=== PATIENT | male | born 1965 | race Caucasian/White ===

== ENCOUNTER 2017-10-28 15:55 | Emergency (ER) | payer OTHER, SELFPAY ==
[2017-10-28] MEDS ORDERED: KETOROLAC 30 MG/ML INJ ONE (16:26)
[2017-10-28] MEDS ORDERED: HYDROCODONE/APAP 7.5/325 MG TAB ONE (16:26)
[2017-10-28] MEDS ORDERED: CYCLOBENZAPRINE 10 MG TAB ONE (16:26)
--- NOTE | 2017-10-28 16:54 | RAD REPORT ---
EXAM DESCRIPTION: RAD - Shoulder Right 2 View - 10/28/2017 4:44 pm CLINICAL HISTORY: Right shoulder pain FINDINGS: No fracture or dislocation is seen. Mild osteoarthritis involves the glenohumeral and acro mioclavicular joints
--- NOTE | 2017-10-28 17:25 | EDPHYS ---
Physician Documentation [facility] Name: Jae Connolly Age: 52 yrs Sex: Male : 1965 Arrival Date: 10/28/2017 Time: 15:59 Bed 27 Private MD: German Ferrell T ED Physician Ck Falcon HPI: 10/28 16:21 This 52 yrs old Male presents to ER via Ambulatory with complaints of cp Shoulder Pain. 16:21 The patient or guardian complains of decreased range of motion, pain, that is acute, cp tenderness. right shoulder. 16:21 Context: The problem was sustained at home, resulted from pushing heavy plant, The cp patient reports no obvious deformity. felt "pop" in shoulder. Onset: The symptoms/episode began/occurred today. Associated signs and symptoms: Pertinent negatives: abdominal pain, chest pain, diaphoresis, neck pain, shortness of breath. Treatment prior to arrival includes: no previous treatment. Historical: - Allergies: 16:06 No Known Allergies; la1 - PMHx: 16:06 Asthma; la1 - Immunization history:: Adult Immunizations up to date. - Social history:: Smoking status: Patient uses tobacco products, smokes one-half pack cigarettes per day. ROS: 16:25 Constitutional: Negative for body aches, chills, fever, poor PO intake. cp 16:25 Eyes: Negative for injury, pain, redness, and discharge. cp 16:25 ENT: Negative for drainage from ear(s), ear pain, sore throat, difficulty swallowing, difficulty handling secretions. 16:25 Neck: Negative for pain with movement, pain at rest, stiffness, bony tenderness. 16:25 Cardiovascular: Negative for chest pain, edema, palpitations. 16:25 Respiratory: Negative for cough, shortness of breath, wheezing. 16:25 Abdomen/GI: Negative for abdominal pain, nausea, vomiting, and diarrhea, constipation, black/tarry stool, rectal bleeding. 16:25 Back: Negative for pain at rest, pain with movement, radiated pain. 16:25 : Negative for urinary symptoms. 16:25 MS/extremity: Positive for decreased range of motion, pain, tenderness, of the right shoulder, Negative for deformity, paresthesias. 16:25 Neuro: Negative for altered mental status, headache. 16:25 All other systems are negative. Exam: 16:35 Constitutional: The patient appears in no acute distress, alert, awake, cp non-diaphoretic, non-toxic, well developed, well nourished, uncomfortable. 16:35 Head/Face: Normocephalic, atraumatic. cp 16:35 Eyes: Periorbital structures: appear normal, Conjunctiva: normal, no exudate, no injection, Sclera: no appreciated abnormality, Lids and lashes: appear normal, bilaterally. 16:35 ENT: External ear(s): are unremarkable, Nose: is normal, Mouth: is normal, Posterior pharynx: is normal, airway is patent. 16:35 Neck: C-spine: appears grossly normal, no vertebral tenderness, no crepitus, ROM/movement: is normal, is supple, without pain, no range of motions limitations, no nuchal rigidity. 16:35 Chest/axilla: Inspection: normal, Palpation: is normal, no crepitus, no tenderness. 16:35 Cardiovascular: Rate: normal, Rhythm: regular, Pulses: Pulses are 2+ in right radial artery and left radial artery. Edema: is not appreciated, JVD: is not appreciated. 16:35 Respiratory: the patient does not display signs of respiratory distress, Respirations: normal, no use of accessory muscles, no retractions, no splinting, no tachypnea, labored breathing, is not present, Breath sounds: are clear throughout, no decreased breath sounds, no stridor, no wheezing. 16:35 Abdomen/GI: Exam negative for discomfort, distension, guarding, Inspection: abdomen appears normal. 16:35 Back: pain, is absent, ROM is normal. 16:35 Musculoskeletal/extremity: Extremities: grossly normal except: noted in the right shoulder: decreased ROM, pain, tenderness, There is no evidence of deformity, ROM: limited passive range of motion, in the right shoulder, limited passive range of motion due to pain, in the right shoulder, Perfusion: the extremity is normally perfused throughout, Sensation intact. 16:35 Skin: cellulitis, is not appreciated, no rash present. Vital Signs: 16:06 BP 148 / 90; Pulse 75; Resp 19; Temp 98.2(TE); Pulse Ox 100% on R/A; Weight 119.29 kg; la1 Height 5 ft. 11 in. (180.34 cm); 17:23 BP 139 / 84; Pulse 87; Resp 16; Pulse Ox 98% on R/A; Pain 6/10; ed1 16:06 Body Mass Index 36.68 (119.29 kg, 180.34 cm) la1 MDM: 16:20 Patient medically screened. cp 16:30 Differential diagnosis: tendonitis, strain, dislocation, frozen shoulder. cp 17:22 Data reviewed: vital signs, nurses notes, radiologic studies, plain films. cp 17:22 Test interpretation: by ED physician or midlevel provider: plain radiologic studies. cp 17:23 Counseling: I had a detailed discussion with the patient and/or guardian regarding: the cp historical points, exam findings, and any diagnostic results supporting the discharge/admit diagnosis, radiology results, the need for outpatient follow up, a orthopedic surgeon, to return to the emergency department if symptoms worsen or persist or if there are any questions or concerns that arise at home. 17:23 Response to treatment: the patient's symptoms have mildly improved after treatment, and cp as a result, I will discharge patient. 10/28 16:20 Order name: XRAY Shoulder RIGHT 2 view cp 10/28 17:07 Order name: Sling; Complete Time: 17:23 cp Administered Medications: 16:30 Drug: TORadol 60 mg Route: IM; Site: left gluteus; ed1 17:24 Follow up: Response: No adverse reaction; Pain is decreased ed1 16:30 Drug: Hydrocodone-Acetaminophen (7.5 mg-325 mg) 1 tabs Route: PO; ed1 17:24 Follow up: Response: Pain is decreased ed1 16:30 Drug: Flexeril 10 mg Route: PO; ed1 17:24 Follow up: Response: No adverse reaction; Pain is decreased ed1 Disposition: 10/29 09:21 Co-signature as Attending Physician, Ck Falcon MD I agree with the assessment and jacobo plan of care. Disposition: 10/28/17 17:24 Discharged to Home. Impression: Pain in right shoulder. - Condition is Stable. - Discharge Instructions: Shoulder Pain. - Prescriptions for Ultracet 37.5- 325 mg Oral Tablet - take 1 tablet by ORAL route every 6 hours - for up to 5 days; do not exceed 8 tablets per day. no driving while taking medication; 20 tablet. Cyclobenzaprine 10 mg Oral Tablet - take 1 tablet by ORAL route every 8 hours As needed no driving while taking medication; 20 tablet. Diclofenac Sodium 75 mg Oral Tablet, Delayed Release (E.C.) - take 1 tablet by ORAL route 2 times per day; 20 tablet. - Medication Reconciliation Form, Thank You Letter, Antibiotic Education, Prescription Opioid Use form. - Follow up: Willian Martínez MD; When: 2 - 3 days; Reason: right shoulder pain. - Problem is new. - Symptoms have improved. Signatures: Dispatcher [employer] EDAR Ck Falcon MD MD cha Riggs, Erika, RN PALLIATIVE RN PALLIATIVE ed1 Bright Soria RN RN la1 Ck Fox PA PA cp Corrections: (The following items were deleted from the chart) 10/28 17:38 17:24 10/28/2017 17:24 Discharged to Home. Impression: Pain in right shoulder. ed1 Condition is Stable. Forms are Medication Reconciliation Form, Thank You Letter, Antibiotic Education, Prescription Opioid Use. Follow up: Willian Martínez; When: 2 - 3 days; Reason: right shoulder pain. Problem is new. Symptoms have improved. cp
--- NOTE | 2017-10-28 17:25 | ER ---
Nurse's Notes [facility] Name: Jae Connolly Age: 52 yrs Sex: Male : 1965 Arrival Date: 10/28/2017 Time: 15:59 Bed 27 Private MD: German Ferrell T Diagnosis: Pain in right shoulder Presentation: 10/28 16:05 Presenting complaint: Patient states: I felt my right shoulder pop when I was trying to la1 push a heavy object. Transition of care: patient was not received from another setting of care. Onset of symptoms was October 28, 2017. Initial Sepsis Screen: Does the patient meet any 2 criteria? No. Patient's initial sepsis screen is negative. Does the patient have a suspected source of infection? No. Patient's initial sepsis screen is negative. Care prior to arrival: None. 16:05 Method Of Arrival: Ambulatory la1 16:05 Acuity: KIARA 3 la1 Historical: - Allergies: 16:06 No Known Allergies; la1 - PMHx: 16:06 Asthma; la1 - Immunization history:: Adult Immunizations up to date. - Social history:: Smoking status: Patient uses tobacco products, smokes one-half pack cigarettes per day. Screenin:08 Abuse screen: Denies threats or abuse. Denies injuries from another. Nutritional ed1 screening: No deficits noted. Tuberculosis screening: No symptoms or risk factors identified. Fall Risk None identified. Assessment: 16:08 General: Appears in no apparent distress. Behavior is calm, cooperative. Pain: ed1 Complains of pain in anterior aspect of right shoulder and posterior aspect of right shoulder Pain does not radiate. Pain currently is 6 out of 10 on a pain scale. Quality of pain is described as aching, throbbing, Pain began years ago. worsened today. Neuro: Level of Consciousness is awake, alert, obeys commands, Oriented to person, place, time, situation. Cardiovascular: Denies chest pain, Heart tones S1 S2 present. Respiratory: Airway is patent Respiratory effort is even, unlabored, Respiratory pattern is regular, symmetrical, Breath sounds are clear bilaterally. GI: No signs and/or symptoms were reported involving the gastrointestinal system. : No signs and/or symptoms were reported regarding the genitourinary system. EENT: No signs and/or symptoms were reported regarding the EENT system. Derm: Skin is pink, warm \T\ dry. Musculoskeletal: Circulation, motion, and sensation intact. Capillary refill < 3 seconds, in bilateral fingers. Range of motion: limited in right shoulder Swelling absent. 16:08 Reassessment: I agree with assessment completed by JUDI Rodrigues . aa5 17:23 Reassessment: Patient appears in no apparent distress at this time. Patient and/or ed1 family updated on plan of care and expected duration. Pain level reassessed. Patient is alert, oriented x 3, equal unlabored respirations, skin warm/dry/pink. Patient states feeling better. Vital Signs: 16:06 BP 148 / 90; Pulse 75; Resp 19; Temp 98.2(TE); Pulse Ox 100% on R/A; Weight 119.29 kg; la1 Height 5 ft. 11 in. (180.34 cm); 17:23 BP 139 / 84; Pulse 87; Resp 16; Pulse Ox 98% on R/A; Pain 6/10; ed1 16:06 Body Mass Index 36.68 (119.29 kg, 180.34 cm) la1 ED Course: 15:59 Patient arrived in ED. sb2 15:59 German Ferrell MD is Private Physician. sb2 16:06 Triage completed. la1 16:06 Arm band placed on right wrist. la1 16:08 Lilia Hatch LVN is Primary Nurse. ed1 16:08 Awaiting ED provider evaluation. ed1 16:08 Patient has correct armband on for positive identification. Bed in low position. Call ed1 light in reach. Adult w/ patient. 16:14 Ck Fox PA is PHCP. cp 16:14 Ck Falcon MD is Attending Physician. cp 16:42 X-ray completed. Portable x-ray completed in exam room. Patient tolerated procedure kp1 well. 16:43 XRAY Shoulder RIGHT 2 view In Process Unspecified. EDMS 17:23 Sling applied to right arm. ed1 17:24 Willian Martínez MD is Referral Physician. cp 17:38 No provider procedures requiring assistance completed. Patient did not have IV access ed1 during this emergency room visit. Administered Medications: 16:30 Drug: TORadol 60 mg Route: IM; Site: left gluteus; ed1 17:24 Follow up: Response: No adverse reaction; Pain is decreased ed1 16:30 Drug: Hydrocodone-Acetaminophen (7.5 mg-325 mg) 1 tabs Route: PO; ed1 17:24 Follow up: Response: Pain is decreased ed1 16:30 Drug: Flexeril 10 mg Route: PO; ed1 17:24 Follow up: Response: No adverse reaction; Pain is decreased ed1 Outcome: 17:24 Discharge ordered by . lisette 17:38 Discharged to home ambulatory, with family. ed1 17:38 Condition: good 17:38 Discharge instructions given to patient, Instructed on discharge instructions, follow up and referral plans. medication usage, Demonstrated understanding of instructions, follow-up care, medications, Prescriptions given X 3. 17:38 Patient left the ED. ed1 Signatures: Dispatcher [employer] EDMS Christina العراقي, RN RN aa5 Lilia Hatch LVN DESKTOP ANALYST ed1 Bright Soria RN RN la1 Ck Fox PA PA Courtney Estrada kp1 Olga Man sb2
== END 2017-10-28 17:38 | disposition home or self-care (01) ==
LOC: ER 15:55
DX: M25.511 Pain in right shoulder (principal); F17.210 Nicotine dependence, cigarettes, uncomplicated
CPT/HCPCS: 96372; 99284

== ENCOUNTER 2018-10-15 14:21 | Emergency (ER) | payer BC ==
--- OUTSIDE RECORDS SUMMARY | 2018-10-15 14:23 | XMS REPORT ---
:1965 Author Organization [facility] Address [address] [place] [address] Dr. Seymour [address] [place] [id number] Care Team Providers Name Role Phone Unavailable Unavailable Unavailable Problems This patient has no known problems. Allergies, Adverse Reactions, Alerts This patient has no known allergies or adverse reactions. Medications This patient has no known medications.
[2018-10-15 14:55] LABS: Absolute Lymphocytes (CBC) 0.3 K/uL (0.7-4.9); Absolute Monocytes 0.4 K/uL (0.1-1.3); Absolute Neutrophil 6.3 K/uL (1.8-8.0); Basophils % 0.3 % (0-1.3); Eosinophils % 0.5 % (0-4.4); Hematocrit 45.3 % (39.6-49.0); Lymphocytes % 4.9 % (15.3-44.8); MPV 8.1 fL (7.6-11.3); Monocytes % 5.5 % (3.3-12.3); RBC Red Blood Cell Count 5.12 M/uL (4.33-5.43)
[2018-10-15 14:56] LABS: Protime INR 1.01
[2018-10-15 15:14] LABS: ALT/SGPT 27 U/L (12-78); AST/SGOT 13 U/L (15-37); Albumin 3.7 g/dL (3.4-5.0); Alkaline Phosphatase 63 U/L (45-117); BUN Blood Urea Nitrogen 11 mg/dL (7-18); Bicarbonate 27 mmol/L (21-32); Bilirubin Direct 0.2 mg/dL (0-0.2); Bilirubin Total 0.7 mg/dL (0.2-1.0); Glucose Level 107 mg/dL (74-106); Magnesium 1.9 mg/dL (1.8-2.4); NT PRO-BNP 64 pg/mL (<125); Protein, Total 7.3 g/dL (6.4-8.2); Sodium Level 136 mmol/L (136-145); Troponin (Emerg Dept Use Only) < 0.02 ng/mL (0.0-0.045)
[2018-10-15] MEDS ORDERED: ACETAMINOPHEN 500 MG TAB ONE (15:14)
--- NOTE | 2018-10-15 15:16 | RAD REPORT ---
EXAM DESCRIPTION: Alex Single View10/15/2018 3:07 pm CLINICAL HISTORY: Chest pain COMPARISON: 2009 FINDINGS: Lungs are hyperaerated. The lungs appear clear of acute infiltrate. The heart is normal size IMPRESSION: No acute abnormalities displayed
[2018-10-15] MEDS ORDERED: METHYLPREDNISOLONE 125 MG INJ ONE (15:55)
[2018-10-15] MEDS ORDERED: LEVALBUTEROL 1.25 MG/3 ML NEB ONE (15:56)
[2018-10-15] MEDS ORDERED: MORPHINE 4 MG/ML SYR ONE (15:56)
[2018-10-15] MEDS ORDERED: IPRATROPIUM BROM 0.5MG/2.5ML ONE (15:56)
[2018-10-15] MEDS ORDERED: ASPIRIN 81 MG CHEWABLE TABLET ONE (15:56)
[2018-10-15] MEDS ORDERED: ONDANSETRON 4 MG/2 ML VIAL ONE (15:56)
[2018-10-15 16:01] LABS: Urine White Blood Cell Casts OK
[2018-10-15 16:02] LABS: Blood Morphology Comment NOT SEEN (NOT SEEN); Platelet Estimate ADEQ
[2018-10-15 16:02] LABS: Urine Blood NEGATIVE (NEG); Urine Glucose NEGATIVE (NEG); Urine Protein 2+ (NEG); Urine Specific Gravity 1.015 (1.005-1.030); Urine pH 8.5 (5.0-7.0)
--- NOTE | 2018-10-15 17:19 | RAD REPORT ---
EXAM DESCRIPTION: CT - Chest For Pe Angio - 10/15/2018 5:06 pm CLINICAL HISTORY: Chest pain COMPARISON: None. TECHNIQUE: Dynamically enhanced axial 3 mm thick images of the chest were obtained during administra tion of <100> mL Isovue 370 IV contrast. Coronal and oblique reconstruction images were generated and reviewed. Exam utilizes a protocol for optimal evaluation of pulmonary arterial tree. Maximum intensity projections 3D imaging was utilized All CT scans are performed using dose optimization technique as appropriate and may include automated exposure control or mA/KV adjustment according to patient size. FINDINGS: A pulmonary embolus is not seen. A thoracic aortic aneurysm is not noted. A pleural effusion is not seen. A pericardial effusion is not seen. A lung consolidation is not present. IMPRESSION: Negative for a pulmonary embolism.
--- NOTE | 2018-10-15 17:37 | ER ---
Nurse's Notes [facility] Name: Jae Connolly Age: 52 yrs Sex: Male : 1965 Arrival Date: 10/15/2018 Time: 14:21 Bed 27 Private MD: Diagnosis: Malaise and fatigue;Chronic obstructive pulmonary disease with (acute) exacerbation;Other chest pain-non cardiac;Unspecified adverse effect of drug or medicament-Zometa;Tobacco abuse counseling;Tobacco use Presentation: 10/15 14:26 Presenting complaint: Patient states: chest pain that began at 1230. Denies SOB, aa5 reports nausea, denies vomiting. Pt states "I was diagnosed with prostate cancer in June and yesterday they gave me an infusion called Zometa IV and on the side effects it said to come to the ER immediately for chest pain". 14:26 Transition of care: patient was not received from another setting of care. Onset of aa5 symptoms was October 15, 2018. Care prior to arrival: None. 14:26 Acuity: KIARA 3 aa5 14:26 Method Of Arrival: Ambulatory aa5 16:39 Risk Assessment: Do you want to hurt yourself or someone else? Patient reports no aj1 desire to harm self or others. Initial Sepsis Screen: Does the patient meet any 2 criteria? No. Patient's initial sepsis screen is negative. Does the patient have a suspected source of infection? No. Patient's initial sepsis screen is negative. Historical: - Allergies: 14:26 No Known Allergies; aa5 - Home Meds: 14:26 Prednisone Oral 2 times per day [Active]; Zytiga 250 mg oral tab 4 tabs once daily aa5 [Active]; Symbicort inhalation inhalation [Active]; Chantix oral oral [Active]; caltrate [Active]; - PMHx: 14:26 Asthma; Prostate Cancer; Osteoporosis; aa5 - PSHx: 14:26 R rotattor cuff; aa5 - Immunization history:: Adult Immunizations up to date. - Social history:: Smoking status: Patient uses tobacco products, smokes one pack cigarettes per day. - Ebola Screening: : No symptoms or risks identified at this time. - Family history:: not pertinent. Screenin:30 Abuse screen: Denies threats or abuse. Denies injuries from another. Nutritional aj1 screening: No deficits noted. Tuberculosis screening: No symptoms or risk factors identified. 18:35 Fall Risk None identified. rv Assessment: 14:30 General: Appears in no apparent distress. uncomfortable, Behavior is calm, cooperative, aj1 appropriate for age. Pain: Complains of pain in anterior aspect of right upper chest Pain does not radiate. Pain began 10 hours ago Alleviated by nothing. Aggravated by nothing. Neuro: Level of Consciousness is awake, alert, obeys commands, Oriented to person, place, time, situation, Speech is normal, Reports headache. Cardiovascular: Reports chest pain, lightheadedness, nausea, Denies shortness of breath, vomiting, Heart tones S1 S2 present Patient's skin is warm and dry. Rhythm is sinus rhythm. Respiratory: Airway is patent Respiratory effort is even, unlabored, Respiratory pattern is regular, symmetrical, Breath sounds are clear bilaterally. GI: No signs and/or symptoms were reported involving the gastrointestinal system. : No signs and/or symptoms were reported regarding the genitourinary system. EENT: No signs and/or symptoms were reported regarding the EENT system. Derm: No signs and/or symptoms reported regarding the dermatologic system. Skin is pale. 15:06 Reassessment: Patient states that he would like something for headache and he would aj1 like something to drink. Notified Dr. Falcon. Order received. 15:30 Reassessment: Patient appears in no apparent distress at this time. No changes from aj1 previously documented assessment. Patient and/or family updated on plan of care and expected duration. Pain level reassessed. Patient is alert, oriented x 3, equal unlabored respirations, skin warm/dry/pink. 16:38 Reassessment: Patient states that he is feeling 100% better from when he arrived, all aj1 of his symptoms are resolved. Vital Signs: 14:30 BP 126 / 90; Pulse 78; Resp 18; Temp 99.3(O); Pulse Ox 97% on R/A; aj1 15:30 BP 131 / 75; Pulse 80; Resp 18; Pulse Ox 100% on R/A; aj1 16:30 BP 121 / 70; Pulse 74; Resp 18; Pulse Ox 99% on R/A; aj1 18:15 BP 124 / 73; Pulse 71; Resp 18; Pulse Ox 99% ; rv ED Course: 14:21 Patient arrived in ED. as 14:26 Arm band placed on Patient placed in an exam room, on a stretcher. aa5 14:30 EKG done, by technical assoc. reviewed by Ck Falcon MD. sm3 14:30 No provider procedures requiring assistance completed. aj1 14:30 Patient has correct armband on for positive identification. Bed in low position. Call aj1 light in reach. Side rails up X 1. electronic device monitor on. Pulse ox on. NIBP on. 14:35 Triage completed. aa5 14:36 Jael Hui, RN is Primary Nurse. aj1 14:41 Inserted saline lock: 22 gauge in left antecubital area, using aseptic technique. ca1 ,using aseptic technique. by Kelly Verdugo customer success specialist Blood collected. Patient maintains SpO2 saturation greater than 95% on room air. 14:45 Ck Falcon MD is Attending Physician. jacobo 15:08 XRAY Chest (1 view) In Process Unspecified. EDMS 16:55 Troponin (emerg Dept Use Only): 5 pm Sent. kj1 17:06 CT Chest For PE Angio In Process Unspecified. EDMS 17:34 EKG done, by technical assoc. reviewed by Ck Falcon MD. sm3 18:25 US Extremity Venous W Compression Leon In Process Unspecified. EDMS 18:35 IV discontinued, intact, bleeding controlled, No redness/swelling at site. Pressure rv dressing applied. Administered Medications: 15:07 Drug: Tylenol 1000 mg Route: PO; aj1 15:57 Follow up: Response: No adverse reaction aj1 15:57 Drug: SOLU-Medrol 125 mg Route: IVP; Site: left antecubital; aj1 15:57 Drug: Xopenex 3.75 mg Route: Inhalation; aj1 15:58 Drug: AtroVENT Aerosol 0.5 mg Route: Inhalation; aj1 15:58 Drug: morphine 4 mg Route: IVP; Site: left antecubital; aj1 17:37 Follow up: Response: Pain is decreased rv 15:58 Drug: Zofran 4 mg Route: IVP; Site: left antecubital; aj1 17:37 Follow up: Response: No adverse reaction rv 15:59 Drug: Aspirin 162 mg Route: PO; aj1 17:36 Follow up: Response: No adverse reaction rv Outcome: 17:36 Discharge ordered by . jacobo 18:34 Discharged to home ambulatory. rv 18:34 Condition: good 18:34 Discharge instructions given to patient, family, Instructed on discharge instructions, follow up and referral plans. medication usage, Demonstrated understanding of instructions, follow-up care, medications, Prescriptions given X 2. 18:35 Patient left the ED. rv Signatures: Dispatcher [employer] EDMS Jael Hui RN RN aj1 Ck Falcon MD MD cha Martinez, Amelia as Calderon, Audri, RN RN aa5 Evelyn Jurado 3 Tacos Bermudez RN RN rv Acob, Kay RN RN ca1 Kartik, Yuly kj1 Corrections: (The following items were deleted from the chart) 14:40 14:26 Presenting complaint: Patient states: chest pain that began at 1230. Denies SOB, aa5 reports nausea, denies vomiting. Pt states "I was diagnosed with prostate cancer in June and yesterday they gave me an infusion called Zometa and on the side effects it said to come to the ER immediately for chest pain". aa5 14:42 14:41 Inserted saline lock: 22 gauge in left antecubital area, using aseptic technique. ca1 ,using aseptic technique. by Kelly, [facility] Blood collected. ca1
--- NOTE | 2018-10-15 17:37 | EDPHYS ---
Physician Documentation [facility] Name: Jae Connolly Age: 52 yrs Sex: Male : 1965 Arrival Date: 10/15/2018 Time: 14:21 Bed 27 Private MD: ED Physician Ck Falcon HPI: 10/15 15:33 This 52 yrs old Male presents to ER via Ambulatory with complaints of Chest jacobo Pain. 15:33 The patient or guardian reports chest pain that is located primarily in the anterior jacobo chest wall. Onset: 1 day(s) ago. The pain does not radiate. Associated signs and symptoms: The patient has no apparent associated signs or symptoms. The chest pain is described as aching. Modifying factors: The symptoms are alleviated by nothing. the symptoms are aggravated by nothing. Severity of pain: At its worst the pain was mild in the emergency department the pain is unchanged. The patient has not experienced similar symptoms in the past. Historical: - Allergies: 14:26 No Known Allergies; aa5 - Home Meds: 14:26 Prednisone Oral 2 times per day [Active]; Zytiga 250 mg oral tab 4 tabs once daily aa5 [Active]; Symbicort inhalation inhalation [Active]; Chantix oral oral [Active]; caltrate [Active]; - PMHx: 14:26 Asthma; Prostate Cancer; Osteoporosis; aa5 - PSHx: 14:26 R rotattor cuff; aa5 - Immunization history:: Adult Immunizations up to date. - Social history:: Smoking status: Patient uses tobacco products, smokes one pack cigarettes per day. - Ebola Screening: : No symptoms or risks identified at this time. - Family history:: not pertinent. ROS: 15:33 Constitutional: Negative for fever, chills, and weight loss, Eyes: Negative for injury, jacobo pain, redness, and discharge, ENT: Negative for injury, pain, and discharge, Neck: Negative for injury, pain, and swelling, Cardiovascular: Negative for chest pain, palpitations, and edema, Respiratory: Negative for shortness of breath, cough, wheezing, and pleuritic chest pain, Abdomen/GI: Negative for abdominal pain, nausea, vomiting, diarrhea, and constipation, Back: Negative for injury and pain, : Negative for injury, bleeding, discharge, and swelling, MS/Extremity: Negative for injury and deformity, Skin: Negative for injury, rash, and discoloration, Neuro: Negative for headache, weakness, numbness, tingling, and seizure, Psych: Negative for depression, anxiety, suicide ideation, homicidal ideation, and hallucinations, Allergy/Immunology: Negative for hives, rash, and allergies, Endocrine: Negative for neck swelling, polydipsia, polyuria, polyphagia, and marked weight changes, Hematologic/Lymphatic: Negative for swollen nodes, abnormal bleeding, and unusual bruising. Exam: 15:33 Constitutional: This is a well developed, well nourished patient who is awake, alert, jacobo and in no acute distress. Head/Face: Normocephalic, atraumatic. Eyes: Pupils equal round and reactive to light, extra-ocular motions intact. Lids and lashes normal. Conjunctiva and sclera are non-icteric and not injected. Cornea within normal limits. Periorbital areas with no swelling, redness, or edema. ENT: Nares patent. No nasal discharge, no septal abnormalities noted. Tympanic membranes are normal and external auditory canals are clear. Oropharynx with no redness, swelling, or masses, exudates, or evidence of obstruction, uvula midline. Mucous membranes moist. Neck: Trachea midline, no thyromegaly or masses palpated, and no cervical lymphadenopathy. Supple, full range of motion without nuchal rigidity, or vertebral point tenderness. No Meningismus. Chest/axilla: Normal chest wall appearance and motion. Nontender with no deformity. No lesions are appreciated. Cardiovascular: Regular rate and rhythm with a normal S1 and S2. No gallops, murmurs, or rubs. Normal PMI, no JVD. No pulse deficits. Abdomen/GI: Soft, non-tender, with normal bowel sounds. No distension or tympany. No guarding or rebound. No evidence of tenderness throughout. Back: No spinal tenderness. No costovertebral tenderness. Full range of motion. Male : Normal genitalia with no discharge or lesions. Skin: Warm, dry with normal turgor. Normal color with no rashes, no lesions, and no evidence of cellulitis. MS/ Extremity: Pulses equal, no cyanosis. Neurovascular intact. Full, normal range of motion. Neuro: Awake and alert, GCS 15, oriented to person, place, time, and situation. Cranial nerves II-XII grossly intact. Motor strength 5/5 in all extremities. Sensory grossly intact. Cerebellar exam normal. Normal gait. Psych: Awake, alert, with orientation to person, place and time. Behavior, mood, and affect are within normal limits. 15:33 Respiratory: the patient does not display signs of respiratory distress, Respirations: labored breathing, that is mild, Breath sounds: decreased breath sounds, rhonchi, wheezing: inspiratory expiratory Respiratory rate: 18 16:28 Musculoskeletal/extremity: DVT Exam: No signs of deep vein thrombosis. no pain, no jacobo swelling, no tenderness, negative Homans' sign noted on exam, no appreciated bluish discoloration, no erythema, no increased warmth. Vital Signs: 14:30 BP 126 / 90; Pulse 78; Resp 18; Temp 99.3(O); Pulse Ox 97% on R/A; aj1 15:30 BP 131 / 75; Pulse 80; Resp 18; Pulse Ox 100% on R/A; aj1 16:30 BP 121 / 70; Pulse 74; Resp 18; Pulse Ox 99% on R/A; aj1 18:15 BP 124 / 73; Pulse 71; Resp 18; Pulse Ox 99% ; rv MDM: 14:45 Patient medically screened. [facility] 15:36 Data reviewed: vital signs, nurses notes, lab test result(s), EKG, radiologic studies, [facility] plain films. 10/15 14:37 Order name: Basic Metabolic Panel [facility] 10/15 14:37 Order name: CBC with Diff; Complete Time: 16:20 [facility] 10/15 14:37 Order name: LFT's; Complete Time: 15:31 [facility] 10/15 14:37 Order name: Magnesium; Complete Time: 15:31 [facility] 10/15 14:37 Order name: NT PRO-BNP; Complete Time: 15:31 [facility] 10/15 14:37 Order name: PT-INR; Complete Time: 15:31 [facility] 10/15 14:37 Order name: Troponin (emerg Dept Use Only); Complete Time: 15:31 [facility] 10/15 14:37 Order name: Basic Metabolic Panel; Complete Time: 15:31 EDMS 10/15 15:27 Order name: Urine Dipstick--Ancillary (enter results); Complete Time: 16:20 bd 10/15 15:33 Order name: Blood Culture Adult (2) [facility] 10/15 15:33 Order name: Flu; Complete Time: 16:20 [facility] 10/15 15:33 Order name: Procalcitonin; Complete Time: 16:20 [facility] 10/15 16:02 Order name: CBC Smear Scan; Complete Time: 16:20 EDPR 10/15 16:21 Order name: Troponin (emerg Dept Use Only): 5 pm; Complete Time: 17:35 [facility] 10/15 14:37 Order name: XRAY Chest (1 view); Complete Time: 15:31 [facility] 10/15 14:37 Order name: EKG; Complete Time: 14:38 [facility] 10/15 14:37 Order name: Cardiac monitoring; Complete Time: 14:37 [facility] 10/15 14:37 Order name: EKG - Nurse/Tech; Complete Time: 14:37 [facility] 10/15 14:37 Order name: IV Saline Lock; Complete Time: 14:41 [facility] 10/15 16:28 Order name: D-Dimer; Complete Time: 16:58 [facility] 10/15 16:49 Order name: US Extremity Venous W Compression Leon [facility] 10/15 16:49 Order name: CT Chest For PE Angio; Complete Time: 17:26 [facility] 10/15 17:26 Order name: EKG; Complete Time: 17:27 [facility] 10/15 14:37 Order name: Labs collected and sent; Complete Time: 14:41 [facility] 10/15 14:37 Order name: O2 Per Protocol; Complete Time: 14:37 [facility] 10/15 14:37 Order name: O2 Sat Monitoring; Complete Time: 14:37 [facility] 10/15 17:26 Order name: EKG - Nurse/Tech; Complete Time: 17:38 [facility] Administered Medications: 15:07 Drug: Tylenol 1000 mg Route: PO; aj1 15:57 Follow up: Response: No adverse reaction aj1 15:57 Drug: SOLU-Medrol 125 mg Route: IVP; Site: left antecubital; aj1 15:57 Drug: Xopenex 3.75 mg Route: Inhalation; aj1 15:58 Drug: AtroVENT Aerosol 0.5 mg Route: Inhalation; aj1 15:58 Drug: morphine 4 mg Route: IVP; Site: left antecubital; aj1 17:37 Follow up: Response: Pain is decreased rv 15:58 Drug: Zofran 4 mg Route: IVP; Site: left antecubital; aj1 17:37 Follow up: Response: No adverse reaction rv 15:59 Drug: Aspirin 162 mg Route: PO; aj1 17:36 Follow up: Response: No adverse reaction rv Disposition: 10/15/18 17:36 Discharged to Home. Impression: Malaise and fatigue, Chronic obstructive pulmonary disease with (acute) exacerbation, Other chest pain - non cardiac, Unspecified adverse effect of drug or medicament - Zometa, Tobacco abuse counseling, Tobacco use. - Condition is Stable. - Discharge Instructions: Nonspecific Chest Pain, How to Use an Inhaler, Weakness, Chronic Obstructive Pulmonary Disease Exacerbation, Nonspecific Chest Pain, Nnta-hd-Lpme, Tobacco Use Disorder, Weakness, Aekk-uo-Fwgs, Aspirin and Your Heart. - Prescriptions for Medrol (Ootniel) 4 mg Oral Tablets, Dose Pack - take 1 tablet by ORAL route as directed - follow package instructions; 1 packet. Albuterol Sulfate 90 mcg/actuation - inhale 1-2 puff by INHALATION route every 4-6 hours; 1 Inhaler. - Medication Reconciliation Form, Thank You Letter, Antibiotic Education, Prescription Opioid Use form. - Follow up: Private Physician; When: 1 - 2 days; Reason: Recheck today's complaints, Continuance of care, Re-evaluation by your physician. - Problem is new. - Symptoms have improved. Signatures: Dispatcher [employer] EDJael Staton RN RN aj1 Ck Falcon MD MD cha Calderon, Audri RN RN aa5 Tacos Bermudez RN RN rv Corrections: (The following items were deleted from the chart) 17:38 17:36 10/15/2018 17:36 Discharged to Home. Impression: Malaise and fatigue; Chronic jacobo obstructive pulmonary disease with (acute) exacerbation; Other chest pain - non cardiac; Unspecified adverse effect of drug or medicament - Zometa. Condition is Stable. Forms are Medication Reconciliation Form, Thank You Letter, Antibiotic Education, Prescription Opioid Use. Follow up: Private Physician; When: 1 - 2 days; Reason: Recheck today's complaints, Continuance of care, Re-evaluation by your physician. Problem is new. Symptoms have improved. [facility] 18:35 17:38 10/15/2018 17:36 Discharged to Home. Impression: Malaise and fatigue; Chronic rv obstructive pulmonary disease with (acute) exacerbation; Other chest pain - non cardiac; Unspecified adverse effect of drug or medicament - Zometa; Tobacco abuse counseling; Tobacco use. Condition is Stable. Discharge Instructions: Nonspecific Chest Pain, How to Use an Inhaler, Weakness, Chronic Obstructive Pulmonary Disease Exacerbation, Nonspecific Chest Pain, Epiv-ti-Faom, Tobacco Use Disorder, Weakness, Lftl-mx-Xori. Prescriptions for Medrol (Otoniel) 4 mg Oral Tablets, Dose Pack - take 1 tablet by ORAL route as directed - follow package instructions; 1 packet, Albuterol Sulfate 90 mcg/actuation - inhale 1-2 puff by INHALATION route every 4-6 hours; 1 Inhaler. and Forms are Medication Reconciliation Form, Thank You Letter, Antibiotic Education, Prescription Opioid Use. Follow up: Private Physician; When: 1 - 2 days; Reason: Recheck today's complaints, Continuance of care, Re-evaluation by your physician. Problem is new. Symptoms have improved. jacobo
--- NOTE | 2018-10-15 18:23 | EKG ---
Test Date: 2018-10-15 Test Time: 17:34:[address] Forms: MELISSA MEASUREMENT RESULTS: Intervals: Rate: 73 VA: 142 QRSD: 90 QT: 400 QTc: 440 [place]: P: 40 VA: 142 QRS: 69 T: 53 INTERPRETIVE STATEMENTS: Normal sinus rhythm Normal ECG Compared to ECG 10/15/2018 14:30:07 No significant changes Electronically Signed On 10-15-18 18:23:13 CDT by Ilan Jay
--- NOTE | 2018-10-15 18:24 | EKG ---
Test Date: 2018-10-15 Test Time: 14:30:07 [employer] Assurance Group Leader: MELISSA MEASUREMENT RESULTS: Intervals: Rate: 84 TX: 138 QRSD: 84 QT: 352 QTc: 415 [place]: P: 36 TX: 138 QRS: 75 T: 50 INTERPRETIVE STATEMENTS: Normal sinus rhythm Normal ECG Compared to ECG 12/06/2010 07:31:06 Sinus bradycardia no longer present Electronically Signed On 10-15-18 18:23:20 CDT by Ilan Jay
--- NOTE | 2018-10-15 18:41 | RAD REPORT ---
EXAM DESCRIPTION: USExtrem Venous W Compress Bil10/15/2018 6:25 pm CLINICAL HISTORY: Leg pain COMPARISON: none FINDINGS: The common femoral, superficial femoral, popliteal and posterior tibial veins bilaterally are compressible and demonstrate augmentation. Doppler demonstrates good flow. IMPRESSION: No evidence of deep venous thrombosis involving either lower extremity.
== END 2018-10-15 18:35 | disposition home or self-care (01) ==
LOC: ER 14:21
DX: J44.1 Chronic obstructive pulmonary disease with (acute) exacerbation (principal); R53.81 Other malaise; R53.83 Other fatigue; T50.995A Adverse effect of other drugs, medicaments and biological substances, initial encounter; Z71.6 Tobacco abuse counseling; Z72.0 Tobacco use; J45.909 Unspecified asthma, uncomplicated; Z85.46 Personal history of malignant neoplasm of prostate
CPT/HCPCS: 36415; 71045; 71275; 80048; 80076; 81003; 83735; 83880; 84145; 84484; 85025; 85379; 85610; 87040; 87804; 93005; 93970; 96374; 96375; 99285; J2405; J2930; Q9967

== ENCOUNTER 2019-08-17 09:09 | Emergency (ER) | payer BC ==
--- OUTSIDE RECORDS SUMMARY | 2019-08-17 09:11 | XMS REPORT ---
:1965 [facility] Address [address] [place] [address] Dr. Seymour [address] [place] [id number] Care Team Providers Name Role Phone Unavailable Unavailable Unavailable Problems This patient has no known problems. Allergies, Adverse Reactions, Alerts This patient has no known allergies or adverse reactions. Medications This patient has no known medications. Encounters Start End Encounter Admission Attending Care Care Encounter Date/Time Date/Time Type Type Clinicians Facility Department ID 2019-05-28 2019-05-28 Outpatient [id number] 07:16:00 07:16:00
[2019-08-17] MEDS ORDERED: METHYLPREDNISOLONE 125 MG INJ ONE (09:54)
[2019-08-17] MEDS ORDERED: MORPHINE 4 MG/ML SYR ONE (09:55)
[2019-08-17] MEDS ORDERED: NA CHLORIDE 0.9% 1,000 ML ONE (09:55)
[2019-08-17 10:13] LABS: Absolute Lymphocytes (CBC) 0.7 K/uL (0.7-4.9); Basophils % 0.6 % (0-1.3); Hematocrit 40.3 % (39.6-49.0); Lymphocytes % 4.3 % (15.3-44.8); MPV 8.1 fL (7.6-11.3); RBC Red Blood Cell Count 4.52 M/uL (4.33-5.43)
[2019-08-17 10:14] LABS: Protime INR 0.98
[2019-08-17 10:28] LABS: BUN Blood Urea Nitrogen 19 mg/dL (7-18); Bicarbonate 29 mmol/L (21-32); Creatine Phosphokinase 47 U/L (39-308); Glucose Level 123 mg/dL (74-106); Potassium 4.3 mmol/L (3.5-5.1); Sodium Level 135 mmol/L (136-145)
--- NOTE | 2019-08-17 10:54 | EDPHYS ---
Physician Documentation [facility] Name: Jae Connolly Age: 53 yrs Sex: Male : 1965 Arrival Date: 08/17/2019 Time: 09:12 Bed 8 Private MD: German Ferrell T ED Physician Shay Ramirez HPI: 08/16 09:38 This 53 yrs old Male presents to ER via Wheelchair with complaints of Pain rn All Over. 09:38 Reports had first dose of chemo 3 days ago, for lung cancer, felt ok, but now hurting rn all over, reports deep pain in joints and bones, no muscular pain. No trauma. no fever. No chest/abd pain. Reports similar symptoms when got chemo for prostate cancer in past.. Onset: The symptoms/episode began/occurred yesterday. Severity of symptoms: At their worst the symptoms were moderate in the emergency department the symptoms are unchanged. The patient has experienced a previous episode. The patient has been recently seen by a physician:. Historical: - Allergies: 09:20 No Known Allergies; aa5 - PMHx: 09:20 Asthma; Osteoporosis; Prostate Cancer; Lung cancer; Hyperlipidemia; aa5 - PSHx: 09:20 R rotattor cuff; L Lung partial lobectomy; aa5 - Immunization history:: Adult Immunizations unknown. - Family history:: not pertinent. - Social history:: Smoking status: Patient denies any tobacco usage or history of. - Hospitalizations: : No recent hospitalization is reported. ROS: 09:38 Constitutional: Negative for fever, chills, and weight loss, Eyes: Negative for injury, rn pain, redness, and discharge, Neck: Negative for injury, pain, and swelling, Cardiovascular: Negative for chest pain, palpitations, and edema, Respiratory: Negative for shortness of breath, cough, wheezing, and pleuritic chest pain, Abdomen/GI: Negative for abdominal pain, nausea, vomiting, diarrhea, and constipation, MS/Extremity: Negative for injury and deformity, Skin: Negative for injury, rash, and discoloration, Neuro: Negative for headache, weakness, numbness, tingling, and seizure. 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 Eyes: Pupils equal round and reactive to light ENT: MMM Cardiovascular: Regular rate and rhythm. No pulse deficits. Respiratory: Speaking full sentences without retractions. Abdomen/GI: soft, non-tender, + periumbilical hernia that is easily reducible and non-tender Skin: Warm, dry, Normal color with no rashes, no lesions, and no evidence of cellulitis. MS/ Extremity: Pulses equal, no cyanosis. Neurovascular intact. No calf tenderness or muscular tenderness Neuro: Awake and alert, GCS 15, oriented to person, place, time, and situation. Cranial nerves II-XII grossly intact. Motor strength 5/5 in all extremities. Sensory grossly intact. Cerebellar exam normal. Antalgic gait. Vital Signs: 09:16 BP 120 / 86; Pulse 82; Resp 22 S; Temp 98.4(O); Pulse Ox 94% on R/A; aa5 10:44 BP 108 / 70; vg1 10:44 Pulse 71; Resp 20; Temp 98.1(O); Pulse Ox 95% on R/A; vg1 MDM: 09:17 Patient medically screened. rn 10:50 Differential Diagnosis chemotherapy side effect. Data reviewed: vital signs, nurses rn notes, lab test result(s), and as a result, I will discharge patient. Counseling: I had a detailed discussion with the patient and/or guardian regarding: the historical points, exam findings, and any diagnostic results supporting the discharge/admit diagnosis, lab results, the need for outpatient follow up, to return to the emergency department if symptoms worsen or persist or if there are any questions or concerns that arise at home. Response to treatment: the patient's symptoms have markedly improved after treatment, and as a result, I will discharge patient. Special discussion: I discussed with the patient/guardian in detail that at this point there is no indication for admission to the hospital. It is understood, however, that if the symptoms persist or worsen the patient needs to return immediately for re-evaluation. ED course: Consulted with Dr. Carbajal, states nothing else to do other than add tramadol and f/u. . 10:54 ED course: [place] checked, patient scores 300/150/510, no active narcotic rn prescriptions, and Martín Carbajal requests tramadol, will given tramadol for prn pain.. 08/16 09:29 Order name: CBC with Diff rn 08/16 09:29 Order name: Basic Metabolic Panel; Complete Time: 10:33 rn 08/16 09:29 Order name: Protime (+inr); Complete Time: 10:33 rn 08/16 09:29 Order name: Ptt, Activated; Complete Time: 10:33 rn 08/16 09:29 Order name: CK; Complete Time: 10:33 rn 08/16 11:15 Order name: Manual Differential EDMS 08/16 09:29 Order name: IV Start; Complete Time: 10:03 rn Administered Medications: 10:03 Drug: NS 0.9% 1000 ml Route: IV; Rate: 1000 ml; Site: left antecubital; ph 11:28 Follow up: IV Status: Completed infusion; IV Intake: 1000ml aj1 10:03 Drug: SOLU-Medrol 125 mg Route: IVP; Site: left antecubital; ph 10:40 Follow up: Response: No adverse reaction ph 10:03 Drug: morphine 4 mg Route: IVP; Site: left antecubital; ph 10:40 Follow up: Response: No adverse reaction; Pain is decreased; RASS: Alert and Calm (0) ph 11:17 Drug: TORadol - Ketorolac 15 mg Route: IVP; Site: left antecubital; aj1 11:28 Follow up: Response: No adverse reaction aj1 Disposition: 08/17/19 10:53 Discharged to Home. Impression: Pain, unspecified. - Condition is Stable. - Discharge Instructions: Chemotherapy. - Prescriptions for Tramadol 50 mg Oral Tablet - take 1 tablet by ORAL route every 8 hours as needed; 20 tablet. - Medication Reconciliation Form, Thank You Letter, Antibiotic Education, Prescription Opioid Use form. - Follow up: Janis Garcia MD; When: As needed; Reason: Recheck today's complaints, Re-evaluation by your physician. - Problem is new. - Symptoms have improved. Signatures: Dispatcher [employer] Jael Wadsworth, RN RN aj1 Shay Ramirez MD MD rn Calderon, Audri, RN RN aa5 Chelsea De Oliveira RN RN ph Corrections: (The following items were deleted from the chart) 11:30 10:53 08/17/2019 10:53 Discharged to Home. Impression: Pain, unspecified. Condition is aj1 Stable. Forms are Medication Reconciliation Form, Thank You Letter, Antibiotic Education, Prescription Opioid Use. Follow up: Janis Solano; When: As needed; Reason: Recheck today's complaints, Re-evaluation by your physician. Problem is new. Symptoms have improved. rn
--- NOTE | 2019-08-17 10:54 | ER ---
Nurse's Notes [facility] Name: Jae Connolly Age: 53 yrs Sex: Male : 1965 Arrival Date: 08/17/2019 Time: 09:12 Bed 8 Private MD: German Ferrell T Diagnosis: Pain, unspecified Presentation: 08/16 09:16 Chief complaint: Patient states: "I started chemo on for lung cancer and they aa5 also gave me shot on Sunday to boost my white blood cells and they said I was going to be achy but I am just hurting so bad". pt c/o body aching all over. Reports nausea this morning that has resolved with home Zofran. 09:16 Coronavirus screen: The patient has NOT traveled to a country currently being monitored aa5 by the [facility] within the last 14 days. Ebola Screen: Patient negative for fever greater than or equal to 101.5 degrees Fahrenheit, and additional compatible Ebola Virus Disease symptoms. Initial Sepsis Screen: Does the patient meet any 2 criteria? No. Patient's initial sepsis screen is negative. Does the patient have a suspected source of infection? No. Patient's initial sepsis screen is negative. Risk Assessment: Do you want to hurt yourself or someone else? Patient reports no desire to harm self or others. 09:16 Acuity: KIARA 3 aa5 09:16 Method Of Arrival: Wheelchair aa5 Historical: - Allergies: 09:20 No Known Allergies; aa5 - PMHx: 09:20 Asthma; Osteoporosis; Prostate Cancer; Lung cancer; Hyperlipidemia; aa5 - PSHx: 09:20 R rotattor cuff; L Lung partial lobectomy; aa5 - Immunization history:: Adult Immunizations unknown. - Family history:: not pertinent. - Social history:: Smoking status: Patient denies any tobacco usage or history of. - Hospitalizations: : No recent hospitalization is reported. Screenin:35 Abuse screen: Denies threats or abuse. Denies injuries from another. Nutritional ph screening: No deficits noted. Tuberculosis screening: No symptoms or risk factors identified. Fall Risk None identified. Assessment: 10:04 General: Appears in no apparent distress. uncomfortable, well groomed, Behavior is ph calm, cooperative, appropriate for age. Pain: Complains of pain in " all over" Quality of pain is described as aching. Neuro: Level of Consciousness is awake, alert, obeys commands, Oriented to person, place, time, situation. Cardiovascular: Capillary refill < 3 seconds in bilateral fingers Patient's skin is warm and dry. Respiratory: Airway is patent Respiratory effort is even, unlabored, Respiratory pattern is regular, symmetrical. 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 Derm: Skin is intact, is healthy with good turgor, Skin is pink, warm \\T\\ dry. Musculoskeletal: Circulation, motion, and sensation intact. Range of motion: intact in all extremities, Reports pain in right leg and left leg. 10:40 Reassessment: Patient appears in no apparent distress at this time. Patient and/or ph family updated on plan of care and expected duration. Pain level reassessed. Patient is alert, oriented x 3, equal unlabored respirations, skin warm/dry/pink. Pt ambulated to restroom w/ steady gait noted. 10:47 Reassessment: Pt states pain is coming back, pain is 5/10. vg1 11:28 Reassessment: Patient appears in no apparent distress at this time. No changes from aj1 previously documented assessment. Patient and/or family updated on plan of care and expected duration. Pain level reassessed. Patient is alert, oriented x 3, equal unlabored respirations, skin warm/dry/pink. Patient states that his pain is better and he is ready to go home. Vital Signs: 09:16 BP 120 / 86; Pulse 82; Resp 22 S; Temp 98.4(O); Pulse Ox 94% on R/A; aa5 10:44 BP 108 / 70; vg1 10:44 Pulse 71; Resp 20; Temp 98.1(O); Pulse Ox 95% on R/A; vg1 ED Course: 09:12 Patient arrived in ED. ag5 09:12 German Ferrell MD is Private Physician. ag5 09:16 Arm band placed on Patient placed in an exam room, on a stretcher. aa5 09:17 Shay Ramirez MD is Attending Physician. rn 09:22 Chelsea De Oliveira RN is Primary Nurse. ph 09:31 Triage completed. aa5 09:35 Patient has correct armband on for positive identification. Bed in low position. Call ph light in reach. Side rails up X 1. Pulse ox on. NIBP on. Door closed. Noise minimized. Warm blanket given. 09:50 Inserted saline lock: 22 gauge in left antecubital area, using aseptic technique. Blood ph collected. 10:06 No provider procedures requiring assistance completed. ph 10:51 Janis Garcia MD is Referral Physician. rn 11:29 IV discontinued, intact, bleeding controlled, No redness/swelling at site. Pressure aj1 dressing applied. Administered Medications: 10:03 Drug: NS 0.9% 1000 ml Route: IV; Rate: 1000 ml; Site: left antecubital; ph 11:28 Follow up: IV Status: Completed infusion; IV Intake: 1000ml aj1 10:03 Drug: SOLU-Medrol 125 mg Route: IVP; Site: left antecubital; ph 10:40 Follow up: Response: No adverse reaction ph 10:03 Drug: morphine 4 mg Route: IVP; Site: left antecubital; ph 10:40 Follow up: Response: No adverse reaction; Pain is decreased; RASS: Alert and Calm (0) ph 11:17 Drug: TORadol - Ketorolac 15 mg Route: IVP; Site: left antecubital; aj1 11:28 Follow up: Response: No adverse reaction aj1 Intake: 11:28 IV: 1000ml; Total: 1000ml. aj1 Outcome: 10:53 Discharge ordered by MD. rn 11:29 Discharged to home via wheelchair, with family. aj1 11:29 Condition: good 11:29 Discharge instructions given to patient, family, Instructed on discharge instructions, follow up and referral plans. medication usage, Demonstrated understanding of instructions, follow-up care, medications, Prescriptions given X 1. 11:30 Patient left the ED. aj1 Signatures: Jael Hui RN RN aj1 Shay Ramirez MD MD rn Calderon, Audri, RN RN aa5 Chelsea De Oliveira RN RN ph Gaskin, Ajare ag5 Garcia, Victoria vg1
[2019-08-17 11:15] LABS: Blood Morphology Comment NOT SEEN (NOT SEEN); Platelet Estimate ADEQ
[2019-08-17] MEDS ORDERED: KETOROLAC 30 MG/ML INJ ONE (11:18)
[2019-08-17 11:38] VITALS: BP 108/70; TEMP 98.1; O2SAT 95
== END 2019-08-17 11:30 | disposition home or self-care (01) ==
LOC: ER 09:09
DX: C34.90 Malignant neoplasm of unspecified part of unspecified bronchus or lung (principal); Z85.46 Personal history of malignant neoplasm of prostate
CPT/HCPCS: 96361; 85025; 80048; 36415; 82550; 85610; 85730; 96375; 96374; 99284; J7030; J2930

== ENCOUNTER 2019-08-19 09:12 | Emergency (ER) | payer BC ==
--- OUTSIDE RECORDS SUMMARY | 2019-08-19 09:26 | XMS REPORT ---
:1965 Author Organization [facility] Address [address] [place] [address] Dr. Seymour [address] [place] [id number] Care Team Providers Name Role Phone Unavailable Unavailable Unavailable Problems This patient has no known problems. Allergies, Adverse Reactions, Alerts This patient has no known allergies or adverse reactions. Medications This patient has no known medications. Encounters Start End Encounter Admission Attending Care Care Encounter Date/Time Date/Time Type Type Clinicians Facility Department ID 2019-05-28 2019-05-28 [id number] 07:16:00
[2019-08-19] MEDS ORDERED: PROMETHAZINE INJ 25 MG/ML AMP ONE (09:48)
[2019-08-19] MEDS ORDERED: MORPHINE 4 MG/ML SYR ONE (09:48)
[2019-08-19] MEDS ORDERED: NA CHLORIDE 0.9% 1,000 ML ONE (09:48)
[2019-08-19 10:06] LABS: Absolute Lymphocytes (CBC) 0.5 K/uL (0.7-4.9); Basophils % 0.6 % (0-1.3); Hematocrit 35.5 % (39.6-49.0); Lymphocytes % 9.5 % (15.3-44.8); MPV 8.1 fL (7.6-11.3); RBC Red Blood Cell Count 4.01 M/uL (4.33-5.43)
--- NOTE | 2019-08-19 10:37 | ER ---
Nurse's Notes [facility] Name: Jae Connolly Age: 53 yrs Sex: Male : 1965 Arrival Date: 08/19/2019 Time: 09:14 Bed 2 Private MD: German Ferrell T Diagnosis: Pain, unspecified Presentation: 08/18 09:25 Chief complaint: Patient states: Sent by Dr. Carbajal for pain control. Pt was seen in ER ss for same complaint 2 days ago for same complaint. Pt believes it is the chemo he recently received or the injection he had to stimulate his WBC production. Coronavirus screen: The patient has NOT traveled to a country currently being monitored by the CDC within the last 14 days. Proceed with normal triage procedures. Ebola Screen: Patient denies exposure to infectious person. Patient denies travel to an Ebola-affected area in the 21 days before illness onset. Initial Sepsis Screen: Does the patient meet any 2 criteria? No. Patient's initial sepsis screen is negative. Does the patient have a suspected source of infection? No. Patient's initial sepsis screen is negative. Risk Assessment: Do you want to hurt yourself or someone else? Patient reports no desire to harm self or others. 09:25 Method Of Arrival: Wheelchair ss 09:25 Acuity: KIARA 3 ss 09:34 Onset of symptoms was August 17, 2019. sv Historical: - Allergies: 09:30 No Known Allergies; ss - Home Meds: 09:30 caltrate [Active]; Chantix Oral [Active]; Prednisone Oral 2 times per day [Active]; ss Symbicort inhalation [Active]; Zytiga 250 mg Oral tab 4 tabs once daily [Active]; - PMHx: 09:30 Asthma; Hyperlipidemia; Lung Cancer; Osteoporosis; Prostate Cancer; ss - PSHx: 09:30 R rotattor cuff; L Lung partial lobectomy; ss - Immunization history:: Adult Immunizations up to date. - Social history:: Smoking status: Patient/guardian denies using tobacco, Stopped _ months ago 2. - Family history:: not pertinent. - Hospitalizations: : No recent hospitalization is reported. Screenin:32 Abuse screen: Denies threats or abuse. Denies injuries from another. Nutritional sv screening: No deficits noted. Tuberculosis screening: No symptoms or risk factors identified. Fall Risk None identified. Assessment: 09:33 Reassessment: Spouse had placed her hands on him and they were cold and he stated that sv it felt good. Cold rags given to the pt for comfort and ice packs. 09:53 Reassessment: Pt given 2 cups of water and tissues as per request. sv 10:40 Reassessment: Patient appears in no apparent distress at this time. Patient and/or sv family updated on plan of care and expected duration. Pain level reassessed. Patient is alert, oriented x 3, equal unlabored respirations, skin warm/dry/pink. Patient states feeling better. Patient states symptoms have improved. 10:59 Reassessment: Patient appears in no apparent distress at this time. Patient and/or sv family updated on plan of care and expected duration. Pain level reassessed. Patient is alert, oriented x 3, equal unlabored respirations, skin warm/dry/pink. Patient states feeling better. Patient states symptoms have improved. Vital Signs: 09:24 BP 117 / 64; Pulse 81; Resp 21; Temp 97.0(TE); Pulse Ox 98% on R/A; Weight 145.15 kg; ss Height 5 ft. 11 in. (180.34 cm); Pain 9/10; 10:40 BP 126 / 86; Pulse 75; Resp 18; Pulse Ox 95% ; sv 10:40 Pain 2/10; sv 09:24 Body Mass Index 44.63 (145.15 kg, 180.34 cm) ED Course: 09:14 Patient arrived in ED. rg4 09:14 German Ferrell MD is Private Physician. rg4 09:22 Shay Ramirez MD is Attending Physician. rn 09:22 yLdia Del Valle RN is Primary Nurse. sv 09:24 Arm band placed on right wrist. ss 09:28 Triage completed. ss 09:32 ED physician to see patient. sv 09:32 Patient has correct armband on for positive identification. Bed in low position. Call sv light in reach. Adult w/ patient. Pulse ox on. NIBP on. Door closed. Ice pack to injury. Head of bed elevated. 09:47 Initial lab(s) drawn, by me, sent to lab. Inserted saline lock: 20 gauge in left jb1 antecubital area, using aseptic technique. Blood collected. 10:35 Janis Garcia MD is Referral Physician. rn 10:59 No provider procedures requiring assistance completed. IV discontinued, intact, sv bleeding controlled, No redness/swelling at site. Pressure dressing applied. Administered Medications: 09:45 Drug: NS 0.9% 1000 ml Route: IV; Rate: 1000 ml; Site: left antecubital; sv 10:59 Follow up: Response: No adverse reaction; IV Status: Completed infusion; IV Intake: sv 1000ml 09:45 Drug: Phenergan 12.5 mg Route: IVP; Site: left antecubital; sv 10:40 Follow up: Response: No adverse reaction sv 09:47 Drug: morphine 4 mg Route: IVP; Site: left antecubital; sv 10:40 Follow up: Pain 2/10 Adult; Response: No adverse reaction; Marked relief of symptoms; sv Pain is decreased; RASS: Alert and Calm (0) 10:41 Drug: morphine 2 mg Route: IVP; Site: left antecubital; sv 10:58 Follow up: Response: No adverse reaction; Medication administered at discharge. sv Intake: 10:59 IV: 1000ml; Total: 1000ml. sv Outcome: 10:35 Discharge ordered by . rn 11:00 Discharged to home via wheelchair, with family. sv 11:00 Condition: stable 11:00 Condition: improved 11:00 Discharge instructions given to patient, family, Instructed on discharge instructions, follow up and referral plans. medication usage, Demonstrated understanding of instructions, follow-up care, medications, Prescriptions given X 1. 11:00 Patient left the ED. sv Signatures: Willi Whaley jb1 Lydia Del Valle RN RN sv Nieto, Roman, MD MD rn Smirch, Shelby, RN RN ss Garcia, Rubi rg4
--- NOTE | 2019-08-19 10:38 | EDPHYS ---
Physician Documentation [facility] Name: Jae White Age: 53 yrs Sex: Male : 1965 Arrival Date: 08/19/2019 Time: 09:14 Bed 2 Private MD: German Ferrell T ED Physician Shay Ramirez HPI: 08/18 09:36 This 53 yrs old Male presents to ER via Wheelchair with complaints of Pain rn All Over. 09:36 Reports back for same pain, seen 2 days ago, just started first chemo recently and had rn shot of stimulating factor, now having intense bone and joint pains throughout entire body. No fever. No trauma. No skin changes, no muscle pain. Reports tramadol not doing anything and can't sleep. Called Dr. Carbajal's office and told to come to emergency room instead. . Severity of symptoms: At their worst the symptoms were moderate in the emergency department the symptoms are unchanged. The patient has experienced a previous episode. The patient has been recently seen by a physician: The patient has been recently seen at the [facility] Emergency Department. Historical: - Allergies: 09:30 No Known Allergies; ss - Home Meds: 09:30 caltrate [Active]; Chantix Oral [Active]; Prednisone Oral 2 times per day [Active]; ss Symbicort inhalation [Active]; Zytiga 250 mg Oral tab 4 tabs once daily [Active]; - PMHx: 09:30 Asthma; Hyperlipidemia; Lung Cancer; Osteoporosis; Prostate Cancer; ss - PSHx: 09:30 R rotattor cuff; L Lung partial lobectomy; ss - Immunization history:: Adult Immunizations up to date. - Social history:: Smoking status: Patient/guardian denies using tobacco, Stopped _ months ago 2. - Family history:: not pertinent. - Hospitalizations: : No recent hospitalization is reported. ROS: 09:36 Constitutional: Negative for fever, chills, and weight loss, Eyes: Negative for injury, rn pain, redness, and discharge, Neck: Negative for injury, pain, and swelling, Cardiovascular: Negative for chest pain, palpitations, and edema, Respiratory: Negative for shortness of breath, cough, wheezing, and pleuritic chest pain, Abdomen/GI: Negative for abdominal pain, vomiting, diarrhea, and constipation, MS/Extremity: + aches and pain of joints and bones Skin: Negative for injury, rash, and discoloration, Neuro: Negative for headache, weakness, numbness, tingling, and seizure. Exam: 09:36 Constitutional: This is a well developed, well nourished patient who is awake, alert, rn tearful Head/Face: Normocephalic, atraumatic. ENT: MMM Cardiovascular: Regular rate and rhythm. No pulse deficits. Respiratory: Mild tachypnea, speaking full sentences, seems pain related Skin: Warm, dry, no evidence of cellulitis MS/ Extremity: Pulses equal, no cyanosis. Neurovascular intact. Full, normal range of motion. Equal circumference. Neuro: Awake and alert, GCS 15, oriented to person, place, time, and situation. Cranial nerves II-XII grossly intact. Motor strength 5/5 in all extremities. Sensory grossly intact. Cerebellar exam normal. Vital Signs: 09:24 BP 117 / 64; Pulse 81; Resp 21; Temp 97.0(TE); Pulse Ox 98% on R/A; Weight 145.15 kg; ss Height 5 ft. 11 in. (180.34 cm); Pain 9/10; 10:40 BP 126 / 86; Pulse 75; Resp 18; Pulse Ox 95% ; sv 10:40 Pain 2/10; sv 09:24 Body Mass Index 44.63 (145.15 kg, 180.34 cm) ss MDM: 09:22 Patient medically screened. rn 10:33 Differential Diagnosis cancer pain, bone pain from stimulating factor. Data reviewed: rn vital signs, nurses notes, lab test result(s), and as a result, I will discharge patient. Counseling: I had a detailed discussion with the patient and/or guardian regarding: the historical points, exam findings, and any diagnostic results supporting the discharge/admit diagnosis, lab results, the need for outpatient follow up, to return to the emergency department if symptoms worsen or persist or if there are any questions or concerns that arise at home. Response to treatment: the patient's symptoms have markedly improved after treatment, and as a result, I will discharge patient. Special discussion: I discussed with the patient/guardian in detail that at this point there is no indication for admission to the hospital. It is understood, however, that if the symptoms persist or worsen the patient needs to return immediately for re-evaluation. ED course: Pt improved, had long conversation regarding opiates, cancer pain, and what to expect in upcoming weeks. Requests phenergan as seemed to help him more than so here, and will f/u with Dr. carbajal. called Dr. Carbajal's office, current recommendation is to take the prescribed tramadol and motrin.. 08/18 09:35 Order name: CBC with Diff rn 08/18 09:35 Order name: IV Start; Complete Time: 09:47 rn Administered Medications: 09:45 Drug: NS 0.9% 1000 ml Route: IV; Rate: 1000 ml; Site: left antecubital; sv 10:59 Follow up: Response: No adverse reaction; IV Status: Completed infusion; IV Intake: sv 1000ml 09:45 Drug: Phenergan 12.5 mg Route: IVP; Site: left antecubital; sv 10:40 Follow up: Response: No adverse reaction sv 09:47 Drug: morphine 4 mg Route: IVP; Site: left antecubital; sv 10:40 Follow up: Pain 2/10 Adult; Response: No adverse reaction; Marked relief of symptoms; sv Pain is decreased; RASS: Alert and Calm (0) 10:41 Drug: morphine 2 mg Route: IVP; Site: left antecubital; sv 10:58 Follow up: Response: No adverse reaction; Medication administered at discharge. sv Disposition: 08/19/19 10:35 Discharged to Home. Impression: Pain, unspecified. - Condition is Stable. - Discharge Instructions: Chemotherapy. - Prescriptions for promethazine 25 mg Oral Tablet - take 1 tablet by ORAL route every 6-8 hours As needed; 20 tablet. - Medication Reconciliation Form, Thank You Letter, Antibiotic Education, Prescription Opioid Use form. - Follow up: Janis Garcia MD; When: As needed; Reason: Recheck today's complaints, Re-evaluation by your physician. - Problem is new. - Symptoms have improved. Signatures: Dispatcher [employer] Lydia Liz, RN RN Shay Carcamo MD MD rn Smirch, Shelby, RN RN ss Corrections: (The following items were deleted from the chart) 11:00 10:35 08/19/2019 10:35 Discharged to Home. Impression: Pain, unspecified. Condition is sv Stable. Forms are Medication Reconciliation Form, Thank You Letter, Antibiotic Education, Prescription Opioid Use. Follow up: Janis Solano; When: As needed; Reason: Recheck today's complaints, Re-evaluation by your physician. Problem is new. Symptoms have improved. rn
[2019-08-19] MEDS ORDERED: MORPHINE 2 MG/ML SYR ONE (10:40)
[2019-08-19 11:04] VITALS: TEMP 97
[2019-08-19 11:06] VITALS: BP 126/86; O2SAT 95
[2019-08-19 13:13] LABS: Blood Morphology Comment NOT SEEN (NOT SEEN); Platelet Estimate ADEQ; Urine White Blood Cell Casts OK
== END 2019-08-19 11:00 | disposition home or self-care (01) ==
LOC: ER 09:12
DX: R52 Pain, unspecified (principal); Z85.46 Personal history of malignant neoplasm of prostate; Z85.118 Personal history of other malignant neoplasm of bronchus and lung; Z92.21 Personal history of antineoplastic chemotherapy
CPT/HCPCS: 96361; 85025; 36415; 96375; 96374; 99284; J2550; J2270; J7030

== ENCOUNTER 2019-09-15 23:14 | Emergency (ER) | payer BC ==
[2019-09-16 00:33] VITALS: BP 135/100; TEMP 98.1; O2SAT 98
== END 2019-09-16 00:25 | disposition home or self-care (01) ==
LOC: ER 23:14
DX: G89.3 Neoplasm related pain (acute) (chronic) (principal); C34.90 Malignant neoplasm of unspecified part of unspecified bronchus or lung; C63.7 Malignant neoplasm of other specified male genital organs; Z90.2 Acquired absence of lung [part of]
CPT/HCPCS: 96375; 96374; 99283; J2550

== ENCOUNTER 2019-09-26 01:45 | Observation (INO) | payer BC ==
--- OUTSIDE RECORDS SUMMARY | 2019-09-26 02:21 | XMS REPORT ---
:1965 Author Organization [facility] t Address [address] [place] [address] Dr. Se[address] [place] [id number] Care Team Providers Name Role Phone Unavailable [...]
[2019-09-26 02:44] LABS: Absolute Lymphocytes (CBC) 0.6 K/uL (0.7-4.9); Basophils % 1.2 % (0-1.3); Hematocrit 37.2 % (39.6-49.0); Lymphocytes % 23.2 % (15.3-44.8); MPV 7.7 fL (7.6-11.3); Protime INR 0.93; RBC Red Blood Cell Count 4.09 M/uL (4.33-5.43)
--- NOTE | 2019-09-26 02:53 | EDPHYS ---
Physician Documentation [facility] Name: Jae Connolly Age: 53 yrs Sex: Male : 1965 Arrival Date: 09/26/2019 Time: 01:45 Bed 2 Private MD: German Ferrell T ED Physician Ck Falcon HPI: 09/25 01:57 This 53 yrs old Male presents to ER via Wheelchair with complaints of jacobo Shortness Of Breath. 01:57 The patient has shortness of breath at rest, with light activity. Onset: The jacobo symptoms/episode began/occurred yesterday. Duration: The symptoms are continuous, and are steadily getting worse. The patient's shortness of breath is aggravated by light activity, prone position, supine position, talking, walking, is alleviated by elevating head, rest, application of supplemental oxygen. Associated signs and symptoms: Pertinent positives: non-productive cough. Severity of symptoms: At their worst the symptoms were moderate in the emergency department the symptoms are unchanged. The patient has experienced similar episodes in the past, a few times. Historical: - Allergies: 01:53 No Known Allergies; lp1 - Home Meds: 04:12 caltrate [Active]; Chantix Oral [Active]; Prednisone Oral 2 times per day [Active]; lp1 Symbicort inhalation [Active]; Zytiga 250 mg Oral tab 4 tabs once daily [Active]; - PMHx: 01:53 Asthma; Hyperlipidemia; Lung Cancer; Osteoporosis; Prostate Cancer; lp1 - PSHx: 01:53 R rotattor cuff; L Lung partial lobectomy; lp1 - Immunization history:: Adult Immunizations up to date. - Social history:: Smoking status: Patient/guardian denies using tobacco, but has a distant history of tobacco abuse. ROS: 01:59 Constitutional: Negative for fever, chills, and weight loss, Eyes: Negative for injury, jacobo pain, redness, and discharge, ENT: Negative for injury, pain, and discharge, Neck: Negative for injury, pain, and swelling, Cardiovascular: Negative for chest pain, palpitations, and edema, Abdomen/GI: Negative for abdominal pain, nausea, vomiting, diarrhea, and constipation, Back: Negative for injury and pain, : Negative for injury, bleeding, discharge, and swelling, MS/Extremity: Negative for injury and deformity, Skin: Negative for injury, rash, and discoloration, Neuro: Negative for headache, weakness, numbness, tingling, and seizure, Psych: Negative for depression, anxiety, suicide ideation, homicidal ideation, and hallucinations, Allergy/Immunology: Negative for hives, rash, and allergies, Endocrine: Negative for neck swelling, polydipsia, polyuria, polyphagia, and marked weight changes, Hematologic/Lymphatic: Negative for swollen nodes, abnormal bleeding, and unusual bruising. 01:59 Respiratory: Positive for cough, "sounds productive", shortness of breath, at rest. wheezing, inspiratory, expiratory. Exam: 01:59 Constitutional: This is a well developed, well nourished patient who is awake, alert, jacobo and in no acute distress. Head/Face: Normocephalic, atraumatic. Eyes: Pupils equal round and reactive to light, extra-ocular motions intact. Lids and lashes normal. Conjunctiva and sclera are non-icteric and not injected. Cornea within normal limits. Periorbital areas with no swelling, redness, or edema. ENT: Nares patent. No nasal discharge, no septal abnormalities noted. Tympanic membranes are normal and external auditory canals are clear. Oropharynx with no redness, swelling, or masses, exudates, or evidence of obstruction, uvula midline. Mucous membranes moist. Neck: Trachea midline, no thyromegaly or masses palpated, and no cervical lymphadenopathy. Supple, full range of motion without nuchal rigidity, or vertebral point tenderness. No Meningismus. Chest/axilla: Normal chest wall appearance and motion. Nontender with no deformity. No lesions are appreciated. Cardiovascular: Regular rate and rhythm with a normal S1 and S2. No gallops, murmurs, or rubs. Normal PMI, no JVD. No pulse deficits. Abdomen/GI: Soft, non-tender, with normal bowel sounds. No distension or tympany. No guarding or rebound. No evidence of tenderness throughout. Back: No spinal tenderness. No costovertebral tenderness. Full range of motion. Male : Normal genitalia with no discharge or lesions. Skin: Warm, dry with normal turgor. Normal color with no rashes, no lesions, and no evidence of cellulitis. MS/ Extremity: Pulses equal, no cyanosis. Neurovascular intact. Full, normal range of motion. Neuro: Awake and alert, GCS 15, oriented to person, place, time, and situation. Cranial nerves II-XII grossly intact. Motor strength 5/5 in all extremities. Sensory grossly intact. Cerebellar exam normal. Normal gait. Psych: Awake, alert, with orientation to person, place and time. Behavior, mood, and affect are within normal limits. 01:59 Respiratory: moderate respiratory distress is noted, Respirations: labored breathing, that is mild, that is moderate, Breath sounds: decreased breath sounds, rhonchi, wheezing: inspiratory expiratory 03:00 ECG was reviewed by the Attending Physician. [facility] Vital Signs: 01:52 Pulse 88; Resp 32 S; Temp 97.5(TE); Pulse Ox 96% on R/A; lp1 01:53 BP 119 / 98; lp1 03:00 BP 155 / 80; Pulse 69; Resp 25; Pulse Ox 95% on 30% BiPAP; lp1 03:30 BP 153 / 70; Pulse 64; Resp 19; Pulse Ox 91% on R/A; lp1 04:00 BP 134 / 73; Pulse 64; Resp 19; Pulse Ox 95% on 2 lpm NC; lp1 05:00 BP 127 / 69; Pulse 64; Resp 16; Pulse Ox 94% on 2 lpm NC; lp1 MDM: 01:49 Patient medically screened. [facility] 02:01 Data reviewed: vital signs, nurses notes, lab test result(s), EKG, radiologic studies, [facility] plain films. ED course: 53 yo wm hx of asthma, lung cancer on chemo, sp left lobectomy at [facility] x 24 hours. 03:01 Differential diagnosis: asthma, Bronchitis CHF exacerbation, Chronic Obstructive jacobo Pulmonary Disease acute asthma, reactive airway, CHF, pneumonia, pulmonary edema, Pulmonary Embolism reactive airway disease. Differential Diagnosis flu. ED course: dr sinha to admit, wants pt ruled out covid.. 09/25 01:56 Order name: Basic Metabolic Panel; Complete Time: 04:39 [facility] 09/25 01:56 Order name: CBC with Diff; Complete Time: 04:39 [facility] 09/25 01:56 Order name: LFT's; Complete Time: 04:39 [facility] 09/25 01:56 Order name: Magnesium; Complete Time: 04:39 [facility] 09/25 01:56 Order name: NT PRO-BNP; Complete Time: 04:39 [facility] 09/25 01:56 Order name: PT-INR; Complete Time: 02:49 [facility] 09/25 01:56 Order name: Troponin (emerg Dept Use Only); Complete Time: 04:39 [facility] 09/25 01:56 Order name: Blood Culture Adult (2) [facility] 09/25 01:56 Order name: Lactate; Complete Time: 04:39 [facility] 09/25 01:57 Order name: Type And Screen; Complete Time: 04:39 [facility] 09/25 02:48 Order name: Manual Differential; Complete Time: 04:39 [facility] 09/25 02:59 Order name: COVID-19 [facility] 09/25 02:59 Order name: Flu; Complete Time: 04:39 [facility] 09/25 02:59 Order name: Strep; Complete Time: 04:39 [facility] 09/25 01:56 Order name: XRAY Chest (1 view) [facility] 09/25 01:56 Order name: EKG; Complete Time: 01:58 [facility] 09/25 01:56 Order name: BIPAP [facility] 09/25 02:27 Order name: INCENTIVE SPIROMETRY [facility] 09/25 04:37 Order name: CONS Pharmacy Consult [facility] 09/25 04:37 Order name: Heart Healthy [facility] 09/25 04:37 Order name: Troponin I [facility] 09/25 04:37 Order name: Troponin I [facility] 09/25 04:39 Order name: Throat Culture [facility] 09/25 01:56 Order name: Cardiac monitoring; Complete Time: 03:05 [facility] 09/25 01:56 Order name: EKG - Nurse/Tech; Complete Time: 03:05 [facility] 09/25 01:56 Order name: IV Saline Lock; Complete Time: 03:05 [facility] 09/25 01:56 Order name: Labs collected and sent; Complete Time: 03:05 [facility] 09/25 01:56 Order name: O2 Per Protocol; Complete Time: 03:05 [facility] 09/25 01:56 Order name: O2 Sat Monitoring; Complete Time: 03:05 [facility] 09/25 01:56 Order name: IV Saline Lock; Complete Time: 03:05 [facility] EC:00 Rate is 77 beats/min. Rhythm is regular. QRS [place] is Normal. LA interval is normal. QRS jacobo interval is normal. QT interval is normal. No Q waves. T waves are Normal. No ST changes noted. Clinical impression: Normal ECG. Administered Medications: 02:25 Drug: Pepcid 20 mg Route: IVP; Site: left antecubital; lp1 04:06 Follow up: Response: No adverse reaction lp1 02:38 Drug: NS 0.9% 1000 ml Route: IV; Rate: 125 ml/hr; Site: left antecubital; ea 05:16 Follow up: IV Status: IV converted to saline lock lp1 02:38 Drug: SOLU-Medrol 125 mg Route: IVP; Site: left antecubital; ea 04:06 Follow up: Response: No adverse reaction lp1 02:38 Drug: Xopenex 3.75 mg Route: Inhalation; ea 02:38 Drug: AtroVENT Aerosol 0.5 mg Route: Inhalation; ea 03:15 Drug: levofloxacin 500 mg Volume: 100 ml; Route: IVPB; Infused Over: 60 mins; Site: lp1 left antecubital; 04:40 Follow up: IV Status: Completed infusion lp1 03:43 Drug: morphine 4 mg Route: IVP; Site: left antecubital; lp1 05:15 Follow up: Response: Pain is decreased lp1 Disposition: 09/26/19 02:52 Hospitalization ordered by Santy Sinha for Inpatient Admission. Preliminary diagnosis are Dyspnea - hx of lung cancer, Asthma, Atelectasis, Bandemia. - Bed requested for Telemetry/MedSurg (Inpatient). - Status is Inpatient Admission. ea - Condition is Fair. - Problem is new. - Symptoms have improved. Signatures: Dispatcher [employer] EDMS Ck Falcon MD MD cha Pena, Laura, RN RN lp1 Leandra Davidson RN RN Lisa Lopez RN RN ea Corrections: (The following items were deleted from the chart) 02:53 02:52 Hospitalization Ordered by Santy Sinha MD for Inpatient Admission. Preliminary jacobo diagnosis is Dyspnea; Asthma; Atelectasis. Bed requested for Telemetry/MedSurg (Inpatient). Status is Inpatient Admission. Condition is Fair. Problem is new. Symptoms have improved. jacobo 04:43 02:53 09/26/2019 02:52 Hospitalization Ordered by Santy Sinha MD for Inpatient jacobo Admission. Preliminary diagnosis is Dyspnea - hx of lung cancer; Asthma; Atelectasis. Bed requested for Telemetry/MedSurg (Inpatient). Status is Inpatient Admission. Condition is Fair. Problem is new. Symptoms have improved. jacobo 04:43 04:43 09/26/2019 02:52 Hospitalization Ordered by Santy Sinha MD for Inpatient cg Admission. Preliminary diagnosis is Dyspnea - hx of lung cancer; Asthma; Atelectasis; Bandemia. Bed requested for Telemetry/MedSurg (Inpatient). Status is Inpatient Admission. Condition is Fair. Problem is new. Symptoms have improved. jacobo 04:59 04:43 09/26/2019 02:52 Hospitalization Ordered by Santy Sinha MD for Inpatient cg Admission. Preliminary diagnosis is Dyspnea - hx of lung cancer; Asthma; Atelectasis. Bed requested for Telemetry/MedSurg (Inpatient). Status is Inpatient Admission. Condition is Fair. Problem is new. Symptoms have improved. cg 05:04 04:59 09/26/2019 02:52 Hospitalization Ordered by Santy Sinha MD for Inpatient cg Admission. Preliminary diagnosis is Dyspnea - hx of lung cancer; Asthma; Atelectasis; Bandemia. Bed requested for Telemetry/MedSurg (Inpatient). Status is Inpatient Admission. Condition is Fair. Problem is new. Symptoms have improved. 05:40 05:04 09/26/2019 02:52 Hospitalization Ordered by Santy Sinha MD for Inpatient ea Admission. Preliminary diagnosis is Dyspnea - hx of lung cancer; Asthma; Atelectasis; Bandemia. Bed requested for Telemetry/MedSurg (Inpatient). Status is Inpatient Admission. Condition is Fair. Problem is new. Symptoms have improved.
--- NOTE | 2019-09-26 02:53 | ER ---
Nurse's Notes [facility] Name: Jae Connolly Age: 53 yrs Sex: Male : 1965 Arrival Date: 09/26/2019 Time: 01:45 Bed 2 Private MD: German Ferrell T Diagnosis: Dyspnea-hx of lung cancer;Asthma;Atelectasis;Bandemia Presentation: 09/25 01:48 Acuity: KIARA 3 lp1 01:48 Chief complaint: Patient states: I woke up feeling short of breath, scared me and just sg having gotten worse so I wanted to come and get it checked out due to me being on chemo and having parts of my lungs removed. is my provider, I havent had no fever, or any symptoms like that, I have had a cough though, reports having rib pain that he believes is caused by the coughing and not having any trauma or injury. Coronavirus screen: Patient reports a cough. Patient reports shortness of breath or difficulty breathing. Patient denies measured and/or subjective temperature greater than 100.4F prior to today's visit. Patient denies travel on a cruise ship or to a country the [facility] currently lists as an affected area. Patient denies contact with known and/or suspected case of COVID-19. Ebola Screen: Patient negative for fever greater than or equal to 101.5 degrees Fahrenheit, and additional compatible Ebola Virus Disease symptoms Patient denies exposure to infectious person. Patient denies travel to an Ebola-affected area in the 21 days before illness onset. No symptoms or risks identified at this time. Initial Sepsis Screen: Does the patient meet any 2 criteria? RR > 20 per min. No. Patient's initial sepsis screen is negative. Does the patient have a suspected source of infection? Yes: Other: a new need for BIPAP/CPAP. Risk Assessment: Do you want to hurt yourself or someone else? Patient reports no desire to harm self or others. Onset of symptoms was September 26, 2019. Care prior to arrival: None. Transition of care: patient was not received from another setting of care. 01:48 Method Of Arrival: Wheelchair sg Triage Assessment: 02:15 Respiratory: Onset: The symptoms/episode began/occurred suddenly. lp1 Historical: - Allergies: 01:53 No Known Allergies; lp1 - Home Meds: 04:12 caltrate [Active]; Chantix Oral [Active]; Prednisone Oral 2 times per day [Active]; lp1 Symbicort inhalation [Active]; Zytiga 250 mg Oral tab 4 tabs once daily [Active]; - PMHx: 01:53 Asthma; Hyperlipidemia; Lung Cancer; Osteoporosis; Prostate Cancer; lp1 - PSHx: 01:53 R rotattor cuff; L Lung partial lobectomy; lp1 - Immunization history:: Adult Immunizations up to date. - Social history:: Smoking status: Patient/guardian denies using tobacco, but has a distant history of tobacco abuse. Screenin:10 Abuse screen: Denies threats or abuse. Denies injuries from another. Nutritional lp1 screening: No deficits noted. Tuberculosis screening: No symptoms or risk factors identified. Fall Risk None identified. Assessment: 01:57 Reassessment: ERP at bedside, assessing patient at this time, reports the patient sg needing BiPap, RT has been paged per [place]. 02:10 General: Appears uncomfortable, Behavior is anxious, restless. Pain: Denies pain. lp1 Neuro: Level of Consciousness is awake, alert, obeys commands, Oriented to person, place, time, situation. Cardiovascular: Patient's skin is warm and dry. Rhythm is sinus rhythm. Respiratory: Reports shortness of breath Airway is patent Trachea midline Respiratory effort is labored, Respiratory pattern is symmetrical, Breath sounds are coarse bilaterally. the patient has moderate shortness of breath. GI: Abdomen is obese. : No signs and/or symptoms were reported regarding the genitourinary system. EENT: No signs and/or symptoms were reported regarding the EENT system. Derm: Skin is intact, Skin is dry, Skin is normal. Musculoskeletal: No deficits noted. 02:25 Reassessment: Patient placed on BiPAP a this time; Settings of 12/6, 30% O2. lp1 03:20 Reassessment: Patient off of Bipap per request; State feeling better, denies shortness lp1 of breath; appears calm. 03:34 Reassessment: Patient complaint of pain, states taking Morphine as a home med; Verbal lp1 order from Dr. Falcon for Morphine 4 mg IV now. 04:07 Reassessment: Patient appears in no apparent distress at this time. Patient is alert, lp1 oriented x 3, equal unlabored respirations, skin warm/dry/pink. Patient aware of pending admission. Vital Signs: 01:52 Pulse 88; Resp 32 S; Temp 97.5(TE); Pulse Ox 96% on R/A; lp1 01:53 BP 119 / 98; lp1 03:00 BP 155 / 80; Pulse 69; Resp 25; Pulse Ox 95% on 30% BiPAP; lp1 03:30 BP 153 / 70; Pulse 64; Resp 19; Pulse Ox 91% on R/A; lp1 04:00 BP 134 / 73; Pulse 64; Resp 19; Pulse Ox 95% on 2 lpm NC; lp1 05:00 BP 127 / 69; Pulse 64; Resp 16; Pulse Ox 94% on 2 lpm NC; lp1 ED Course: 01:45 Patient arrived in ED. cl3 01:46 Ck Falcon MD is Attending Physician. jacobo 01:48 Triage completed. sg 01:56 Arm band placed on. sg 02:15 Patient has correct armband on for positive identification. Placed in gown. Bed in low lp1 position. Call light in reach. cardiac monitor technician on. Pulse ox on. NIBP on. 02:20 Missed attempt(s): 20 gauge in left antecubital area. lp1 02:23 XRAY Chest (1 view) In Process Unspecified. EDMS 02:30 Inserted saline lock: 20 gauge in left antecubital area, using aseptic technique. Blood ea collected. 02:50 German Ferrell MD is Private Physician. sg 02:51 Santy Mchugh MD is Hospitalizing Provider. jacobo 03:04 Jessica Anaya, CLAUDIO is Primary Nurse. lp1 04:11 No provider procedures requiring assistance completed. Patient admitted, IV remains in lp1 place. Administered Medications: 02:25 Drug: Pepcid 20 mg Route: IVP; Site: left antecubital; lp1 04:06 Follow up: Response: No adverse reaction lp1 02:38 Drug: NS 0.9% 1000 ml Route: IV; Rate: 125 ml/hr; Site: left antecubital; ea 05:16 Follow up: IV Status: IV converted to saline lock lp1 02:38 Drug: SOLU-Medrol 125 mg Route: IVP; Site: left antecubital; ea 04:06 Follow up: Response: No adverse reaction lp1 02:38 Drug: Xopenex 3.75 mg Route: Inhalation; ea 02:38 Drug: AtroVENT Aerosol 0.5 mg Route: Inhalation; ea 03:15 Drug: levofloxacin 500 mg Volume: 100 ml; Route: IVPB; Infused Over: 60 mins; Site: lp1 left antecubital; 04:40 Follow up: IV Status: Completed infusion lp1 03:43 Drug: morphine 4 mg Route: IVP; Site: left antecubital; lp1 05:15 Follow up: Response: Pain is decreased lp1 Outcome: 02:52 Decision to Hospitalize by Provider. jacobo 04:11 Condition: stable lp1 04:11 Instructed on the need for admit. 05:14 Admitted to Tele room 413, with chart, Report called to CLAUDIO Lobo lp1 05:40 Patient left the ED. ea Signatures: Dispatcher [employer] EDMS Willian Fink RN RN sg Anderson, Corey, MD MD cha Pena, Laura, RN RN lp1 Lisa Lopez RN RN ea Lewis, Charde cl3 Corrections: (The following items were deleted from the chart) 01:52 01:48 Acuity: KIARA 2 sg lp1 05:14 03:20 Reassessment: Patient off of Bipap per request; State feeling better, denies lp1 shortness of breath lp1 05:14 02:10 Respiratory: Airway is patent Trachea midline Respiratory effort is labored, lp1 Respiratory pattern is symmetrical, Breath sounds are coarse bilaterally. lp1
[2019-09-26 03:02] LABS: ALT/SGPT 25 U/L (12-78); AST/SGOT 12 U/L (15-37); Albumin 3.4 g/dL (3.4-5.0); Alkaline Phosphatase 65 U/L (45-117); BUN Blood Urea Nitrogen 11 mg/dL (7-18); Bicarbonate 29 mmol/L (21-32); Bilirubin Direct < 0.1 mg/dL (0-0.2); Bilirubin Total 0.2 mg/dL (0.2-1.0); Glucose Level 175 mg/dL (74-106); Magnesium 1.9 mg/dL (1.8-2.4); NT PRO-BNP 120 pg/mL (<125); Protein, Total 7.2 g/dL (6.4-8.2); Sodium Level 141 mmol/L (136-145); Troponin (Emerg Dept Use Only) < 0.02 ng/mL (0.0-0.045)
[2019-09-26 03:17] LABS: Blood Morphology Comment NOT SEEN (NOT SEEN); Platelet Estimate ADEQ
[2019-09-26] MEDS ORDERED: MORPHINE 4 MG/ML SYR ONE (03:40)
--- NOTE | 2019-09-26 04:29 | P.HP ---
Certification for Inpatient Patient admitted to: Observation With expected LOS: <2 Midnights Patient will require the following post-hospital care: None Practitioner: I am a practitioner with admitting privileges, knowledge of patient current condition, hospital course, and medical plan of care. Services: Services provided to patient in accordance with Admission requirements found in Title 42 Section 412.3 of the Code of Federal Regulations Patient History Date of Service: 09/26/19 Reason for admission: Sudden-onset shortness of breath History of Present Illness: 53-year-old male with history of prostate cancer, hypertension, obesity, recently diagnosed lung cancer status post left upper and lower lobe lobectomy 1 month ago, on chemotherapy follow with Dr. doyle, admits to worsening lower extremity pain since the last 1 month after being on chemo bebut states duplex sonogram shows no DVT. patient developed cough since the last 3 weeks intermittent, no distress and no sputum. He denies any fever or chills. He developed sudden-onset shortness of breath last night at about 9:00 p.m. while trying to sleep. He presented to the ED. He was initially placed on BiPAP because he was markedly tachypneic. He received duo nebs as well as IV steroids and his symptoms has improved. He is back on nasal cannula O2 now. He feels much better now Allergies No Known Allergies Allergy (Unverified 10/28/17 17:42) Home medications list reviewed: No - Past Medical/Surgical History -: HTN Asthma; Hyperlipidemia; Lung Cancer; Osteoporosis; Prostate Cancer; -: lobectomy of left lung - Social History Smoking Status: Former smoker Counseled patient to stop smoking for: less than 10 minutes Smoking therapy provided: No Alcohol use: Yes CD- Drugs: No Caffeine use: No Place of Residence: Home Review of Systems 10-point ROS is otherwise unremarkable Physical Examination - Physical Exam General: Alert, In no apparent distress, Oriented x3, Obese HEENT: Atraumatic, Normocephalic, PERRLA, Mucous membr. moist/pink Neck: 2+ carotid pulse no bruit, JVD not distended, No Thyromegaly Respiratory: Normal air movement, Crackles/rales (b/l bases ) Cardiovascular: Normal pulses, Regular rate/rhythm, Normal S1 S2 Gastrointestinal: Normal bowel sounds, Soft and benign, Non-distended Musculoskeletal: No clubbing, No erythema Integumentary: No rashes, No breakdown External genitalia: Edema - Studies Laboratory Data (last 24 hrs) 09/26/19 02:25: PT 11.0, INR 0.93 09/26/19 02:25: WBC 2.6 L, Hgb 12.4 L, Hct 37.2 L, Plt Count 154 09/26/19 02:25: Sodium 141, Potassium 4.0, BUN 11, Creatinine 0.83, Glucose 175 H, Magnesium 1.9, Total Bilirubin 0.2, AST 12 L, ALT 25, Alkaline Phosphatase 65 Imagings Data: Chest x-ray reviewed by me - opacity over the left lobe may be remnant of lobectomy vs fluid collection Assessment and Plan - Problems (Diagnosis) (1) Asthma exacerbation Current Visit: Yes Status: Acute (2) Lung cancer Current Visit: Yes Status: Acute (3) HTN (hypertension) Current Visit: Yes Status: Acute (4) Leg edema Current Visit: Yes Status: Acute - Advance Directives Does patient have a Living Will: No Does patient have a Durable POA for Healthcare: No Physician Review: Patient Assessed, Agree with Above Assessment and Plan Physician Review Additional Text: # acute asthma exacerbation-improving with duo nebs and steroids -Continue with regime - will switched to p.o. prednisone now - hold off IV fluids since borderline fluid overload -acute hypoxia may be due to acute exacerbation of asthma on superimposed on mild CHF symptoms Will obtain BNP # hypertension-obtain home med list from an resume #Lung cancer-on chemo, follows with pt #DVT prophylaxis-start subcu Lovenox if not on previous anticoagulation #Advanced directive-discussed
[2019-09-26] MEDS ORDERED: ONDANSETRON 4 MG/2 ML VIAL IV PRN ×2 (04:33→04:36)
[2019-09-26] MEDS ORDERED: Oxycodone HCl/Acetaminophen 1 TAB TAB PO PRN (04:36)
[2019-09-26] MEDS ORDERED: HYDRALAZINE HCL 20 MG/ML VIAL IV PRN (04:36)
[2019-09-26] MEDS ORDERED: LORAZEPAM 0.5 MG TABLET PO PRN (04:36)
[2019-09-26] MEDS ORDERED: ALBUTEROL 2.5 MG/3 ML NEB SOL NEB SCH (05:00)
[2019-09-26 05:54] VITALS: O2SAT 94
[2019-09-26] MEDS: MORPHINE 2 MG/ML SYR IV PRN ×2 (06:33→11:08)
[2019-09-26] MEDS ORDERED: PANTOPRAZOLE 40MG TABLET PO SCH (07:30)
[2019-09-26 07:46] VITALS: BMI 46.5
[2019-09-26] MEDS: IPRATROPIUM BROM 0.5MG/2.5ML NEB SCH ×2 (08:00→11:45)
--- NOTE | 2019-09-26 08:37 | RAD REPORT ---
EXAM DESCRIPTION: RAD - Chest Single View - 09/26/2019 2:23 am CLINICAL HISTORY: Dyspnea;COPD Chest pain. COMPARISON: Chest Single View dated 10/15/2018; CHEST PA AND LAT 2 VIEW dated 03/21/2010 FINDINGS: Portable technique limits examination quality. Poorly defined opacities are seen in the left mid lung and right lung base, most compatible with pneu monia. The heart is mildly to moderately enlarged. No displaced fractures.
[2019-09-26] MEDS ORDERED: levoFLOXacin 500 MG TAB PO SCH (09:00)
[2019-09-26] MEDS ORDERED: ENOXAPARIN 40 MG/0.4 ML SQ SCH (09:00)
[2019-09-26] MEDS ORDERED: ASPIRIN EC 81 MG TAB PO SCH (09:00)
[2019-09-26] MEDS ORDERED: predniSONE 20 MG TAB PO SCH (09:00)
[2019-09-26 11:51] VITALS: BP 150/78; TEMP 97.3
--- NOTE | 2019-09-26 12:04 | EKG ---
Test Date: 2019-09-26 Test Time: 01:59:16 Physiotherapist'S Assistant: SWG MEASUREMENT RESULTS: Intervals: Rate: 77 MA: 142 QRSD: 78 QT: 378 QTc: 427 [place]: P: 36 MA: 142 QRS: 87 T: 43 INTERPRETIVE STATEMENTS: Normal sinus rhythm Normal ECG Compared to ECG 10/15/2018 17:34:42 No significant changes Electronically Signed On 09-26-19 12:02:46 CDT by Ilan Jay
[2019-09-26] MEDS ORDERED: MORPHINE SULFATE 15 MG PO PRN (12:25)
[2019-09-26] MEDS ORDERED: TRAMADOL HCL 100 MG PO PRN (12:25)
--- NOTE | 2019-09-26 12:41 | P.DS ---
Admission Date: 09/26/19 Discharge Date: 09/26/19 Disposition: ROUTINE DISCHARGE Discharge Condition: GOOD Reason for Admission: Sudden-onset shortness of breath Brief History of Present Illness: From H and P 53-year-old male with history of prostate cancer, hypertension, obesity, recently diagnosed lung cancer status post left upper and lower lobe lobectomy 1 month ago, on chemotherapy follow with Dr. doyle, admits to wor sening lower extremity pain since the last 1 month after being on chemo bebut states duplex sonogram shows no DVT. patient developed cough since the last 3 weeks intermittent, no distress and no sputum. He denies any fever or chills. He developed sudden-onset shortness of breath last night at about 9:00 p.m. while trying to sleep. He presented to the ED. He was initially placed on BiPAP because he was markedly tachypneic. He received duo nebs as well as IV steroids and his symptoms has improved. He is back on nasal cannula O2 now. He feels much better now Hospital Course: Patient is a 53-year-old male with asthma steroid-dependent lung cancer on chemotherapy comes in with exacerbation. Due to the abundance of caution patient was admitted to the COVID floor and testing was sent out through clinical pathology lab which may take 5-10 days for results. Patient was started on nebulizers and supplemental oxygen as well as steroids. Patient take steroids at home. Patient is doing significantly better now off of oxygen and wanting to go home. He is no longer wheezing. Patient was on Levaquin and can complete the treatment course at home p.o. Patient's symptoms resolved his stable and was discharged home # acute asthma exacerbation-improving with duo nebs and steroids -Continue with regime - will switched to p.o. prednisone now - hold off IV fluids since borderline fluid overload -acute hypoxia may be due to acute exacerbation of asthma on superimposed on mild CHF symptoms Will obtain BNP # hypertension-obtain home med list from an resume #Lung cancer-on chemo, follows with Dr. morgan #DVT prophylaxis-start subcu Lovenox if not on previous anticoagulation Vital Signs/Physical Exam: Temp Pulse Resp BP Pulse Ox 97.3 F 66 14 150/78 H 96 09/26/19 11:30 09/26/19 11:30 09/26/19 11:30 09/26/19 11:30 09/26/19 11:30 Other Physical/Emotional Findings: For physical exam findings please see H&P dictated by Dr. Mchugh on the day of discharge Laboratory Data at Discharge: WBC 2.6 K/uL (4.3-10.9) L 09/26/19 02:25 Hgb 12.4 g/dL (13.6-17.9) L 09/26/19 02:25 Hct 37.2 % (39.6-49.0) L 09/26/19 02:25 Plt Count 154 K/uL (152-406) 09/26/19 02:25 PT 11.0 SECONDS (9.5-12.5) 09/26/19 02:25 INR 0.93 09/26/19 02:25 Sodium 141 mmol/L (136-145) 09/26/19 02:25 Potassium 4.0 mmol/L (3.5-5.1) 09/26/19 02:25 BUN 11 mg/dL (7-18) 09/26/19 02:25 Creatinine 0.83 mg/dL (0.55-1.3) 09/26/19 02:25 Glucose 175 mg/dL (74-106) H 09/26/19 02:25 Magnesium 1.9 mg/dL (1.8-2.4) 09/26/19 02:25 Total Bilirubin 0.2 mg/dL (0.2-1.0) 09/26/19 02:25 AST 12 U/L (15-37) L 09/26/19 02:25 ALT 25 U/L (12-78) 09/26/19 02:25 Alkaline Phosphatase 65 U/L (45-117) 09/26/19 02:25 Troponin I Cancelled 09/26/19 10:15 Home Medications: Abiraterone Acetate [Zytiga] 1 tab PO DAILY 09/26/19 Albuterol Sulfate [Proair Hfa] 1 puff IN DAILY 09/26/19 Budesonide/Formoterol Fumarate [Symbicort 160-4.5 Mcg Inhaler] 2 puff IN BID 09/26/19 Gabapentin 600 mg PO TID 09/26/19 Morphine Sulfate [Morphabond ER] 15 mg PO Q4HP PRN 09/26/19 Ondansetron [Zofran (Odt)*] 1 tab PO Q4HP PRN 09/26/19 Pantoprazole [Protonix Tab*] 40 mg PO DAILY 09/26/19 Promethazine Tab [Phenergan*] 25 mg PO Q6HP PRN 09/26/19 Rosuvastatin [Crestor*] 10 mg PO BEDTIME 09/26/19 Tramadol HCl [Ultram ER] 100 mg PO BIDP PRN 09/26/19 levoFLOXacin [Levaquin*] 500 mg PO DAILY #5 tab 09/26/19 predniSONE [Deltasone*] 5 mg PO BID 09/26/19 New Medications: levoFLOXacin [Levaquin*] 500 mg PO DAILY #5 tab Patient Discharge Instructions: Follow up with primary care physician in 1 week. Return to ER for worsening condition. Continue self quarantine until negative COVID test results are available. Diet: AHA Activity: Ad glendy
[2019-09-26] MEDS ORDERED: GABAPENTIN 300 MG CAP PO SCH (14:00)
[2019-09-26] MEDS ORDERED: HOME MED 1 EA UNK (Budesonide/Formoterol Fumarate [Symbicort 160-4.5 Mcg Inhaler] 2 PUFF) IN SCH (21:00)
[2019-09-26] MEDS ORDERED: ROSUVASTATIN 10 MG TAB PO SCH (21:00)
[2019-09-27] MEDS ORDERED: PANTOPRAZOLE 40MG TABLET PO SCH (06:30)
[2019-09-27] MEDS ORDERED: ABIRATERONE ACETATE PO SCH (09:00)
== END 2019-09-26 13:26 | disposition home or self-care (01) ==
LOC: ER 01:45 → ERHOLD 04:39 → 4TH 05:13
PROVIDERS: ADMIT Internal Medicine; ATTEND Family Medicine
DX: J45.901 Unspecified asthma with (acute) exacerbation (principal); Z79.51 Long term (current) use of inhaled steroids; C34.90 Malignant neoplasm of unspecified part of unspecified bronchus or lung; R09.02 Hypoxemia; I50.9 Heart failure, unspecified
CPT/HCPCS: 96365; 96361; 93005; 87040 ×2; 87070; 85025; 80048; 36415; 86900; 83735; 86850; 85610; 86901; 80076; 87081; 83605; 84484 ×2; 83880; 87804 ×2; 71045; 94660; 96375; 99285; U0002; J2270 ×2; G0378 ×2; J1650; J7512

== ENCOUNTER 2019-10-13 12:52 | Emergency (ER) | payer BC ==
--- OUTSIDE RECORDS SUMMARY | 2019-10-13 12:55 | XMS REPORT ---
:1965 Author Organization [facility] t Address [address] [place] [address] Dr. Seymour [address] [place] [id number] Care Team Providers Name Role Phone Unavailable Unavailable Unavailable Problems This patient has no known problems. Allergies, Adverse Reactions, Alerts This patient has no known allergies or adverse reactions. Medications This patient has no known medications. Encounters Start End Encounter Admission Attending Care Care Encounter Date/Time Date/Time Type Type Clinicians Facility Department ID 2019-05-28 2019-05-28 Outpatient BL [id number] 07:16:00 07:16:00
[2019-10-13] MEDS ORDERED: ONDANSETRON 4 MG/2 ML VIAL ONE (13:23)
[2019-10-13] MEDS ORDERED: MORPHINE 4 MG/ML SYR ONE (13:23)
[2019-10-13 13:51] LABS: Absolute Lymphocytes (CBC) 0.4 K/uL (0.7-4.9); Basophils % 0.6 % (0-1.3); Hematocrit 37.3 % (39.6-49.0); Lymphocytes % 9.5 % (15.3-44.8); MPV 7.6 fL (7.6-11.3); RBC Red Blood Cell Count 4.16 M/uL (4.33-5.43)
[2019-10-13 14:02] LABS: Protime INR 0.98
[2019-10-13 14:17] LABS: BUN Blood Urea Nitrogen 15 mg/dL (7-18); Bicarbonate 28 mmol/L (21-32); Glucose Level 157 mg/dL (74-106); NT PRO-BNP 60 pg/mL (<125); Sodium Level 136 mmol/L (136-145); Troponin (Emerg Dept Use Only) < 0.02 ng/mL (0.0-0.045)
--- NOTE | 2019-10-13 14:33 | RAD REPORT ---
EXAM DESCRIPTION: RAD - Chest Single View - 10/13/2019 1:53 pm CLINICAL HISTORY: CHEST PAIN COMPARISON: Portable September 25, portable October 2018 TECHNIQUE: AP portable chest image was obtained 10/13/2019 1:53 pm . FINDINGS: Lung volumes are reduced compared to the September 25 study. Linear stranding in the left midl lara field has improved. Left base opacification overall has improved slightly but not resolved. All l lara markings are accentuated due to the shallow inspiration. No progressive right lung field finding. No measurable pleural effusion and no pneumothorax. No acute bony abnormality seen. No acute aortic findings suspected. IMPRESSION: Partial clearing of the probable left base pneumonia since September 25.
[2019-10-13 15:00] LABS: Blood Morphology Comment NOTED (NOT SEEN); Platelet Estimate ADEQ; Poikilocytosis 2+; Urine White Blood Cell Casts OK
--- NOTE | 2019-10-13 15:45 | RAD REPORT ---
EXAM DESCRIPTION: CT - Chest For Pe Angio - 10/13/2019 3:29 pm CLINICAL HISTORY: cancer, left pleuritic pain COMPARISON: Lung Cancer Screening CT W/O dated 05/02/2019; Chest Single View dated 10/13/2019 TECHNIQUE: Dynamically enhanced 3 mm thick images of the chest were obtained during administration o f approximately 150mL Isovue 370 IV contrast. Coronal and oblique MIP reconstruction images were gene rated and reviewed. Exam utilizes a protocol to evaluate the pulmonary arterial tree. All CT scans are performed using dose optimization technique as appropriate and may include automated exposure control or mA/KV adjustment according to patient size. FINDINGS: No pulmonary emboli are identified. The aorta as imaged shows no acute or suspicious finding. No pericardial thickening or effusion. Right lung field is clear suspicious mass or infiltrate. Left upper lung field is clear as well. Melani ent has undergone surgery since the April [address] study. Postsurgical changes are noted at the left hilum. Focal opacification in the medial left midlung field is believed be a summation o f fluid and postsurgical change. Minimal left pleural effusion is present. No suspicious infiltrate o r mass. The hazy opacification over the lower left lung field seen on portable chest imaging is summa tion artifact of fat and postsurgical change. There is some scarring or atelectasis in the medial mid left lung field. Small nonspecific mediastinal lymph nodes are present. No chest wall masses or abnormal axillary lymp hadenopathy. IMPRESSION: No pulmonary emboli identified. Postsurgical changes are present in the left lung field with no suspicious mass or infiltrate. Minima l left pleural effusion present. The suspected infiltrate changes evident on plain film are the summation affects of the postsurgical changes, paracardial fat and pleural fluid
--- NOTE | 2019-10-13 16:10 | ER ---
Nurse's Notes [facility] Name: Jae Connolly Age: 53 yrs Sex: Male : 1965 Arrival Date: 10/13/2019 Time: 12:54 Bed 7 Private MD: German Ferrell T Diagnosis: Pleurisy;Atelectasis Presentation: 10/12 13:02 Chief complaint: Patient states: Severe left sided trunk pain for over 2 weeks since he ll1 was admitted 2 weeks ago for pneumonia. Pain with deep breathing, + SOB with exertion. 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 Coronavirus screen: Proceed with normal triage. Patient denies a cough. Patient reports shortness of breath or difficulty breathing. Patient denies measured and/or subjective temperature greater than 100.4F prior to today's visit. Patient denies travel on a cruise ship or to a country the [facility] currently lists as an affected area. Patient denies contact with known and/or suspected case of COVID-19. states covid test was negative. Ebola Screen: Patient denies travel to an Ebola-affected area in the 21 days before illness onset. Initial Sepsis Screen: Does the patient meet any 2 criteria? No. Patient's initial sepsis screen is negative. Does the patient have a suspected source of infection? No. Patient's initial sepsis screen is negative. Risk Assessment: Do you want to hurt yourself or someone else? Patient reports no desire to harm self or others. Onset of symptoms was September 29, 2019. 13:02 Method Of Arrival: Wheelchair ll1 13:02 Acuity: KIARA 3 ll1 Historical: - Allergies: 13:05 No Known Allergies; ll1 - PMHx: 13:05 Hyperlipidemia; Lung Cancer; Osteoporosis; Prostate Cancer; Asthma; ll1 - PSHx: 13:05 L Lung partial lobectomy; R rotattor cuff; ll1 - Immunization history:: Adult Immunizations. - Social history:: Smoking status: Patient/guardian denies using tobacco, Stopped _ months ago 4 Patient/guardian denies using alcohol, the patient reports quitting approximately .[address] drugs. - Family history:: not pertinent. - Hospitalizations: : The patient was recently seen at [facility]. Screenin:15 Abuse screen: Denies threats or abuse. Denies injuries from another. Nutritional sv screening: No deficits noted. Tuberculosis screening: No symptoms or risk factors identified. Fall Risk None identified. Assessment: 13:12 Reassessment: Pt requesting an upright chair d/t pain. Pt unable to sit straight in the sv stretcher. Recliner brought to the pt. 13:15 General: Appears in no apparent distress. uncomfortable, well developed, Behavior is sv cooperative, appropriate for age. Pain: Complains of pain in left lateral anterior chest and left lateral posterior chest Pain currently is 10 out of 10 on a pain scale. Pain began today Is intermittent, episodic, Aggravated by breathing. Neuro: Level of Consciousness is awake, alert, obeys commands, Oriented to person, place, time, situation, Moves all extremities. Full function Gait is steady. Cardiovascular: Patient's skin is warm and dry. Rhythm is sinus rhythm. Respiratory: Airway is patent Respiratory effort is even, unlabored, shallow, Respiratory pattern is regular, symmetrical. Derm: Skin is pink, warm \T\ dry. 16:38 Reassessment: Pt reports that Dilaudid administration helped with his pain ss significantly. Respiratory: Airway is patent Respiratory effort is even, unlabored, Respiratory pattern is regular, symmetrical. Vital Signs: 13:02 BP 170 / 102; Pulse 88; Resp 20; Temp 97.5; Pulse Ox 97% ; Pain 10/10; ll1 13:49 BP 121 / 79; Pulse 70; Resp 20; Pulse Ox 95% ; sv 15:00 BP 120 / 76; Pulse 71; Resp 20; Pulse Ox 93% ; sv 15:46 BP 149 / 77; Pulse 73; Resp 20; Pulse Ox 95% ; sv ED Course: 12:54 Patient arrived in ED. mr 12:54 German Ferrell MD is Private Physician. mr 13:00 Shay Ramirez MD is Attending Physician. rn 13:04 Triage completed. ll1 13:05 Arm band placed on Patient placed in an exam room, on a stretcher. ll1 13:12 Lydia Del Valle, CLAUDIO is Primary Nurse. sv 13:15 Patient has correct armband on for positive identification. Bed in low position. Call light in reach. drivability technician on. Pulse ox on. NIBP on. Door closed. Head of bed elevated. 13:20 First set of blood cultures drawn by me. Inserted saline lock: 20 gauge in right sv forearm, using aseptic technique. Blood collected. Flushed right forearm with 5 ml normal saline. 13:35 Second set of blood cultures drawn by me. sv 13:48 XRAY CXR (1 view) Sent. sv 13:53 XRAY CXR (1 view) In Process Unspecified. EDMS 13:54 CBC Smear Scan Sent. sv 14:24 Warm blanket given. bd 15:31 CT Chest For PE Angio In Process Unspecified. EDMS 16:37 No provider procedures requiring assistance completed. IV discontinued, intact, ss bleeding controlled, No redness/swelling at site. Pressure dressing applied. Administered Medications: 13:40 Drug: Zofran (Ondansetron) 4 mg Route: IVP; Site: right forearm; sv 13:42 Drug: morphine 4 mg Route: IVP; Site: right forearm; sv 16:22 Drug: Dilaudid 1 mg Route: IVP; Site: right forearm; Outcome: 16:09 Discharge ordered by . rn 16:35 Discharged to home via wheelchair, with family. ss 16:35 Condition: good 16:35 Discharge instructions given to patient, Instructed on discharge instructions, follow up and referral plans. medication usage, Demonstrated understanding of instructions, follow-up care, medications. 16:42 Patient left the ED. ss Signatures: Dispatcher [employer] EDMS Isabel Bermudez Stephanie, RN Alana Kidd Roman, MD MD rn Smirch, Shelby, RN RN ss Lewis, Lynsay, RN RN ll1
--- NOTE | 2019-10-13 16:11 | EDPHYS ---
Physician Documentation [facility] Name: Jae Connolly Age: 53 yrs Sex: Male : 1965 Arrival Date: 10/13/2019 Time: 12:54 Bed 7 Private MD: German Ferrell T ED Physician Shay Ramirez HPI: 10/12 14:29 This 53 yrs old Male presents to ER via Wheelchair with complaints of Flank rn Pain, Breathing Difficulty. 14:30 The patient or guardian reports chest pain that is located primarily in the left rn lateral anterior chest. Onset: 2 week(s) ago. The pain does not radiate. Associated signs and symptoms: Pertinent positives: shortness of breath, Pertinent negatives: abdominal pain, cough, lightheadedness, near syncope, palpitations, recent travel, syncope. The chest pain is described as sharp, stabbing. The chest pain is described as dull. Duration: The patient or guardian reports multiple episodes, that are intermittent. Modifying factors: The symptoms are alleviated by nothing. the symptoms are aggravated by deep breath, movement, palpation of area, twisting torso. Severity of pain: At its worst the pain was moderate in the emergency department the pain is unchanged. The patient has experienced similar episodes in the past. The patient has been recently been admitted at [facility]. Reports admitted for something similar 2 weeks ago, discharged as pneumonia, completed abx. Denies trauma. Reports left lateral chest pain, worse with movement/palpation/deep breath. Has been having severe body aches and pains ever since started chemotherapy. . Historical: - Allergies: 13:05 No Known Allergies; ll1 - PMHx: 13:05 Hyperlipidemia; Lung Cancer; Osteoporosis; Prostate Cancer; Asthma; ll1 - PSHx: 13:05 L Lung partial lobectomy; R rotattor cuff; ll1 - Immunization history:: Adult Immunizations. - Social history:: Smoking status: Patient/guardian denies using tobacco, Stopped _ months ago 4 Patient/guardian denies using alcohol, the patient reports quitting approximately .[address], [address] drugs. - Family history:: not pertinent. - Hospitalizations: : The patient was recently seen at [facility]. ROS: 14:30 Constitutional: Negative for fever, chills, and weight loss, Eyes: Negative for injury, rn pain, redness, and discharge, Neck: Negative for injury, pain, and swelling, Cardiovascular: + chest pain Respiratory: + sob and pleuitic pain Abdomen/GI: Negative for abdominal pain, nausea, vomiting, diarrhea, and constipation, MS/Extremity: Negative for injury and deformity, Skin: Negative for injury, rash, and discoloration, Neuro: Negative for headache, weakness, numbness, tingling, and seizure. Exam: 14:20 ECG was reviewed by the Attending Physician. rn 14:30 Constitutional: This is a well developed, well nourished patient who is awake, alert, rn sitting on edge of bed, appears uncomfortable. Head/Face: Normocephalic, atraumatic. Chest/axilla: Normal chest wall appearance and motion. Mild tenderness along left lateral costal margin Cardiovascular: Regular rate and rhythm. No pulse deficits. Respiratory: No increased work of breathing, no retractions or nasal flaring. Abdomen/GI: soft, non-tender Skin: Warm, dry, no lesions MS/ Extremity: Pulses equal, no cyanosis. Equal circumference. Neuro: Awake and alert, GCS 15, oriented to person, place, time, and situation. Cranial nerves II-XII grossly intact. Motor strength 5/5 in all extremities. Sensory grossly intact. Cerebellar exam normal. Normal gait. Vital Signs: 13:02 BP 170 / 102; Pulse 88; Resp 20; Temp 97.5; Pulse Ox 97% ; Pain 10/10; ll1 13:49 BP 121 / 79; Pulse 70; Resp 20; Pulse Ox 95% ; sv 15:00 BP 120 / 76; Pulse 71; Resp 20; Pulse Ox 93% ; sv 15:46 BP 149 / 77; Pulse 73; Resp 20; Pulse Ox 95% ; sv MDM: 13:00 Patient medically screened. rn 16:06 Differential diagnosis: acute pericarditis, chest wall pain, costochondritis, rn pericarditis, pleurisy, pneumothorax, pulmonary embolus, pleural effusion, pleurisy, atelectasis. Data reviewed: vital signs, nurses notes, lab test result(s), EKG, radiologic studies, CT scan, plain films, and as a result, I will discharge patient. Test interpretation: by ED physician or midlevel provider: ECG, plain radiologic studies, CXR without acute findings, no pneumothorax. Counseling: I had a detailed discussion with the patient and/or guardian regarding: the historical points, exam findings, and any diagnostic results supporting the discharge/admit diagnosis, lab results, radiology results, the need for outpatient follow up, to return to the emergency department if symptoms worsen or persist or if there are any questions or concerns that arise at home. Special discussion: Based on the patient's history, exam, and Dx evaluation, there is no indication for emergent intervention or inpatient Tx. It is understood by the patient/guardian that if the Sx's persist or worsen they need to return immediately for re-evaluation. I discussed with the patient/guardian in detail that at this point there is no indication for admission to the hospital. It is understood, however, that if the symptoms persist or worsen the patient needs to return immediately for re-evaluation. ED course: No acute findings, most likely his chronic pain and pleurisy from recent pneumonia that has resulted in atelectasis. Has not been using incentive spirometer, will give another and explain how to use. Much more comfortable. . 10/12 13:12 Order name: Blood Culture Adult (2) rn 10/12 13:12 Order name: BMP; Complete Time: 14:28 rn 10/12 13:12 Order name: CBC with Diff; Complete Time: 15:02 rn 10/12 13:12 Order name: NT PRO-BNP; Complete Time: 14:28 rn 10/12 13:12 Order name: PT-INR; Complete Time: 14:28 rn 10/12 13:12 Order name: Ptt, Activated; Complete Time: 14:28 rn 10/12 13:12 Order name: XRAY CXR (1 view); Complete Time: 14:37 rn 10/12 13:12 Order name: Troponin (emerg Dept Use Only); Complete Time: 14:28 rn 10/12 13:54 Order name: CBC Smear Scan; Complete Time: 15:02 EDMS 10/12 14:29 Order name: CT Chest For PE Angio; Complete Time: 16:04 rn 10/12 16:05 Order name: INCENTIVE SPIROMETRY rn 10/12 13:12 Order name: EKG; Complete Time: 13:13 rn 10/12 13:12 Order name: Cardiac monitoring; Complete Time: 13:48 rn 10/12 13:12 Order name: EKG - Nurse/Tech; Complete Time: 13:48 rn 10/12 13:12 Order name: IV Saline Lock; Complete Time: 13:48 rn 10/12 13:12 Order name: Labs collected and sent; Complete Time: 13:48 rn 10/12 13:12 Order name: O2 Per Protocol; Complete Time: 13:48 rn 10/12 13:12 Order name: O2 Sat Monitoring; Complete Time: 13:48 rn EC:20 Rate is 74 beats/min. Rhythm is regular. QRS [place] is Normal. CO interval is normal. QRS rn interval is normal. QT interval is normal. No Q waves. T waves are Normal. No ST changes noted. Clinical impression: Normal ECG. Interpreted by me. Reviewed by me. Administered Medications: 13:40 Drug: Zofran (Ondansetron) 4 mg Route: IVP; Site: right forearm; sv 13:42 Drug: morphine 4 mg Route: IVP; Site: right forearm; sv 16:22 Drug: Dilaudid 1 mg Route: IVP; Site: right forearm; ss Disposition: 10/13/19 16:09 Discharged to Home. Impression: Pleurisy, Atelectasis. - Condition is Stable. - Discharge Instructions: Atelectasis, Adult, Pleurisy, Incentive Spirometer. - Medication Reconciliation Form, Thank You Letter, Antibiotic Education, Prescription Opioid Use form. - Follow up: Private Physician; When: As needed; Reason: Recheck today's complaints, Re-evaluation by your physician. - Problem is an ongoing problem. - Symptoms have improved. Signatures: Dispatcher [employer] Lydia Galindo RN RN Shay Ramirez MD MD rn Smirch, Shelby, RN RN ss Nnamdi Friedman RN RN ll1 Corrections: (The following items were deleted from the chart) 16:42 16:09 10/13/2019 16:09 Discharged to Home. Impression: Pleurisy; Atelectasis. Condition ss is Stable. Forms are Medication Reconciliation Form, Thank You Letter, Antibiotic Education, Prescription Opioid Use. Follow up: Private Physician; When: As needed; Reason: Recheck today's complaints, Re-evaluation by your physician. Problem is an ongoing problem. Symptoms have improved. rn
[2019-10-13] MEDS ORDERED: HYDROMORPHONE HCL 1 MG/ML INJ ONE (16:18)
[2019-10-13 17:16] VITALS: TEMP 97.5
[2019-10-13 17:20] VITALS: BP 149/77; O2SAT 95
--- NOTE | 2019-10-14 11:37 | EKG ---
Test Date: 2019-10-13 Test Time: 13:26:27 Entry Level Account Manager: MICKY MEASUREMENT RESULTS: Intervals: Rate: 74 [place]: 146 QRSD: 76 QT: 374 QTc: 415 [place]: P: 17 [place]: 146 QRS: 85 T: 42 INTERPRETIVE STATEMENTS: Normal sinus rhythm Normal ECG Compared to ECG 09/26/2019 01:59:16 No significant changes Electronically Signed On 10-14-19 11:35:04 CDT by Ilan Jay
== END 2019-10-13 16:42 | disposition home or self-care (01) ==
LOC: ER 12:52
DX: R09.1 Pleurisy (principal); J98.11 Atelectasis; Z85.118 Personal history of other malignant neoplasm of bronchus and lung; Z85.46 Personal history of malignant neoplasm of prostate; Z90.2 Acquired absence of lung [part of]; Z87.891 Personal history of nicotine dependence
CPT/HCPCS: 93005; 87040 ×2; 85025; 80048; 36415; 85610; 85730; 84484; 83880; 71275; 71045; Q9967; J1170; J2405; 96374; 96375; 99284

== ENCOUNTER 2019-10-24 12:45 | Day surgery (SDC) | payer BC ==
--- OUTSIDE RECORDS SUMMARY | 2019-10-24 13:09 | XMS REPORT | Clinical Summary ---
:1965 Author Organization [facility] Address [address] [place] [address] Care Team Providers Name Role Phone Mahendra Ferrell MD Primary Care Provider Allergies Active Allergy Reactions Severity Noted Date Comments Fentanyl Itching High 06/20/2019 Other Rash Low 06/17/2019 *[facility] Midazolam Itching High 06/20/2019 Medications Medication Sig Dispensed Refills Start End Date Status Date budesonide-formoter Inhale 2 0 Active ol (SYMBICORT) puffs 2 (two) 160-4.5 times a day. mcg/actuation inhaler abiraterone Take 250 mg 0 Active (ZYTIGA) 250 mg by mouth chemo tablet daily. predniSONE Take 5 mg by 0 Active (DELTASONE) 5 mg mouth 2 (two) tablet times a day. rosuvastatin Take 10 mg by 0 Act consuelo (CRESTOR) 10 MG mouth daily. tablet omeprazole Take 20 mg by 0 Activ e (PriLOSEC) 20 MG mouth daily. capsule triptorelin pamoate Inject 11.25 0 Active (TRELSTAR) 11.25 mg mg into the suspension for shoulder, reconstitution thigh, or buttocks every 3 (three) months. denosumab (PROLIA) Inject 60 mg 0 Active 60 mg/mL syringe under the syringe skin once. q6 months (last dose was 06/30/2019) albuterol (PROAIR Inhale 2 0 Ac tive HFA) 90 puffs every 6 mcg/actuation (six) hours inhaler as needed for wheezing. naproxen sodium Take by 0 Acti ve (ALEVE ORAL) mouth. methocarbamol Take 1 tablet 120 tablet 0 A ctive (ROBAXIN) 500 MG (500 mg 0 tabletIndications: total) by Postoperative pain, mouth 4 Muscle spasm (four) times a day as needed for muscle spasms. tamsulosin (FLOMAX) Take 0.4 mg 0 07/29/19 Discontinued 0.4 mg capsule by mouth 20 (Melani ent daily. Discharge) [id number] or Infuse 1 each 0 07/04/19 Discontinued placebo infusion, into a venous 20 (Discontinued by TRAILBLAZER/[id number] catheter another 8797/Tamra, once. clinici an) acetaminophen Take 2 30 tablet 0 07/13/19 d (TYLENOL) 500 MG tablets 0 20 tablet (1,000 mg total) by mouth every 8 (eight) hours for 5 days. gabapentin Take 1 90 capsule 0 07/29/19 Disconti nued (NEURONTIN) 300 mg capsule (300 0 20 (Reorder) capsule mg total) by mouth 3 (three) times a day for 30 days. naproxen (NAPROSYN) Take 1 tablet 6 tablet 0 250 MG tablet (250 mg 0 20 total) by mouth 2 (two) times a day with meals for 3 days. amoxicillin-pot Take 1 tablet 10 tablet 0 07/16/19 clavulanate by mouth 2 0 20 (AUGMENTIN) 875-125 (two) times a mg per tablet day for 5 days. nicotine (NICODERM Place 1 patch 30 patch 0 0 Discontinued CQ) 14 mg/24 hr on the skin 0 20 (P atient daily for 30 Dischar ge) days. pantoprazole Take 1 tablet 14 tablet 0 07/25/19 Exp ired (PROTONIX) 40 MG EC (40 mg total) 0 20 tablet by mouth daily for 14 days. traMADol (ULTRAM) Take 1 tablet 28 tablet 0 07/16/19 Discontinued 50 mg (50 mg total) 0 20 tabletIndications: by mouth acute pain every 6 (six) hours as needed for moderate pain for up to 7 days .acute pain. traMADol (ULTRAM) Take 1 tablet 28 tablet 0 07/23/19 50 mg (50 mg total) 0 20 tabletIndications: by mouth acute pain every 6 (six) hours as needed for moderate pain for up to 7 days .acute pain. HYDROcodone-acetami Take 1 tablet 42 tablet 0 nophen (NORCO) by mouth 0 20 7.5-325 mg per every 4 tabletIndications: (four) hours acute pain as needed for moderate pain for up to 7 days .acute pain. Max Daily Amount: 6 tablets gabapentin Take 2 180 capsule 0 08/28/19 (NEURONTIN) 300 mg capsules (600 0 20 capsuleIndications: mg total) by Neuropathic pain, mouth 3 Postoperative pain (three) times a day for 30 days. HYDROcodone-acetami Take 1 tablet 40 tablet 0 nophen (NORCO) by mouth 0 20 7.5-325 mg per every 6 (six) tabletIndications: hours as acute pain needed for moderate pain for up to 10 days .acute pain. Max Daily Amount: 4 tablets Active Problems Problem Noted Date Shortness of breath 07/09/2019 Malignant neoplasm of upper lobe, left bronchus or kathryn g 07/07/2019 Encounters Date Type Specialty Care Team Description 08/19/2019 Telephone Cardiothoracic Madalyn, Aide [place] 08/18/2019 Telephone Cardiothoracic Aide Mustafa NP 08/18/2019 Telephone Cardiothoracic Hubert, Surgery ELICEO Cabrera 08/01/2019 Orders Only General Surgery Colin Lobo MD 08/01/2019 Telephone Cardiothoracic Aide Mustafa [employer] 07/29/2019 Office Visit Cardiothoracic Colin Lobo, Surgery fo llow-up examination (Primary Dx); Surgery Postoperative p ain; Neuropathic tristan n; Muscle spasm 07/28/2019 Telephone Cardiothoracic Aide Gaspar MA 07/25/2019 Telephone General Surgery Colin Lobo MD 07/22/2019 Telephone Cardiothoracic Aide Mustafa, MARYANN 07/16/2019 Refill Cardiothoracic Colin Lobo Surgery MD 07/14/2019 Telephone General Surgery Colin Lobo MD 07/09/2019 [facility] Internal Colin Lobo Shortnes s of breath - Encounter Medicine (Primary Dx) 07/11/2019 Florin Johnson MD 07/09/2019 Office Visit Cardiothoracic Meisenbach, Dysphagia, un specified type (Primary Dx); Surgery Rosemary Macdonald, [employer]LE[employer] Hoarseness 07/09/2019 Lab Lab Colin Lobo, Cough; Dysphagia, unsp ecified type 07/09/2019 Hospital Radiology Colin Lobo, Cough; Encounter Dysphagia, unsp ecified type 07/09/2019 Telephone Cardiothoracic Meisenjass, Cough (Primar y Dx); Surgery Rosemary Macdonald, [employer]LE[employer] Dysphagia, un specified type 07/07/2019 Surgery Cardiothoracic Colin Lobo, LEFT ROBO T-ASSISTED Surgery MD MANDI LINARES FT UPPER LOBE LINGULECTOMY, L EFT LOWER LOBE SEGMENTECTOMY 07/07/2019 Anesthesia Event Cardiothoracic Lydia Mott Surgery MD Sharif Nesbitt Meredith 07/07/2019 [facility] General Internal Colin Lobo, Malignan t neoplasm - Encounter Medicine MD of upper lobe, left 07/08/2019 bronchus or kathryn g (HCC) 07/04/2019 Telephone General Surgery Rea Rae MA 07/04/2019 Telephone Cardiothoracic Moon, Surgery Rosemary Macdonald NP 06/27/2019 [facility] Pulmonology Colin Lobo, [facility] 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) 06/27/2019 [facility] Radiology Colin Lobo, Malignant ne oplasm of upper lobe of left lung (HCC); Encounter MD Pre-op testing 06/24/2019 Telephone General Surgery Colin Lobo MD 06/24/2019 Orders Only Cardiothoracic Meisenbach, 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) (Primary Dx); Surgery Rosemary Macdonald NP Pre-op testin g 06/24/2019 Telephone Cardiothoracic Madalyn, Surgery Genoveva, ELICEO 06/23/2019 Orders Only [facility] [place] 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) 06/20/2019 Surgery Cardiothoracic Colin Lobo, FLEXIBLE Surgery BRONCHOSCOPY 06/20/2019 Anesthesia Event Cardiothoracic Aneta Ovalles MD Kessellie, Caroline 06/20/2019 [facility] Cardiothoracic Colin Lobo, Encounter Surgery 06/18/2019 Telephone Cardiothoracic Moon, Surgery Rosemary Macdonald [employer] 06/17/2019 [facility] Radiology Chen Nieto, Encounter 06/17/2019 [facility] Radiology Chen Nieto, Encounter 06/17/2019 Office Visit Cardiothoracic Colin Lobo, Malignant neoplasm Surgery MD of upper lobe o f left lung (HCC) (Primary Dx) 06/17/2019 Orders Only Cardiothoracic Provider, Surgery MD Mary Jane after 10/23/2018 Family History Medical History Relation Name Comments Diabetes Mother Diabetes Sister Relation Name Status Comments Mother Sister Social History Tobacco Use Types Packs/Day Years Used Date Former Smoker Cigarettes 0.5 1979 - 2019 Smokeless Tobacco: Never Used Alcohol Use Drinks/Week oz/Week Comments Never Alcohol Habits Answer Date Recorded How often do you have a drink containing alcohol? Never 06/17/2019 How many drinks containing alcohol do you have on a typical Not asked day when you are drinking? How often do you have six or more drinks on one occasion? No t asked Sex Assigned at Date Recorded Not on file Job Start Date Occupation Industry Not on file Not on file Not on file Travel History Travel Start Travel End No recent travel history available. Last Filed Vital Signs Vital Sign Reading Time Taken Comments Blood Pressure 148/80 07/29/2019 8:05 AM GROUP FITNESS MANAGER Pulse 72 07/29/2019 8:05 AM GROUP FITNESS MANAGER Temperature 36.1 C (96.9 F) 07/29/2019 8:05 AM GROUP FITNESS MANAGER Respiratory Rate 17 07/29/2019 8:05 AM GROUP FITNESS MANAGER Oxygen Saturation 97% 07/29/2019 8:05 AM GROUP FITNESS MANAGER Inhaled Oxygen Concentration - - Weight 142 kg (314 lb) 07/29/2019 8:05 AM GROUP FITNESS MANAGER Height 180.3 cm (5' 11") 07/29/2019 8:05 AM GROUP FITNESS MANAGER Body Mass Index 43.79 07/29/2019 8:05 AM GROUP FITNESS MANAGER Plan of Treatment Health Maintenance Due Date Last Done Comments COLONOSCOPY SCREENING 10/22/2015 SHINGLES VACCINES (#1) 10/22/2015 INFLUENZA VACCINE 01/10/2020 06/18/2019 Implants Implanted Type Area Market Maker Device Shelf Model / Identifier Expiration Serial / Date Lot Kit Selnt Plrl Air Leak 4ml Strl Progel - [id number] Surgical N/A: N/A [employer] 01/01/2021 [id number] / Implanted: Qty: 1 on 07/07/2019 by Colin Lobo MD at [facility] Implants; / Expanders; Extenders; Surgical Wires Procedures Procedure Name Priority Date/Time Associated Comments Diagnosis XR CHEST 1 VW PORTABLE STAT 07/11/2019 8:50 R esults for this AM GROUP FITNESS MANAGER procedure are i n the results section. GRAM STAIN Routine 07/10/2019 9:30 Results for this AM GROUP FITNESS MANAGER procedure are i n the results section. SPUTUM CULTURE Routine 07/10/2019 9:30 Results f or this AM GROUP FITNESS MANAGER procedure are i n the results section. ESTIMATED GFR Routine 07/10/2019 3:57 Results fo r this AM GROUP FITNESS MANAGER procedure are i n the results section. PHOSPHORUS LEVEL Routine 07/10/2019 3:57 Results for this AM GROUP FITNESS MANAGER procedure are i n the results section. MAGNESIUM LEVEL Routine 07/10/2019 3:57 Results for this AM GROUP FITNESS MANAGER procedure are i n the results section. BASIC METABOLIC PANEL Routine 07/10/2019 3:57 Re sults for this AM GROUP FITNESS MANAGER procedure are i n the results section. PARTIAL THROMBOPLASTIN Routine 07/10/2019 3:57 R esults for this TIME (PTT) AM GROUP FITNESS MANAGER procedure are i n the results section. PROTHROMBIN TIME WITH Routine 07/10/2019 3:57 Re sults for this INR AM GROUP FITNESS MANAGER procedure are i n the results section. HC COMPLETE BLD COUNT Routine 07/10/2019 3:57 Re sults for this W/AUTO DIFF AM GROUP FITNESS MANAGER procedure are i n the results section. US DUPLEX VENOUS LOWER STAT 07/09/2019 9:10 R esults for this EXTREMITY BILATERAL PM GROUP FITNESS MANAGER procedur e are in the results section. RESPIRATORY PATHOGEN STAT 07/09/2019 8:27 Res ults for this PANEL PM GROUP FITNESS MANAGER procedure are i n the results section. CT ANGIOGRAM PE CHEST STAT 07/09/2019 7:35 Re sults for this PM GROUP FITNESS MANAGER procedure are i n the results section. ARTERIAL BLOOD GAS STAT 07/09/2019 6:28 Resul ts for this PM GROUP FITNESS MANAGER procedure are i n the results section. ESTIMATED GFR STAT 07/09/2019 2:00 Results fo r this PM GROUP FITNESS MANAGER procedure are i n the results section. HC COMPLETE BLD COUNT STAT 07/09/2019 2:00 Cough Results for this W/AUTO DIFF PM GROUP FITNESS MANAGER Dysphagia, procedure are i n unspecified type the results section. COMPREHENSIVE METABOLIC STAT 07/09/2019 2:00 Cough Results for this PANEL PM GROUP FITNESS MANAGER Dysphagia, procedure are i n unspecified type the results section. XR CHEST 2 VW Routine 07/09/2019 1:44 Cough Results for this PM GROUP FITNESS MANAGER Dysphagia, procedure are i n unspecified type the results section. XR CHEST 1 VW PORTABLE STAT 07/08/2019 2:35 R esults for this PM GROUP FITNESS MANAGER procedure are i n the results section. XR CHEST 1 VW PORTABLE Timed 07/08/2019 10:35 R esults for this AM GROUP FITNESS MANAGER procedure are i n the results section. XR CHEST 1 VW PORTABLE Routine 07/08/2019 6:45 R esults for this AM GROUP FITNESS MANAGER procedure are i n the results section. ARTERIAL BLOOD GAS Routine 07/08/2019 6:10 Resul ts for this AM GROUP FITNESS MANAGER procedure are i n the results section. XR CHEST 1 VW PORTABLE STAT 07/08/2019 4:43 R esults for this AM GROUP FITNESS MANAGER procedure are i n the results section. XR CHEST 1 VW PORTABLE STAT 07/07/2019 7:35 R esults for this PM GROUP FITNESS MANAGER procedure are i n the results section. GLUCOSE LEVEL, SYRINGE STAT 07/07/2019 6:30 R esults for this PM GROUP FITNESS MANAGER procedure are i n the results section. LACTIC ACID, SYRINGE STAT 07/07/2019 6:30 Res ults for this PM GROUP FITNESS MANAGER procedure are i n the results section. HEMOGLOBIN, SYRINGE STAT 07/07/2019 6:30 Resu lts for this PM GROUP FITNESS MANAGER procedure are i n the results section. IONIZED CALCIUM, STAT 07/07/2019 6:30 Results for this ARTERIAL PM GROUP FITNESS MANAGER procedure are i n the results section. SODIUM LEVEL, SYRINGE STAT 07/07/2019 6:30 Re sults for this PM GROUP FITNESS MANAGER procedure are i n the results section. POTASSIUM, SYRINGE STAT 07/07/2019 6:30 Resul ts for this PM GROUP FITNESS MANAGER procedure are i n the results section. ARTERIAL BLOOD GAS, STAT 07/07/2019 6:30 Resu lts for this CORRECTED PM GROUP FITNESS MANAGER procedure are i n the results section. SURGICAL PATHOLOGY Routine 07/07/2019 5:51 Resul ts for this REQUEST PM GROUP FITNESS MANAGER procedure are i n the results section. LACTIC ACID, SYRINGE STAT 07/07/2019 5:20 Res ults for this PM GROUP FITNESS MANAGER procedure are i n the results section. IONIZED CALCIUM, STAT 07/07/2019 5:20 Results for this ARTERIAL PM GROUP FITNESS MANAGER procedure are i n the results section. GLUCOSE LEVEL, SYRINGE STAT 07/07/2019 5:20 R esults for this PM GROUP FITNESS MANAGER procedure are i n the results section. SODIUM LEVEL, SYRINGE STAT 07/07/2019 5:20 Re sults for this PM GROUP FITNESS MANAGER procedure are i n the results section. HEMOGLOBIN, SYRINGE STAT 07/07/2019 5:20 Resu lts for this PM GROUP FITNESS MANAGER procedure are i n the results section. POTASSIUM, SYRINGE STAT 07/07/2019 5:20 Resul ts for this PM GROUP FITNESS MANAGER procedure are i n the results section. ARTERIAL BLOOD GAS, STAT 07/07/2019 5:20 Resu lts for this CORRECTED PM GROUP FITNESS MANAGER procedure are i n the results section. GLUCOSE LEVEL, SYRINGE STAT 07/07/2019 4:15 R esults for this PM GROUP FITNESS MANAGER procedure are i n the results section. IONIZED CALCIUM, STAT 07/07/2019 4:15 Results for this ARTERIAL PM GROUP FITNESS MANAGER procedure are i n the results section. SODIUM LEVEL, SYRINGE STAT 07/07/2019 4:15 Re sults for this PM GROUP FITNESS MANAGER procedure are i n the results section. POTASSIUM, SYRINGE STAT 07/07/2019 4:15 Resul ts for this PM GROUP FITNESS MANAGER procedure are i n the results section. HEMOGLOBIN, SYRINGE STAT 07/07/2019 4:15 Resu lts for this PM GROUP FITNESS MANAGER procedure are i n the results section. ARTERIAL BLOOD GAS, STAT 07/07/2019 4:15 Resu lts for this CORRECTED PM GROUP FITNESS MANAGER procedure are i n the results section. LACTIC ACID, SYRINGE STAT 07/07/2019 3:17 Res ults for this PM GROUP FITNESS MANAGER procedure are i n the results section. GLUCOSE LEVEL, SYRINGE STAT 07/07/2019 3:17 R esults for this PM GROUP FITNESS MANAGER procedure are i n the results section. HEMOGLOBIN, SYRINGE STAT 07/07/2019 3:17 Resu lts for this PM GROUP FITNESS MANAGER procedure are i n the results section. IONIZED CALCIUM, STAT 07/07/2019 3:17 Results for this ARTERIAL PM GROUP FITNESS MANAGER procedure are i n the results section. POTASSIUM, SYRINGE STAT 07/07/2019 3:17 Resul ts for this PM GROUP FITNESS MANAGER procedure are i n the results section. SODIUM LEVEL, SYRINGE STAT 07/07/2019 3:17 Re sults for this PM GROUP FITNESS MANAGER procedure are i n the results section. ARTERIAL BLOOD GAS, STAT 07/07/2019 3:17 Resu lts for this CORRECTED PM GROUP FITNESS MANAGER procedure are i n the results section. LACTIC ACID, SYRINGE STAT 07/07/2019 2:26 Res ults for this PM GROUP FITNESS MANAGER procedure are i n the results section. GLUCOSE LEVEL, SYRINGE STAT 07/07/2019 2:26 R esults for this PM GROUP FITNESS MANAGER procedure are i n the results section. IONIZED CALCIUM, STAT 07/07/2019 2:26 Results for this ARTERIAL PM GROUP FITNESS MANAGER procedure are i n the results section. POTASSIUM, SYRINGE STAT 07/07/2019 2:26 Resul ts for this PM GROUP FITNESS MANAGER procedure are i n the results section. HEMOGLOBIN, SYRINGE STAT 07/07/2019 2:26 Resu lts for this PM GROUP FITNESS MANAGER procedure are i n the results section. SODIUM LEVEL, SYRINGE STAT 07/07/2019 2:26 Re sults for this PM GROUP FITNESS MANAGER procedure are i n the results section. ARTERIAL BLOOD GAS, STAT 07/07/2019 2:26 Resu lts for this CORRECTED PM GROUP FITNESS MANAGER procedure are i n the results section. LACTIC ACID, SYRINGE STAT 07/07/2019 1:20 Res ults for this PM GROUP FITNESS MANAGER procedure are i n the results section. GLUCOSE LEVEL, SYRINGE STAT 07/07/2019 1:20 R esults for this PM GROUP FITNESS MANAGER procedure are i n the results section. IONIZED CALCIUM, STAT 07/07/2019 1:20 Results for this ARTERIAL PM GROUP FITNESS MANAGER procedure are i n the results section. POTASSIUM, SYRINGE STAT 07/07/2019 1:20 Resul ts for this PM GROUP FITNESS MANAGER procedure are i n the results section. HEMOGLOBIN, SYRINGE STAT 07/07/2019 1:20 Resu lts for this PM GROUP FITNESS MANAGER procedure are i n the results section. SODIUM LEVEL, SYRINGE STAT 07/07/2019 1:20 Re sults for this PM GROUP FITNESS MANAGER procedure are i n the results section. ARTERIAL BLOOD GAS, STAT 07/07/2019 1:20 Resu lts for this CORRECTED PM GROUP FITNESS MANAGER procedure are i n the results section. ARTERIAL LINE Routine 07/07/2019 12:50 Results fo r this PM GROUP FITNESS MANAGER procedure are i n the results section. DE AN ELECTIVE Routine 07/07/2019 12:45 Results f or this ENDOTRACHEAL AIRWAY PM GROUP FITNESS MANAGER procedur e are in the results section. IONIZED CALCIUM, STAT 07/07/2019 12:26 Results for this ARTERIAL PM GROUP FITNESS MANAGER procedure are i n the results section. GLUCOSE LEVEL, SYRINGE STAT 07/07/2019 12:26 R esults for this PM GROUP FITNESS MANAGER procedure are i n the results section. HEMOGLOBIN, SYRINGE STAT 07/07/2019 12:26 Resu lts for this PM GROUP FITNESS MANAGER procedure are i n the results section. POTASSIUM, SYRINGE STAT 07/07/2019 12:26 Resul ts for this PM GROUP FITNESS MANAGER procedure are i n the results section. SODIUM LEVEL, SYRINGE STAT 07/07/2019 12:26 Re sults for this PM GROUP FITNESS MANAGER procedure are i n the results section. ARTERIAL BLOOD GAS, STAT 07/07/2019 12:26 Resu lts for this CORRECTED PM GROUP FITNESS MANAGER procedure are i n the results section. PREPARE RBC STAT 07/07/2019 8:20 Results for this AM GROUP FITNESS MANAGER procedure are i n the results section. TYPE AND SCREEN STAT 07/07/2019 8:20 Results for this AM GROUP FITNESS MANAGER procedure are i n the results section. SPIROMETRY, DIFFUSION Routine 06/27/2019 11:09 Primary maligna nt Results for this AM GROUP FITNESS MANAGER neoplasm of procedure are i n bronchus of left the results lower lobe (HCC) section. MRI BRAIN W WO CONTRAST Routine 06/27/2019 10:36 Malignant sj plasm Results for this AM GROUP FITNESS MANAGER of upper lobe of procedure a re in left lung (HCC) the results Pre-op testing section. POC GLUCOSE Routine 06/20/2019 1:04 Results for this PM GROUP FITNESS MANAGER procedure are i n the results section. DE AN ELECTIVE Routine 06/20/2019 11:41 Results f or this ENDOTRACHEAL AIRWAY AM GROUP FITNESS MANAGER procedur e are in the results section. CYTOLOGY Routine 06/20/2019 11:40 Results for this (NON-GYNECOLOGICAL) AM GROUP FITNESS MANAGER procedur e are in REQUEST the results section. CYTOLOGY Routine 06/20/2019 11:40 Results for this (NON-GYNECOLOGICAL) AM GROUP FITNESS MANAGER procedur e are in REQUEST the results section. ECG 12-LEAD STAT 06/20/2019 8:33 Results for this AM GROUP FITNESS MANAGER procedure are i n the results section. ESTIMATED GFR STAT 06/20/2019 8:15 Results fo r this AM GROUP FITNESS MANAGER procedure are i n the results section. PARTIAL THROMBOPLASTIN STAT 06/20/2019 8:15 R esults for this TIME (PTT) AM GROUP FITNESS MANAGER procedure are i n the results section. PROTHROMBIN TIME WITH STAT 06/20/2019 8:15 Re sults for this INR AM GROUP FITNESS MANAGER procedure are i n the results section. BASIC METABOLIC PANEL STAT 06/20/2019 8:15 Re sults for this AM GROUP FITNESS MANAGER procedure are i n the results section. HC COMPLETE BLD COUNT STAT 06/20/2019 8:15 Re sults for this W/AUTO DIFF AM GROUP FITNESS MANAGER procedure are i n the results section. PET CT WHOLE BODY Routine 05/15/2019 10:19 Result s for this EXTERNAL STUDY AM GROUP FITNESS MANAGER procedure are in the results section. PET CT SKULL BASE TO Routine 05/15/[address] CHEST EXTERNAL STUDY Routine 05/02/2019 7:55 Results for this AM GROUP FITNESS MANAGER procedure are i n the results section. after 10/23/2018 Results XR Chest 1 Vw Portable (07/11/2019 8:50 AM GROUP FITNESS MANAGER)Only the most recent of6 results within the time period is included. Specimen Narrative Performed At EXAMINATION: XR CHEST 1 VW PORTABLE [facility] CLINICAL HISTORY: shortness of breath IMPRESSION: Single frontal view compared to 07/09/2019 demonstrates postoperative scarring and atelectasis and volume loss in the left l lara to be stable. There is no new infiltrate. There is no pneumothorax. [facility]-[id number] Procedure Note Hm Interface, Radiology Results Incoming - 07/11/2019 10:45 AM GROUP FITNESS MANAGER EXAMINATION: XR CHEST 1 VW PORTABLE CLINICAL HISTORY: shortness of breath IMPRESSION: Single frontal view compared to 0 demonstrates postoperative scarring and atelectasis and volume loss in the left lung to be stable. There is no new infiltrate. There is no pneumothorax. [facility]-[id number] Performing Organization Address City/[facility]/Zipcode Phone Number [facility] [address] [place] [address] Sputum culture (07/10/2019 9:30 AM GROUP FITNESS MANAGER) Sputum culture Normal oral jose juan isolated. [facility] isolate Comment: HOSPITAL Specimen Information Specimen Source: Sputum Specimen Site: Expectorated Specimen Sputum - Expectorated Performing Organization Address City/[facility]/Zipcode Phone Number [facility] DEPARTMENT OF PATHOLOGY AND [address] [place], [place] [address] GENOMIC MEDICINE [address] [address] Gram stain (07/10/2019 9:30 AM GROUP FITNESS MANAGER) Gram stain isolate Few WBC's [facility] Few Gram negative rods HOSPITAL Moderate Gram positive cocci in pairs Comment: Specimen Information Specimen Source: Sputum Specimen Site: Expectorated Specimen Sputum - Expectorated Performing Organization Address City/[facility] Phone Number [facility] DEPARTMENT OF PATHOLOGY AND [address] [place] [address] [phone] [address] Estimated GFR (07/10/2019 3:57 AM GROUP FITNESS MANAGER)Only the most recent of3 resultswithin the time period is included. [facility] Estimated GFR >=90 mL/min/1.73 [facility] Comment: [address] Catergory Units Interpretation G1 >=90 Normal or high G2 60-89 Mildly decreased G3a 45-59 Mildly to moderately decreas ed G3b 30-44 Moderately to severely decre ased G4 15-29 Severely decreased G5 <15 Kidney failure The eGFR was calculated using the Chronic Kidney Disea se Epidemiology Collaboration (CKD-EPI) equation. Interpretation is based on recommendations of the National Kidney Foundation-Kidney Disease Outcomes Jabari lity Initiative (NKF-KDOQI) published in 2014. Specimen Plasma specimen Performing Organization Address [facility] Corporation[facility] Phone Number [facility] DEPARTMENT OF PATHOLOGY AND [address] [place] [address] Partial thromboplastin time, activated (07/10/2019 3:57 AM GROUP FITNESS MANAGER)Only the most recent of2 resultswithin the time period is included. [facility] PTT 29.8 23.0 - 36.0 [facility] Comment: [facility] PTT therapeutic range for unfractionated heparin is 61.0-112.0 seconds which corresponds to Anti-Xa 0.3-0.7 U/ml. Specimen Blood Performing Organization Address [facility] Corporationcode Phone Number [facility] DEPARTMENT OF PATHOLOGY AND [address] [place] [phone] [place] [phone] Prothrombin time with INR (07/10/2019 3:57 AM GROUP FITNESS MANAGER)Only the most recent of2 resultswithin the time period is included. [facility] Prothrombin time 14.5 11.5 - 14.5 [facility] INR 1.1 PIERZ Comment: GNOSTICISM The International Normalized Ratio (INR) is a the[facility] HOSPITAL monitoring tool for patients who are stable on oral anticoagulant therapy. An INR of 2.0-3.0 is suggested for deep vein thrombosis/pulmonary embolism. Specimen Blood Performing Organization Address City/State/Zipcode Phone Number [facility] DEPARTMENT OF PATHOLOGY AND [address] [place], [place] [address] [address] CBC with platelet and differential (07/10/2019 3:57 AM GROUP FITNESS MANAGER)Only the most recent of3 resultswithin the time period is included. WBC 7.89 4.50 - 11.00 [facility] k/uL HOSPITAL RBC 3.72 (L) 4.40 - 6.00 [facility] m/uL [facility] HGB 10.8 (L) 14.0 - 18.0 [facility] g/dL [facility] HCT 34.3 (L) 41.0 - 51.0 % [facility] [place] MCV 92.2 82.0 - 100.0 [facility] MCH 29.0 27.0 - 34.[address] [facility] [place] MCHC 31.5 31.0 - 37.0 [facility] RDW - SD 44.3 37.0 - 55.[address] [facility] [place] MPV 9.5 8.8 - 13.2 [facility] Platelet count 149 (L) 150 - 400 k/uL [facility] [place] Nucleated RBC 0.00 /[address] [facility] [place] Neutrophils 81.2 (H) 39.0 - 69.0 % [facility] [place] Lymphocytes 7.7 (L) 25.0 - 45.0 % [facility] [place] Monocytes 7.5 0.0 - 10.0 % [facility] [place] Eosinophils 2.5 0.0 - 5.0 % [facility] [place] Basophils 0.3 0.0 - 1.0 % [facility] [place] Immature granulocytes 0.8Comment: 0.0 - 1.0 % [facility] "Immature HOSPITAL granulocytes" (promyelocytes , myelocytes, metamyelocytes ) Specimen Blood Performing Organization Address City/State/Zipcode Phone Number [facility] DEPARTMENT OF PATHOLOGY AND [address] [place], [place] [address] [address] Phosphorus level (07/10/2019 3:57 AM GROUP FITNESS MANAGER) Pathologist Sig nature Phosphorus 2.9 2.4 - 4.5 mg/dL [facility] L Specimen Plasma specimen Performing Organization Address [facility] Phone Number [facility] DEPARTMENT OF PATHOLOGY AND [address] [place] [address] Magnesium level (07/10/2019 3:57 AM GROUP FITNESS MANAGER) Pathologist [facility] Magnesium 2.1 1.6 - 2.6 mg/dL [facility] Specimen Plasma specimen Performing Organization Address [facility] Phone Number [facility] DEPARTMENT OF PATHOLOGY AND [address] [place] [address] Basic metabolic panel (07/10/2019 3:57 AM GROUP FITNESS MANAGER)Only the most recent of2 results within the time period is included. Pathologist Sig nature Sodium 137 135 - 148 mEq/L [facility] Potassium 3.9 3.5 - 5.0 mEq/L [facility] Chloride 101 98 - 112 mEq/L [facility] [place] CO2 25 24 - 31 mEq/L [facility] [place] Anion gap 11@ANIO 7 - 15 mEq/L [facility] [place] BUN 10 6 - 20 mg/dL [facility] [place] Creatinine 0.73 0.70 - 1.20 mg/dL [facility] Glucose 125 (H) 65 - 99 mg/dL [facility] [place] Calcium 8.8 8.3 - 10.2 mg/dL [facility] Specimen Plasma specimen Performing Organization Address [facility] Phone Number [facility] DEPARTMENT OF PATHOLOGY AND [address] [place] [address] Us duplex venous lower extremity (07/09/2019 9:10 PM GROUP FITNESS MANAGER) Specimen Narrative Performed At [facility] Lower Extr emity Venous Report [address] [place] [address] Pat.Name: JAE CONNOLLY Pat.ID: [id number]Date: 07/09/2019 Refer.MD: COLIN LOBO MD Exam Time: 8:23:00 PM Study Type:L E Venous Age: 5 1965,53Y Sex: MALE Sonogrphr: Raphael Rocha, RVS, RCS Pat. Stat.:Inpati ent Room: [facility] WT20 2018A Tape Vol: JM, [facility] - 4: [id number] Echo Yvrose nt ID:[id number] Order ID: [id number] Reason for Study:Leg swelling or pain, D VT suspected. Shortness of breath. History of HTN, HLD, asthma, DM, umbilical hernia, prostate CA s/p chemotherapy, s/p left lower lobe laboy perior segmentectomy, mediastinal lymph node dissection on . Procedures: Colorflow, Grayscale/2D, Pul sed wave Doppler SUMMARY: DUPLEX SCAN OBSERVATIONS Deep Veins Superficial Veins Right Left Right Left GSV (prox) Normal Normal CFV Normal Normal (above knee) Femoral Normal Normal GSV (dist) Normal Normal Profunda Normal Normal (below knee) Popliteal Normal Normal PT (prox) Normal Normal SSV Normal Nor mal PT (dist) Normal Normal Peroneal Normal Normal Gastrocs Normal Normal RIGHT: There is normal compressibility with no evidence of echogenic material noted within the lumen of the v isualized veins. Color flow and Doppler signals are normal. LEFT: There is normal compressibil ity with no evidence of echogenic material noted within the lume n of the visualized veins. Color flow and Doppler signals are amy l. PRELIMINARY FINDINGS 1. No evidence of venous thrombosis in t he visualized veins, bilaterally. PHYSICIAN INTERPRETATION Venous examination of the both lower ext remities demonstrated no evidence of venous thrombosis in the vis ualized veins. Normal compressibility and augmentation of all veins visualized. Valvular reflux right deep femoral vein. FINDINGS: Signed 07/09/2019 10:43 PM Andre Blood MD, FACS, RPVI Procedure Note Interface, Radiology Results In - 2019 10:43 PM GROUP FITNESS MANAGER Vascular Ultrasound Laboratory Lower Extremity Veno us Report [id number] [address] , [place] [address] Pat.Name: JAE CONNOLLY Pat.I D: [id number] St.Date: 07/09/2019 Refer .MD: COLIN LOBO MD Exam Time: 8:23:00 PM Study Type:LE Venous Age: 5 1965,53Y Sex: MALE Sonogrphr: Raphael Rocha, JOSE, RCS Pat. Stat.:Inpatient Room: [place] [address] 2018A Tape Vol: JM, CPT - 4: 38876 Echo Event ID:[id number] Order ID: [id number] Reason for Study:Leg swelling or pain, D VT suspected. Shortness of breath. History of HTN, HLD, asthma, DM, umbilical hernia, prostate CA s/p chemotherapy, s/p left lower lobe laboy perior segmentectomy, mediastinal lymph node dissection on . Procedures: Colorflow, Grayscale/2D, Pul sed wave Doppler SUMMARY: DUPLEX SCAN OBSERVATIONS Deep Veins Superficial Veins Right Left Right Left GSV (prox) Normal Normal CFV Normal Normal (above knee) Femoral Normal Normal GSV (dist) Normal Normal Profunda Normal Normal (below knee) Popliteal Normal Normal PT (prox) Normal Normal SSV Normal Norm al PT (dist) Normal Normal Peroneal Normal Normal Gastrocs Normal Normal RIGHT: There is normal compressibility with no evidence of echogenic material noted within the lumen of the v isualized veins. Color flow and Doppler signals are normal. LEFT: There is normal compressibilit y with no evidence of echogenic material noted within the lume n of the visualized veins. Color flow and Doppler signals are amy l. PRELIMINARY FINDINGS 1. No evidence of venous thrombosis in t he visualized veins, bilaterally. PHYSICIAN INTERPRETATION Venous examination of the both lower ext remities demonstrated no evidence of venous thrombosis in the vis ualized veins. Normal compressibility and augmentation of all veins visualized. Valvular reflux right deep femoral vein. FINDINGS: Signed 07/09/2019 10:43 PM Andre Blood MD, FACS, RPVI Performing Organization Address [facility]/Zipcode Phone Number [facility] [address] [place] [address] Respiratory pathogen panel (07/09/2019 8:27 PM GROUP FITNESS MANAGER) [facility] Respiratory Negative for all pathogens tested: [facility] pathogen panel Negative for Adenovirus GNOSTICISM Negative for Coronavirus HKU1 [facility] Negative for Coronavirus NL63 Negative for Coronavirus 229E Negative for Coronavirus OC43 Negative for Human Metapneumovirus Negative for Rhinovirus/Enterovirus Negative for Influenza A Negative for Influenza A/H1 Negative for Influenza A/H3 Negative for Influenza A/H1-2009 Negative for Influenza B Negative for Parainfluenza Virus 1 Negative for Parainfluenza Virus 2 Negative for Parainfluenza Virus 3 Negative for Parainfluenza Virus 4 Negative for Respiratory Syncytial Virus Negative for Bordetella pertussis Negative for Chlamydophila pneumoniae Negative for Mycoplasma pneumoniae This real-time PCR assay detects the presence of nucle ic acids (RNA or DNA) for the respiratory pathogens liste d. A result of "Not-detected" does not exclude the possib ility of the presence of one or more pathogens at concentrat ions less than the detectable limits of the assay. Comment: Specimen Information Specimen Source: Nares Specimen Site: Left Specimen Nares - Left Performing Organization Address [facility] Corporationcode Phone Number [facility] DEPARTMENT OF PATHOLOGY AND [address] [place] [address] GENOMIC MEDICINE [address] [address] [address] Angiogram Pe Chest (07/09/2019 7:35 PM GROUP FITNESS MANAGER) Specimen Narrative Performed At EXAMINATION: CT ANGIOGRAM PE CHEST [facility] CLINICAL HISTORY: shortness of breath TECHNIQUE: PE PROTOCOL: CT angiographic images of th e chest were obtained during intravenous administration of iodinate d contrast. Computerized reformatted images and 3-D MIP images wer e also obtained and archived (CT pulmonary embolus giovanni col). CT imaging was performed with iterative reconstruction te chnique and/or automated exposure control to reduce rad iation dose. COMPARISON: 05/02/[address] [facility] CT. IMPRESSION: CHEST: 1. Pulmonary Arteries: No definite CT scan evidence of acute pulmonary embolus. 2. Aorta: The thoracic aorta is nonaneur ysmal 3. Heart: The heart is normal in size. Coronary artery calcifications are present. 4. Pericardial Fluid: No pericardial eff usion. 5. Mediastinum: Borderline AP window lymph node seen o n series 3 image 38 to be followed. 4. Airways: Central airways are patent. 5. Lungs: Status post recent partial left pneumonectom y. Multiple staple lines in the left hilar region. Consolidation at the s taple lines likely postoperative change and atelectasis. Tiny anterior an d apical pneumothorax. Small amount of pneumomediastinum. Small left effusion. Bronchial wall thickening in the right lung and lower lobes, the bronchitis. A few scat tered areas of clustered tree-in-bud nodules in the right lung and gr oundglass nodules likely bronchiolitis. These can be followed at the time of the next follow-up exam to ens ure resolution. Emphysema. 6. Pleural Fluid: Small left effusion wh ich is partially loculated. 7. Bones: Degenerative changes of the osseous structur es. No suspicious lesions. 8. Upper Abdomen: No suspicious abnormal ities. 9. Other Findings: None SUMMARY: 1.No CT scan evidence of acute pulmonary embolus. 2.Status post recent partial left pneumonectomy with p ostoperative changes as above. 3.Bronchitis with bronchiolitis and small nodular infi ltrates in the right lung. 4.Minimal pneumomediastinum. Trace left apical and ant erior pneumothorax. [facility]-[id number] Procedure Note [facility], Radiology Results Incoming - 07/09/2019 7:55 PM GROUP FITNESS MANAGER EXAMINATION: CT ANGIOGRAM PE CHEST CLINICAL HISTORY: shortness of breath TECHNIQUE: PE PROTOCOL: CT angiographic images of the chest were obtained during intravenous administration of iodinated contrast. Computerized reformatted images and 3-D MIP images were also obtained and archived (CT pulmonary embolus protocol). CT imaging was performed with iterative rec onstruction technique and/or automated exposure control to reduce radiation dose. COMPARISON: 05/02/[address] [facility] CT. IMPRESSION: CHEST: 1. Pulmonary Arteries: No definite CT sc an evidence of acute pulmonary embolus. 2. Aorta: The thoracic aorta is nonaneur ysmal 3. Heart: The heart is normal in size. C oronary artery calcifications are present. 4. Pericardial Fluid: No pericardial eff usion. 5. Mediastinum: Borderline AP window lym ph node seen on series 3 image 38 to be followed. 4. Airways: Central airways are patent. 5. Lungs: Status post recent partial lef t pneumonectomy. Multiple staple lines in the left hilar region. Consolidation at the staple lines likely postoperative change and atelectasis. Tiny anterior and apical pneumothorax. Small amount of pneumomediastinum. Small left effusion. Bronchial wall thickening in the right lung and lower lobes, the bronchitis. A few scattered areas of clustered tree-in-bud nodules in the right lung and groundglass nodules likely bronchiolitis. These can be followed at the time of the next follow- up exam to ensure resolution. Emphysema. 6. Pleural Fluid: Small left effusion wh ich is partially loculated. 7. Bones: Degenerative changes of the os seous structures. No suspicious lesions. 8. Upper Abdomen: No suspicious abnormal ities. 9. Other Findings: None SUMMARY: 1.No CT scan evidence of acute pulmonary embolus. 2.Status post recent partial left pneumo nectomy with postoperative changes as above. 3.Bronchitis with bronchiolitis and smal l nodular infiltrates in the right lung. 4.Minimal pneumomediastinum. Trace left apical and anterior pneumothorax. [facility]-[id number] Performing Organization Address City/State/Zipcode Phone Number [facility] [address] [place] [address] Arterial blood gas (07/09/2019 6:28 PM GROUP FITNESS MANAGER)Only the most recent of2 results within the time period is included. Pathologist Sig nature pH, arterial 7.42 7.35 - 7.[address] [facility] [place] pCO2, arterial 41 35 - [address] [facility] [place] pO2, arterial 85 80 - [address] [facility] [place] Bicarbonate, arterial 26.3 21.0 - 28.0 [facility] mmol/L [facility] Base excess, arterial 2 -2 - 2 mEq/L [facility] [place] O2 saturation, 97 95 - 100 % [facility] Specimen Blood Performing Organization Address City/State/Zipcode Phone Number [facility] DEPARTMENT OF PATHOLOGY AND [address] [place] [address] [phone] [address] Comprehensive metabolic panel (07/09/2019 2:00 PM GROUP FITNESS MANAGER) Sodium 139 135 - 148 [facility] mEq/L [facility] Potassium 4.4 3.5 - 5.0 [facility] mEq/L [facility] Chloride 101 98 - 112 mEq/L [facility] [place] CO2 29 24 - 31 mEq/L [facility] [place] Anion gap 9@ANIO 7 - 15 mEq/L [facility] BUN 11 6 - 20 mg/dL [facility] [place] Creatinine 0.84 0.70 - 1.20 [facility] mg/dL [facility] Glucose 129 (H) 65 - 99 mg/dL [facility] [place] Calcium 9.2 8.3 - 10.2 [facility] mg/dL [facility] Protein 7.0 6.3 - 8.3 g/dL [facility] Comment: HOSPITAL Noeiaug0951.6-7.0 g/dL 1 urao9412.4-7.6 g/dL 7 months-0kngu842.1-7.3 g/dL 1-2 artcu086.6-7.5 g/dL >3 jbyor266.0-8.0 g/dL 18-5474745.3-8.3 g/dL Albumin 3.1 (L) 3.5 - 5.0 g/dL [facility] [place] A/G ratio 0.8 0.7 - 3.[address] [facility] [place] Alkaline phosphatase 56 40 - 129 U/L [facility] [place] AST 124 (H) 10 - 50 U/L [facility] [place] ALT 51 (H) 5 - 50 U/L [facility] [place] Total bilirubin 0.4 0.0 - 1.2 [facility] mg/dL [facility] Specimen Plasma specimen Performing Organization Address City/State/Zipcode Phone Number [facility] DEPARTMENT OF PATHOLOGY AND [address] [place], [place] [address] [facility] [address] [place] [phone] XR Chest 2 Vw (07/09/2019 1:44 PM GROUP FITNESS MANAGER) Specimen Narrative Performed At EXAMINATION: XR CHEST 2 VW HM [facility] CLINICAL HISTORY: R05 Cough, R13.10 Dysphagia unsp ecified, Cough new onset XR CHEST 2 VW images are submitted COMPARISON: Chest x-rays dated June 30, 2019 IMPRESSION: Heart and mediastinum: Unremarkable Lungs: Mild interval improved left lower lobe lung c onsolidations. Interval improved increased interstitial markings seen in both lungs. Pleura: There is mild left pleural effusion. Negativ e for pneumothorax. Bones: No acute osseous abnormality. Mild degenerati ve changes of thoracic spine. [facility]-[id number] Procedure Note Interface, Radiology Results Incoming - 07/09/2019 1:59 PM GROUP FITNESS MANAGER EXAMINATION: XR CHEST 2 VW CLINICAL HISTORY: R05 Cough, R13.10 Dys phagia unspecified, Cough new onset XR CHEST 2 VW images are submitted COMPARISON: Chest x-rays dated June 30, 2019 IMPRESSION: Heart and mediastinum: Unremarkable Lungs: Mild interval improved left lowe r lobe lung consolidations. Interval improved increased interstitial markings seen in both lungs. Pleura: There is mild left pleural effu pari. Negative for pneumothorax. Bones: No acute osseous abnormality. Mi ld degenerative changes of thoracic spine. [facility]-[id number] Performing Organization Address City/[facility]/Zipcode Phone Number [facility] [address] [place] [phone] Sodium level, syringe (07/07/2019 6:30 PM GROUP FITNESS MANAGER)Only the most recent of7 results within the time period is included. Pathologist Sig nature Sodium, syringe 138 135 - 148 mEq/L [facility] [place] Specimen Blood Performing Organization Address City/[facility]/Zipcode Phone Number [facility] DEPARTMENT OF PATHOLOGY AND [address] [place] [address] [phone] [address] Potassium, syringe (07/07/2019 6:30 PM GROUP FITNESS MANAGER)Only the most recent of7 results within the time period is included. Pathologist Sig nature Potassium, syringe 4.7 3.5 - 5.0 mEq/L [facility] [place] Specimen Blood Performing Organization Address City/[facility]/Zipcode Phone Number [facility] DEPARTMENT OF PATHOLOGY AND [address] [place] [address] [phone] [address] Lactic acid, syringe (07/07/2019 6:30 PM GROUP FITNESS MANAGER)Only the most recent of5 results within the time period is included. Pathologist Sig nature Lactic acid, syringe 1.8 0.5 - 2.2 mmol/L [facility] Specimen Blood Performing Organization Address City/[facility] Phone Number [facility] DEPARTMENT OF PATHOLOGY AND [address] [place] [phone] Ionized calcium, arterial (07/07/2019 6:30 PM GROUP FITNESS MANAGER)Only the most recent of7 resultswithin the time period is included. Pathologist Sig nature Ionized calcium, 1.12 1.11 - 1.32 [facility] arterial mmol/L [facility] Specimen Blood Performing Organization Address [facility] Corporationconj Phone Number [facility] DEPARTMENT OF PATHOLOGY AND [address] [place] [phone] Hemoglobin, syringe (07/07/2019 6:30 PM GROUP FITNESS MANAGER)Only the most recent of7 results within the time period is included. Pathologist Sig nature Hemoglobin, syringe 11.8 (L) 14.0 - 18.0 g/dL [facility] [place] Specimen Blood Performing Organization Address [facility] Phone Number [facility] DEPARTMENT OF PATHOLOGY AND [address] [place] [phone] Glucose level, syringe (07/07/2019 6:30 PM GROUP FITNESS MANAGER)Only the most recent of7 results within the time period is included. Pathologist Sig nature Glucose, syringe 188 (H) 65 - 99 mg/dL [facility] [place] Specimen Blood Performing Organization Address City/[facility] Corporation[facility] Phone Number [facility] DEPARTMENT OF PATHOLOGY AND [address] [place] [address] Arterial blood gas, corrected (07/07/2019 6:30 PM GROUP FITNESS MANAGER)Only the most recent of7 resultswithin the time period is included. pH, arterial 7.28 (L) 7.35 - 7.[address] [facility] [place] pCO2, arterial 61 (HH) 35 - 45 mmHg [facility] Comment: HOSPITAL ABG results called to and read back by IN WTOR #6 BY AM 2AT 07/07/2019 18:38 pO2, arterial 340 (H) 80 - [address] [facility] [place] Temperature, 37.0 Degrees C [facility] O2 saturation, 99 95 - 100 % [facility] pH, arterial 7.28 [facility] pCO2, arterial 61 mmHg [facility] pO2, arterial 340 mmHg [facility] Base excess, 0 -2 - 2 mEq/L [facility] Specimen Blood Performing Organization Address City/State/Zipcode Phone Number [facility] DEPARTMENT OF PATHOLOGY AND [address] [place], [place] [address] GENOMIC MEDICINE [address] [address] Surgical pathology request (07/07/2019 5:51 PM GROUP FITNESS MANAGER) [facility] DEPARTMENT OF PATHOLOGY AND GENOMIC MEDICINE Surgical pathology See link below [facility] DEPARTMENT OF report for PDF Lab PATHOLOGY AND Report GENOMIC MEDICINE Result status This is Final [facility] DEPARTMENT OF Report for PATHOLOGY AND [id number] GENOMIC MEDICINE Specimen Performing Organization Address City/State/Zipcode Phone Number [facility] DEPARTMENT OF PATHOLOGY AND [address] [place], [place] [address] GENOMIC MEDICINE Arterial line (07/07/2019 12:50 PM GROUP FITNESS MANAGER) Narrative Performed At Wes Looney MD 07/07/2019 12:51 PM Arterial line Performed by: Wes Looney MD Authorized by: Michael Caro MD Patient Location: OR Start Time: 07/07/2019 12:50 PM End Time: 07/07/2019 12:50 PM Staff: Anesthesiologist: Michael Caro MD Resident/CASE MANAGEMENT COORDINATOR/AA: Wes Looney MD Performed by: Resident/CASE MANAGEMENT COORDINATOR/AA Pre-procedure: patient identified, IV ch ecked, site and side verified, risks and benefits discussed, procedure verified, surgical consent complete, patient position confirmed, monitors and equ ipment checked and pre-op evaluation complete MSBT: antiseptic used, all elements of maximal sterile barrier technique followed, hand hygiene performed, cap/go wn used by other personnel and solutions labeled Indications: Indications: multiple ABGs and hemody namic monitoring Anesthesia: Anesthesia: General Procedure Details: Arterial Line placement: Placed pos t induction Line placement site: Radial Line placement side: Right Arterial line gauge: 20 G Number of attempts: 1 Ultrasound guidance used: Yes Post-procedure: Post-procedure: Sterile dressing ap plied Post procedure circulation, sensation , movement: Normal Patient tolerance: Patient tolerate d the procedure well with no immediate complications Airway (07/07/2019 12:45 PM GROUP FITNESS MANAGER) Narrative Performed At Wes Looney MD 07/07/2019 12:53 PM Airway Date/Time: 07/07/2019 12:45 PM Performed by: Wes Looney MD Authorized by: Michael Caro MD Location: OR Urgency: Elective Difficult Airway: Yes Anesthesiologist: Michael Caro MD Resident/CASE MANAGEMENT COORDINATOR/AA: Wes Looney MD Performed by: anesthesiologist Preoxygenated with 100% O2: Yes C-spine Precautions Maintained Throughou t: No Mask Ventilation: Difficult mask Final Airway Type: Endotracheal airway Final Endotracheal Airway: ETT - doubl e lumen left Cuffed: Yes Technique Used: Video laryngoscopy Devices/Methods Used in Placement: Int ubating stylet Insertion Site: Oral Blade Type: Christina Laryngoscope Blade/Videolaryngoscope Gatito de Size: 4 ETT Double Lumen (fr): 39 Cuff at minimum occlusion pressure: Yes Measured from: Lips Placement Verified by: CO2 detection and fiber optic visualization Laryngoscopic view: Grade IIb - view o f arytenoids or posterior of glottis only Rapid Sequence Induction (RSI): No Modified RSI: No Number of Attempts at Approach: 2 Patient has a very tortuous airway and large arytenoi ds. However we were successful in placing the ETT without complications. Prepare RBC (07/07/2019 8:20 AM GROUP FITNESS MANAGER) Product name Red Blood Cells [facility], Leukored [facility] Unit number [id number] [facility] [place] Product code [id number] [facility] Dispense status Returned to BB not [facility] Blood expiration date [facility] Blood type code [address] [facility] Blood type A POSITIVE [facility] Compatibility Compatible [facility] Product name Red Blood Cells PIERZ -1, Leukored [facility] Unit number [id number] [facility] [place] [place] Product [facility] [id number] [facility] [place] Dispense status Returned to BB not [facility] Blood expiration date [facility] [place] Blood type [facility] [address] [facility] Blood type A POSITIVE [facility] [place] Compatibility Compatible [facility] Specimen Performing Organization Address City/State/Zipcode Phone Number [facility] DEPARTMENT OF PATHOLOGY AND [address] [place] [phone] [facility] MEDICINE [address] [address] Type and screen (07/07/2019 8:20 AM GROUP FITNESS MANAGER) Pathologist Sig nature ABO grouping A [facility] Rh type POS [facility] Antibody screen (gel) NEG [facility] Specimen Blood Performing Organization Address City/[facility]/Zipcode Phone Number [facility] DEPARTMENT OF PATHOLOGY AND [address] [place] [address] [phone] [address] Spirometry, diffusion (06/27/2019 11:09 AM GROUP FITNESS MANAGER) Pathologist Sig nature FEV1 Pre 2.66 3.05 - 4.62 L [facility] FEV1/FVC % Pre 67.59 67.44 - 86.79 % [facility] FVC Pre 3.93 4.05 - 5.91 L [facility] PEF Pre 5.55 7.36 - 11.99 L/s [facility] FEF 25-75% Pre 1.64 1.73 - 4.92 L/s [facility] DLCO Pre 23.86 22.08 - 38.01 [facility] ml/(min*mmHg) DL/VA Pre 4.20 3.26 - 5.66 [facility] ml/(min*mmHg*L) VA SB Pre 5.69 5.46 - 8.19 L [facility] FEV1 Predicted 3.84 [facility] FEV1 LLN 3.05 [facility] FEV1 % Pre of Predicted 69.2 % [facility] FVC Predicted 4.98 [facility] FVC LLN 4.05 [facility] FVC % Pre of Predicted 79.0 % [facility] FEV1/FVC % Predicted 77 [facility] FEV1/FVC % LLN 67 [facility] FEV1/FVC % Pre of 87.6 % [facility] Predicted FEF 25-75% Predicted 3.32 [facility] FEF 25-75% LLN 1.73 [facility] FEF 25-75% % Pre of 49.4 % [facility] Predicted PEF Predicted 9.67 [facility] PEF LLN 7.36 [facility] PEF % Pre of Predicted 57.4 % [facility] DLCO Predicted 30.04 [facility] DLCO LLN 22.08 [facility] DLCO % Pre of Predicted 79.4 % [facility] DL/VA Predicted 4.46 [facility] DL/VA LLN 3.26 [facility] DL/VA % Pre of Predicted 94.1 % [facility] VA SB Predicted 6.82 [facility] VA SB LLN 5.46 [facility] VA SB % Pre of Predicted 83.4 % [facility] Specimen Narrative Performed At This result has an attachment that is no t available. Performing Organization Address City/State/Zipcode Phone Number [facility] [address] [place] [address] MRI Brain W Wo Contrast (06/27/2019 10:36 AM GROUP FITNESS MANAGER) Specimen Narrative Performed At This result has an attachment that is no t available. EXAMINATION: MRI BRAIN W WO CONTRAST [facility] CLINICAL HISTORY: C34.12 Malignant neopl asm of upper lobe left bronchus or lung, Z01.818 Encounter for other preprocedural examination, lung cancer COMPARISON: None TECHNIQUE: Multiplanar and multisequence MRI imaging of the brain was obtained with and without contrast. FINDINGS: No evidence of acute intracranial hemorr holly, mass, mass effect, midline shift, or acute infarct. Few subcortical and periventricular whit e matter T2 FLAIR hyperintensities which may reflect minimal chronic microvascular ischemic changes. The ventricles are normal in size and configuration for age. Major intracranial vascular flow voids are preserved. Small to moderate left mastoid fluid. Or bital contents are unremarkable. Moderate polypoid mucosal thickening of portions of the left maxillary sinus with mucous retention cyst posteriorly. IMPRESSION: 1. No evidence of intracranial metastasis or acute int racranial abnormality. [id number] Procedure Note Interface, Radiology Results Incoming - 06/27/2019 10:45 AM GROUP FITNESS MANAGER EXAMINATION: MRI BRAIN W WO CONTRAST CLINICAL HISTORY: C34.12 Malignant neopl asm of upper lobe left bronchus or lung, Z01.818 Encounter for other preprocedural examination, lung cancer COMPARISON: None TECHNIQUE: Multiplanar and multisequence MRI imaging of the brain was obtained with and without contrast. FINDINGS: No evidence of acute intracranial hemorr holly, mass, mass effect, midline shift, or acute infarct. Few subcortical and periventricular whit e matter T2 FLAIR hyperintensities which may reflect minimal chronic microvascular ischemic changes. The ventricles are normal in size and configuration for age. Major intracranial vascular flow voids are preserved. Small to moderate left mastoid fluid. Or bital contents are unremarkable. Moderate polypoid mucosal thickening of portions of the left maxillary sinus with mucous retention cyst posteriorly. IMPRESSION: 1. No evidence of intracranial metastasi s or acute intracranial abnormality. [id number] Performing Organization Address [facility] Phone Number [facility] [address] [place] [phone] POC glucose (06/20/2019 1:04 PM GROUP FITNESS MANAGER) Pathologist [facility] POC glucose 111 (H) 65 - 99 mg/dL [facility] Comment: HOSPITAL Brusher Operator Name: Carlyle Abad Device ID: [id number] Chartable: [facility] Notified RN Chartable: No Action Needed Specimen Performing Organization Address City/[facility] Phone Number [facility] DEPARTMENT OF PATHOLOGY AND [address] [place] [phone] [facility]ICINE [address] [address] Airway (06/20/2019 11:41 AM GROUP FITNESS MANAGER) Narrative Performed At Aneta Ovalles MD 06/20/19 11:42 AM Airway Date/Time: 06/20/2019 11:29 AM Performed by: Aneta Ovalles MD Authorized by: Aneta Ovalles M D Location: OR Urgency: Elective Anesthesiologist: Aneta Ovalles MD Resident/CASE MANAGEMENT COORDINATOR/AA: Harpal Espinosa MD Performed by: anesthesiologist Preoxygenated with 100% O2: Yes C-spine Precautions Maintained Throughou t: Yes Mask Ventilation: Assisted mask Final Airway Type: Endotracheal airway Final Endotracheal Airway: ETT Cuffed: Yes Technique Used: Direct laryngoscopy Devices/Methods Used in Placement: Int ubating stylet Insertion Site: Oral Blade Type: Arora Laryngoscope Blade/Videolaryngoscope Gatito de Size: 2 ETT Size (mm): 9.0 Cuff at minimum occlusion pressure: Yes Measured from: Gums ETT to Gums (cm): 23 Placement Verified by: CO2 detection, di rect visualization and equal breath sounds Laryngoscopic view: Grade I - full vie w of glottis Rapid Sequence Induction (RSI): No Modified RSI: No Number of Attempts at Approach: 2 Cytology (non-gynecological) request (06/20/2019 11:40 AM GROUP FITNESS MANAGER)Only the most recent of2 resultswithin the time period is included. [facility] DEPARTMENT OF PATHOLOGY AND GENOMIC MEDICINE Cytology See link below [facility] DEPARTMENT OF (non-gynecological) for PDF Lab PATHOLOGY AND report Report GENOMIC MEDICINE Result status This is Final [facility] DEPARTMENT OF Report for PATHOLOGY AND [id number] GENOMIC MEDICINE Specimen Performing Organization Address City/[facility] Corporation[facility] Phone Number [facility] DEPARTMENT OF PATHOLOGY AND [address] [place], [place] [phone] GENOMIC MEDICINE ECG 12 lead (06/20/2019 8:33 AM GROUP FITNESS MANAGER) Pathologist Sig nature Ventricular rate 66 [facility]USE Atrial rate 66 [facility] DE interval 164 [facility] QRSD interval 82 [facility] QT interval 402 [facility] QTC interval 421 [facility] P axis 1 60 [facility] QRS axis 1 58 [facility] T wave axis 55 [facility] EKG impression Normal sinus [facility] MUSE rhythm-Anterior infarct , age undetermined-Abnormal ECG-No previous ECGs available-Electronicall y Signed By Gerda SHEFFIELD, Willi Covington ([id number]) on 06/21/2019 9:59:40 AM Specimen Narrative Performed At This result has an attachment that is no t available. Performing Organization Address City/State/Zipcode Phone Number [facility] MUSE [address] [place] [address] PET/CT Whole Body External Study (05/15/2019 10:19 AM GROUP FITNESS MANAGER) Specimen Narrative Performed At This exam was not acquired at a [facility] facility and has not been [facility] interpreted by a [employer] Provider. T he exam was imported into our imaging system. Performing Organization Address City/[facility]/Zipcode Phone Number [facility] [address] [place] [address] PET/CT Skull Base To Mid Thigh (05/15/2019) Narrative Performed At This result has an attachment that is no t available. CT Chest External Study (05/02/2019 7:55 AM GROUP FITNESS MANAGER) Specimen Narrative Performed At This exam was not acquired at a [facility] t facility and has not been [facility] interpreted by a [employer] Provider. T he exam was imported into our imaging system. 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
--- OUTSIDE RECORDS SUMMARY | 2019-10-24 13:11 | XMS REPORT ---
:1965 Author Organization [facility] t Address [address] [place] [address] Dr. Seymour [address] [place] [id number] Care Team Providers Name Role Phone Mahendra Ferrell MD Primary Care Physician Madalyn FENTON Attending Clinician Unavailable Renae Mustafa NP Attending Clinician Hubert FENTON Attending Clinician Unavailable Nasim Lobo MD Attending Clinician Alex SHEFFIELD Attending Clinician Laz Mott MD Attending Clinician Sharif Attending Clinician Unavailable Butch FENTON Attending Clinician Unavailable Aubree Ovalles MD Attending Clinician Cheo Attending Clinician Renae Nieto MD Attending Clinician Brii SHEFFIELD Attending Clinician Payers Payer Name Policy Type Policy Number Effective Date Expiration Date S asim [id number] xxxxxxxxxxxx 2018 [place] CHOICE 00:00:00 [facility]oroastrian PPO/FEDERAL EMPL PPOxxxxxxxxxxx 2018-Pres entPPO Problems Condition Condition Condition Status Onset Resolution Last Treating Co mments Source Name Details Category Date Date Treatment Clinician Date Shortness Shortness Disease Active [place] of breath of breath 07-09 Meth sinan 00:00: st 00 Malignant Malignant Disease Active [place] neoplasm neoplasm 07-07 Method i of upper of upper 00:00: st lobe, left lobe, left 00 bronchus bronchus or lung or lung Allergies, Adverse Reactions, Alerts Allergy Allergy Status Severity Reaction(s) Onset Inactive Treating Comm ents Source Name Type Date Date Clinician Fentanyl Propensi Active Itching 2020-0 [place] to 1-10 [facility] adverse 00:00: st reaction 00 s to drug Midazola Propensi Active Itching 2020-0 [place] ty to 06-20 [facility] adverse 00:00: st reaction 00 s to drug Other Propensi Active Rash 0 *[place] to 07 Anestheti [facility]i adverse 00:00: cs st reaction 00 s Family History Family Member Diagnosis Comments Start Date Stop Date Source Natural mother Diabetes [facility] thodist [facility] Social History Social Habit Start Date Stop Date Quantity Comments Source History of tobacco Current smoker [place] [facility]rian use History [facility] Meth odist Alcohol Std Drinks History [facility] Meth odist Alcohol Binge Sex Assigned At [facility] ethodist Cigarettes smoked 2019-07-29 2019-07-29 [place] [facility]astrian current (pack per 00:00:00 00:00:00 day) - Reported Cigarette 2019-07-29 2019-07-29 [place] Method ist pack-years 00:00:00 00:00:00 Alcohol intake 2019-07-29 2019-07-29 Lifetime [facility] thodist 00:00:00 00:00:00 non-drinker (finding) History SDOH 2019-06-17 2019-06-17 1 [place] Meth odist Alcohol Frequency 00:00:00 00:00:00 Smoking Status Start Date Stop Date Source Former smoker 2019-07-29 00:00:00 2019-07-29 00:00:00 [place] [facility] Medications Ordered Filled Start Stop Current Ordering Indication Dosage Frequency Signature Comments Components Source Medication Medication Date Date Medication? Clinician (SIG) Name Name HYDROcodone 2020- No 26127 1{tbl} Q6H Take 1 [place] -acetaminop 2 03-03 tablet by Me nicolasa arango (NORCO) 00:00: 05:[address] 7.5-325 mg 00 :00 every 6 per tablet (six) hours as needed for moderate pain for up to 10 days .acute pain. Max Daily Amount: 4 tablets naproxen Yes Take by [place] sodium 2-18 mouth. [facility] (ALEVE 14:09: st ORAL) 44 predniSONE 2020-0 Yes 5mg Q.5D Take 5 mg [place] (DELTASONE) 2-18 by mouth 2 Me thodi 5 mg tablet 14:09: (two) st 01 times a day. rosuvastati 2020-0 Yes 10mg QD Take 10 mg [place] n (CRESTOR) 2-18 by mouth Meth sinan 10 MG 14:09: daily. st tablet 01 omeprazole 2020-0 Yes 20mg QD Take 20 mg [place] (PriLOSEC) 2-18 by mouth Metho di 20 MG 14:09: daily. st capsule 01 triptorelin 2020-0 Yes 11.25mg Q90D Inject [place] pamoate 2-18 11.25 mg [facility] (TRELSTAR) 14:09: into the st 11.25 mg 01 shoulder, suspension thigh, or for buttocks reconstitut every 3 ion (three) months. albuterol 2020-0 Yes 2{puff} Q6H Inhale 2 [place] (PROAIR 2-18 puffs [facility] HFA) 90 14:09: every 6 st mcg/actuati 01 (six) on inhaler hours as needed for wheezing. tamsulosin 2020-0 2020- No .4mg QD Take 0.4 [place] (FLOMAX) 2-18 02-18 mg by [facility] 0.4 mg 14:08: 00:[address] capsule 58 :00 daily. budesonide- 2020-0 Yes 2{puff} Q.5D Inhale 2 [place] formoterol 2-18 puffs 2 [facility] i (SYMBICORT) 14:07: (two) st 160-4.5 51 times a mcg/actuati day. on inhaler abiraterone 2020-0 Yes 250mg QD Take 250 [place] (ZYTIGA) 2-18 mg by [facility] 250 mg 14:07: mouth st chemo 51 daily. tablet denosumab 2020-0 Yes 60mg Inject 60 [place] (PROLIA) 60 2-18 mg under Meth sinan mg/mL 14:07: the skin st syringe 51 once. q6 syringe months (last dose was 06/30/2019) methocarbam 2020-0 Yes [id number] 500mg Q.25D Take 1 [place] ol 2-18 tablet [facility] (ROBAXIN) 00:00: ([address] 500 MG 00 total) by tablet mouth 4 (four) times a day as needed for muscle spasms. gabapentin 2019-2019- No [id number] 600mg Q.[id number] Take 2 [place] (NEURONTIN) 2-18 03-20 [id number] capsules Method[facility] 300 mg 00:00: 04:59 3D ([address] capsule 00 :00 total) by mouth 3 (three) times a day for 30 days. HYDROcodone 2019- No [id number] 1{tbl} Q4H Take 1 [place] -acetaminop 07-25 tablet by Me nicolasa arango (NORCO) 00:00: 05:[address] 7.5-325 mg 00 :00 every 4 per tablet (four) hours as needed for moderate pain for up to 7 days .acute pain. Max Daily Amount: 6 tablets traMADol 2019- [place] [id number] 50mg Q6H Take 1 [place] (ULTRAM) 50 07-16 tablet (50 M ethodi mg tablet 00:00: 05:59 mg total) st 00 :00 by mouth every 6 (six) hours as needed for moderate pain for up to 7 days .acute pain. nicotine 2019-2019- No 1{patch QD Place 1 [place] (NICODERM 07-12 } patch on Metho di CQ) 14 00:00: 00:[address] mg/24 hr 00 :00 daily for 30 days. pantoprazol 2019-2019- No 40mg QD Take 1 Bro jorgiton e 07-11 tablet (40 [facility] (PROTONIX) 00:00: 05:59 mg total) s t 40 MG EC 00 :00 by mouth tablet daily for 14 days. amoxicillin 2019- 2020- No 1{tbl} Q.5D Take 1 [place] -pot 07-11- tablet by [facility] clavulanate 00:00: 05:[address] (AUGMENTIN) 00 :00 (two) 875-125 mg times a per tablet day for 5 days. traMADol 2019- 2020- [place] [id number] 50mg Q6H Take 1 [place] (ULTRAM) 50 07-11 tablet (50 M ethodi mg tablet 00:00: 00:00 mg total) st 00 :00 by mouth every 6 (six) hours as needed for moderate pain for up to 7 days .acute pain. gabapentin No 300mg Q.[id number] Take 1 [place] (NEURONTIN) 07-08 [id number] capsule Methodi 300 mg 00:00: 00:00 3D ([address] capsule 00 :00 total) by mouth 3 (three) times a day for 30 days. acetaminoph No 1000mg Q8H Take 2 [place] en 07-08 tablets [facility] (TYLENOL) 00:00: 05:59 (1,[address] 500 MG 00 :00 total) by tablet mouth every 8 (eight) hours for 5 days. naproxen No 250mg Q.5D Take 1 [place] (NAPROSYN) 07-08 tablet Method i 250 MG 00:00: 05:59 ([address] tablet 00 :00 total) by mouth 2 (two) times a day with meals for 3 days. [id number] No 1{each} Infuse 1 [place] 13 or 07-04 each into Method[facility] placebo 15:28: 00:[address] infusion, 26 :00 catheter GRACE once. /[id number]/Tamra, Vital Signs Vital Name Observation Time Observation Value Comments Source Systolic blood 2019-07-29 14:05:00 148 mm[Hg] [place]rian pressure Diastolic blood 2019-07-29 14:05:00 80 mm[Hg] [place]rian pressure Heart rate 2019-07-29 14:05:00 72 /min [place] Javed Body temperature 2019-07-29 14:05:00 36.06 Leigh [place] [facility]astrian Respiratory rate 2019-07-29 14:05:00 17 /min Kanchan ton Zoroastrian Body height 2019-07-29 14:05:00 180.3 cm [place] Javed Body weight 2019-07-29 14:05:00 142.429 kg [place] Javed BMI 2019-07-29 14:05:00 43.79 kg/m2 [place] Javed Oxygen saturation in 2019-07-29 14:05:00 97 /min [place] Javed Arterial blood by Pulse oximetry Procedures Procedure Date / Time Performing Clinician Source Performed XR CHEST 1 VW PORTABLE 2019-07-11 14:50:00 Ron Neal Zoroastrian Favio SPUTUM CULTURE 2019-07-10 15:30:00 DavidAneta [place] Meth odist GRAM STAIN 2019-07-10 15:30:00 Aneta Hernandez Meth odist HC COMPLETE BLD COUNT 2019-07-10 09:57:00 Ron Neal on Zoroastrian W/AUTO DIFF Favio PROTHROMBIN TIME WITH INR 2019-07-10 09:57:00 Ron Neal Zoroastrian Favio PARTIAL THROMBOPLASTIN 2019-07-10 09:57:00 Ron Neal Zoroastrian TIME (PTT) Favio BASIC METABOLIC PANEL 2019-07-10 09:57:00 Ron Neal on Zoroastrian Ayman MAGNESIUM LEVEL 2019-07-10 09:57:00 Ron Neal Met hodist Nikaman PHOSPHORUS LEVEL 2019-07-10 09:57:00 Ron Neal Me thodist Ayman ESTIMATED GFR 2019-07-10 09:57:00 Colin Lobo Meth odist US DUPLEX VENOUS LOWER 2019-07-10 03:10:00 Ron Nealist EXTREMITY BILATERAL Aydebra RESPIRATORY PATHOGEN PANEL 2019-07-10 02:27:00 Uri Pope on [place] Z[facility]astrian CT ANGIOGRAM PE CHEST 2019-07-10 01:35:29 Ron Neal on Zoroastrian Ayman ARTERIAL BLOOD GAS 2019-07-10 00:28:00 Ron Nealist Ayman COMPREHENSIVE METABOLIC 2019-07-09 20:00:00 Colin Lobo Zoroastrian PANEL HC COMPLETE BLD COUNT 2019-07-09 20:00:00 Colin Lobo n Zoroastrian W/AUTO DIFF ESTIMATED GFR 2019-07-09 20:00:00 Colin Lobo Meth odist XR CHEST 2 VW 2019-07-09 19:44:16 Colin Lobo Meth odist XR CHEST 1 VW PORTABLE 2019-07-08 20:35:00 Aneta Hernandez on Zoroastrian XR CHEST 1 VW PORTABLE 2019-07-08 16:35:00 Aneta Hernandez on Zoroastrian XR CHEST 1 VW PORTABLE 2019-07-08 12:45:00 ChonKanchan Ellis Zoroastrian Jono ARTERIAL BLOOD GAS 2019-07-08 12:10:00 Colin Lobo Nasim Argueta ethodist XR CHEST 1 VW PORTABLE 2019-07-08 10:43:34 Ami Rojasrick mcfarlane Zoroastrian Elane XR CHEST 1 VW PORTABLE 2019-07-08 01:35:49 Kanchan Butcher Zoroastrian Jono ARTERIAL BLOOD GAS, 2019-07-08 00:30:00 Colin Lobo Nasim Bushist CORRECTED POTASSIUM, SYRINGE 2019-07-08 00:30:00 LashellColin Nasim Argueta ethodist SODIUM LEVEL, SYRINGE 2019-07-08 00:30:00 [place] Colin mcmanus Zoroastrian IONIZED CALCIUM, ARTERIAL 2019-07-08 00:30:00 Colin Lobo Zoroastrian HEMOGLOBIN, SYRINGE 2019-07-08 00:30:00 Colin Lobo Zoroastrian LACTIC ACID, SYRINGE 2019-07-08 00:30:00 Lashell Colin [place] Zoroastrian GLUCOSE LEVEL, SYRINGE 2019-07-08 00:30:00 Lashell Colin [place] on Zoroastrian SURGICAL PATHOLOGY REQUEST 2019-07-07 23:51:00 LashellColin Nasim soria Zoroastrian ARTERIAL BLOOD GAS, 2019-07-07 23:20:00 Lashell Colin Bushist CORRECTED POTASSIUM, SYRINGE 2019-07-07 23:20:00 Lashell, Colin Argueta ethodist HEMOGLOBIN, SYRINGE 2019-07-07 23:20:00 Colin Lobo Zoroastrian SODIUM LEVEL, SYRINGE 2019-07-07 23:20:00 Colin Lobo Zoroastrian GLUCOSE LEVEL, SYRINGE 2019-07-07 23:20:00 Colin Lobo on Zoroastrian IONIZED CALCIUM, ARTERIAL 2019-07-07 23:20:00 Colin Lobo Zoroastrian LACTIC ACID, SYRINGE 2019-07-07 23:20:00 Colin Loboist ARTERIAL BLOOD GAS, 2019-07-07 22:15:00 Colin Loboist CORRECTED HEMOGLOBIN, SYRINGE 2019-07-07 22:15:00 Colin Lobo Zoroastrian POTASSIUM, SYRINGE 2019-07-07 22:15:00 Lashell, Colin Argueta ethodist SODIUM LEVEL, SYRINGE 2019-07-07 22:15:00 Lashell, Colin Rouse Aaron mcmanus Zoroastrian IONIZED CALCIUM, ARTERIAL 2019-07-07 22:15:00 Lashell, Colin Rouse Omid castillo Zoroastrian GLUCOSE LEVEL, SYRINGE 2019-07-07 22:15:00 Lashell, Colin Nasim Carr on Zoroastrian ARTERIAL BLOOD GAS, 2019-07-07 21:17:00 Lashell, Colin [place] Zoroastrian CORRECTED SODIUM LEVEL, SYRINGE 2019-07-07 21:17:00 Lashell, Colin Rouse Aaron mcmanus Zoroastrian POTASSIUM, SYRINGE 2019-07-07 21:17:00 Lashell, Colin Argueta ethodist IONIZED CALCIUM, ARTERIAL 2019-07-07 21:17:00 Lashell, Colin Rouse Omid castillo Zoroastrian HEMOGLOBIN, SYRINGE 2019-07-07 21:17:00 Lashell, Colin [place] Zoroastrian GLUCOSE LEVEL, SYRINGE 2019-07-07 21:17:00 Lashell, Colin Nasim Carr on Zoroastrian LACTIC ACID, SYRINGE 2019-07-07 21:17:00 Lashell, Colin [place] Zoroastrian ARTERIAL BLOOD GAS, 2019-07-07 20:26:00 Lashell, Colin [place] Zoroastrian CORRECTED SODIUM LEVEL, SYRINGE 2019-07-07 20:26:00 Lashell, Colin Rouse Aaron mcmanus Zoroastrian HEMOGLOBIN, SYRINGE 2019-07-07 20:26:00 Lashell, Colin [place] Zoroastrian POTASSIUM, SYRINGE 2019-07-07 20:26:00 Lashell, Colin Argueta ethodist IONIZED CALCIUM, ARTERIAL 2019-07-07 20:26:00 Lashell, Colin Rouse Omid castillo Zoroastrian GLUCOSE LEVEL, SYRINGE 2019-07-07 20:26:00 Lashell, Colin Nasim Carr on Zoroastrian LACTIC ACID, SYRINGE 2019-07-07 20:26:00 Lashell, Colin [place] Zoroastrian ARTERIAL BLOOD GAS, 2019-07-07 19:20:00 Lashell, Colin [place] Zoroastrian CORRECTED SODIUM LEVEL, SYRINGE 2019-07-07 19:20:00 Lashell, Colin Rouse Aaron mcmanus Zoroastrian HEMOGLOBIN, SYRINGE 2019-07-07 19:20:00 Lashell, Colin [place] Zoroastrian POTASSIUM, SYRINGE 2019-07-07 19:20:00 Lashell, Colin Argueta ethodist IONIZED CALCIUM, ARTERIAL 2019-07-07 19:20:00 Lashell, Min Nasim Javed GLUCOSE LEVEL, SYRINGE 2019-07-07 19:20:00 Colin Loboist LACTIC ACID, SYRINGE 2019-07-07 19:20:00 Colin Lobo Nasim Javed ARTERIAL LINE 2019-07-07 18:50:25 Wes Looney Meth odist SD AN ELECTIVE 2019-07-07 18:45:13 Wes Looney Meth odist ENDOTRACHEAL AIRWAY ARTERIAL BLOOD GAS, 2019-07-07 18:26:00 Colin Lobo Nasim Javed CORRECTED SODIUM LEVEL, SYRINGE 2019-07-07 18:26:00 Lashell, Colin Javed POTASSIUM, SYRINGE 2019-07-07 18:26:00 LashellColin Nasim [place] M ethodist HEMOGLOBIN, SYRINGE 2019-07-07 18:26:00 Lashell, Colin Javed GLUCOSE LEVEL, SYRINGE 2019-07-07 18:26:00 Colin Lobo IONIZED CALCIUM, ARTERIAL 2019-07-07 18:26:00 Lashell, Colin Javed TYPE AND SCREEN 2019-07-07 14:20:00 Colin Lobo Nasim Talley odist PREPARE RBC 2019-07-07 14:20:00 [place] Colin Nasim dye SPIROMETRY, DIFFUSION 2019-06-27 17:09:13 Colin Lobo MRI BRAIN W WO CONTRAST 2019-06-27 16:36:43 Colin Lobo POC GLUCOSE 2019-06-20 19:04:00 Lashell Colin [place] Meth odist SD AN ELECTIVE 2019-06-20 17:41:11 Aneta Ovalles Meth odist ENDOTRACHEAL AIRWAY Aubree CYTOLOGY 2019-06-20 17:40:00 Colin Lboo Meth luis albertoist (NON-GYNECOLOGICAL) REQUEST ECG 12-LEAD 2019-06-20 14:33:21 Colin Lobo Meth odtera HC COMPLETE BLD COUNT 2019-06-20 14:15:00 Colin Lobo W/AUTO DIFF BASIC METABOLIC PANEL 2019-06-20 14:15:00 Colin Lobo PROTHROMBIN TIME WITH INR 2019-06-20 14:15:00 Colin Lobo PARTIAL THROMBOPLASTIN 2019-06-20 14:15:00 Colin Lobo on Zoroastrian TIME (PTT) ESTIMATED GFR 2019-06-20 14:15:00 Colin Lobo Meth odist PET CT WHOLE BODY EXTERNAL 2019-05-15 16:19:00 Chen Nieto Zoroastrian STUDY PET CT SKULL BASE TO MID 2019-05-15 00:00:[address] CHEST EXTERNAL STUDY 2019-05-02 13:55:00 Chen Nieto Zoroastrian Plan of Care Planned Activity Planned Date Details Comments Source Future Scheduled 2020-01-10 INFLUENZA VACCINE [place] [facility] Test 00:00:00 [code = INFLUENZA VACCINE] Future Scheduled 2015-10-22 COLONOSCOPY SCREENING [place] [facility] Test 00:00:00 [code = COLONOSCOPY SCREENING] Future Scheduled 2015-10-22 SHINGLES VACCINES [place] [facility] Test 00:00:00 (#1) [code = SHINGLES VACCINES (#1)] Encounters Start End Encounter Admission Attending Care Care Encounter Source Date/Time Date/Time Type Type Clinicians Facility Department ID 2019-05-28 2019-05-28 Outpatient BL [facility] [id number] [facility] 07:16:00 07:16:00 Results Test Description Test Time Test Comments Results Result Comments Source Sputum culture 2019-07-12 20:10:35 Test Item Value Reference Range Interpretation Comme nts Sputum culture isolate Normal oral jose juan Specimen InformationSpecimen (test code = 2234) isolated. Source: S putumSpecimen [facility] [id number] 16:42:09Hm Interface, Radiology Results 07/11/2019 10:45 AM CSTEXAMINATION: XR CHEST 1 VW PORTABLECLINICAL HISTORY: shortness of breathIMPRESSION:Single frontal view compared to 07/09/2019 demonstrates postoperative scarring and atelectasis and volume loss in the left lung to be stable. There is no new infiltrate. There is no pneumothorax.[facility]-[id number] MethodistGram [id number] 03:09:02Gram stain isolateFew WBC'sFew Gram negative rodsModerate Gram positive cocci in pairs Comment: Specimen InformationSpecimen Source: SputumSpecimen Site: [facility] 2019-07-10 11:02:27 Test Item Value Reference Range Interpretation Comments Sodium (test code = 2951-2) 137 135- 148 mEq/L Potassium (test code = 2823-3) 3.9 3.5- 5.0 mEq/L Chloride (test code = 2075-0) 101 98- 112 mEq/L CO2 (test code = 8-9) 25 24- 31 mEq/L Anion gap (test code = 91874-4) 11@ANIO 7- 15 mEq/L BUN (test code = 3094-0) 10 mg/dL 6-20 Creatinine (test code = 2160-0) 0.73 mg/dL 0.7-1.2 Glucose (test code = 2345-7) 125 mg/dL 65-99 H Calcium (test code = 10828-2) 8.8 mg/dL 8.3-10.2 Lab Interpretation (test code = Abnormal 23623-6) [place] MethodistMagnesium [id number] 11:02:26 Test Item Value Reference Range Interpretation Comments Magnesium (test code = 01165-5) 2.1 mg/dL 1.6-2.6 [place] MethodistPhosphorus [id number] 11:02:26 Test Item Value Reference Range Interpretation Comments Phosphorus (test code = 2777-1) 2.9 mg/dL 2.4-4.5 [place] MethodistEstimated [id number] 11:02:26 Test Item Value Reference Range Interpretation Comments Estimated GFR (test >=90 mL/min/1.73 m2 [facility] Units code = 5488) InterpretationG 1 >=90 Normal or highG2 60-89 Mildly vtvgfpzpqU4p 45-59 Mildly to mode rately lfgxfvhwaY5c 30-44 Moderately to severely decreasedG4 15-29 Severely decre asedG5 <15 Kidn ey failureThe eGFR was calculated alec g the Chronic Kidney Disease Epidemiology Co llaboration (CKD-EPI) equat ion. Interpretation is based on recommendations of the National Kidney Foundation-Kidn ey Disease Outcomes Qualit y Initiative (NKF-KDOQI) pub lished in 2014. [place] MethodistPartial thromboplastin time, [id number] 10:47:07 Test Item Value Reference Range Interpretation Comments PTT (test code = 29.8 23.0- 36.0 [place] [address]-8) unfractionated heparin is61.0-112.0 se conds which corresponds to Anti-Xa0.3-0.7 U/ml. [place] MethodistProthrombin time with [id number] 10:46:29 Test Item Value Reference Range Interpretation Comments Prothrombin time (test 14.5 11.5- 14.5 sec code = 5902-2) INR (test code = 1.1 The Interna tional 64767-0) Normalized Rati o (INR) is a therapeutic m onitoring tool for patien ts who are stable on oral anticoagulant t herapy. An INR of 2.0-3.0 is suggested for d eep vein thrombosis/pulm onary embolism. [place] MethodistCBC with platelet and [id number] 10:27:37 Test Item Value Reference Range Interpretation Comments WBC (test code = 82221-9) 7.89 4.50- 11.00 k/uL RBC (test code = 44859-1) 3.72 m/uL 4.4-6 L HGB (test code = 718-7) 10.8 g/dL 14-18 L HCT (test code = 4544-3) 34.3 % 41-51 L MCV (test code = 787-2) 92.2 fL 82-100 MCH (test code = 785-6) 29.0 pg 27-34 MCHC (test code = 786-4) 31.5 g/dL 31-37 RDW - SD (test code = 44.3 fL 37-55 12105-4) MPV (test code = 66497-6) 9.5 fL 8.8-13.2 Platelet count (test code 149 150- 400 k/uL L = 07383-6) Nucleated RBC (test code 0.00 /100 WBC = 59761-9) Neutrophils (test code = 81.2 % 39-69 H 91822-4) Lymphocytes (test code = 7.7 % 25-45 L 81783-8) Monocytes (test code = 7.5 % 0-10 31863-0) Eosinophils (test code = 2.5 % 0-5 85075-4) Basophils (test code = 0.3 % 0-1 91710-2) Immature granulocytes 0.8 % 0-1 "Immat ure (test code = 18039-0) granul ocytes" (promyelocytes, myelocytes, metamyelocytes) Lab Interpretation (test Abnormal code = 78989-9) [facility] pathogen [id number] 07:51:59Respiratory pathogen panelNegative for all pathogens tested:Negative for AdenovirusNegative for Coronavirus GSM5Akxrjugh for Coronavirus ZS72Fddmpxfm for Coronavirus 229ENegative for Coronavirus PV18Oiuhssia for Human MetapneumovirusNegative for Rhinovirus/EnterovirusNegative for Influenza ANegative for Influenza A/Z2Ugaxgnbi for Influenza A/X1Ejbsucgi for Influenza A/H1-2009Negative for Influenza BNegative for Parainfluenza Virus 1Negative for Parainfluenza Virus 2Negative for Parainfluenza Virus 3Negative for Parainfluenza Virus 4Negative for Respiratory Syncytial VirusNegative for Bordetella pertussisNegative for Chlamydophila pneumoniaeNegative for Mycoplasma pneumoniaeThis real-time PCR assaydetects the presence of nucleic acids (RNA or DNA) for the respiratory pathogens listed. A result of "Not-detected" does not exclude the possibility of the presence of one or more pathogens at concentrations less than the detectable limits of the assay. 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 Stat.:Inpatient Room: [place] [address] 2018A Tape Vol: JM, CPT - 4: 87453 Echo Event ID:[id number] Order ID: [id number] Reason for Study:Leg swelling or pain, DVT suspected. Shortness ofbreath. History of HTN, HLD, asthma, DM, umbilical hernia, prostate Radha/p chemotherapy, s/p left lower lobe superior segmentectomy,mediastinal lymph node dissection on 07/07/19.Procedures: Colorflow, Grayscale/2D, Pulsed wave Doppler-- SUMMARY: DU PLEX SCAN OBSERVATIONS Deep Veins Superficial Veins Right Left Right Left GSV (prox) Normal NormalCFV Normal Normal (above knee)Femoral Normal Normal GSV (dist) Normal NormalProfunda Normal Normal (below knee)Popliteal Normal NormalPT (prox) Normal Normal SSV Normal NormalPT (dist) Normal Normal Peroneal Normal Normal Gastrocs Normal Normal RIGHT: There is normal compressibility with no evidence of echogenicmaterial noted within the lumen of the visualized veins. Color flowand Doppler signals are normal.LEFT: There is normal compressibility with no evidence ofechogenic material noted within the lumen of the visualized veins.Color flow and Doppler signals are normal.PRELIMINARY FINDINGS1. No evidence of venous thrombosis in the visualized veins,bilaterally.PHYSICIAN INTERPRETATION Venous examination of the both lower extremities demonstrated noevidence of venous thrombosis in the visualized veins. Normalcompressibility and augmentation of all veins visualized.Valvular reflux right deep femoral vein.---- FINDINGS: Sig curt 07/09/2019 10:43PMAndre Blood MD, FACS, [facility] MethodistCT Angiogram Pe [id number] 01:52:33Hm Interface, Radiology Results Incoming - 07/09/2019 7:55 PM CSTEXAMINATION: CT ANGIOGRAM PE CHESTCLINICAL HISTORY: shortness of breathTECHNIQUE: PE PROTOCOL: CT angiographic images of the chest were obtained during intravenous administration of iodinated contrast. Computerized reformatted images and 3-D MIP images were also obtained and archived (CT pulmonary embolus protocol). CT imaging was performed with iterative reconstruction technique and/or automated exposure control to reduce radiation d ose.COMPARISON: 05/02/[address] IMPRESSION:CHEST:1. Pulmonary Arteries: No definite CT scan evidence of acute pulmonary embolus.2. Aorta: The thoracic aorta is nonaneurysmal3. Heart: The heart is normal in size. Coronary artery calcifications are present. 4. Pericardial Fluid: No pericardial effusion.5. Mediastinum: Borderline AP window lymph node seen on series 3 image 38 to be followed. 4. Airways: Central airways are patent.5. Lungs: Status post recent partial left pneumonectomy. Multiple staple lines in the left [...] time of the next follow-up exam to ensure resolution. Emphysema. 6. Pleural Fluid: Small left effusion which is partially loculated. 7. Bones: Degenerativechanges of the osseous structures. No suspicious lesions.8. Upper Abdomen: No suspicious abnormalities.9. Other Findings: NoneSUMMARY:1.No CT scan evidence of acute pulmonary embolus.2.Status post recent partial left pneumonectomy with postoperative changes as above.3.Bronchitis with bronchiolitis andsmall nodular infiltrates in the right lung.4.Minimal pneumomediastinum. Trace left apical and anterior pneumothorax. [facility]-[id number] MethodistArterial blood [id number] 00:49:43 Test Item Value Reference Range Interpretation Comments pH, arterial (test code = 2744-1) 7.42 7.35-7.45 pCO2, arterial (test code = 41 35- 45 mmHg 2019-01) pO2, arterial (test code = 85 80- 90 mmHg 3-7) Bicarbonate, arterial (test code 26.3 mmol/L 21-28 = 1960-4) Base excess, arterial (test code 2 -2 - 2 mEq-L = 1925-7) O2 saturation, arterial (test 97 % 95-100 code = 2708-6) [place] MethodistSurgical pathology [id number] 23:17:53 Test Item Value Reference Range Interpretation Comments Case number (test code = [id number]) Surgical pathology See link below for report (test code = PDF Lab Report 225) Result status (test code This is Final Report = [id number]) for [id number] [place] MethodistComprehensive metabolic fgpel5537-37-54 20:54:57 Test Item Value Reference Range Interpretation Comments Sodium (test code = 139 135- 148 mEq/L 2951-2) Potassium (test code = 4.4 3.5- 5.0 mEq/L 2823-3) Chloride (test code = 101 98- 112 mEq/L 2075-0) CO2 (test code = 2028-02) 29 24- 31 mEq/L Anion gap (test code = 9@ANIO 7- 15 mEq/L 55205-3) BUN (test code = 3094-0) 11 mg/dL 6-20 Creatinine (test code = 0.84 mg/dL 0.7-1.2 2160-0) Glucose (test code = 129 mg/dL 65-99 H 2345-7) Calcium (test code = 9.2 mg/dL 8.3-10.2 21381-6) Protein (test code = 7.0 g/dL 6.3-8.3 [place] 9994.6-7.0 2885-2) g/dL1 zxfu5629.4-7.6 g/dL7 months-4olwn456 .1- 7.3 g/dL1-2 jqbpy688.6-7.5 g/dL>3 gzygq222.0-8.0 g/nQ50-9236450. 3-8 .3 g/dL Albumin (test code = 3.1 g/dL 3.5-5 L 1751-7) A/G ratio (test code = 0.8 0.7-3.8 1759-0) Alkaline phosphatase 56 U/L 40-129 (test code = 6768-6) AST (test code = 1920-8) 124 U/L 10-50 H ALT (test code = 1742-6) 51 U/L 5-50 H Total bilirubin (test 0.4 mg/dL 0-1.2 code = 1975-2) Lab Interpretation (test Abnormal code = 10300-1) [place] MethodistXR Chest 2 [id number] 19:56:13Hm Interface, Radiology Results 07/09/2019 1:59 PM CSTEXAMINATION: XR CHEST 2 VWCLINICAL HISTORY: R05 Cough, R13.10 Dysphagia unspecified, Cough new onsetXR CHEST 2 VW images are submittedCOMPARISON: Chest x-rays dated June 30, 2019IMPRESSION: Heart and mediastinum: UnremarkableLungs: Mild interval improved left lower lobe lung consolidations. Interval improved increased interstitial markings seen in both lungs.Pleura: There is mild left pleural effusion. Negative for pneumoth orax.Bones: No acute osseous abnormality. Mild degenerative changes of thoracic spine.[facility] [place]-[id number] MethodistPrepare [id number] 03:41:00 Test Item Value Reference Range Interpretation Comments Product name (test code Red Blood Cells -1, = 25) Leukored Unit number (test code [id number] = [id number]) Product code (test code S7723V05 = 3092) Dispense status (test Returned to not code = 24) transfused Blood expiration date (test code = 302) Blood type code (test 6200 code = 308) Blood type (test code = A POSITIVE 1314) Compatibility (test Compatible code = 6400) [place] MethodistArterial blood gas, fwnbvxemm0576-00-87 00:38:25 Test Item Value Reference Range Interpretation Comments pH, arterial (test code = 7.28 7.35-7.45 L 2744-1) pCO2, arterial (test code 61 35- 45 mmHg HH AB G results called = 2019-01) to and read antoinette k by IN WTOR #6 BY AM 2AT 07/07/2019 18: 38 pO2, arterial (test code = 340 80- 90 mmHg H 2703-7) Temperature, Celsius (test 37.0 Degrees C code = 8310-5) O2 saturation, arterial 99 % 95-100 (test code = 2708-6) pH, arterial corrected 7.28 (test code = 17892-0) pCO2, arterial corrected 61 mmHg (test code = 97559-7) pO2, arterial corrected 340 mmHg (test code = 07414-3) Base excess, arterial 0 -2 - 2 mEq-L (test code = 1925-7) Lab Interpretation (test Abnormal code = 83424-1) [place] MethodistGlucose level, txkyuyk6283-50-90 00:38:25 Test Item Value Reference Range Interpretation Comments Glucose, syringe (test code = 188 mg/dL 65-99 H 2345-7) Lab Interpretation (test code = Abnormal 55170-6) [place] MethodistHemoglobin, snsdccn2737-56-58 00:38:25 Test Item Value Reference Range Interpretation Comments Hemoglobin, syringe (test code = 11.8 g/dL 14-18 L 718-7) Lab Interpretation (test code = Abnormal 91510-0) [place] MethodistIonized calcium, cwgqfyhs9598-37-11 00:38:25 Test Item Value Reference Range Interpretation Comments Ionized calcium, arterial (test 1.12 mmol/L 1.11-1.32 code = 33350-9) [place] MethodistLactic acid, pupetak3592-05-40 00:38:25 Test Item Value Reference Range Interpretation Comments Lactic acid, syringe (test code = 1.8 mmol/L 0.5-2.2 61402-2) [place] MethodistPotassium, vfoqleo6012-79-80 00:38:25 Test Item Value Reference Range Interpretation Comments Potassium, syringe (test code = 2007) 4.7 3.5- 5.0 mEq/L [place] MethodistSodium level, evkxsfr9682-09-93 00:38:25 Test Item Value Reference Range Interpretation Comments Sodium, syringe (test code = 2947-0) 138 135- 148 mEq/L [place] MethodistArterial lkwa1079-97-86 18:50:25Wes Looney MD 07/07/2019 12:51 PMArterial linePerformed by: Wes Looney MDAuthorized by: Michael Caro MD Patient Location: ORStart Time: 07/07/2019 12:50 PMEnd Time: 07/07/2019 12:50 PMStaff: Anesthesiologist: Michael Caro MD Resident/SKIP PITMAN/AA: Wes Looney MD Performed by: Resident/SKIP PITMAN/AAPre- procedure: patient identified, IV checked, site and side verified, risks and benefits discussed, procedure verified, surgical consent complete, patient position confirmed, monitors and equipment checked and pre-op evaluation complete MSBT: antiseptic used, all elements of maximal sterile barrier technique followed, hand hygiene performed, cap/gown used by other personnel and solutions labeled Indications: Indications: multiple ABGs and hemodynamic monitoring Anesthesia: Anesthesia: GeneralProcedure Details: Arterial Line placement: Placed post induction Line placement site: RadialLine placement side: Right Arterial line gauge: 20 GNumber of attempts: 1 Ultrasound guidance used: Yes Post-procedure: Post-procedure: Sterile dressing applied Post procedure circulation, sensation, movement: Normal Patient tolerance: Patient tolerated the procedure well with no immediate complicationsKeysville TayskqvjdOibjkq3000-17-05 18:45:13Wes Looney MD 07/07/2019 12:53 PMAirwayDate/Time: 07/07/2019 12:45 PMPerformed by: Wes Looney MDAuthorized by: Michael Caro MD Location: ORUrgency: ElectiveDifficult Airway: Yes Anesthesiologist: Michael Caro MDResident/SKIP PITMAN/AA: eWs Looney MDPerformed by:anesthesiologistPreoxygenated with 100% O2: Yes C-spine Precautions Maintained Throughout: No MaskVentilation: Difficult maskFinal Airway Type: Endotracheal airwayFinal Endotracheal Airway: ETT - double lumen leftCuffed: Yes Technique Used: Video laryngoscopyDevices/Methods Used in Placement:Intubating styletInsertion Site: OralBlade Type: MacintoshLaryngoscope Blade/Videolaryngoscope Blade Size: 4ETT Double Lumen (fr): 39Cuff at minimum occlusion pressure: Yes Measured from: LipsPlacement Verified by: CO2 detection and fiber optic visualization Laryngoscopic view: Grade IIb - view of arytenoids or posterior of glottis onlyRapid Sequence Induction (RSI): No Modified RSI: No Number of Attempts at Approach: 2 Patient has a very tortuous airway and large arytenoids. However we were successful in placing the ETT without complications.[place] MethodistType and tccezf4960-62-89 16:20:00 Test Item Value Reference Range Interpretation Comments ABO grouping (test code = 883-9) A Rh type (test code = 58294-5) POS Antibody screen (gel) (test code = NEG 890-4) [facility], hvdmhbgbq5258-49-05 17:09:13 Test Item Value Reference Range Interpretation Comments FEV1 Pre (test code = 2.66 L 3.05-4.62 5348) FEV1/FVC % Pre (test code 67.59 % 67.44-86.79 = 5361) FVC Pre (test code = 5354) 3.93 L 4.05-5.91 PEF Pre (test code = 5367) 5.55 L/s 7.36-11.99 FEF 25-75% Pre (test code 1.64 L/s 1.73-4.92 = 5547) DLCO Pre (test code = 23.86 22.08- 38.01 ml/(min*mmHg) 5423) DL/VA Pre (test code = 4.2 3.26- 5.66 ml/(min*mmHg*L) 5437) VA SB Pre (test code = 5.69 L 5.46-8.19 5444) FEV1 Predicted (test code 3.84 = 5302) FEV1 LLN (test code = 3.05 5347) FEV1 % Pre of Predicted 69.2 % (test code = 5308) FVC Predicted (test code = 4.98 5307) FVC LLN (test code = 5353) 4.05 FVC % Pre of Predicted 79 % (test code = 5355) FEV1/FVC % Predicted (test 77 code = 5359) FEV1/FVC % LLN (test code 67 = 5360) FEV1/FVC % Pre of 87.6 % Predicted (test code = 5362) FEF 25-75% Predicted (test 3.32 code = 5546) FEF 25-75% LLN (test code 1.73 = 5545) FEF 25-75% % Pre of 49.4 % Predicted (test code = 5548) PEF Predicted (test code = 9.67 5310) PEF LLN (test code = 5366) 7.36 PEF % Pre of Predicted 57.4 % (test code = 5368) DLCO Predicted (test code 30.04 = 5421) DLCO LLN (test code = 22.08 5422) DLCO % Pre of Predicted 79.4 % (test code = 5424) DL/VA Predicted (test code 4.46 = 5435) DL/VA LLN (test code = 3.26 5436) DL/VA % Pre of Predicted 94.1 % (test code = 5438) VA SB Predicted (test code 6.82 = 5442) VA SB LLN (test code = 5.46 5443) VA SB % Pre of Predicted 83.4 % (test code = 5445) [place] MethodistMRI Brain W Wo Ftfrjlzj6304-83-78 16:42:26Hm Interface, Radiology Results Incoming - 06/27/2019 10:45 AM CSTEXAMINATION: MRI BRAIN W WO CONTRASTCLINICAL HISTORY: C34.12 Malignant neoplasm of upper lobe left bronchus or lung, Z01.818 Encounterfor other preprocedural examination, lung cancerCOMPARISON: NoneTECHNIQUE: Multiplanar and multisequence MRI imaging of the brain was obtained with and without contrast.FINDINGS:No evidence of acute intracranial hemorrhage, mass, mass effect, midline shift, or acute infarct. Few subcortical and periventricular white matter T2 FLAIR hyperintensities which may reflect minimal chronic microvascular ischemic changes. The ventricles are normal in size and configuration for age. Major intracranial vascular flow voids are preserved.Small to moderate left mastoid fluid. Orbital contents are unremarkable. Moderate polypoid mucosal thickening of portions of the left maxillary sinus with mucous retention cyst posteriorly. IMPRESSION:1. No evidence of intracranial metastasis or acute intracranial abnormality .[id number] MethodistCytology (non-gynecological) nhzcwzr5294-00-63 15:00:17 Test Item Value Reference Range Interpretation Comments Case number (test code = [id number]) Cytology See link below for (non-gynecological) PDF Lab Report report (test code = 1178) Result status (test code This is Final Report = [id number]) for [id number] [place] MethodistECG 12 unot6138-47-17 15:59:41 Test Item Value Reference Range Interpretation Comments Ventricular rate (test 66 code = 253) Atrial rate (test code = 66 255) SD interval (test code = 164 266) QRSD interval (test code 82 = 260) QT interval (test code = 402 264) QTC interval (test code 421 = 265) P axis 1 (test code = 60 267) QRS axis 1 (test code = 58 268) T wave axis (test code = 55 270) EKG impression (test Normal sinus code = 273) rhythm-Anterior infarct , age undetermined-Abnormal ECG-No previous ECGs available-Electronica lly Signed By Willi Lorenz MD ([id number]) on 06/21/2019 9:59:40 AM [facility] [place] kilmenb9672-16-05 19:07:01 Test Item Value Reference Range Interpretation Comments POC glucose (test code 111 mg/dL 65-99 H Opera tor Name: [place] = 11918-6) DennisDevice ID : [id number] able: [facility] Notified RNChartable: No Action Needed Lab Interpretation Abnormal (test code = 06715-2) [place] BushDqxilslepOinqqc1831-65-91 17:41:11CarterAneta MD 06/20/2019 11:42 AMAirwayDate/Time: 06/20/2019 11:29 AMPerformed by: Aneta Ovalles MDAuthorized by: Aneta Ovalles MD Location: ORUrgency: ElectiveAnesthesiologist: Aneta Ovalles MDResident/SKIP PITMAN/AA: Harpal Espinosa MDPerformed by: anesthesiologistPreoxygenated with 100% O2: Yes C- spine Precautions Maintained Throughout: Yes Mask Ventilation: Assisted maskFinal Airway Type: Endotracheal airwayFinal Endotracheal Airway: ETTCuffed: Yes Technique Used: Direct laryngoscopyDevices/Methods Used in Placement: Intubating styletInsertionSite: OralBlade Type: MillerLaryngoscope Blade/Videolaryngoscope Blade Size: 2ETT Size (mm): 9.0Cuff at minimum occlusion pressure: Yes Measured from: GumsETT to Gums (cm): 23Placement Verified by: CO2 detection, direct visualization and equal breath sounds Laryngoscopic view: Grade I - full view of glottisRapid Sequence Induction (RSI): No Modified RSI: No Number of Attempts at Approach:2[place] [facility] PET/CT Whole Body External Fbsdl5948-81-81 06:24:02This exam was not acquired at a [facility] facility and has not been interpreted by a Zoroastrian Provider. The exam was imported into our imaging system.[facility] Chest External Vdhgj5039-32-77 06:23:17This exam was not acquired at a Zoroastrian facility and has not been interpreted by a Zoroastrian Provider. The exam was imported into our imaging system.[facility]
[2019-10-24] MEDS ORDERED: NA CHLORIDE 0.9% 250 ML ONE (14:37)
[2019-10-24 16:07] VITALS: BP 131/65; TEMP 97.3; O2SAT 96; BMI 45.7
[2019-10-24 16:48] LABS: Platelet Estimate DECR
== END 2019-10-24 16:08 | disposition home or self-care (01) ==
LOC: DS 12:45
PROVIDERS: ATTEND Internal Medicine Hematology & Oncology
DX: D69.59 Other secondary thrombocytopenia (principal); T45.1X5A Adverse effect of antineoplastic and immunosuppressive drugs, initial encounter; C34.90 Malignant neoplasm of unspecified part of unspecified bronchus or lung
CPT/HCPCS: 36415; 86900; 86850; 85049; 86901; 36430; P9035; J7030

== ENCOUNTER 2019-11-14 08:25 | Day surgery (SDC) | payer BC ==
--- OUTSIDE RECORDS SUMMARY | 2019-11-14 08:54 | XMS REPORT | Clinical Summary ---
:1965 Author Organization [facility] Address [address] [place] [address] Care Team Providers Name Role Phone Mahendra Ferrell MD Primary Care Provider Allergies Active Allergy Reactions Severity Noted Date Comments Fentanyl Itching High 06/20/2019 Other Rash Low 06/17/2019 *[facility] Midazolam Itching High 06/20/2019 Medications [...] by mouth 20 (Melani ent daily. Discharge) [id number] or Infuse 1 each 0 07/04/19 Discontinued placebo infusion, into a venous 20 (Discontinued by TRAILBLAZER/[id number] catheter another 8797/Tamra, once. clinici an) acetaminophen [...] Description 08/19/2019 Telephone Cardiothoracic Madalyn, Aide Fortunea NE 08/18/2019 Telephone Cardiothoracic Aide Mustafa NP 08/18/2019 Telephone Cardiothoracic Hubert, Surgery ELICEO Cabrera 08/01/2019 Orders Only General Surgery Colin Lobo MD 08/01/2019 Telephone Cardiothoracic Aide Mustafa JANITORIAL SUPERVISOR 07/29/2019 Office Visit Cardiothoracic Colin Lobo, Surgery fo llow-up examination (Primary Dx); Surgery Postoperative p ain; Neuropathic tristan n; Muscle spasm 07/28/2019 Telephone Cardiothoracic Aide Gaspar MA 07/25/2019 Telephone General Surgery Colin Lobo MD 07/22/2019 Telephone Cardiothoracic Aide Mustafa, MARYANN 07/16/2019 Refill Cardiothoracic Colin Lobo Surgery MD 07/14/2019 Telephone General Surgery Colin Lobo MD 07/09/2019 [facility] Internal Colin Lobo Shortnes s of breath - Encounter Medicine (Primary Dx) 07/11/2019 Florin Johnson MD 07/09/2019 Office Visit Cardiothoracic Meisenbach, Dysphagia, un specified type (Primary Dx); Surgery Rosemary Macdonald, JANITORIAL SUPERVISOR Hoarseness 07/09/2019 Lab Lab Colin Lobo, Cough; Dysphagia, unsp ecified type 07/09/2019 Hospital Radiology Colin Lobo, Cough; Encounter Dysphagia, unsp ecified type 07/09/2019 Telephone Cardiothoracic Meisenjass, Cough (Primar y Dx); Surgery Rosemary Macdonald, JANITORIAL SUPERVISOR Dysphagia, un specified type 07/07/2019 Surgery Cardiothoracic Colin Lobo, LEFT ROBO T-ASSISTED Surgery MD MANDI LINARES FT UPPER LOBE LINGULECTOMY, L EFT LOWER LOBE SEGMENTECTOMY 07/07/2019 Anesthesia Event Cardiothoracic Lydia Mott Surgery MD Sharif Nesbitt Meredith 07/07/2019 [facility] General Internal Colin Lobo, Malignan t neoplasm - Encounter Medicine MD of upper lobe, left 07/08/2019 bronchus or kathryn g (HCC) 07/04/2019 Telephone General Surgery Rea Rae MA 07/04/2019 Telephone Cardiothoracic Moon, Surgery Rosemary Macdonald NP 06/27/2019 [facility] Pulmonology Colin Lobo, Primary 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) 06/27/2019 [facility] Radiology Colin Lobo, Malignant ne oplasm of upper lobe of left lung (HCC); Encounter MD Pre-op testing 06/24/2019 Telephone General Surgery Colin Lobo MD 06/24/2019 Orders Only Cardiothoracic Meisenbach, 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) (Primary Dx); Surgery Rosemary Macdonald NP Pre-op testin g 06/24/2019 Telephone Cardiothoracic Madalyn, Surgery Genoveva, ELICEO 06/23/2019 Orders Only [facility] [place] 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) 06/20/2019 Surgery Cardiothoracic Colin Lobo, FLEXIBLE Surgery BRONCHOSCOPY 06/20/2019 Anesthesia Event Cardiothoracic Aneta Ovalles MD Kessellie, Caroline 06/20/2019 [facility] Cardiothoracic Colin Lobo, Encounter Surgery 06/18/2019 Telephone Cardiothoracic Moon, Surgery Rosemary Macdonald JANITORIAL SUPERVISOR 06/17/2019 [facility] Radiology Chen Nieto, Encounter 06/17/2019 [facility] Radiology Chen Nieto, Encounter 06/17/2019 Office Visit Cardiothoracic Colin Lobo, Malignant neoplasm Surgery MD of upper lobe o f left lung (HCC) (Primary Dx) 06/17/2019 Orders Only Cardiothoracic Provider, Surgery MD Mary Jane after 11/13/2018 Family History Medical History Relation Name Comments Diabetes Mother Diabetes Sister Relation Name Status Comments Mother Sister Social History Tobacco Use Types Packs/Day Years Used Date Former Smoker Cigarettes 0.5 15 1979 - 2019 Smokeless Tobacco: Never Used [...] Comments Blood Pressure 148/80 07/29/2019 8:05 AM DOCUMENTATION WRITER Pulse 72 07/29/2019 8:05 AM DOCUMENTATION WRITER Temperature 36.1 C (96.9 F) 07/29/2019 8:05 AM DOCUMENTATION WRITER Respiratory Rate 17 07/29/2019 8:05 AM DOCUMENTATION WRITER Oxygen Saturation 97% 07/29/2019 8:05 AM DOCUMENTATION WRITER Inhaled Oxygen Concentration - - Weight 142 kg (314 lb) 07/29/2019 8:05 AM DOCUMENTATION WRITER Height 180.3 cm (5' 11") 07/29/2019 8:05 AM DOCUMENTATION WRITER Body Mass Index 43.79 07/29/2019 8:05 AM DOCUMENTATION WRITER Plan of Treatment Health Maintenance Due Date Last Done Comments COLONOSCOPY SCREENING 10/22/2015 SHINGLES VACCINES (#1) 10/22/2015 INFLUENZA VACCINE 01/10/2020 06/18/2019 Implants Implanted Type Area Barber Shop Manager Device Shelf Model / Identifier Expiration Serial / Date Lot Kit Selnt Plrl Air Leak 4ml Strl Progel - [id number] Surgical N/A: N/A [employer] 01/01/2021 [id number] / Implanted: Qty: 1 on 07/07/2019 by Colin Lobo MD at [facility] Implants; / Expanders; Extenders; Surgical Wires Procedures Procedure Name Priority Date/Time Associated Comments Diagnosis XR CHEST 1 VW PORTABLE STAT 07/11/2019 8:50 R esults for this AM DOCUMENTATION WRITER procedure are i n the results section. GRAM STAIN Routine 07/10/2019 9:30 Results for this AM DOCUMENTATION WRITER procedure are i n the results section. SPUTUM CULTURE Routine 07/10/2019 9:30 Results f or this AM DOCUMENTATION WRITER procedure are i n the results section. ESTIMATED GFR Routine 07/10/2019 3:57 Results fo r this AM DOCUMENTATION WRITER procedure are i n the results section. PHOSPHORUS LEVEL Routine 07/10/2019 3:57 Results for this AM DOCUMENTATION WRITER procedure are i n the results section. MAGNESIUM LEVEL Routine 07/10/2019 3:57 Results for this AM DOCUMENTATION WRITER procedure are i n the results section. BASIC METABOLIC PANEL Routine 07/10/2019 3:57 Re sults for this AM DOCUMENTATION WRITER procedure are i n the results section. PARTIAL THROMBOPLASTIN Routine 07/10/2019 3:57 R esults for this TIME (PTT) AM DOCUMENTATION WRITER procedure are i n the results section. PROTHROMBIN TIME WITH Routine 07/10/2019 3:57 Re sults for this INR AM DOCUMENTATION WRITER procedure are i n the results section. HC COMPLETE BLD COUNT Routine 07/10/2019 3:57 Re sults for this W/AUTO DIFF AM DOCUMENTATION WRITER procedure are i n the results section. US DUPLEX VENOUS LOWER STAT 07/09/2019 9:10 R esults for this EXTREMITY BILATERAL PM DOCUMENTATION WRITER procedur e are in the results section. RESPIRATORY PATHOGEN STAT 07/09/2019 8:27 Res ults for this PANEL PM DOCUMENTATION WRITER procedure are i n the results section. CT ANGIOGRAM PE CHEST STAT 07/09/2019 7:35 Re sults for this PM DOCUMENTATION WRITER procedure are i n the results section. ARTERIAL BLOOD GAS STAT 07/09/2019 6:28 Resul ts for this PM DOCUMENTATION WRITER procedure are i n the results section. ESTIMATED GFR STAT 07/09/2019 2:00 Results fo r this PM DOCUMENTATION WRITER procedure are i n the results section. HC COMPLETE BLD COUNT STAT 07/09/2019 2:00 Cough Results for this W/AUTO DIFF PM DOCUMENTATION WRITER Dysphagia, procedure are i n unspecified type the results section. COMPREHENSIVE METABOLIC STAT 07/09/2019 2:00 Cough Results for this PANEL PM DOCUMENTATION WRITER Dysphagia, procedure are i n unspecified type the results section. XR CHEST 2 VW Routine 07/09/2019 1:44 Cough Results for this PM DOCUMENTATION WRITER Dysphagia, procedure are i n unspecified type the results section. XR CHEST 1 VW PORTABLE STAT 07/08/2019 2:35 R esults for this PM DOCUMENTATION WRITER procedure are i n the results section. XR CHEST 1 VW PORTABLE Timed 07/08/2019 10:35 R esults for this AM DOCUMENTATION WRITER procedure are i n the results section. XR CHEST 1 VW PORTABLE Routine 07/08/2019 6:45 R esults for this AM DOCUMENTATION WRITER procedure are i n the results section. ARTERIAL BLOOD GAS Routine 07/08/2019 6:10 Resul ts for this AM DOCUMENTATION WRITER procedure are i n the results section. XR CHEST 1 VW PORTABLE STAT 07/08/2019 4:43 R esults for this AM DOCUMENTATION WRITER procedure are i n the results section. XR CHEST 1 VW PORTABLE STAT 07/07/2019 7:35 R esults for this PM DOCUMENTATION WRITER procedure are i n the results section. GLUCOSE LEVEL, SYRINGE STAT 07/07/2019 6:30 R esults for this PM DOCUMENTATION WRITER procedure are i n the results section. LACTIC ACID, SYRINGE STAT 07/07/2019 6:30 Res ults for this PM DOCUMENTATION WRITER procedure are i n the results section. HEMOGLOBIN, SYRINGE STAT 07/07/2019 6:30 Resu lts for this PM DOCUMENTATION WRITER procedure are i n the results section. IONIZED CALCIUM, STAT 07/07/2019 6:30 Results for this ARTERIAL PM DOCUMENTATION WRITER procedure are i n the results section. SODIUM LEVEL, SYRINGE STAT 07/07/2019 6:30 Re sults for this PM DOCUMENTATION WRITER procedure are i n the results section. POTASSIUM, SYRINGE STAT 07/07/2019 6:30 Resul ts for this PM DOCUMENTATION WRITER procedure are i n the results section. ARTERIAL BLOOD GAS, STAT 07/07/2019 6:30 Resu lts for this CORRECTED PM DOCUMENTATION WRITER procedure are i n the results section. SURGICAL PATHOLOGY Routine 07/07/2019 5:51 Resul ts for this REQUEST PM DOCUMENTATION WRITER procedure are i n the results section. LACTIC ACID, SYRINGE STAT 07/07/2019 5:20 Res ults for this PM DOCUMENTATION WRITER procedure are i n the results section. IONIZED CALCIUM, STAT 07/07/2019 5:20 Results for this ARTERIAL PM DOCUMENTATION WRITER procedure are i n the results section. GLUCOSE LEVEL, SYRINGE STAT 07/07/2019 5:20 R esults for this PM DOCUMENTATION WRITER procedure are i n the results section. SODIUM LEVEL, SYRINGE STAT 07/07/2019 5:20 Re sults for this PM DOCUMENTATION WRITER procedure are i n the results section. HEMOGLOBIN, SYRINGE STAT 07/07/2019 5:20 Resu lts for this PM DOCUMENTATION WRITER procedure are i n the results section. POTASSIUM, SYRINGE STAT 07/07/2019 5:20 Resul ts for this PM DOCUMENTATION WRITER procedure are i n the results section. ARTERIAL BLOOD GAS, STAT 07/07/2019 5:20 Resu lts for this CORRECTED PM DOCUMENTATION WRITER procedure are i n the results section. GLUCOSE LEVEL, SYRINGE STAT 07/07/2019 4:15 R esults for this PM DOCUMENTATION WRITER procedure are i n the results section. IONIZED CALCIUM, STAT 07/07/2019 4:15 Results for this ARTERIAL PM DOCUMENTATION WRITER procedure are i n the results section. SODIUM LEVEL, SYRINGE STAT 07/07/2019 4:15 Re sults for this PM DOCUMENTATION WRITER procedure are i n the results section. POTASSIUM, SYRINGE STAT 07/07/2019 4:15 Resul ts for this PM DOCUMENTATION WRITER procedure are i n the results section. HEMOGLOBIN, SYRINGE STAT 07/07/2019 4:15 Resu lts for this PM DOCUMENTATION WRITER procedure are i n the results section. ARTERIAL BLOOD GAS, STAT 07/07/2019 4:15 Resu lts for this CORRECTED PM DOCUMENTATION WRITER procedure are i n the results section. LACTIC ACID, SYRINGE STAT 07/07/2019 3:17 Res ults for this PM DOCUMENTATION WRITER procedure are i n the results section. GLUCOSE LEVEL, SYRINGE STAT 07/07/2019 3:17 R esults for this PM DOCUMENTATION WRITER procedure are i n the results section. HEMOGLOBIN, SYRINGE STAT 07/07/2019 3:17 Resu lts for this PM DOCUMENTATION WRITER procedure are i n the results section. IONIZED CALCIUM, STAT 07/07/2019 3:17 Results for this ARTERIAL PM DOCUMENTATION WRITER procedure are i n the results section. POTASSIUM, SYRINGE STAT 07/07/2019 3:17 Resul ts for this PM DOCUMENTATION WRITER procedure are i n the results section. SODIUM LEVEL, SYRINGE STAT 07/07/2019 3:17 Re sults for this PM DOCUMENTATION WRITER procedure are i n the results section. ARTERIAL BLOOD GAS, STAT 07/07/2019 3:17 Resu lts for this CORRECTED PM DOCUMENTATION WRITER procedure are i n the results section. LACTIC ACID, SYRINGE STAT 07/07/2019 2:26 Res ults for this PM DOCUMENTATION WRITER procedure are i n the results section. GLUCOSE LEVEL, SYRINGE STAT 07/07/2019 2:26 R esults for this PM DOCUMENTATION WRITER procedure are i n the results section. IONIZED CALCIUM, STAT 07/07/2019 2:26 Results for this ARTERIAL PM DOCUMENTATION WRITER procedure are i n the results section. POTASSIUM, SYRINGE STAT 07/07/2019 2:26 Resul ts for this PM DOCUMENTATION WRITER procedure are i n the results section. HEMOGLOBIN, SYRINGE STAT 07/07/2019 2:26 Resu lts for this PM DOCUMENTATION WRITER procedure are i n the results section. SODIUM LEVEL, SYRINGE STAT 07/07/2019 2:26 Re sults for this PM DOCUMENTATION WRITER procedure are i n the results section. ARTERIAL BLOOD GAS, STAT 07/07/2019 2:26 Resu lts for this CORRECTED PM DOCUMENTATION WRITER procedure are i n the results section. LACTIC ACID, SYRINGE STAT 07/07/2019 1:20 Res ults for this PM DOCUMENTATION WRITER procedure are i n the results section. GLUCOSE LEVEL, SYRINGE STAT 07/07/2019 1:20 R esults for this PM DOCUMENTATION WRITER procedure are i n the results section. IONIZED CALCIUM, STAT 07/07/2019 1:20 Results for this ARTERIAL PM DOCUMENTATION WRITER procedure are i n the results section. POTASSIUM, SYRINGE STAT 07/07/2019 1:20 Resul ts for this PM DOCUMENTATION WRITER procedure are i n the results section. HEMOGLOBIN, SYRINGE STAT 07/07/2019 1:20 Resu lts for this PM DOCUMENTATION WRITER procedure are i n the results section. SODIUM LEVEL, SYRINGE STAT 07/07/2019 1:20 Re sults for this PM DOCUMENTATION WRITER procedure are i n the results section. ARTERIAL BLOOD GAS, STAT 07/07/2019 1:20 Resu lts for this CORRECTED PM DOCUMENTATION WRITER procedure are i n the results section. ARTERIAL LINE Routine 07/07/2019 12:50 Results fo r this PM DOCUMENTATION WRITER procedure are i n the results section. AR AN ELECTIVE Routine 07/07/2019 12:45 Results f or this ENDOTRACHEAL AIRWAY PM DOCUMENTATION WRITER procedur e are in the results section. IONIZED CALCIUM, STAT 07/07/2019 12:26 Results for this ARTERIAL PM DOCUMENTATION WRITER procedure are i n the results section. GLUCOSE LEVEL, SYRINGE STAT 07/07/2019 12:26 R esults for this PM DOCUMENTATION WRITER procedure are i n the results section. HEMOGLOBIN, SYRINGE STAT 07/07/2019 12:26 Resu lts for this PM DOCUMENTATION WRITER procedure are i n the results section. POTASSIUM, SYRINGE STAT 07/07/2019 12:26 Resul ts for this PM DOCUMENTATION WRITER procedure are i n the results section. SODIUM LEVEL, SYRINGE STAT 07/07/2019 12:26 Re sults for this PM DOCUMENTATION WRITER procedure are i n the results section. ARTERIAL BLOOD GAS, STAT 07/07/2019 12:26 Resu lts for this CORRECTED PM DOCUMENTATION WRITER procedure are i n the results section. PREPARE RBC STAT 07/07/2019 8:20 Results for this AM DOCUMENTATION WRITER procedure are i n the results section. TYPE AND SCREEN STAT 07/07/2019 8:20 Results for this AM DOCUMENTATION WRITER procedure are i n the results section. SPIROMETRY, DIFFUSION Routine 06/27/2019 11:09 Primary maligna nt Results for this AM DOCUMENTATION WRITER neoplasm of procedure are i n bronchus of left the results lower lobe (HCC) section. MRI BRAIN W WO CONTRAST Routine 06/27/2019 10:36 Malignant sj plasm Results for this AM DOCUMENTATION WRITER of upper lobe of procedure a re in left lung (HCC) the results Pre-op testing section. POC GLUCOSE Routine 06/20/2019 1:04 Results for this PM DOCUMENTATION WRITER procedure are i n the results section. AR AN ELECTIVE Routine 06/20/2019 11:41 Results f or this ENDOTRACHEAL AIRWAY AM DOCUMENTATION WRITER procedur e are in the results section. CYTOLOGY Routine 06/20/2019 11:40 Results for this (NON-GYNECOLOGICAL) AM DOCUMENTATION WRITER procedur e are in REQUEST the results section. CYTOLOGY Routine 06/20/2019 11:40 Results for this (NON-GYNECOLOGICAL) AM DOCUMENTATION WRITER procedur e are in REQUEST the results section. ECG 12-LEAD STAT 06/20/2019 8:33 Results for this AM DOCUMENTATION WRITER procedure are i n the results section. ESTIMATED GFR STAT 06/20/2019 8:15 Results fo r this AM DOCUMENTATION WRITER procedure are i n the results section. PARTIAL THROMBOPLASTIN STAT 06/20/2019 8:15 R esults for this TIME (PTT) AM DOCUMENTATION WRITER procedure are i n the results section. PROTHROMBIN TIME WITH STAT 06/20/2019 8:15 Re sults for this INR AM DOCUMENTATION WRITER procedure are i n the results section. BASIC METABOLIC PANEL STAT 06/20/2019 8:15 Re sults for this AM DOCUMENTATION WRITER procedure are i n the results section. HC COMPLETE BLD COUNT STAT 06/20/2019 8:15 Re sults for this W/AUTO DIFF AM DOCUMENTATION WRITER procedure are i n the results section. PET CT WHOLE BODY Routine 05/15/2019 10:19 Result s for this EXTERNAL STUDY AM DOCUMENTATION WRITER procedure are in the results section. PET CT SKULL BASE TO Routine 05/15/[address] CHEST EXTERNAL STUDY Routine 05/02/2019 7:55 Results for this AM DOCUMENTATION WRITER procedure are i n the results section. after 11/13/2018 Results XR Chest 1 Vw Portable (07/11/2019 8:50 AM DOCUMENTATION WRITER)Only the most recent of6 results within the time period is included. Specimen Narrative Performed At EXAMINATION: XR CHEST 1 VW PORTABLE [facility] CLINICAL HISTORY: shortness of breath IMPRESSION: Single frontal view compared to 07/09/2019 demonstrates postoperative scarring and atelectasis and volume loss in the left l lara to be stable. There is no new infiltrate. There is no pneumothorax. [facility]-[id number] Procedure Note Hm Interface, Radiology Results Incoming - 07/11/2019 10:45 AM DOCUMENTATION WRITER EXAMINATION: XR CHEST 1 VW PORTABLE CLINICAL HISTORY: shortness of breath IMPRESSION: Single frontal view compared to 0 demonstrates postoperative scarring and atelectasis and volume loss in the left lung to be stable. There is no new infiltrate. There is no pneumothorax. [facility]-[id number] Performing Organization Address City/[facility]/Zipcode Phone Number [facility] [address] [place] [address] Sputum culture (07/10/2019 9:30 AM DOCUMENTATION WRITER) Sputum culture Normal oral jose juan isolated. [facility] Comment: [facility] Specimen Information Specimen Source: Sputum Specimen Site: Expectorated Specimen Sputum - Expectorated Performing Organization Address City/[facility]/Zipcode Phone Number [facility] DEPARTMENT OF PATHOLOGY AND [address] [place], [place] [address] GENOMIC MEDICINE [address] [address] Gram stain (07/10/2019 9:30 AM DOCUMENTATION WRITER) Gram stain isolate Few WBC's [facility] Few Gram negative rods HOSPITAL Moderate Gram positive cocci in pairs Comment: Specimen Information Specimen Source: Sputum Specimen Site: Expectorated Specimen Sputum - Expectorated Performing Organization Address City/[facility] Phone [facility] DEPARTMENT OF PATHOLOGY AND [address] [place] [address] [phone] [address] Estimated GFR (07/10/2019 3:57 AM DOCUMENTATION WRITER)Only the most recent of3 resultswithin the time period is included. [facility] Estimated GFR >=90 mL/min/1.[address] [facility] [facility] Comment: [address] Catergory Units Interpretation G1 >=90 Normal [...] 2014. Specimen Plasma specimen Performing Organization Address [facility] Phone Number [facility] DEPARTMENT OF PATHOLOGY AND [address] [place] [phone] Partial thromboplastin time, activated (07/10/2019 3:57 AM DOCUMENTATION WRITER)Only the most recent of2 resultswithin the time period is included. [facility] PTT 29.8 23.0 - 36.[address] [facility] [facility] Comment: [facility] PTT therapeutic range for unfractionated heparin is 61.0-112.0 seconds which corresponds to Anti-Xa 0.3-0.7 U/ml. Specimen Blood Performing Organization Address [facility] Phone Number [facility] DEPARTMENT OF PATHOLOGY AND [address] [place] [phone] [place] [phone] Prothrombin time with INR (07/10/2019 3:57 AM DOCUMENTATION WRITER)Only the most recent of2 resultswithin the time period is included. [facility] Prothrombin time 14.5 11.5 - 14.5 [facility] INR 1.1 [place] Comment: [facility] The International Normalized Ratio (INR) is a [facility] HOSPITAL monitoring tool for patients who are stable on oral anticoagulant therapy. An INR of 2.0-3.0 is suggested for deep vein thrombosis/pulmonary embolism. Specimen Blood Performing Organization Address City/State/Zipcode Phone Number [facility] DEPARTMENT OF PATHOLOGY AND [address] [place], [place] [address] [address] CBC with platelet and differential (07/10/2019 3:57 AM DOCUMENTATION WRITER)Only the most recent of3 resultswithin the time period is included. WBC 7.89 4.50 - 11.00 [facility] k/uL HOSPITAL RBC 3.72 (L) 4.40 - 6.00 [facility] m/uL [facility] HGB 10.8 (L) 14.0 - 18.0 [facility] g/dL [facility] HCT 34.3 (L) 41.0 - 51.0 % [facility] MCV 92.2 82.0 - 100.0 [facility] MCH 29.0 27.0 - 34.0 pg [facility] MCHC 31.5 31.0 - 37.0 [facility] - SD 44.3 37.0 - 55.0 fL [facility] MPV 9.5 8.8 - 13.2 [facility] Platelet count 149 (L) 150 - 400 k/uL [facility] Nucleated RBC 0.00 /100 WBC [facility] Neutrophils 81.2 (H) 39.0 - 69.0 % [facility] Lymphocytes 7.7 (L) 25.0 - 45.0 % [facility] Monocytes 7.5 0.0 - 10.0 % [facility] Eosinophils 2.5 0.0 - 5.0 % [facility] Basophils 0.3 0.0 - 1.0 % [facility] Immature granulocytes 0.8Comment: 0.0 - 1.0 % [facility] "Immature HOSPITAL granulocytes" (promyelocytes , myelocytes, metamyelocytes ) Specimen Blood Performing Organization Address City/State/Zipcode Phone Number [facility] DEPARTMENT OF PATHOLOGY AND [address] [place], [place] [address] [address] Phosphorus level (07/10/2019 3:57 AM DOCUMENTATION WRITER) Pathologist Sig nature Phosphorus 2.9 2.4 - 4.5 mg/dL [facility] L Specimen Plasma specimen Performing Organization Address [facility] Phone Number [facility] DEPARTMENT OF PATHOLOGY AND [address] [place] [address] Magnesium level (07/10/2019 3:57 AM DOCUMENTATION WRITER) Pathologist [facility] Magnesium 2.1 1.6 - 2.6 mg/dL [facility] Specimen Plasma specimen Performing Organization Address [facility] Phone Number [facility] DEPARTMENT OF PATHOLOGY AND [address] [place] [address] Basic metabolic panel (07/10/2019 3:57 AM DOCUMENTATION WRITER)Only the most recent of2 results within the time period is included. Pathologist Sig nature Sodium 137 135 - 148 mEq/L [facility] Potassium 3.9 3.5 - 5.0 mEq/L [facility] Chloride 101 98 - 112 mEq/L [facility] CO2 25 24 - 31 mEq/L [facility] Anion gap 11@ANIO 7 - 15 mEq/L [facility] BUN 10 6 - 20 mg/dL [facility] Creatinine 0.73 0.70 - 1.20 mg/dL [facility] [facility] Glucose 125 (H) 65 - 99 mg/dL [facility] Calcium 8.8 8.3 - 10.2 mg/dL [facility] Spec[facility] Plasma specimen Performing Organization Address [facility] Phone Number [facility] DEPARTMENT OF PATHOLOGY AND [address] [place] [address] Us duplex venous lower extremity (07/09/2019 9:10 PM DOCUMENTATION WRITER) Specimen Narrative Performed At [facility] l[facility] Lower Extr emity Venous Report [address] [place] [address] Pat.Name: JAE CONNOLLY Pat.ID: [id number]Date: 07/09/2019 Refer.MD: COLIN LOBO MD Exam Time: 8:23:00 PM Study Type:L E Venous Age: 5 1965,53Y Sex: MALE Sonogrphr: Raphael Rocha, RVS, RCS Pat. Stat.:Inpati ent Room: [facility] WT20 2018A Tape Vol: JM, [facility] - 4: 19408 Echo Yvrose nt ID:[id number] Order ID: [id number] Reason for Study:Leg swelling or pain, D [...] Radiology Results In - 2019 10:43 PM DOCUMENTATION WRITER V[facility] Ultrasound Laboratory Lower Extremity Veno us Report [address] [address] , [place] [address] Pat.Name: JAE CONNOLLY Pat.I D: [id number] St.Date: 07/09/2019 Refer .MD: COLIN LOBO MD Exam Time: 8:23:00 PM Study Type:LE Venous Age: 5 1965,53Y Sex: MALE Sonogrphr: Raphael Rocha, JOSE, RCS Pat. Stat.:Inpatient Room: [place] [address] 2018A Tape Vol: JM, CPT - 4: 29035 Echo Event ID:[id number] Order ID: [id number] Reason for Study:Leg swelling or pain, D [...] Blood MD, FACS, RPVI Performing Organization Address [facility]/Zipcode Phone Number [facility] [address] [place] [address] Respiratory pathogen panel (07/09/2019 8:27 PM DOCUMENTATION WRITER) [facility] Respiratory Negative for all pathogens tested: [facility] pathogen panel Negative for Adenovirus [facility] Negative for Coronavirus HKU1 [facility] Negative for Coronavirus NL63 Negative [...] Specimen Nares - Left Performing Organization Address [facility] Phone Number [facility] DEPARTMENT OF PATHOLOGY AND [address] [place], [place] [address] [facility] [address] [address] [address] Angiogram Pe Chest (07/09/2019 7:35 PM DOCUMENTATION WRITER) Specimen Narrative Performed At EXAMINATION: CT ANGIOGRAM [...] iation dose. COMPARISON: 05/02/[address] [facility] CT. IMPRESSION: CHEST: 1. Pulmonary Arteries: No [...] Trace left apical and ant erior pneumothorax. [facility]-[id number] Procedure Note [facility], Radiology Results Incoming - 07/09/2019 7:55 PM DOCUMENTATION WRITER EXAMINATION: CT ANGIOGRAM PE CHEST CLINICAL HISTORY: [...] reduce radiation dose. COMPARISON: 05/02/[address] [facility] [address] IMPRESSION: CHEST: 1. Pulmonary Arteries: [...] pneumomediastinum. Trace left apical and anterior pneumothorax. [facility]-[id number] Performing Organization Address City/State/Zipcode Phone Number [facility] [address] [place] [address] Arterial blood gas (07/09/2019 6:28 PM DOCUMENTATION WRITER)Only the most recent of2 results within the time period is included. Pathologist Sig nature pH, arterial 7.42 7.35 - 7.45 [facility] pCO2, arterial 41 35 - 45 mmHg [facility] pO2, arterial 85 80 - 90 mmHg [facility] Bicarbonate, arterial 26.3 21.0 - 28.0 [facility] mmol/L [facility] Base excess, arterial 2 -2 - 2 mEq/L [facility] O2 saturation, 97 95 - 100 % [facility] Specimen Blood Performing Organization Address City/State/Zipcode Phone Number [facility] DEPARTMENT OF PATHOLOGY AND [address] [place] [address] [phone] [address] Comprehensive metabolic panel (07/09/2019 2:00 PM DOCUMENTATION WRITER) Sodium 139 135 - 148 [facility] mEq/L [facility] Potassium 4.4 3.5 - 5.0 [facility] mEq/L [facility] Chloride 101 98 - 112 mEq/L [facility] CO2 29 24 - 31 mEq/L [facility] Anion gap 9@ANIO 7 - 15 mEq/L [facility] BUN 11 6 - 20 mg/dL [facility] Creatinine 0.84 0.70 - 1.20 [facility] mg/dL [facility] Glucose 129 (H) 65 - 99 mg/dL [facility] Calcium 9.2 8.3 - 10.2 [facility] mg/dL [facility] Protein 7.0 6.3 - 8.3 g/dL [facility] Comment: HOSPITAL Nnkbufj7146.6-7.0 g/dL 1 zutz3564.4-7.6 g/dL 7 months-3cqol349.1-7.3 g/dL 1-2 fruds194.6-7.5 g/dL >3 .0-8.0 g/dL 18-5324692.3-8.3 g/dL Albumin 3.1 (L) 3.5 - 5.0 g/dL [facility] A/G ratio 0.8 0.7 - 3.8 [facility] Alkaline phosphatase 56 40 - 129 U/L [facility] AST 124 (H) 10 - 50 U/L [facility] ALT 51 (H) 5 - 50 U/L [facility] Total bilirubin 0.4 0.0 - 1.2 [facility] mg/dL [facility] Specimen Plasma specimen Performing Organization Address City/State/Zipcode Phone Number [facility] DEPARTMENT OF PATHOLOGY AND [address] [place], [place] [address] [facility] [address] [place] [address] XR Chest 2 Vw (07/09/2019 1:44 PM DOCUMENTATION WRITER) Specimen Narrative Performed At EXAMINATION: XR CHEST [...] Mild degenerati ve changes of thoracic spine. [facility]-[id number] Procedure Note Interface, Radiology Results Incoming - 07/09/2019 1:59 PM DOCUMENTATION WRITER EXAMINATION: XR CHEST 2 VW CLINICAL HISTORY: [...] Mi ld degenerative changes of thoracic spine. [facility]-[id number] Performing Organization Address City/[facility]/Zipcode Phone Number [facility] [address] [place] [address] Sodium level, syringe (07/07/2019 6:30 PM DOCUMENTATION WRITER)Only the most recent of7 results within the time period is included. Pathologist Sig nature Sodium, syringe 138 135 - 148 mEq/L [facility] Specimen Blood Performing Organization Address City/[facility]/Zipcode Phone Number [facility] DEPARTMENT OF PATHOLOGY AND [address] [place] [address] [phone] [address] Potassium, syringe (07/07/2019 6:30 PM DOCUMENTATION WRITER)Only the most recent of7 results within the time period is included. Pathologist Sig nature Potassium, syringe 4.7 3.5 - 5.0 mEq/L [facility] Specimen Blood Performing Organization Address City/[facility]/Zipcode Phone Number [facility] DEPARTMENT OF PATHOLOGY AND [address] [place] [address] [phone] [address] Lactic acid, syringe (07/07/2019 6:30 PM DOCUMENTATION WRITER)Only the most recent of5 results within the time period is included. Pathologist Sig nature Lactic acid, syringe 1.8 0.5 - 2.2 mmol/L [facility] Specimen Blood Performing Organization Address City/[facility] Phone Number [facility] DEPARTMENT OF PATHOLOGY AND [address] [place] [address] Ionized calcium, arterial (07/07/2019 6:30 PM DOCUMENTATION WRITER)Only the most recent of7 resultswithin the time period is included. Pathologist Sig nature Ionized calcium, 1.12 1.11 - 1.32 [facility] arterial mmol/L [facility] Specimen Blood Performing Organization Address [facility]ofl Phone Number [facility] DEPARTMENT OF PATHOLOGY AND [address] [place] [address] Hemoglobin, syringe (07/07/2019 6:30 PM DOCUMENTATION WRITER)Only the most recent of7 results within the time period is included. Pathologist Sig nature Hemoglobin, syringe 11.8 (L) 14.0 - 18.0 g/dL [facility] Specimen Blood Performing Organization Address [facility] Phone Number [facility] DEPARTMENT OF PATHOLOGY AND [address] [place] [address] Glucose level, syringe (07/07/2019 6:30 PM DOCUMENTATION WRITER)Only the most recent of7 results within the time period is included. Pathologist Sig nature Glucose, syringe 188 (H) 65 - 99 mg/dL [facility] Specimen Blood Performing Organization Address City/[facility] Phone Number [facility] DEPARTMENT OF PATHOLOGY AND [address] [place] [address] Arterial blood gas, corrected (07/07/2019 6:30 PM DOCUMENTATION WRITER)Only the most recent of7 resultswithin the time period is included. pH, arterial 7.28 (L) 7.35 - 7.45 [facility] pCO2, arterial 61 (HH) 35 - 45 mmHg [facility] Comment: HOSPITAL ABG results called to and read back by IN WTOR #6 BY AM 2AT 07/07/2019 18:38 pO2, arterial 340 (H) 80 - 90 mmHg [facility] Temperature, 37.0 Degrees C [facility] O2 saturation, 99 95 - 100 % [facility] pH, arterial 7.28 [facility] pCO2, arterial 61 mmHg [facility] pO2, arterial 340 mmHg [facility] Base excess, 0 -2 - 2 mEq/L [facility] Specimen Blood Performing Organization Address City/State/Zipcode Phone Number [facility] DEPARTMENT OF PATHOLOGY AND [address] [place], [place] [address] GENOMIC MEDICINE [address] [address] Surgical pathology request (07/07/2019 5:51 PM DOCUMENTATION WRITER) [facility] DEPARTMENT OF PATHOLOGY AND GENOMIC MEDICINE Surgical pathology See link below [facility] DEPARTMENT OF report for PDF Lab PATHOLOGY AND Report GENOMIC MEDICINE Result status This is Final [facility] DEPARTMENT OF Report for PATHOLOGY AND [id number] [facility] Specimen Performing Organization Address City/State/Zipcode Phone Number [facility] DEPARTMENT OF PATHOLOGY AND [address] [place], [place] [address] GENOMIC MEDICINE Arterial line (07/07/2019 12:50 PM DOCUMENTATION WRITER) Narrative Performed At Wes Looney MD 07/07/2019 12:51 PM Arterial line Performed by: Wes Looney MD Authorized by: Michael Caro MD Patient Location: OR Start Time: 07/07/2019 12:50 PM End Time: 07/07/2019 12:50 PM Staff: Anesthesiologist: Michael Caro MD Resident/JAVA XML DEVELOPER/AA: Wes Looney MD Performed by: Resident/JAVA XML DEVELOPER/AA Pre-procedure: patient identified, IV ch ecked, site [...] no immediate complications Airway (07/07/2019 12:45 PM DOCUMENTATION WRITER) Narrative Performed At Wes Looney MD 07/07/2019 12:53 PM Airway Date/Time: 07/07/2019 12:45 PM Performed by: Wes Looney MD Authorized by: Michael Caro MD Location: OR Urgency: Elective Difficult Airway: Yes Anesthesiologist: Michael Caro MD Resident/JAVA XML DEVELOPER/AA: Wes Looney MD Performed by: anesthesiologist Preoxygenated [...] without complications. Prepare RBC (07/07/2019 8:20 AM DOCUMENTATION WRITER) Product name Red Blood Cells [facility], Leukored [facility] Unit number [id number] [facility] Product code [id number] [facility] Dispense status Returned to BB not [facility] Blood expiration date [facility] Blood type code 6200 [facility] Blood type A POSITIVE [facility] Compatibility Compatible [facility] Product name Red Blood Cells [place] -[facility], Leukored [facility] Unit number [id number] [facility] Product code [id number] [facility] Dispense status Returned to BB not [facility] Blood expiration date [facility] Blood type code 6200 [facility] Blood type A POSITIVE [facility] Compatibility Compatible [facility] Specimen Performing Organization Address City/State/Zipcode Phone Number [facility] DEPARTMENT OF PATHOLOGY AND [address] [place] [phone] [facility] MEDICINE [address] [address] Type and screen (07/07/2019 8:20 AM DOCUMENTATION WRITER) Pathologist Sig nature ABO grouping A [facility] Rh type POS [facility] Antibody screen (gel) NEG [facility] Specimen Blood Performing Organization Address City/[facility]/Zipcode Phone Number [facility] DEPARTMENT OF PATHOLOGY AND [address] [place] [address] [phone] [address] Spirometry, diffusion (06/27/2019 11:09 AM DOCUMENTATION WRITER) Pathologist Sig nature FEV1 Pre 2.66 3.05 [...] Organization Address City/State/Zipcode Phone Number [facility] [address] [place] [address] MRI Brain W Wo Contrast (06/27/2019 10:36 AM DOCUMENTATION WRITER) Specimen Narrative Performed At This result has [...] intracranial metastasis or acute int racranial abnormality. [id number] Procedure Note Interface, Radiology Results Incoming - 06/27/2019 10:45 AM DOCUMENTATION WRITER EXAMINATION: MRI BRAIN W WO CONTRAST CLINICAL [...] intracranial metastasi s or acute intracranial abnormality. [id number] Performing Organization Address [facility]ofl Phone Number [facility] [address] [place] [address] POC glucose (06/20/2019 1:04 PM DOCUMENTATION WRITER) Pathologist [facility] POC glucose 111 (H) 65 - 99 mg/dL [facility] Comment: HOSPITAL Laundromat Manager Name: Carlyle Abad Device ID: [id number] Chartable: [facility] Notified RN Chartable: No Action Needed Specimen Performing Organization Address City/[facility] Phone Number [facility] DEPARTMENT OF PATHOLOGY AND [address] [place] [phone] GENOMIC MEDICINE [address] [address] Airway (06/20/2019 11:41 AM DOCUMENTATION WRITER) Narrative Performed At Aneta Ovalles MD 06/20/19 11:42 AM Airway Date/Time: 06/20/2019 11:29 AM Performed by: Aneta Ovalles MD Authorized by: Aneta Ovalles M D Location: OR Urgency: Elective Anesthesiologist: Aneta Ovalles MD Resident/JAVA XML DEVELOPER/AA: Harpal Espinosa MD Performed by: anesthesiologist Preoxygenated [...] 2 Cytology (non-gynecological) request (06/20/2019 11:40 AM DOCUMENTATION WRITER)Only the most recent of2 resultswithin the time period is included. [facility] DEPARTMENT OF PATHOLOGY AND GENOMIC MEDICINE Cytology See link below [facility] DEPARTMENT OF (non-gynecological) for PDF Lab PATHOLOGY AND report Report GENOMIC MEDICINE Result status This is Final [facility] DEPARTMENT OF Report for PATHOLOGY AND [id number] GENOMIC MEDICINE Specimen Performing Organization Address City/[facility]ode Phone Number [facility] DEPARTMENT OF PATHOLOGY AND [address] [place], [place] [address] GENOMIC MEDICINE ECG 12 lead (06/20/2019 8:33 AM DOCUMENTATION WRITER) Pathologist Sig nature Ventricular rate 66 [facility] Atrial rate 66 [facility] AR interval 164 [facility] QRSD interval 82 [facility] QT interval 402 [facility] QTC interval 421 [facility] P axis 1 60 [facility] QRS axis 1 58 [facility] T wave axis 55 [facility] EKG impression Normal sinus [facility] MUSE rhythm-Anterior infarct , age undetermined-Abnormal ECG-No previous ECGs available-Electronicall y Signed By Gerda SHEFFIELD, Willi Covington ([id number]) on 06/21/2019 9:59:40 AM Specimen Narrative Performed At This result has an attachment that is no t available. Performing Organization Address City/State/Zipcode Phone Number [facility] MUSE [address] [place] [address] PET/CT Whole Body External Study (05/15/2019 10:19 AM DOCUMENTATION WRITER) Specimen Narrative Performed At This exam was not acquired at a Method[facility] t facility and has not been [facility] interpreted by a Protestant Provider. T he exam was imported into our imaging system. Performing Organization Address City/[facility]/Zipcode Phone Number [facility] [address] [place] [address] PET/CT Skull Base To Mid Thigh (05/15/2019) Narrative Performed At This result has an attachment that is no t available. CT Chest External Study (05/02/2019 7:55 AM DOCUMENTATION WRITER) Specimen Narrative Performed At This exam was not acquired at a Methodis t facility and has not been [facility] interpreted by a Protestant Provider. T he exam was imported into our imaging system. 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
--- OUTSIDE RECORDS SUMMARY | 2019-11-14 08:56 | XMS REPORT | Continuity of Care Document ---
:1965 Author Organization [facility] t Address [address] [place] [address] Dr. Seym[address] [place] [id number] Care Team Providers Name Role Phone Mahendra [...] asim BCBSBCBS xxxxxxxxxxxx 2018 [place] CHOICE 00:00:00 Hoahaoism PPO/FEDERAL EMPL PPOxxxxxxxxxxx 2018-Pres entPPO Problems Condition Condition Condition Status Onset Resolution Last Treating Co mments Source Name Details Category Date Date Treatment Clinician Date Shortness Shortness Disease Active [place] of breath of breath 1- Meth sinan 00:00: st 00 Malignant Malignant Disease Active [place] neoplasm neoplasm - Method i of upper of upper 00:00: st lobe, left lobe, left 00 bronchus bronchus or lung or lung Allergies, Adverse Reactions, Alerts Allergy Allergy Status Severity Reaction(s) Onset Inactive Treating Comm ents Source Name Type Date Date Clinician Fentanyl Propensi Active Itching 2019-0 [place] to 1-10 [facility] adverse 00:00: st reaction 00 s to drug Midazola Propensi Active Itching 2020-0 [place] ty to 1 [facility] adverse 00:00: st reaction 00 s to drug Other Propensi Active Rash *Stafford [place] to 07 Anestheti [facility] adverse 00:00: cs st reaction 00 s Family History Family Member Diagnosis Comments Start Date Stop Date Source Natural mother Diabetes [facility] thodist Natural [facility] Social History Social Habit Start Date Stop Date Quantity Comments Source History of tobacco Current smoker [place] [facility] use History [facility] Meth odist Alcohol Std Drinks History [facility] Meth odist Alcohol Binge Sex Assigned At [facility] ethodist Cigarettes smoked 2019-07-29 2019-07-29 [place] [facility] current (pack per 00:00:00 00:00:00 day) - Reported Cigarette 2019-07-29 2019-07-29 [facility] Method ist pack-years 00:00:00 00:00:00 Alcohol intake 2019-07-29 2019-07-29 [facility] thodist 00:00:00 00:00:00 non-drinker (finding) History SDOH 2019-06-17 2019-06-17 1 [facility] Meth odist Alcohol Frequency 00:00:00 00:00:00 Smoking Status Start Date Stop Date Source Former smoker 2019-07-29 00:00:00 2019-07-29 00:00:00 [place] [facility] Medications Ordered Filled Start Stop Current Ordering Indication Dosage Frequency Signature Comments Components Source Medication Medication Date Date Medication? Clinician (SIG) Name Name HYDROcodone 2020- No acute pain 1{tbl} Q6H Take 1 [facility] -acetaminop 2-08-10 tablet by Me nicolasa arango (NORCO) 00:00: 23:[address] 7.5-325 mg 00 :00 every 6 per tablet (six) hours as needed for moderate pain for up to 10 days .acute pain. Max Daily Amount: 4 tablets naproxen Yes Take by [place] sodium 2-18 mouth. [facility] (ALEVE 08:09: st ORAL) 44 predniSONE 2020-0 Yes 5mg Q.5D Take 5 mg [place] (DELTASONE) 2-18 by mouth 2 Me thodi 5 mg tablet 08:09: (two) st 01 times a day. rosuvastati 2020-0 Yes 10mg QD Take 10 mg [place] n (CRESTOR) 2-18 by mouth Meth sinan 10 MG 08:09: daily. st tablet 01 omeprazole 2020-0 Yes 20mg QD Take 20 mg [place] (PriLOSEC) 2-18 by mouth Metho di 20 MG 08:09: daily. st capsule 01 triptorelin 2020-0 Yes 11.25mg Q90D Inject [place] pamoate 2-18 11.25 mg [facility] (TRELSTAR) 08:09: into the st 11.25 mg 01 shoulder, suspension thigh, or for buttocks reconstitut every 3 ion (three) months. albuterol 2020-0 Yes 2{puff} Q6H Inhale 2 [place] (PROAIR 2-18 puffs [facility] HFA) 90 08:09: every 6 st mcg/actuati 01 (six) on inhaler hours as needed for wheezing. tamsulosin 2020-0 2020- No .4mg QD Take 0.4 [place] (FLOMAX) 2-18 02-18 mg by [facility] 0.4 mg 08:08: 00:[address] capsule 58 :00 daily. budesonide- 2020-0 Yes 2{puff} Q.5D Inhale 2 [place] formoterol 2-18 puffs 2 [facility] i (SYMBICORT) 08:07: (two) st 160-4.5 51 times a mcg/actuati day. on inhaler abiraterone 2020-0 Yes 250mg QD Take 250 [place] (ZYTIGA) 2-18 mg by [facility] 250 mg 08:07: mouth st chemo 51 daily. tablet denosumab 2020-0 Yes 60mg Inject 60 [place] (PROLIA) 60 2-18 mg under Meth sinan mg/mL 08:07: the skin st syringe 51 once. q6 syringe months (last dose was 06/30/2019) methocarbam 2020-0 Yes Muscle 500mg Q.25D Take 1 [place] ol 2-18 spasm tablet [facility] (ROBAXIN) 00:00: ([address] 500 MG 00 total) by tablet mouth 4 (four) times a day as needed for muscle spasms. gabapentin 2019- No Postoperati 600mg Q.[id number] Take 2 [place] (NEURONTIN) 07-29 03-19 ve pain [id number] capsules Methodi 300 mg 00:00: 23:59 3D ([address] capsule 00 :00 total) by mouth 3 (three) times a day for 30 days. HYDROcodone 2019- No acute pain 1{tbl} Q4H Take 1 [place] -acetaminop 07-25 tablet by Me nicolasa arango (NORCO) 00:00: 23:[address] 7.5-325 mg 00 :00 every 4 per tablet (four) hours as needed for moderate pain for up to 7 days .acute pain. Max Daily Amount: 6 tablets traMADol 2019- No acute pain 50mg Q6H Take 1 [place] (ULTRAM) 50 07-16 tablet (50 M ethodi mg tablet 00:00: 23:59 mg total) st 00 :00 by mouth every 6 (six) hours as needed for moderate pain for up to 7 days .acute pain. nicotine 2019- No 1{patch QD Place 1 Omid castillo (NICODERM 07-12 } patch on Metho di CQ) 14 00:00: 00:[address] mg/24 hr 00 :00 daily for 30 days. pantoprazol 2019- No 40mg QD Take 1 Bro jorgiton e 07-11 tablet (40 [facility] (PROTONIX) 00:00: 23:59 mg total) s t 40 MG EC 00 :00 by mouth tablet daily for 14 days. amoxicillin 2019-2019- No 1{tbl} Q.5D Take 1 [place] -pot 07-11 tablet by [facility] clavulanate 00:00: 23:[address] (AUGMENTIN) 00 :00 (two) 875-125 mg times a per tablet day for 5 days. traMADol 2019-2019- No acute pain 50mg Q6H Take 1 [place] (ULTRAM) 50 07-11 tablet (50 M ethodi mg tablet 00:00: 00:00 mg total) st 00 :00 by mouth every 6 (six) hours as needed for moderate pain for up to 7 days .acute pain. gabapentin 2019- No 300mg Q.[id number] Take 1 [place] (NEURONTIN) 07-08 [id number] capsule [facility] 300 mg 00:00: 00:00 3D ([address] capsule 00 :00 total) by mouth 3 (three) times a day for 30 days. acetaminoph 2019- No 1000mg Q8H Take 2 [place] en 07-08 tablets [facility] (TYLENOL) 00:00: 23:59 (1,[address] 500 MG 00 :00 total) by tablet mouth every 8 (eight) hours for 5 days. naproxen No 250mg Q.5D Take 1 [place] (NAPROSYN) 07-08 tablet Method i 250 MG 00:00: 23:59 ([address] tablet 00 :00 total) by mouth 2 (two) times a day with meals for 3 days. [id number] 2019- No 1{each} Infuse 1 [place] 13 or 07-04 each into Methodi placebo 09:28: 00:[address] infusion, 26 :00 catheter GRACE once. /[id number] 7/Tamra, Vital Signs Vital Name Observation Time Observation Value Comments Source Systolic blood 2019-07-29 08:05:00 148 mm[Hg] [place] [facility]ism pressure Diastolic blood 2019-07-29 08:05:00 80 mm[Hg] [place] [facility]aoism pressure Heart rate 2019-07-29 08:05:00 72 /min [place] Javed Body temperature 2019-07-29 08:05:00 36.06 Leigh [place] [facility] Respiratory rate 2019-07-29 08:05:00 17 /min [place] Body height 2019-07-29 08:05:00 180.3 cm [place] Javed Body weight 2019-07-29 08:05:00 142.429 kg [place] Javed BMI 2019-07-29 08:05:00 43.79 kg/m2 [place] Javed Oxygen saturation in 2019-07-29 08:05:00 97 /min [place] Javed Arterial blood by Pulse oximetry Procedures Procedure Date / Time Performing Clinician Source Performed XR CHEST 1 VW PORTABLE 2019-07-11 08:50:00 Ron Neal Hoahaoism Favio SPUTUM CULTURE 2019-07-10 09:30:00 DavidAneta amos Meth odist GRAM STAIN 2019-07-10 09:30:00 Aneta Hernandez Meth odist HC COMPLETE BLD COUNT 2019-07-10 03:57:00 Ron Neal on Hoahaoism W/AUTO DIFF [place] PROTHROMBIN TIME WITH INR 2019-07-10 03:57:00 Ron Nealston Hoahaoism Ayman PARTIAL THROMBOPLASTIN 2019-07-10 03:57:00 Ron Neal Hoahaoism TIME (PTT) [place] BASIC METABOLIC PANEL 2019-07-10 03:57:00 Ron Neal on Hoahaoism Ayman MAGNESIUM LEVEL 2019-07-10 03:57:00 Ron Neal Met hodist [place] PHOSPHORUS LEVEL 2019-07-10 03:57:00 Ron Neal Me thodist Ayman ESTIMATED GFR 2019-07-10 03:57:00 Colin Lobo Meth odist US DUPLEX VENOUS LOWER 2019-07-09 21:10:00 Ron Neal Hoahaoism EXTREMITY BILATERAL Ayman RESPIRATORY PATHOGEN PANEL 2019-07-09 20:27:00 Uri Pope on [facility] Hoahaoism CT ANGIOGRAM PE CHEST 2019-07-09 19:35:29 Ron Neal on Hoahaoism [place] ARTERIAL BLOOD GAS 2019-07-09 18:28:00 Ron Neal Hoahaoism Ayman COMPREHENSIVE METABOLIC 2019-07-09 14:00:00 Colin Lobo Hoahaoism PANEL HC COMPLETE BLD COUNT 2019-07-09 14:00:00 Colin Lobo n Hoahaoism W/AUTO DIFF ESTIMATED GFR 2019-07-09 14:00:00 Colin Lobo Meth odist XR CHEST 2 VW 2019-07-09 13:44:16 Colin Lobo Meth odist XR CHEST 1 VW PORTABLE 2019-07-08 14:35:00 Aneta Hernandez on Hoahaoism XR CHEST 1 VW PORTABLE 2019-07-08 10:35:00 Aneta Hernandez on Hoahaoism XR CHEST 1 VW PORTABLE 2019-07-08 06:45:00 ChonKanchan Ellis Hoahaoism Joon ARTERIAL BLOOD GAS 2019-07-08 06:10:00 Colin Lobo Nasim [facility] Kendall ethodist XR CHEST 1 VW PORTABLE 2019-07-08 04:43:34 Berta Rojas Kanchan mcfarlane Hoahaoism Elane XR CHEST 1 VW PORTABLE 2019-07-07 19:35:49 Kanchan Butcher Hoahaoism Jono ARTERIAL BLOOD GAS, 2019-07-07 18:30:00 Lashell, Colin Nasim Bushist CORRECTED POTASSIUM, SYRINGE 2019-07-07 18:30:00 Lashell, Colin Nasim Argueta ethodist SODIUM LEVEL, SYRINGE 2019-07-07 18:30:00 Lashell, Colin Nasim mcmanus Hoahaoism IONIZED CALCIUM, ARTERIAL 2019-07-07 18:30:00 Lashell, Colin Nasim castillo Hoahaoism HEMOGLOBIN, SYRINGE 2019-07-07 18:30:00 Lashell, Colin Nasim [place] [facility]ism LACTIC ACID, SYRINGE 2019-07-07 18:30:00 Lashell, Colin Nasim [place] [facility]ism GLUCOSE LEVEL, SYRINGE 2019-07-07 18:30:00 Lashell, Colin Nasim Carr on Hoahaoism SURGICAL PATHOLOGY REQUEST 2019-07-07 17:51:00 Lashell, Colin Nasim soria Hoahaoism ARTERIAL BLOOD GAS, 2019-07-07 17:20:00 Colin Lobo Nasim Bushist CORRECTED POTASSIUM, SYRINGE 2019-07-07 17:20:00 Lashell, Colin Nasim Argueta ethodist HEMOGLOBIN, SYRINGE 2019-07-07 17:20:00 Lashell, Colin Nasim [place] [facility]ism SODIUM LEVEL, SYRINGE 2019-07-07 17:20:00 Lashell, Colin Nasim mcmanus Hoahaoism GLUCOSE LEVEL, SYRINGE 2019-07-07 17:20:00 Colin Lobo on Hoahaoism IONIZED CALCIUM, ARTERIAL 2019-07-07 17:20:00 Lashell, Colin Nasim castillo Hoahaoism LACTIC ACID, SYRINGE 2019-07-07 17:20:00 Lashell, Colin [place] Hoahaoism ARTERIAL BLOOD GAS, 2019-07-07 16:15:00 Lashell, Colin Bushist CORRECTED HEMOGLOBIN, SYRINGE 2019-07-07 16:15:00 Lashell, Colin [place] Hoahaoism POTASSIUM, SYRINGE 2019-07-07 16:15:00 Lashell, Colin Argueta ethodist SODIUM LEVEL, SYRINGE 2019-07-07 16:15:00 Lashell, Colin Nasim mcmanus Hoahaoism IONIZED CALCIUM, ARTERIAL 2019-07-07 16:15:00 Lashell, Colin Rouse Omid castillo Hoahaoism GLUCOSE LEVEL, SYRINGE 2019-07-07 16:15:00 Lashell, Colin Nasim [place] Hoahaoism ARTERIAL BLOOD GAS, 2019-07-07 15:17:00 Lashell, Colin [place] Hoahaoism CORRECTED SODIUM LEVEL, SYRINGE 2019-07-07 15:17:00 Lashell, Colin Rosue Aaron mcmanus Hoahaoism POTASSIUM, SYRINGE 2019-07-07 15:17:00 Lashell, Colin Argueta ethodist IONIZED CALCIUM, ARTERIAL 2019-07-07 15:17:00 Lashell, Colin Rouse Omid castillo Hoahaoism HEMOGLOBIN, SYRINGE 2019-07-07 15:17:00 Lashell, Colin [place] Hoahaoism GLUCOSE LEVEL, SYRINGE 2019-07-07 15:17:00 Lashell, Colin Nasim [place] Hoahaoism LACTIC ACID, SYRINGE 2019-07-07 15:17:00 Lashell, Colin [place] Hoahaoism ARTERIAL BLOOD GAS, 2019-07-07 14:26:00 Lashell, Colin [place] Hoahaoism CORRECTED SODIUM LEVEL, SYRINGE 2019-07-07 14:26:00 Lashell, Colin Nasim mcmanus Hoahaoism HEMOGLOBIN, SYRINGE 2019-07-07 14:26:00 Lashell, Colin [place] Hoahaoism POTASSIUM, SYRINGE 2019-07-07 14:26:00 Lashell, Colin Argueta ethodist IONIZED CALCIUM, ARTERIAL 2019-07-07 14:26:00 Lashell, Colin Rouse Omid castillo Hoahaoism GLUCOSE LEVEL, SYRINGE 2019-07-07 14:26:00 Lashell, Colin Nasim [place] Hoahaoism LACTIC ACID, SYRINGE 2019-07-07 14:26:00 Lashell, Colin [place] Hoahaoism ARTERIAL BLOOD GAS, 2019-07-07 13:20:00 Lashell, Colin Rouse [place] [facility]ahaoism CORRECTED SODIUM LEVEL, SYRINGE 2019-07-07 13:20:00 Lashell, Colin Nasim mcmanus Hoahaoism HEMOGLOBIN, SYRINGE 2019-07-07 13:20:00 Lashell, Colin [place] Hoahaoism POTASSIUM, SYRINGE 2019-07-07 13:20:00 Lashell, Colin Nasim [place] Argueta ethodist IONIZED CALCIUM, ARTERIAL 2019-07-07 13:20:00 Lashell, Colin Javed GLUCOSE LEVEL, SYRINGE 2019-07-07 13:20:00 Colin Lobo on Hoahaoism LACTIC ACID, SYRINGE 2019-07-07 13:20:00 Lashell Colin Javed ARTERIAL LINE 2019-07-07 12:50:25 Wes Looney Meth odist NC AN ELECTIVE 2019-07-07 12:45:13 Wes Looney Meth odist ENDOTRACHEAL AIRWAY ARTERIAL BLOOD GAS, 2019-07-07 12:26:00 Lashell Colin Javed CORRECTED SODIUM LEVEL, SYRINGE 2019-07-07 12:26:00 Colin Lobo POTASSIUM, SYRINGE 2019-07-07 12:26:00 Colin Lobo M ethodist HEMOGLOBIN, SYRINGE 2019-07-07 12:26:00 Colin Lobo GLUCOSE LEVEL, SYRINGE 2019-07-07 12:26:00 Colin Lobo on Hoahaoism IONIZED CALCIUM, ARTERIAL 2019-07-07 12:26:00 Colin Loboist TYPE AND SCREEN 2019-07-07 08:20:00 Colin Lobo odist PREPARE RBC 2019-07-07 08:20:00 Colin Lobo SPIROMETRY, DIFFUSION 2019-06-27 11:09:13 Colin Lobo MRI BRAIN W WO CONTRAST 2019-06-27 10:36:43 Colin Lobo POC GLUCOSE 2019-06-20 13:04:00 Colin Lobo Meth odist NC AN ELECTIVE 2019-06-20 11:41:11 Aneta Ovalles Meth odist ENDOTRACHEAL AIRWAY Aubree CYTOLOGY 2019-06-20 11:40:00 Colin Lobo Meth luis albertoist (NON-GYNECOLOGICAL) REQUEST ECG 12-LEAD 2019-06-20 08:33:21 Colin Lobo Meth odist HC COMPLETE BLD COUNT 2019-06-20 08:15:00 Colin Lobo W/AUTO DIFF BASIC METABOLIC PANEL 2019-06-20 08:15:00 Colin Lobo PROTHROMBIN TIME WITH INR 2019-06-20 08:15:00 Colin Lobo PARTIAL THROMBOPLASTIN 2019-06-20 08:15:00 Colin Lobo on Hoahaoism TIME (PTT) ESTIMATED GFR 2019-06-20 08:15:00 Colin Lobo Meth odist PET CT WHOLE BODY EXTERNAL 2019-05-15 10:19:00 Chen Nieto Hoahaoism STUDY PET CT SKULL BASE TO MID 2019-05-15 00:00:[address] CHEST EXTERNAL STUDY 2019-05-02 07:55:00 Chen Nieto Hoahaoism Plan of Care Planned Activity Planned Date Details Comments Source Future Scheduled 2020-01-10 INFLUENZA VACCINE [place] [facility] Test 00:00:00 [code = INFLUENZA VACCINE] Future Scheduled 2015-10-22 COLONOSCOPY SCREENING [place] [facility] Test 00:00:00 [code = COLONOSCOPY SCREENING] Future Scheduled 2015-10-22 SHINGLES VACCINES [place] [facility] Test 00:00:00 (#1) [code = SHINGLES VACCINES (#1)] Encounters Start End Encounter Admission Attending Care Care Encounter Source Date/Time Date/Time Type Type Clinicians Facility Department ID 2019-05-28 2019-05-28 Outpatient BL BL [facility] 07:16:00 07:16:00 Results Test Description Test Time Test Comments Results Result Comments Source Sputum culture 2019-07-12 14:10:35 Test Item Value Reference Range Interpretation Comme nts Sputum culture isolate Normal oral jose juan Specimen InformationSpecimen (test code = 2234) isolated. Source: S putumSpecimen [facility] [id number] 10:42:09Hm Interface, Radiology Results 07/11/2019 10:45 AM CSTEXAMINATION: XR CHEST 1 VW PORTABLECLINICAL HISTORY: shortness of breathIMPRESSION:Single frontal view compared to 07/09/2019 demonstrates postoperative scarring and atelectasis and volume loss in the left lung to be stable. There is no new infiltrate. There is no pneumothorax.[facility]-[id number] MethodistGram [id number] 21:09:02Gram stain isolateFew WBC'sFew Gram negative rodsModerate Gram positive cocci in pairs Comment: Specimen InformationSpecimen Source: SputumSpecimen Site: [facility] 2019-07-10 05:02:27 Test Item Value Reference Range Interpretation Comments Sodium (test code = 2951-2) 137 135- 148 mEq/L Potassium (test code = 2823-3) 3.9 3.5- 5.0 mEq/L Chloride (test code = 5-0) 101 98- 112 mEq/L CO2 (test code = 8-9) 25 24- 31 mEq/L Anion gap (test code = 73400-4) 11@ANIO 7- 15 mEq/L BUN (test code = 3094-0) 10 mg/dL 6-20 Creatinine (test code = 2160-0) 0.73 mg/dL 0.7-1.2 Glucose (test code = 2345-7) 125 mg/dL 65-99 H Calcium (test code = 11671-2) 8.8 mg/dL 8.3-10.2 Lab Interpretation (test code = Abnormal 33379-4) [place] MethodistMagnesium [id number] 05:02:26 Test Item Value Reference Range Interpretation Comments Magnesium (test code = 46704-9) 2.1 mg/dL 1.6-2.6 [facility] MethodistPhosphorus [id number] 05:02:26 Test Item Value Reference Range Interpretation Comments Phosphorus (test code = 2777-1) 2.9 mg/dL 2.4-4.5 [place] MethodistEstimated [id number] 05:02:26 Test Item Value Reference Range Interpretation Comments Estimated GFR (test >=90 mL/min/1.73 m2 [facility] Units code = 5488) InterpretationG 1 >=90 Normal or highG2 60-89 Mildly wyrdbnvimI3b 45-59 Mildly to mode rately llokmoamnW6t 30-44 Moderately to severely decreasedG4 15-29 Severely decre asedG5 <15 Kidn ey failureThe eGFR was calculated alec torre the Chronic Kidney Disease Epidemiology Co llaboration (CKD-EPI) equat ion. Interpretation is based on recommendations of the National Kidney Foundation-Kidn ey Disease Outcomes Qualit y Initiative (NKF-KDOQI) pub lished in 2014. [place] MethodistPartial thromboplastin time, [id number] 04:47:07 Test Item Value Reference Range Interpretation Comments PTT (test code = 29.8 23.0- 36.0 [place] [address]-3) unfractionated heparin is61.0-112.0 se conds which corresponds to Anti-Xa0.3-0.7 U/ml. [place] MethodistProthrombin time with [id number] 04:46:29 Test Item Value Reference Range Interpretation Comments Prothrombin time (test 14.5 11.5- 14.5 sec code = 5902-2) INR (test code = 1.1 The Interna tional 32227-5) Normalized Rati o (INR) is a therapeutic m onitoring tool for patien ts who are stable on oral anticoagulant t herapy. An INR of 2.0-3.0 is suggested for d eep vein thrombosis/pulm onary embolism. [facility] MethodistCBC with platelet and punwzwbbclui1646-54-30 04:27:37 Test Item Value Reference Range Interpretation Comments WBC (test code = 85727-1) 7.89 4.50- 11.00 k/uL RBC (test code = 30057-3) 3.72 m/uL 4.4-6 L HGB (test code = 718-7) 10.8 g/dL 14-18 L HCT (test code = 4544-3) 34.3 % 41-51 L MCV (test code = 787-2) 92.2 fL 82-100 MCH (test code = 785-6) 29.0 pg 27-34 MCHC (test code = 786-4) 31.5 g/dL 31-37 RDW - SD (test code = 44.3 fL 37-55 83977-0) MPV (test code = 31480-0) 9.5 fL 8.8-13.2 Platelet count (test code 149 150- 400 k/uL L = 01227-1) Nucleated RBC (test code 0.00 /100 WBC = 51554-2) Neutrophils (test code = 81.2 % 39-69 H 13191-5) Lymphocytes (test code = 7.7 % 25-45 L 53916-8) Monocytes (test code = 7.5 % 0-10 43132-0) Eosinophils (test code = 2.5 % 0-5 75531-7) Basophils (test code = 0.3 % 0-1 98237-1) Immature granulocytes 0.8 % 0-1 "Immat ure (test code = 75216-1) granul ocytes" (promyelocytes, myelocytes, metamyelocytes) Lab Interpretation (test Abnormal code = 00021-7) [facility] pathogen [id number] 01:51:59Respiratory pathogen panelNegative for all pathogens tested:Negative for AdenovirusNegative for Coronavirus UOU8Httcxwcf for Coronavirus KR02Xnczekbw for Coronavirus 229ENegative for Coronavirus AQ82Jeatiewk for Human MetapneumovirusNegative for Rhinovirus/EnterovirusNegative for Influenza ANegative for Influenza A/Q4Iahjgfxa for Influenza A/L0Xlfxcyze for Influenza A/H1-2009Negative for Influenza BNegative for [...] Comment: Specimen InformationSpecimen Source: Na resSpecimen Site: [facility] lower timvyvfvx7716-19-09 22:43:00Interface, Radiology Results In - 07/09/2019 10:43 PM COMMUNITY EDUCATION SPECIALIST Vascular Ultrasound Laboratory Lower Extremity Venous [address] [place] [address] Pat.Name: MEGAN CLEMENTS Pat.ID: [id number] .Date: 07/09/2019 Refer.MD: COLIN LOBO MD Exam Time: 8:23:00 PM Study Type:LE Venous Age: 5 1965,53Y Sex: MALE Sonogrphr: JOSE Gillis, OCTAVIA Pat. Stat.:Inpatient Room: [place] [address] 2018A Tape Vol: JM, CPT - 4: 65172 Echo Event ID:[id number] Order ID: [id number] Reason for Study:Leg swelling or pain, DVT [...] Sig curt 07/09/2019 10:43PMAndre Blood MD, FACS, [facility] MethodistCT Angiogram Pe [id number] 19:52:33Hm Interface, Radiology Results Incoming - 07/09/2019 7:55 [...] pneumomediastinum. Trace left apical and anterior pneumothorax. [facility]-[id number] MethodistArterial blood [id number] 18:49:43 Test Item Value Reference Range Interpretation Comments [...] (test 97 % 95-100 code = 2708-6) [place] MethodistSurgical pathology [id number] 17:17:53 Test Item Value Reference Range Interpretation Comments Case number (test code = [id number]) Surgical pathology See link below for report (test code = PDF Lab Report [id number]) Result status (test code This is Final Report = [id number]) for [id number] [facility] MethodistComprehensive metabolic [id number] 14:54:57 Test Item Value Reference Range Interpretation Comments Sodium (test code = 139 135- 148 mEq/L 2951-2) Potassium (test code = 4.4 3.5- 5.0 mEq/L 2823-3) Chloride (test code = 101 98- 112 mEq/L 2075-0) CO2 (test code = 2027-) 29 24- 31 mEq/L Anion gap (test code = 9@ANIO 7- 15 mEq/L 91821-9) BUN (test code = 3094-0) 11 mg/dL 6-20 Creatinine (test code = 0.84 mg/dL 0.7-1.2 2160-0) Glucose (test code = 129 mg/dL 65-99 H 2345-7) Calcium (test code = 9.2 mg/dL 8.3-10.2 93983-1) Protein (test code = 7.0 g/dL 6.3-8.3 [place] 9994.6-7.0 2885-2) g/dL1 trbp8079.4-7.6 g/dL7 months-6scak725 .1- 7.3 g/dL1-2 iqcwp510.6-7.5 g/dL>3 couqo307.0-8.0 g/pU47-0775096. 3-8 .3 g/dL Albumin (test code = 3.1 g/dL 3.5-5 L 1751-7) A/G ratio (test code = 0.8 0.7-3.8 1759-0) Alkaline phosphatase 56 U/L 40-129 (test code = 6768-6) AST (test code = 1920-8) 124 U/L 10-50 H ALT (test code = 1742-6) 51 U/L 5-50 H Total bilirubin (test 0.4 mg/dL 0-1.2 code = 1975-2) Lab Interpretation (test Abnormal code = 89825-1) [facility] MethodistXR Chest 2 [id number] 13:56:13Hm Interface, Radiology Results 07/09/2019 1:59 PM CSTEXAMINATION: [...] osseous abnormality. Mild degenerative changes of thoracic spine.[facility]-[id number] MethodistPrepare [id number] 21:41:00 Test Item Value Reference Range Interpretation Comments Product name (test code Red Blood Cells -1, = 25) Leukored Unit number (test code [id number] = [id number]) Product code (test code [id number] = 3092) Dispense status (test Returned to not code = 24) transfused Blood expiration date (test code = 302) Blood type code (test 6200 code = 308) Blood type (test code = A POSITIVE 1314) Compatibility (test Compatible code = 6400) [place] MethodistArterial blood gas, [id number] 18:38:25 Test Item Value Reference Range Interpretation Comments [...] pH, arterial corrected 7.28 (test code = 48376-9) pCO2, arterial corrected 61 mmHg (test code = 84171-2) pO2, arterial corrected 340 mmHg (test code = 68582-7) Base excess, arterial 0 -2 - 2 mEq-L (test code = 1925-7) Lab Interpretation (test Abnormal code = 71477-5) [place] MethodistGlucose level, [id number] 18:38:25 Test Item Value Reference Range Interpretation Comments Glucose, syringe (test code = 188 mg/dL 65-99 H 2345-7) Lab Interpretation (test code = Abnormal 80081-5) [place] MethodistHemoglobin, [id number] 18:38:25 Test Item Value Reference Range Interpretation Comments Hemoglobin, syringe (test code = 11.8 g/dL 14-18 L 718-7) Lab Interpretation (test code = Abnormal 46653-9) [facility] MethodistIonized calcium, [id number] 18:38:25 Test Item Value Reference Range Interpretation Comments Ionized calcium, arterial (test 1.12 mmol/L 1.11-1.32 code = 83247-0) [facility] MethodistLactic acid, [id number] 18:38:25 Test Item Value Reference Range Interpretation Comments Lactic acid, syringe (test code = 1.8 mmol/L 0.5-2.2 32371-3) [facility] MethodistPotassium, [id number] 18:38:25 Test Item Value Reference Range Interpretation Comments Potassium, syringe (test code = 2007) 4.7 3.5- 5.0 mEq/L [facility] MethodistSodium level, pxinbar3507-62-27 18:38:25 Test Item Value Reference Range Interpretation Comments Sodium, syringe (test code = 2947-0) 138 135- 148 mEq/L [facility] MethodistArterial [id number] 12:50:25Wes Looney MD 07/07/2019 12:51 PMArterial linePerformed by: Wes Looney MDAuthorized by: Michael Caro MD Patient Location: ORStart Time: 07/07/2019 12:50 PMEnd Time: 07/07/2019 12:50 PMStaff: Anesthesiologist: Michael Caro MD Resident/CRYPTOGRAPHY TEACHER/AA: Wes Looney MD Performed by: Resident/CRYPTOGRAPHY TEACHER/AAPre- procedure: patient identified, IV checked, site and [...] tolerated the procedure well with no immediate complicationsAlvin J. Siteman Cancer Centersunil XjaowqcaqKccbxm1274-40-60 12:45:13Wes Looney MD 07/07/2019 12:53 PMAirwayDate/Time: 07/07/2019 12:45 PMPerformed by: Wes Looney MDAuthorized by: Michael Caro MD Location: ORUrgency: ElectiveDifficult Airway: Yes Anesthesiologist: Michael Caro MDResident/CRYPTOGRAPHY TEACHER/AA: Wes Looney MDPerformed by:anesthesiologistPreoxygenated with 100% O2: Yes [...] placing the ETT without complications.[place] MethodistType and wfezpf4395-91-89 10:20:00 Test Item Value Reference Range Interpretation Comments ABO grouping (test code = 883-9) A Rh type (test code = 50780-1) POS Antibody screen (gel) (test code = NEG 890-4) [facility] [place], lnydhvqux4434-97-95 11:09:13 Test Item Value Reference Range Interpretation Comments [...] Predicted 83.4 % (test code = 5445) [facility] MethodistMRI Brain W Wo Plhnjcsz0908-24-81 10:42:26Hm Interface, Radiology Results Incoming - 06/27/2019 10:45 [...] of intracranial metastasis or acute intracranial abnormality .[id number]-5OD1989DCHSopariw MethodistCytology (non-gynecological) vlifufe8676-37-21 09:00:17 Test Item Value Reference Range Interpretation Comments Case number (test code = [id number]) Cytology See link below for (non-gynecological) PDF Lab Report report (test code = 1178) Result status (test code This is Final Report = [id number]) for [id number] [facility] MethodistECG 12 punx5998-84-11 09:59:41 Test Item Value Reference Range Interpretation Comments Ventricular rate (test 66 code = 253) Atrial rate (test code = 66 255) NC interval (test code = 164 266) QRSD [...] Lorenz MD (1008) on 06/21/2019 9:59:40 AM [facility] xtkfhjz8709-86-62 13:07:01 Test Item Value Reference Range Interpretation Comments POC glucose (test code 111 mg/dL 65-99 H Opera tor Name: Carlyle = 66184-8) DennisDevice ID : [id number] able: [facility] Notified RNChartable: No Action Needed Lab Interpretation Abnormal (test code = 29006-2) [place] BushEevumyvbhIzdwsy0741-61-18 11:41:11CarterAneta MD 06/20/2019 11:42 AMAirwayDate/Time: 06/20/2019 11:29 AMPerformed by: Aneta Ovalles MDAuthorized by: Aneta Ovalles MD Location: ORUrgency: ElectiveAnesthesiologist: Aneta vOalles MDResident/CRYPTOGRAPHY TEACHER/AA: Harpal Espinosa MDPerformed by: anesthesiologistPreoxygenated with 100% [...] Modified RSI: No Number of Attempts at Approach:2[place] [facility] PET/CT Whole Body External Znaan0423-23-94 00:24:02This exam was not acquired at a [facility] facility and has not been interpreted by a [facility] Provider. The exam was imported into our imaging system.[facility] Chest External Kundo8923-07-50 00:23:17This exam was not acquired at a [facility] facility and has not been interpreted by a [facility] Provider. The exam was imported into our imaging system.[facility]
[2019-11-14] MEDS ORDERED: NA CHLORIDE 0.9% 250 ML ONE (09:00)
--- OUTSIDE RECORDS SUMMARY | 2019-11-14 09:05 | XMS REPORT | Clinical Summary ---
:1965 Author Organization [facility] Address [address] [place] [address] Care Team Providers Name Role Phone Mahendra Ferrell MD Primary Care Provider Allergies Active Allergy Reactions Severity Noted Date Comments Fentanyl Itching High 06/20/2019 Other Rash Low 06/17/2019 *[facility] Midazolam Itching High 06/20/2019 Medications [...] by mouth 20 (Melani ent daily. Discharge) [id number] or Infuse 1 each 0 07/04/19 Discontinued placebo infusion, into a venous 20 (Discontinued by TRAILBLAZER/[id number] catheter another 8797/Tamra, once. clinici an) acetaminophen [...] Description 08/19/2019 Telephone Cardiothoracic Madalyn, Aide [place] 08/18/2019 Telephone Cardiothoracic Aide Mustafa NP 08/18/2019 Telephone Cardiothoracic Hubert, Surgery ELICEO Cabrera 08/01/2019 Orders Only General Surgery Colin Lobo MD 08/01/2019 Telephone Cardiothoracic Aide Mustafa [employer]PER[employer]OR [employer] 07/29/2019 Office Visit Cardiothoracic Colin Lobo, Surgery fo llow-up examination (Primary Dx); Surgery Postoperative p ain; Neuropathic tristan n; Muscle spasm 07/28/2019 Telephone Cardiothoracic Aide Gaspar MA 07/25/2019 Telephone General Surgery Colin Lobo MD 07/22/2019 Telephone Cardiothoracic Aide Mustafa, MARYANN 07/16/2019 Refill Cardiothoracic Colin Lobo Surgery MD 07/14/2019 Telephone General Surgery Colin Lobo MD 07/09/2019 [facility] Internal Colin Lobo Shortnes s of breath - Encounter Medicine (Primary Dx) 07/11/2019 Florin Johnson MD 07/09/2019 Office Visit Cardiothoracic Meisenbach, Dysphagia, un specified type (Primary Dx); Surgery Rosemary Macdonald, SUPERVISOR [employer] Hoarseness 07/09/2019 Lab Lab Colin Lobo, Cough; Dysphagia, unsp ecified type 07/09/2019 Hospital Radiology Colin Lobo, Cough; Encounter Dysphagia, unsp ecified type 07/09/2019 Telephone Cardiothoracic Meisenjass, Cough (Primar y Dx); Surgery Rosemary Macdonald, SUPERVISOR [employer]T Dysphagia, un specified type 07/07/2019 Surgery Cardiothoracic Colin Lobo, LEFT ROBO T-ASSISTED Surgery MD MANDI LINARES FT UPPER LOBE LINGULECTOMY, L EFT LOWER LOBE SEGMENTECTOMY 07/07/2019 Anesthesia Event Cardiothoracic Lydia Mott Surgery MD Sharif Nesbitt Meredith 07/07/2019 [facility] General Internal Colin Lobo, Malignan t neoplasm - Encounter Medicine MD of upper lobe, left 07/08/2019 bronchus or kathryn g (HCC) 07/04/2019 Telephone General Surgery Rea Rae MA 07/04/2019 Telephone Cardiothoracic Moon, Surgery Rosemary Macdonald NP 06/27/2019 [facility] Pulmonology Colin Lobo, [facility] 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) 06/27/2019 [facility] Radiology Colin Lobo, Malignant ne oplasm of upper lobe of left lung (HCC); Encounter MD Pre-op testing 06/24/2019 Telephone General Surgery Colin Lobo MD 06/24/2019 Orders Only Cardiothoracic Meisenbach, 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) (Primary Dx); Surgery Rosemary Macdonald NP Pre-op testin g 06/24/2019 Telephone Cardiothoracic Madalyn, Surgery Genoveva, ELICEO 06/23/2019 Orders Only [facility]acic [facility] [place] 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) 06/20/2019 Surgery Cardiothoracic Colin Lobo, FLEXIBLE Surgery BRONCHOSCOPY 06/20/2019 Anesthesia Event Cardiothoracic Aneta Ovalles MD Kessellie, Caroline 06/20/2019 [facility] Cardiothoracic Colin Lobo, Encounter Surgery 06/18/2019 Telephone Cardiothoracic Moon, Surgery Rosemary Macdonald SUPER[employer]OR [employer]T 06/17/2019 [facility] Radiology Chen Nieto, Encounter 06/17/2019 [facility] Radiology Chen Nieto, Encounter 06/17/2019 Office [...] Comments Blood Pressure 148/80 07/29/2019 8:05 AM [employer] Pulse 72 07/29/2019 8:05 AM [employer] Temperature 36.1 C (96.9 F) 07/29/2019 8:05 AM [employer] Respiratory Rate 17 07/29/2019 8:05 AM [employer] Oxygen Saturation 97% 07/29/2019 8:05 AM [employer] Inhaled Oxygen Concentration - - Weight 142 kg (314 lb) 07/29/2019 8:05 AM [employer] Height 180.3 cm (5' 11") 07/29/2019 8:05 AM [employer] Body Mass Index 43.79 07/29/2019 8:05 AM [employer] Plan of Treatment Health Maintenance Due Date Last Done Comments COLONOSCOPY SCREENING 10/22/2015 SHINGLES VACCINES (#1) 10/22/2015 INFLUENZA VACCINE 01/10/2020 06/18/2019 Implants Implanted Type Area Marketing Developer Device Shelf Model / Identifier Expiration Serial / Date Lot Kit Selnt Plrl Air Leak 4ml Strl Progel - [id number] Surgical N/A: N/A [employer] 01/01/2021 [id number] / Implanted: Qty: 1 on 07/07/2019 by Colin Lobo MD at [facility] Implants; / Expanders; Extenders; Surgical Wires Procedures Procedure Name Priority Date/Time Associated Comments Diagnosis XR CHEST 1 VW PORTABLE STAT 07/11/2019 8:50 R esults for this AM [employer] procedure are i n the results section. GRAM STAIN Routine 07/10/2019 9:30 Results for this AM [employer] procedure are i n the results section. SPUTUM CULTURE Routine 07/10/2019 9:30 Results f or this AM [employer] procedure are i n the results section. ESTIMATED GFR Routine 07/10/2019 3:57 Results fo r this AM [employer] procedure are i n the results section. PHOSPHORUS LEVEL Routine 07/10/2019 3:57 Results for this AM [employer] procedure are i n the results section. MAGNESIUM LEVEL Routine 07/10/2019 3:57 Results for this AM [employer] procedure are i n the results section. BASIC METABOLIC PANEL Routine 07/10/2019 3:57 Re sults for this AM [employer] procedure are i n the results section. PARTIAL THROMBOPLASTIN Routine 07/10/2019 3:57 R esults for this TIME (PTT) AM [employer] procedure are i n the results section. PROTHROMBIN TIME WITH Routine 07/10/2019 3:57 Re sults for this INR AM [employer] procedure are i n the results section. HC COMPLETE BLD COUNT Routine 07/10/2019 3:57 Re sults for this W/AUTO DIFF AM [employer] procedure are i n the results section. US DUPLEX VENOUS LOWER STAT 07/09/2019 9:10 R esults for this EXTREMITY BILATERAL PM [employer] procedur e are in the results section. RESPIRATORY PATHOGEN STAT 07/09/2019 8:27 Res ults for this PANEL PM [employer] procedure are i n the results section. CT ANGIOGRAM PE CHEST STAT 07/09/2019 7:35 Re sults for this PM [employer] procedure are i n the results section. ARTERIAL BLOOD GAS STAT 07/09/2019 6:28 Resul ts for this PM [employer] procedure are i n the results section. ESTIMATED GFR STAT 07/09/2019 2:00 Results fo r this PM [employer] procedure are i n the results section. HC COMPLETE BLD COUNT STAT 07/09/2019 2:00 Cough Results for this W/AUTO DIFF PM [employer] Dysphagia, procedure are i n unspecified type the results section. COMPREHENSIVE METABOLIC STAT 07/09/2019 2:00 Cough Results for this PANEL PM [employer] Dysphagia, procedure are i n unspecified type the results section. XR CHEST 2 VW Routine 07/09/2019 1:44 Cough Results for this PM [employer] Dysphagia, procedure are i n unspecified type the results section. XR CHEST 1 VW PORTABLE STAT 07/08/2019 2:35 R esults for this PM [employer] procedure are i n the results section. XR CHEST 1 VW PORTABLE Timed 07/08/2019 10:35 R esults for this AM [employer] procedure are i n the results section. XR CHEST 1 VW PORTABLE Routine 07/08/2019 6:45 R esults for this AM [employer] procedure are i n the results section. ARTERIAL BLOOD GAS Routine 07/08/2019 6:10 Resul ts for this AM [employer] procedure are i n the results section. XR CHEST 1 VW PORTABLE STAT 07/08/2019 4:43 R esults for this AM [employer] procedure are i n the results section. XR CHEST 1 VW PORTABLE STAT 07/07/2019 7:35 R esults for this PM [employer] procedure are i n the results section. GLUCOSE LEVEL, SYRINGE STAT 07/07/2019 6:30 R esults for this PM [employer] procedure are i n the results section. LACTIC ACID, SYRINGE STAT 07/07/2019 6:30 Res ults for this PM [employer] procedure are i n the results section. HEMOGLOBIN, SYRINGE STAT 07/07/2019 6:30 Resu lts for this PM [employer] procedure are i n the results section. IONIZED CALCIUM, STAT 07/07/2019 6:30 Results for this ARTERIAL PM [employer] procedure are i n the results section. SODIUM LEVEL, SYRINGE STAT 07/07/2019 6:30 Re sults for this PM [employer] procedure are i n the results section. POTASSIUM, SYRINGE STAT 07/07/2019 6:30 Resul ts for this PM [employer] procedure are i n the results section. ARTERIAL BLOOD GAS, STAT 07/07/2019 6:30 Resu lts for this CORRECTED PM [employer] procedure are i n the results section. SURGICAL PATHOLOGY Routine 07/07/2019 5:51 Resul ts for this REQUEST PM [employer] procedure are i n the results section. LACTIC ACID, SYRINGE STAT 07/07/2019 5:20 Res ults for this PM [employer] procedure are i n the results section. IONIZED CALCIUM, STAT 07/07/2019 5:20 Results for this ARTERIAL PM [employer] procedure are i n the results section. GLUCOSE LEVEL, SYRINGE STAT 07/07/2019 5:20 R esults for this PM [employer] procedure are i n the results section. SODIUM LEVEL, SYRINGE STAT 07/07/2019 5:20 Re sults for this PM [employer] procedure are i n the results section. HEMOGLOBIN, SYRINGE STAT 07/07/2019 5:20 Resu lts for this PM [employer] procedure are i n the results section. POTASSIUM, SYRINGE STAT 07/07/2019 5:20 Resul ts for this PM [employer] procedure are i n the results section. ARTERIAL BLOOD GAS, STAT 07/07/2019 5:20 Resu lts for this CORRECTED PM [employer] procedure are i n the results section. GLUCOSE LEVEL, SYRINGE STAT 07/07/2019 4:15 R esults for this PM [employer] procedure are i n the results section. IONIZED CALCIUM, STAT 07/07/2019 4:15 Results for this ARTERIAL PM [employer] procedure are i n the results section. SODIUM LEVEL, SYRINGE STAT 07/07/2019 4:15 Re sults for this PM [employer] procedure are i n the results section. POTASSIUM, SYRINGE STAT 07/07/2019 4:15 Resul ts for this PM [employer] procedure are i n the results section. HEMOGLOBIN, SYRINGE STAT 07/07/2019 4:15 Resu lts for this PM [employer] procedure are i n the results section. ARTERIAL BLOOD GAS, STAT 07/07/2019 4:15 Resu lts for this CORRECTED PM [employer] procedure are i n the results section. LACTIC ACID, SYRINGE STAT 07/07/2019 3:17 Res ults for this PM [employer] procedure are i n the results section. GLUCOSE LEVEL, SYRINGE STAT 07/07/2019 3:17 R esults for this PM [employer] procedure are i n the results section. HEMOGLOBIN, SYRINGE STAT 07/07/2019 3:17 Resu lts for this PM [employer] procedure are i n the results section. IONIZED CALCIUM, STAT 07/07/2019 3:17 Results for this ARTERIAL PM [employer] procedure are i n the results section. POTASSIUM, SYRINGE STAT 07/07/2019 3:17 Resul ts for this PM [employer] procedure are i n the results section. SODIUM LEVEL, SYRINGE STAT 07/07/2019 3:17 Re sults for this PM [employer] procedure are i n the results section. ARTERIAL BLOOD GAS, STAT 07/07/2019 3:17 Resu lts for this CORRECTED PM [employer] procedure are i n the results section. LACTIC ACID, SYRINGE STAT 07/07/2019 2:26 Res ults for this PM [employer] procedure are i n the results section. GLUCOSE LEVEL, SYRINGE STAT 07/07/2019 2:26 R esults for this PM [employer] procedure are i n the results section. IONIZED CALCIUM, STAT 07/07/2019 2:26 Results for this ARTERIAL PM [employer] procedure are i n the results section. POTASSIUM, SYRINGE STAT 07/07/2019 2:26 Resul ts for this PM [employer] procedure are i n the results section. HEMOGLOBIN, SYRINGE STAT 07/07/2019 2:26 Resu lts for this PM [employer] procedure are i n the results section. SODIUM LEVEL, SYRINGE STAT 07/07/2019 2:26 Re sults for this PM [employer] procedure are i n the results section. ARTERIAL BLOOD GAS, STAT 07/07/2019 2:26 Resu lts for this CORRECTED PM [employer] procedure are i n the results section. LACTIC ACID, SYRINGE STAT 07/07/2019 1:20 Res ults for this PM [employer] procedure are i n the results section. GLUCOSE LEVEL, SYRINGE STAT 07/07/2019 1:20 R esults for this PM [employer] procedure are i n the results section. IONIZED CALCIUM, STAT 07/07/2019 1:20 Results for this ARTERIAL PM [employer] procedure are i n the results section. POTASSIUM, SYRINGE STAT 07/07/2019 1:20 Resul ts for this PM [employer] procedure are i n the results section. HEMOGLOBIN, SYRINGE STAT 07/07/2019 1:20 Resu lts for this PM [employer] procedure are i n the results section. SODIUM LEVEL, SYRINGE STAT 07/07/2019 1:20 Re sults for this PM [employer] procedure are i n the results section. ARTERIAL BLOOD GAS, STAT 07/07/2019 1:20 Resu lts for this CORRECTED PM [employer] procedure are i n the results section. ARTERIAL LINE Routine 07/07/2019 12:50 Results fo r this PM [employer] procedure are i n the results section. MS AN ELECTIVE Routine 07/07/2019 12:45 Results f or this ENDOTRACHEAL AIRWAY PM [employer] procedur e are in the results section. IONIZED CALCIUM, STAT 07/07/2019 12:26 Results for this ARTERIAL PM [employer] procedure are i n the results section. GLUCOSE LEVEL, SYRINGE STAT 07/07/2019 12:26 R esults for this PM [employer] procedure are i n the results section. HEMOGLOBIN, SYRINGE STAT 07/07/2019 12:26 Resu lts for this PM [employer] procedure are i n the results section. POTASSIUM, SYRINGE STAT 07/07/2019 12:26 Resul ts for this PM [employer] procedure are i n the results section. SODIUM LEVEL, SYRINGE STAT 07/07/2019 12:26 Re sults for this PM [employer] procedure are i n the results section. ARTERIAL BLOOD GAS, STAT 07/07/2019 12:26 Resu lts for this CORRECTED PM [employer] procedure are i n the results section. PREPARE RBC STAT 07/07/2019 8:20 Results for this AM [employer] procedure are i n the results section. TYPE AND SCREEN STAT 07/07/2019 8:20 Results for this AM [employer] procedure are i n the results section. SPIROMETRY, DIFFUSION Routine 06/27/2019 11:09 Primary maligna nt Results for this AM [employer] neoplasm of procedure are i n bronchus of left the results lower lobe (HCC) section. MRI BRAIN W WO CONTRAST Routine 06/27/2019 10:36 Malignant sj plasm Results for this AM [employer] of upper lobe of procedure a re in left lung (HCC) the results Pre-op testing section. POC GLUCOSE Routine 06/20/2019 1:04 Results for this PM [employer] procedure are i n the results section. MS AN ELECTIVE Routine 06/20/2019 11:41 Results f or this ENDOTRACHEAL AIRWAY AM [employer] procedur e are in the results section. CYTOLOGY Routine 06/20/2019 11:40 Results for this (NON-GYNECOLOGICAL) AM [employer] procedur e are in REQUEST the results section. CYTOLOGY Routine 06/20/2019 11:40 Results for this (NON-GYNECOLOGICAL) AM [employer] procedur e are in REQUEST the results section. ECG 12-LEAD STAT 06/20/2019 8:33 Results for this AM [employer] procedure are i n the results section. ESTIMATED GFR STAT 06/20/2019 8:15 Results fo r this AM [employer] procedure are i n the results section. PARTIAL THROMBOPLASTIN STAT 06/20/2019 8:15 R esults for this TIME (PTT) AM [employer] procedure are i n the results section. PROTHROMBIN TIME WITH STAT 06/20/2019 8:15 Re sults for this INR AM [employer] procedure are i n the results section. BASIC METABOLIC PANEL STAT 06/20/2019 8:15 Re sults for this AM [employer] procedure are i n the results section. HC COMPLETE BLD COUNT STAT 06/20/2019 8:15 Re sults for this W/AUTO DIFF AM [employer] procedure are i n the results section. PET CT WHOLE BODY Routine 05/15/2019 10:19 Result s for this EXTERNAL STUDY AM [employer] procedure are in the results section. PET CT SKULL BASE TO Routine 05/15/[address] CHEST EXTERNAL STUDY Routine 05/02/2019 7:55 Results for this AM [employer] procedure are i n the results section. after 11/13/2018 Results XR Chest 1 Vw Portable (07/11/2019 8:50 AM [employer])Only the most recent of6 results within the time period is included. Specimen Narrative Performed At EXAMINATION: XR CHEST 1 VW PORTABLE [facility] CLINICAL HISTORY: shortness of breath IMPRESSION: Single frontal view compared to 07/09/2019 demonstrates postoperative scarring and atelectasis and volume loss in the left l lara to be stable. There is no new infiltrate. There is no pneumothorax. [facility]-[id number] Procedure Note Hm Interface, Radiology Results Incoming - 07/11/2019 10:45 AM [employer] EXAMINATION: XR CHEST 1 VW PORTABLE CLINICAL HISTORY: shortness of breath IMPRESSION: Single frontal view compared to 0 demonstrates postoperative scarring and atelectasis and volume loss in the left lung to be stable. There is no new infiltrate. There is no pneumothorax. [facility]-[id number] Performing Organization Address City/[facility]/Zipcode Phone Number [facility] [address] [place] [address] Sputum culture (07/10/2019 9:30 AM [employer]) Sputum culture Normal oral jose juan isolated. [facility] Comment: [facility]ITAL Specimen Information Specimen Source: Sputum Specimen Site: Expectorated Specimen Sputum - Expectorated Performing Organization Address City/[facility]/Zipcode Phone Number [facility] DEPARTMENT OF PATHOLOGY AND [address], [place] [address] GENOMIC MEDICINE [address] [address] Gram stain (07/10/2019 9:30 AM [employer]) Gram stain isolate Few WBC's [facility] Few Gram negative rods HOSPITAL Moderate Gram positive cocci in pairs Comment: Specimen Information Specimen Source: Sputum Specimen Site: Expectorated Specimen Sputum - Expectorated Performing Organization Address City/[facility] Phone Number [facility] DEPARTMENT OF PATHOLOGY AND [address] [place] [address] [phone] [address] Estimated GFR (07/10/2019 3:57 AM [employer]AL[employer])Only the most recent of3 resultswithin the time period is included. [facility] Estimated GFR >=90 mL/min/1.73 [facility] Comment: [address] Catergory Units Interpretation G1 >=90 Normal [...] 2014. Specimen Plasma specimen Performing Organization Address [facility] Cent[facility]ode Phone Number [facility] DEPARTMENT OF PATHOLOGY AND [address] [place] [phone] Partial thromboplastin time, activated (07/10/2019 3:57 AM [employer])Only the most recent of2 resultswithin the time period is included. [facility] PTT 29.8 23.0 - 36.0 [facility] Comment: [facility] PTT therapeutic range for unfractionated heparin is 61.0-112.0 seconds which corresponds to Anti-Xa 0.3-0.7 U/ml. Specimen Blood Performing Organization Address [facility] Centercode Phone Number [facility] DEPARTMENT OF PATHOLOGY AND [address] [place] [phone] [place] [phone] Prothrombin time with INR (07/10/2019 3:57 AM [employer])Only the most recent of2 resultswithin the time period is included. [facility] Prothrombin time 14.5 11.5 - 14.5 [facility] INR 1.1 [place] Comment: [facility] The International Normalized Ratio (INR) is a [facility] monitoring tool for patients who are stable on oral anticoagulant therapy. An INR of 2.0-3.0 is suggested for deep vein thrombosis/pulmonary embolism. Specimen Blood Performing Organization Address City/State/Zipcode Phone Number [facility] DEPARTMENT OF PATHOLOGY AND [address], [place] [address] [address] CBC with platelet and differential (07/10/2019 3:57 AM [employer])Only the most recent of3 resultswithin the time period is included. WBC 7.89 4.50 - 11.00 [facility] k/uL HOSPITAL RBC 3.72 (L) 4.40 - 6.00 [facility] m/uL [facility] HGB 10.8 (L) 14.0 - 18.0 [facility] g/dL [facility] HCT 34.3 (L) 41.0 - 51.0 % [facility] MCV 92.2 82.0 - 100.0 [facility] MCH 29.0 27.0 - 34.0 pg [facility] MCHC 31.5 31.0 - 37.0 [facility] - SD 44.3 37.0 - 55.0 fL [facility] MPV 9.5 8.8 - 13.2 [facility] Platelet count 149 (L) 150 - 400 k/uL [facility] Nucleated RBC 0.00 /100 WBC [facility] Neutrophils 81.2 (H) 39.0 - 69.0 % [facility] Lymphocytes 7.7 (L) 25.0 - 45.0 % [facility] Monocytes 7.5 0.0 - 10.0 % [facility] Eosinophils 2.5 0.0 - 5.0 % [facility] Basophils 0.3 0.0 - 1.0 % [facility] Immature granulocytes 0.8Comment: 0.0 - 1.0 % [facility] "Immature HOSPITAL granulocytes" (promyelocytes , myelocytes, metamyelocytes ) Specimen Blood Performing Organization Address City/State/Zipcode Phone Number [facility] DEPARTMENT OF PATHOLOGY AND [address], [place] [address] [address] Phosphorus level (07/10/2019 3:57 AM [employer]) Pathologist Sig nature Phosphorus 2.9 2.4 - 4.5 mg/dL [facility] L Specimen Plasma specimen Performing Organization Address [facility] Phone Number [facility] DEPARTMENT OF PATHOLOGY AND [address] [place] [address] Magnesium level (07/10/2019 3:57 AM [employer]) Pathologist [facility] Magnesium 2.1 1.6 - 2.6 mg/dL [facility] Specimen Plasma specimen Performing Organization Address [facility] Phone Number [facility] DEPARTMENT OF PATHOLOGY AND [address] [place] [address] Basic metabolic panel (07/10/2019 3:57 AM QUALITY ENGINEER MEDICAL DEVICE)Only the most recent of2 results within the time period is included. Pathologist Sig nature Sodium 137 135 - 148 mEq/L [facility] Potassium 3.9 3.5 - 5.0 mEq/L [facility] Chloride 101 98 - 112 mEq/L [facility] CO2 25 24 - 31 mEq/L [facility] Anion gap 11@ANIO 7 - 15 mEq/L [facility] BUN 10 6 - 20 mg/dL [facility] Creatinine 0.73 0.70 - 1.20 mg/dL [facility] Glucose 125 (H) 65 - 99 mg/dL [facility] Calcium 8.8 8.3 - 10.2 mg/dL [facility] Specimen Plasma specimen Performing Organization Address [facility] Phone Number [facility] DEPARTMENT OF PATHOLOGY AND [address] [place] [address] Us duplex venous lower extremity (07/09/2019 9:10 PM QUALITY ENGINEER MEDICAL DEVICE) Specimen Narrative Performed At [facility] Lower Extr emity Venous Report [address] [place] [address] Pat.Name: JAE CONNOLLY Pat.ID: [id number]Date: 07/09/2019 Refer.MD: COLIN LOBO MD Exam Time: 8:23:00 PM Study Type:L E Venous Age: 5 1965,53Y Sex: MALE Sonogrphr: Raphael Rocha, RVS, RCS Pat. Stat.:Inpati ent Room: [facility] WT20 2018A Tape Vol: JM, [facility] - 4: [id number] Echo Yvrose nt ID:[id number] Order ID: [id number] Reason for Study:Leg swelling or pain, D [...] Radiology Results In - 2019 10:43 PM QUALITY ENGINEER MEDICAL DEVICE [facility] Lower Extremity Veno us Report [address] [address] , [place] [address] Pat.Name: JAE CONNOLLY Pat.I D: [id number] St.Date: 07/09/2019 Refer .MD: COLIN LOBO MD Exam Time: 8:23:00 PM Study Type:LE Venous Age: 5 1965,53Y Sex: MALE Sonogrphr: Raphael Rocha, JOSE, RCS Pat. Stat.:Inpatient Room: [place] [address] 2018A Tape Vol: JM, CPT - 4: 93319 Echo Event ID:[id number] Order ID: [id number] Reason for Study:Leg swelling or pain, D [...] Blood MD, FACS, RPVI Performing Organization Address [facility]/Zipcode Phone Number [facility] [address] [place] [address] Respiratory pathogen panel (07/09/2019 8:27 PM QUALITY ENGINEER MEDICAL DEVICE) [facility] Respiratory Negative for all pathogens tested: [facility] pathogen panel Negative for Adenovirus MORMONISM Negative for Coronavirus HKU1 [facility] Negative for Coronavirus NL63 Negative for Coronavirus [...] Specimen Nares - Left Performing Organization Address [facility] Cent[facility] Phone Number [facility] DEPARTMENT OF PATHOLOGY AND [address] [place], [place] [address] [facility] [address] [address] Angiogram Pe Chest (07/09/2019 7:35 PM QUALITY ENGINEER MEDICAL DEVICE) Specimen Narrative Performed At EXAMINATION: CT ANGIOGRAM [...] iation dose. COMPARISON: 05/02/[address] [facility] CT. IMPRESSION: CHEST: 1. Pulmonary Arteries: [...] Trace left apical and ant erior pneumothorax. [facility]-[id number] Procedure Note [facility], Radiology Results Incoming - 07/09/2019 7:55 PM QUALITY ENGINEER MEDICAL DEVICE EXAMINATION: CT ANGIOGRAM PE CHEST CLINICAL HISTORY: [...] reduce radiation dose. COMPARISON: 05/02/2019 external study [facility] CT. IMPRESSION: CHEST: 1. Pulmonary Arteries: [...] pneumomediastinum. Trace left apical and anterior pneumothorax. [facility]-[id number] Performing Organization Address City/State/Zipcode Phone Number [facility] [address] [place] [address] Arterial blood gas (07/09/2019 6:28 PM QUALITY ENGINEER MEDICAL DEVICE)Only the most recent of2 results within the time period is included. Pathologist Sig nature pH, arterial 7.42 7.35 - 7.45 [facility] pCO2, arterial 41 35 - 45 mmHg [facility] pO2, arterial 85 80 - 90 mmHg [facility] Bicarbonate, arterial 26.3 21.0 - 28.0 [facility] mmol/L [facility] Base excess, arterial 2 -2 - 2 mEq/L [facility] O2 saturation, 97 95 - 100 % [facility] Specimen Blood Performing Organization Address City/State/Zipcode Phone Number [facility] DEPARTMENT OF PATHOLOGY AND [address] [place] [address] [phone] [address] Comprehensive metabolic panel (07/09/2019 2:00 PM QUALITY ENGINEER MEDICAL DEVICE) Sodium 139 135 - 148 [facility] mEq/L [facility] Potassium 4.4 3.5 - 5.0 [facility] mEq/L [facility] Chloride 101 98 - 112 mEq/L [facility] CO2 29 24 - 31 mEq/L [facility] Anion gap 9@ANIO 7 - 15 mEq/L [facility] BUN 11 6 - 20 mg/dL [facility] Creatinine 0.84 0.70 - 1.20 [facility] mg/dL [facility] Glucose 129 (H) 65 - 99 mg/dL [facility] Calcium 9.2 8.3 - 10.2 [facility] mg/dL [facility] Protein 7.0 6.3 - 8.3 g/dL [facility] Comment: HOSPITAL Rezvhvu1273.6-7.0 g/dL 1 wllm4338.4-7.6 g/dL 7 months-4yqkj019.1-7.3 g/dL 1-2 .6-7.5 g/dL >3 gtbeg781.0-8.0 g/dL 18-6074234.3-8.3 g/dL Albumin 3.1 (L) 3.5 - 5.0 g/dL [facility] A/G ratio 0.8 0.7 - 3.8 [facility] Alkaline phosphatase 56 40 - 129 U/L [facility] AST 124 (H) 10 - 50 U/L [facility] ALT 51 (H) 5 - 50 U/L [facility] Total bilirubin 0.4 0.0 - 1.2 [facility] mg/dL [facility] Specimen Plasma specimen Performing Organization Address City/State/Zipcode Phone Number [facility] DEPARTMENT OF PATHOLOGY AND [address] [place], [place] [address] [facility] [address] [place] [address] XR Chest 2 Vw (07/09/2019 1:44 PM QUALITY ENGINEER MEDICAL DEVICE) Specimen Narrative Performed At EXAMINATION: XR CHEST [...] Mild degenerati ve changes of thoracic spine. [facility]-[id number] Procedure Note Interface, Radiology Results Incoming - 07/09/2019 1:59 PM QUALITY ENGINEER MEDICAL DEVICE EXAMINATION: XR CHEST 2 VW CLINICAL HISTORY: [...] Mi ld degenerative changes of thoracic spine. [facility]-[id number] Performing Organization Address City/[facility]/Zipcode Phone Number [facility] [address] [place] [address] Sodium level, syringe (07/07/2019 6:30 PM QUALITY ENGINEER MEDICAL DEVICE)Only the most recent of7 results within the time period is included. Pathologist Sig nature Sodium, syringe 138 135 - 148 mEq/L [facility] Specimen Blood Performing Organization Address City/[facility]/Zipcode Phone Number [facility] DEPARTMENT OF PATHOLOGY AND [address] [place] [address] [phone] [address] Potassium, syringe (07/07/2019 6:30 PM QUALITY ENGINEER MEDICAL DEVICE)Only the most recent of7 results within the time period is included. Pathologist Sig nature Potassium, syringe 4.7 3.5 - 5.0 mEq/L [facility] Specimen Blood Performing Organization Address City/[facility]/Zipcode Phone Number [facility] DEPARTMENT OF PATHOLOGY AND [address] [place] [address] [phone] [address] Lactic acid, syringe (07/07/2019 6:30 PM QUALITY ENGINEER MEDICAL DEVICE)Only the most recent of5 results within the time period is included. Pathologist Sig nature Lactic acid, syringe 1.8 0.5 - 2.2 mmol/L [facility] Specimen Blood Performing Organization Address City/[facility] Centercode Phone Number [facility] DEPARTMENT OF PATHOLOGY AND [address] [place] [address] Ionized calcium, arterial (07/07/2019 6:30 PM QUALITY ENGINEER MEDICAL DEVICE)Only the most recent of7 resultswithin the time period is included. Pathologist Sig nature Ionized calcium, 1.12 1.11 - 1.32 [facility] arterial mmol/L [facility] Specimen Blood Performing Organization Address [facility] Centercoma Phone Number [facility] DEPARTMENT OF PATHOLOGY AND [address] [place] [address] Hemoglobin, syringe (07/07/2019 6:30 PM QUALITY ENGINEER MEDICAL DEVICE)Only the most recent of7 results within the time period is included. Pathologist Sig nature Hemoglobin, syringe 11.8 (L) 14.0 - 18.0 g/dL [facility] Specimen Blood Performing Organization Address [facility] Phone Number [facility] DEPARTMENT OF PATHOLOGY AND [address] [place] [address] Glucose level, syringe (07/07/2019 6:30 PM QUALITY ENGINEER MEDICAL DEVICE)Only the most recent of7 results within the time period is included. Pathologist Sig nature Glucose, syringe 188 (H) 65 - 99 mg/dL [facility] Specimen Blood Performing Organization Address City/[facility] Centercode Phone Number [facility] DEPARTMENT OF PATHOLOGY AND [address] [place] [address] Arterial blood gas, corrected (07/07/2019 6:30 PM QUALITY ENGINEER MEDICAL DEVICE)Only the most recent of7 resultswithin the time period is included. pH, arterial 7.28 (L) 7.35 - 7.45 [facility] pCO2, arterial 61 (HH) 35 - 45 mmHg [facility] Comment: HOSPITAL ABG results called to and read back by [place] WTOR #6 BY AM 2AT 07/07/2019 18:38 pO2, arterial 340 (H) 80 - 90 mmHg [facility] Temperature, 37.0 Degrees C [facility] O2 saturation, 99 95 - 100 % [facility] pH, arterial 7.28 [facility] pCO2, arterial 61 mmHg [facility] pO2, arterial 340 mmHg [facility] Base excess, 0 -2 - 2 mEq/L [facility] Specimen Blood Performing Organization Address City/State/Zipcode Phone Number [facility] DEPARTMENT OF PATHOLOGY AND [address] [place], [place] [address] [address] [address] Surgical pathology request (07/07/2019 5:51 PM QUALITY ENGINEER MEDICAL DEVICE) [facility] DEPARTMENT OF PATHOLOGY AND GENOMIC MEDICINE Surgical pathology See link below [facility] DEPARTMENT OF report for PDF Lab PATHOLOGY AND Report GENOMIC MEDICINE Result status This is Final [facility] DEPARTMENT OF Report for PATHOLOGY AND [id number] [facility] Specimen Performing Organization Address City/State/Zipcode Phone Number [facility] DEPARTMENT OF PATHOLOGY AND [address] [place], [place] [address] [facility] MEDICINE Arterial line (07/07/2019 12:50 PM QUALITY ENGINEER MEDICAL DEVICE) Narrative Performed At Wes Looney MD 07/07/2019 12:51 PM Arterial line Performed by: Wes Looney MD Authorized by: Michael Caro MD Patient Location: OR Start Time: 07/07/2019 12:50 PM End Time: 07/07/2019 12:50 PM Staff: Anesthesiologist: Michael Caro MD Resident/CLOTH FINISHER/AA: Wes Looney MD Performed by: Resident/CLOTH FINISHER/AA Pre-procedure: patient identified, IV ch ecked, site [...] no immediate complications Airway (07/07/2019 12:45 PM QUALITY ENGINEER MEDICAL DEVICE) Narrative Performed At Wes Looney MD 07/07/2019 12:53 PM Airway Date/Time: 07/07/2019 12:45 PM Performed by: Wes Looney MD Authorized by: Michael Caro MD Location: OR Urgency: Elective Difficult Airway: Yes Anesthesiologist: Michael Caro MD Resident/CLOTH FINISHER/AA: Wes Looney MD Performed by: anesthesiologist Preoxygenated [...] without complications. Prepare RBC (07/07/2019 8:20 AM QUALITY ENGINEER MEDICAL DEVICE) Product name Red Blood Cells [facility], Leukored [facility] Unit number [id number] [facility] Product code [id number] [facility] Dispense status Returned to BB not [facility] Blood expiration date [facility] Blood type code 6200 [facility] Blood type A POSITIVE [facility] Compatibility Compatible [facility] Product name Red Blood Cells [place] -[facility], Leukored [facility] Unit number [id number] [facility] Product code [id number] [facility] Dispense status Returned to BB not [facility] Blood expiration date [facility] Blood type code 6200 [facility] Blood type A POSITIVE [facility] Compatibility Compatible [facility] Specimen Performing Organization Address City/State/Zipcode Phone Number [facility] DEPARTMENT OF PATHOLOGY AND [address] [place] [phone] [facility] MEDICINE [address] [address] Type and screen (07/07/2019 8:20 AM QUALITY ENGINEER MEDICAL DEVICE) Pathologist Sig nature ABO grouping A [facility] Rh type POS [facility] Antibody screen (gel) NEG [facility] Specimen Blood Performing Organization Address City/[facility]/Zipcode Phone Number [facility] DEPARTMENT OF PATHOLOGY AND [address] [place] [address] [phone] [address] Spirometry, diffusion (06/27/2019 11:09 AM QUALITY ENGINEER MEDICAL DEVICE) Pathologist Sig nature FEV1 Pre 2.66 3.05 [...] Organization Address City/State/Zipcode Phone Number [facility] [address] [place] [address] MRI Brain W Wo Contrast (06/27/2019 10:36 AM QUALITY ENGINEER MEDICAL DEVICE) Specimen Narrative Performed At This result has [...] intracranial metastasis or acute int racranial abnormality. [id number] Procedure Note Interface, Radiology Results Incoming - 06/27/2019 10:45 AM QUALITY ENGINEER MEDICAL DEVICE EXAMINATION: MRI BRAIN W WO CONTRAST CLINICAL [...] intracranial metastasi s or acute intracranial abnormality. [id number] Performing Organization Address [facility] Center[facility] Phone Number [facility] [address] [place] [address] POC glucose (06/20/2019 1:04 PM QUALITY ENGINEER MEDICAL DEVICE) Pathologist [facility] POC glucose 111 (H) 65 - 99 mg/dL [facility] Comment: HOSPITAL [employer] Sales Counter Manager Name: Carlyle Abad Device ID: [id number] Chartable: [facility] Notified RN Chartable: No Action Needed Specimen Performing Organization Address City/[facility] Centercoma Phone Number [facility] DEPARTMENT OF PATHOLOGY AND [address] [place] [phone] [address] Airway (06/20/2019 11:41 AM QUALITY ENGINEER MEDICAL DEVICE) Narrative Performed At Aneta Ovalles MD 06/20/19 11:42 AM Airway Date/Time: 06/20/2019 11:29 AM Performed by: Aneta Ovalles MD Authorized by: Aneta Ovalles M D Location: OR Urgency: Elective Anesthesiologist: Aneta Ovalles MD Resident/CLOTH FINISHER/AA: Harpal Espinosa MD Performed by: anesthesiologist Preoxygenated [...] 2 Cytology (non-gynecological) request (06/20/2019 11:40 AM QUALITY ENGINEER MEDICAL DEVICE)Only the most recent of2 resultswithin the time period is included. [facility] DEPARTMENT OF PATHOLOGY AND GENOMIC MEDICINE Cytology See link below [facility] DEPARTMENT OF (non-gynecological) for PDF Lab PATHOLOGY AND report Report GENOMIC MEDICINE Result status This is Final [facility] DEPARTMENT OF Report for PATHOLOGY AND [id number] GENOMIC MEDICINE Specimen Performing Organization Address City/[facility] Centercode Phone Number [facility] DEPARTMENT OF PATHOLOGY AND [address], [place] [address] GENOMIC MEDICINE ECG 12 lead (06/20/2019 8:33 AM QUALITY ENGINEER MEDICAL DEVICE) Pathologist Sig nature Ventricular rate 66 [facility] Atrial rate 66 [facility] MS interval 164 [facility] QRSD interval 82 [facility] QT interval 402 [facility] QTC interval 421 [facility] P axis 1 60 [facility] QRS axis 1 58 [facility] T wave axis 55 [facility] EKG impression Normal sinus [facility] MUSE rhythm-Anterior infarct , age undetermined-Abnormal ECG-No previous ECGs available-Electronicall y Signed By Gerda SHEFFIELD, Willi Covington ([id number]) on 06/21/2019 9:59:40 AM Specimen Narrative Performed At This result has an attachment that is no t available. Performing Organization Address City/State/Zipcode Phone Number [facility] MUSE [address] [place] [address] PET/CT Whole Body External Study (05/15/2019 10:19 AM QUALITY ENGINEER MEDICAL DEVICE) Specimen Narrative Performed At This exam was not acquired at a Method[facility] t facility and has not been [facility] interpreted by a [facility] Provider. T he exam was imported into our imaging system. Performing Organization Address City/[facility]/Zipcode Phone Number [facility] [address] [place] [address] PET/CT Skull Base To Mid Thigh (05/15/2019) Narrative Performed At This result has an attachment that is no t available. CT Chest External Study (05/02/2019 7:55 AM QUALITY ENGINEER MEDICAL DEVICE) Specimen Narrative Performed At This exam was not acquired at a Methodis t facility and has not been [facility] interpreted by a [facility] Provider. T he exam was imported into our imaging system. Performing Organization Address City/State/Zipcode Phone Number [facility] [address] [place] [address] after 11/13/2018 Advance Directives For more information, please contact: [phone] Type Date Recorded Patient Or Manager Explanati on Advance Directives, Living 06/20/2019 7:40 AM Will and Medical Power of Quill Skinner Advance Directives, Living 06/25/2019 1:10 PM PO A 06/20/2019 Will and Medical Power of [employer]ill Skinner Advance Directives, Living 06/25/2019 1:11 PM AD 06/20/2019 Will and Medical Power of Quill Skinner
--- OUTSIDE RECORDS SUMMARY | 2019-11-14 09:08 | XMS REPORT | Continuity of Care Document ---
:1965 Author Organization [facility] t Address [address] [place] [address] Dr. Seym[address] [place] [id number] Care Team Providers Name Role Phone Mahendra [...] asim BCBSBCBS xxxxxxxxxxxx 2018 [place] CHOICE 00:00:00 [facility]ism PPO/FEDERAL EMPL PPOxxxxxxxxxxx 2018-Pres entPPO Problems Condition [...] s to drug Other Propensi Active Rash *[place] ty to 07 Anestheti Methodi adverse 00:00: cs st reaction 00 s Family History Family Member Diagnosis Comments Start Date Stop Date Source Natural mother Diabetes [facility]odist [facility] Social History Social Habit Start Date Stop Date Quantity Comments Source History of tobacco Current smoker [place] [facility] use History [facility] Meth odist Alcohol Std Drinks History [facility] Meth odist Alcohol Binge Sex Assigned At [facility] ethodist Cigarettes smoked 2019-07-29 2019-07-29 [place] [facility] current (pack per 00:00:00 00:00:00 day) - Reported Cigarette 2019-07-29 2019-07-29 [place] Method ist pack-years 00:00:00 00:00:00 Alcohol intake 2019-07-29 2019-07-29 Lifetime [facility] thodist 00:00:00 00:00:00 non-drinker (finding) History SDOH 2019-06-17 2019-06-17 1 [place] Meth odist Alcohol Frequency 00:00:00 00:00:00 Smoking Status Start Date Stop Date Source Former smoker 2019-07-29 00:00:00 2019-07-29 00:00:00 [place] [facility] Medications Ordered Filled Start Stop Current Ordering Indication Dosage Frequency Signature Comments Components Source Medication Medication Date Date Medication? Clinician (SIG) Name Name HYDROcodone 2020- No acute pain 1{tbl} Q6H Take 1 [place] -acetaminop 2-08-10 tablet by Me nicolasa arango [...] muscle spasms. gabapentin 2019- No Postoperati 600mg Q.[id number] Take 2 [place] (NEURONTIN) 07-29 03-19 ve pain [id number] capsules Methodi 300 mg 00:00: 23:59 3D [...] days .acute pain. gabapentin 2019- No 300mg Q.20125538 Take 1 [place] (NEURONTIN) 07-08 [id number] capsule Methodi 300 mg 00:00: 00:00 3D [...] a day with meals for 3 days. [id number] 2019- No 1{each} Infuse 1 [place] 13 or 07-04 each into Methodi placebo 09:28: 00:[address] infusion, 26 :00 catheter GRACE once. /[id number] 7/Tamra, Vital Signs Vital Name Observation Time Observation Value Comments Source Systolic blood 2019-07-29 08:05:00 148 mm[Hg] [place] [facility] pressure Diastolic blood 2019-07-29 08:05:00 80 mm[Hg] [place] [facility] pressure Heart rate 2019-07-29 08:05:00 72 /min [place] Javed Body temperature 2019-07-29 08:05:00 36.06 [place] [facility] Respiratory rate 2019-07-29 08:05:00 17 /min [place] [facility] Body height 2019-07-29 08:05:00 180.3 cm [place] Javed Body weight 2019-07-29 08:05:00 142.429 kg [place] Javed BMI 2019-07-29 08:05:00 43.79 kg/m2 [place] Javed Oxygen saturation in 2019-07-29 08:05:00 97 /min [place] Javed Arterial blood by Pulse oximetry Procedures Procedure Date / Time Performing Clinician Source Performed XR CHEST 1 VW PORTABLE 2019-07-11 08:50:00 Ron Neal [facility] Favio SPUTUM CULTURE 2019-07-10 09:30:00 DavidAneta amos Meth odist GRAM STAIN 2019-07-10 09:30:00 Aneta Hernandez Meth odist HC COMPLETE BLD COUNT 2019-07-10 03:57:00 Ron Neal on [facility]alism W/AUTO DIFF [place] PROTHROMBIN TIME WITH INR 2019-07-10 03:57:00 Ron [place]ston [facility]ism Ayman PARTIAL THROMBOPLASTIN 2019-07-10 03:57:00 Ron Neal [facility]ism TIME (PTT) Aychanning BASIC METABOLIC PANEL 2019-07-10 03:57:00 Ron Neal on [facility] Ayman MAGNESIUM LEVEL 2019-07-10 03:57:00 Ron Neal Met hodist [place] PHOSPHORUS LEVEL 2019-07-10 03:57:00 Ron Neal Me thodist Ayman ESTIMATED GFR 2019-07-10 03:57:00 Colin Lobo Meth odist US DUPLEX VENOUS LOWER 2019-07-09 21:10:00 Ron Neal [facility]ism EXTREMITY BILATERAL Ayman RESPIRATORY PATHOGEN PANEL 2019-07-09 20:27:00 Uri Pope on [place] [facility] CT ANGIOGRAM PE CHEST 2019-07-09 19:35:29 Ron Neal on Pentec[facility]alism Aychanning ARTERIAL BLOOD GAS 2019-07-09 18:28:00 Ron Neal [facility] Ayman COMPREHENSIVE METABOLIC 2019-07-09 14:00:00 Colin Lobo [facility]alism PANEL HC COMPLETE BLD COUNT 2019-07-09 14:00:00 Colin Lobo n [facility]ecostalism W/AUTO DIFF ESTIMATED GFR 2019-07-09 14:00:00 Colin Lobo Meth odist XR CHEST 2 VW 2019-07-09 13:44:16 Colin Lobo Meth odist XR CHEST 1 VW PORTABLE 2019-07-08 14:35:00 Aneta Hernandez on Pentecostalism XR CHEST 1 VW PORTABLE 2019-07-08 10:35:00 Aneta Hernandez on Pentecostalism XR CHEST 1 VW PORTABLE 2019-07-08 06:45:00 ChonKanchan Ellis [facility]ecostalism Jono ARTERIAL BLOOD GAS 2019-07-08 06:10:00 Colin Lobo Nasim [place]all ethodist XR CHEST 1 VW PORTABLE 2019-07-08 04:43:34 Berta Rojas Kanchan mcfarlane Pentecostalism Elane XR CHEST 1 VW PORTABLE 2019-07-07 19:35:49 Kanchan Butcher [facility]ostalism Jono ARTERIAL BLOOD GAS, 2019-07-07 18:30:00 Lashell, Colin Nasim Bushist CORRECTED POTASSIUM, SYRINGE 2019-07-07 18:30:00 Lashell, Colin Nasim Argueta ethodist SODIUM LEVEL, SYRINGE 2019-07-07 18:30:00 Lashell, Colin Nasim mcmanus Pentecostalism IONIZED CALCIUM, ARTERIAL 2019-07-07 18:30:00 Lashell, Colin Nasim castillo [facility]alism HEMOGLOBIN, SYRINGE 2019-07-07 18:30:00 Lashell, Colin Nasim [place] [facility] LACTIC ACID, SYRINGE 2019-07-07 18:30:00 Lashell, Colin Nasim [place] [facility] GLUCOSE LEVEL, SYRINGE 2019-07-07 18:30:00 Lashell, Colin Nasim [place] on [facility]alism SURGICAL PATHOLOGY REQUEST 2019-07-07 17:51:00 Lashell, Colin Nasim soria [facility]ostalism ARTERIAL BLOOD GAS, 2019-07-07 17:20:00 Colin Lobo Nasim Bushist CORRECTED POTASSIUM, SYRINGE 2019-07-07 17:20:00 Lashell, Colin Nasim Argueta ethodist HEMOGLOBIN, SYRINGE 2019-07-07 17:20:00 Lashell, Colin Nasim [place] [facility] SODIUM LEVEL, SYRINGE 2019-07-07 17:20:00 Lashell, Colin Nasim mcmanus [facility]alism GLUCOSE LEVEL, SYRINGE 2019-07-07 17:20:00 Colin Lobo on [facility]ec[facility]alism IONIZED CALCIUM, ARTERIAL 2019-07-07 17:20:00 Lashell, Colin Nasim castillo [facility]alism LACTIC ACID, SYRINGE 2019-07-07 17:20:00 Lashell, Colin [place] [facility] ARTERIAL BLOOD GAS, 2019-07-07 16:15:00 Lashell, Colin Bushist CORRECTED HEMOGLOBIN, SYRINGE 2019-07-07 16:15:00 Lashell, Colin [place] [facility] POTASSIUM, SYRINGE 2019-07-07 16:15:00 Lashell, Colin Argueta ethodist SODIUM LEVEL, SYRINGE 2019-07-07 16:15:00 Lashell, Colin Nasim mcmanus [facility]alism IONIZED CALCIUM, ARTERIAL 2019-07-07 16:15:00 Lashell, Colin Rouse Omid castillo [facility]alism GLUCOSE LEVEL, SYRINGE 2019-07-07 16:15:00 Lashell, Colin Nasim [place] [facility] ARTERIAL BLOOD GAS, 2019-07-07 15:17:00 Lashell, Colin [place] [facility] CORRECTED SODIUM LEVEL, SYRINGE 2019-07-07 15:17:00 Lashell, Colin Rouse Aaron mcmanus [facility]ecostalism POTASSIUM, SYRINGE 2019-07-07 15:17:00 Lashell, Colin Argueta ethodist IONIZED CALCIUM, ARTERIAL 2019-07-07 15:17:00 Lashell, Colin Rouse Omid castillo [facility]alism HEMOGLOBIN, SYRINGE 2019-07-07 15:17:00 Lashell, Colin [place] [facility] GLUCOSE LEVEL, SYRINGE 2019-07-07 15:17:00 Lashell, Colin Nasim [place] [facility] LACTIC ACID, SYRINGE 2019-07-07 15:17:00 Lashell, Colin [place] [facility] ARTERIAL BLOOD GAS, 2019-07-07 14:26:00 Lashell, Colin [place] [facility] CORRECTED SODIUM LEVEL, SYRINGE 2019-07-07 14:26:00 Lashell, Colin Nasim mcmanus [facility]alism HEMOGLOBIN, SYRINGE 2019-07-07 14:26:00 Lashell, Colin [place] [facility] POTASSIUM, SYRINGE 2019-07-07 14:26:00 Lashell, Colin Argueta ethodist IONIZED CALCIUM, ARTERIAL 2019-07-07 14:26:00 Lashell, Colin Rouse Omid castillo [facility]alism GLUCOSE LEVEL, SYRINGE 2019-07-07 14:26:00 Lashell, Colin Nasim [place] [facility] LACTIC ACID, SYRINGE 2019-07-07 14:26:00 Lashell, Colin [place] [facility] ARTERIAL BLOOD GAS, 2019-07-07 13:20:00 Lashell, Colin Rouse [place] [facility] CORRECTED SODIUM LEVEL, SYRINGE 2019-07-07 13:20:00 Lashell, Colin Nasim mcmanus [facility]alism HEMOGLOBIN, SYRINGE 2019-07-07 13:20:00 Lashell, Colin [place] [facility] POTASSIUM, SYRINGE 2019-07-07 13:20:00 Lashell, Colin Nasim [place] Argueta ethodist IONIZED CALCIUM, ARTERIAL 2019-07-07 13:20:00 Lashell, Colin Javed GLUCOSE LEVEL, SYRINGE 2019-07-07 13:20:00 Colin Lobo on [facility]ecostalism LACTIC ACID, SYRINGE 2019-07-07 13:20:00 Lashell Colin Javed ARTERIAL LINE 2019-07-07 12:50:25 Wes Looney Meth odist [place] AN ELECTIVE 2019-07-07 12:45:13 Wes Looney Meth odist ENDOTRACHEAL AIRWAY ARTERIAL BLOOD GAS, 2019-07-07 12:26:00 Lashell Colin Javed CORRECTED SODIUM LEVEL, SYRINGE 2019-07-07 12:26:00 Colin Lobo POTASSIUM, SYRINGE 2019-07-07 12:26:00 Colin Lobo M ethodist HEMOGLOBIN, SYRINGE 2019-07-07 12:26:00 Colin Lobo GLUCOSE LEVEL, SYRINGE 2019-07-07 12:26:00 Colin Lobo on [facility]ostalism IONIZED CALCIUM, ARTERIAL 2019-07-07 12:26:00 Coiln Loboist TYPE AND SCREEN 2019-07-07 08:20:00 Colin Lobo odist PREPARE RBC 2019-07-07 08:20:00 Colin Lobo SPIROMETRY, DIFFUSION 2019-06-27 11:09:13 Colin Lobo MRI BRAIN W WO CONTRAST 2019-06-27 10:36:43 Colin Lobo POC GLUCOSE 2019-06-20 13:04:00 Colin Lobo Meth odist [place] AN ELECTIVE 2019-06-20 11:41:11 Aneta Ovalles Meth odist ENDOTRACHEAL AIRWAY Aubree CYTOLOGY 2019-06-20 11:40:00 Colin Lobo Meth luis albertoist (NON-GYNECOLOGICAL) REQUEST ECG 12-LEAD 2019-06-20 08:33:21 Colin Lobo Meth odist HC COMPLETE BLD COUNT 2019-06-20 08:15:00 Colin Lobo W/AUTO DIFF BASIC METABOLIC PANEL 2019-06-20 08:15:00 Colin Lobo PROTHROMBIN TIME WITH INR 2019-06-20 08:15:00 Colin Lobo PARTIAL THROMBOPLASTIN 2019-06-20 08:15:00 Colin Lobo on [facility]ec[facility]alism TIME (PTT) ESTIMATED GFR 2019-06-20 08:15:00 Colin Lobo Meth odist PET CT WHOLE BODY EXTERNAL 2019-05-15 10:19:00 Chen Nieto [facility]alism STUDY PET CT SKULL BASE TO MID 2019-05-15 00:00:[address] CHEST EXTERNAL STUDY 2019-05-02 07:55:00 Chen Nieto [facility] Plan of Care Planned Activity Planned Date Details Comments Source Future Scheduled 2020-01-10 INFLUENZA VACCINE [place] [facility] Test 00:00:00 [code = INFLUENZA VACCINE] Future Scheduled 2015-10-22 COLONOSCOPY SCREENING [place] [facility] Test 00:00:00 [code = COLONOSCOPY SCREENING] Future Scheduled 2015-10-22 SHINGLES VACCINES [place] [facility] Test 00:00:00 (#1) [code = SHINGLES VACCINES (#1)] Encounters Start End Encounter Admission Attending Care Care Encounter Source Date/Time Date/Time Type Type Clinicians Facility Department ID 2019-05-28 2019-05-28 Outpatient BL BL [facility] 07:16:00 07:16:00 Results Test Description Test Time Test Comments Results Result Comments Source Sputum culture 2019-07-12 14:10:35 Test Item Value Reference Range Interpretation Comme nts Sputum culture isolate Normal oral jose juan Specimen InformationSpecimen (test code = 2234) isolated. Source: S putumSpecimen Site[facility] Vw [id number] 10:42:09Hm Interface, Radiology Results 07/11/2019 10:45 AM CSTEXAMINATION: XR CHEST 1 VW PORTABLECLINICAL HISTORY: shortness of breathIMPRESSION:Single frontal view compared to 07/09/2019 demonstrates postoperative scarring and atelectasis and volume loss in the left lung to be stable. There is no new infiltrate. There is no pneumothorax.[facility]-[id number] MethodistGram [id number] 21:09:02Gram stain isolateFew WBC'sFew Gram negative rodsModerate Gram positive cocci in pairs Comment: Specimen InformationSpecimen Source: SputumSpecimen [facility] 2019-07-10 05:02:27 Test Item Value Reference Range Interpretation Comments Sodium (test code = 2951-2) 137 135- 148 mEq/L Potassium (test code = 2823-3) 3.9 3.5- 5.0 mEq/L Chloride (test code = 5-0) 101 98- 112 mEq/L CO2 (test code = 8-9) 25 24- 31 mEq/L Anion gap (test code = 66788-5) 11@ANIO 7- 15 mEq/L BUN (test code = 3094-0) 10 mg/dL 6-20 Creatinine (test code = 2160-0) 0.73 mg/dL 0.7-1.2 Glucose (test code = 2345-7) 125 mg/dL 65-99 H Calcium (test code = 51061-7) 8.8 mg/dL 8.3-10.2 Lab Interpretation (test code = Abnormal 48372-9) [place] MethodistMagnesium [id number] 05:02:26 Test Item Value Reference Range Interpretation Comments Magnesium (test code = 05501-2) 2.1 mg/dL 1.6-2.6 [place] MethodistPhosphorus [id number] 05:02:26 Test Item Value Reference Range Interpretation Comments Phosphorus (test code = 2777-1) 2.9 mg/dL 2.4-4.5 [place] MethodistEstimated [id number] 05:02:26 Test Item Value Reference Range Interpretation Comments Estimated GFR (test >=90 mL/min/1.73 m2 [facility] = 5488) InterpretationG 1 >=90 Normal or highG2 60-89 Mildly uwktbrtyjS8o 45-59 Mildly to mode rately acscxpziaJ6n 30-44 Moderately to severely decreasedG4 15-29 Severely decre asedG5 <15 Kidn ey failureThe eGFR was calculated alec torre the Chronic Kidney Disease Epidemiology Co llaboration (CKD-EPI) equat ion. Interpretation is based on recommendations of the National Kidney Foundation-Kidn ey Disease Outcomes Qualit y Initiative (NKF-KDOQI) pub lished in 2014. [place] MethodistPartial thromboplastin time, zwtfuwude6623-02-82 04:47:07 Test Item Value Reference Range Interpretation Comments PTT (test code = 29.8 23.0- 36.0 [place] [address]-4) unfractionated heparin is61.0-112.0 se conds which corresponds to Anti-Xa0.3-0.7 U/ml. [place] MethodistProthrombin time with [id number] 04:46:29 Test Item Value Reference Range Interpretation Comments Prothrombin time (test 14.5 11.5- 14.5 sec code = 5902-2) INR (test code = 1.1 The Interna tional 02587-9) Normalized Rati o (INR) is a therapeutic m onitoring tool for patien ts who are stable on oral anticoagulant t herapy. An INR of 2.0-3.0 is suggested for d eep vein thrombosis/pulm onary embolism. [place] MethodistCBC with platelet and oigwcaunjydk2829-57-30 04:27:37 Test Item Value Reference Range Interpretation Comments WBC (test code = 94601-1) 7.89 4.50- 11.00 k/uL RBC (test code = 73267-1) 3.72 m/uL 4.4-6 L HGB (test code = 718-7) 10.8 g/dL 14-18 L HCT (test code = 4544-3) 34.3 % 41-51 L MCV (test code = 787-2) 92.2 fL 82-100 MCH (test code = 785-6) 29.0 pg 27-34 MCHC (test code = 786-4) 31.5 g/dL 31-37 RDW - SD (test code = 44.3 fL 37-55 04262-4) MPV (test code = 55404-6) 9.5 fL 8.8-13.2 Platelet count (test code 149 150- 400 k/uL L = 54313-8) Nucleated RBC (test code 0.00 /100 WBC = 69716-6) Neutrophils (test code = 81.2 % 39-69 H 88385-6) Lymphocytes (test code = 7.7 % 25-45 L 21413-0) Monocytes (test code = 7.5 % 0-10 18878-9) Eosinophils (test code = 2.5 % 0-5 13914-1) Basophils (test code = 0.3 % 0-1 95151-7) Immature granulocytes 0.8 % 0-1 "Immat ure (test code = 16509-8) granul ocytes" (promyelocytes, myelocytes, metamyelocytes) Lab Interpretation (test Abnormal code = 16502-4) [facility] pathogen dhjfo4449-52-24 01:51:59Respiratory pathogen panelNegative for all pathogens tested:Negative for AdenovirusNegative for Coronavirus INV7Ivvvchcj for Coronavirus NB60Sgrfiskt for Coronavirus 229ENegative for Coronavirus WW08Drkomrue for Human MetapneumovirusNegative for Rhinovirus/EnterovirusNegative for Influenza ANegative for Influenza A/K7Racmhaoa for Influenza A/O0Ddzhjaho for Influenza A/H1-2009Negative for Influenza BNegative for [...] Comment: Specimen InformationSpecimen Source: Na resSpecimen Site: [facility] duplex venous lower qbdqxkcpe5068-95-11 22:43:00Interface, Radiology Results In - 07/09/2019 10:43 PM 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 Stat.:Inpatient Room: [place] [address] 2018A Tape Vol: JM, CPT - 4: 49218 Echo Event ID:[id number] Order ID: [id number] Reason for Study:Leg swelling or pain, DVT [...] Sig curt 07/09/2019 10:43PMAndre Blood MD, FACS, [facility] MethodistCT Angiogram Pe Ittvo3531-53-95 19:52:33Hm Interface, Radiology Results Incoming - 07/09/2019 [...] pneumomediastinum. Trace left apical and anterior pneumothorax. [facility]-[id number] MethodistArterial blood [id number] 18:49:43 Test Item Value Reference Range Interpretation [...] (test 97 % 95-100 code = 2708-6) [place] MethodistSurgical pathology [id number] 17:17:53 Test Item Value Reference Range Interpretation Comments Case number (test code = [id number]) Surgical pathology See link below for report (test code = PDF Lab Report [id number]) Result status (test code This is Final Report = [id number]) for [id number] [place] MethodistComprehensive metabolic [id number] 14:54:57 Test Item Value Reference Range Interpretation Comments Sodium (test code = 139 135- 148 mEq/L 2951-2) Potassium (test code = 4.4 3.5- 5.0 mEq/L 2823-3) Chloride (test code = 101 98- 112 mEq/L 2075-0) CO2 (test code = 2027-) 29 24- 31 mEq/L Anion gap (test code = 9@ANIO 7- 15 mEq/L 52452-9) BUN (test code = 3094-0) 11 mg/dL 6-20 Creatinine (test code = 0.84 mg/dL 0.7-1.2 2160-0) Glucose (test code = 129 mg/dL 65-99 H 2345-7) Calcium (test code = 9.2 mg/dL 8.3-10.2 23921-1) Protein (test code = 7.0 g/dL 6.3-8.3 [place] 9994.6-7.0 2885-2) g/dL1 vscu3759.4-7.6 g/dL7 months-5dqzj730 .1- 7.3 g/dL1-2 alcjo248.6-7.5 g/dL>3 .0-8.0 g/pQ08-4306850. 3-8 .3 g/dL Albumin (test code = 3.1 g/dL 3.5-5 L 1751-7) A/G ratio (test code = 0.8 0.7-3.8 1759-0) Alkaline phosphatase 56 U/L 40-129 (test code = 6768-6) AST (test code = 1920-8) 124 U/L 10-50 H ALT (test code = 1742-6) 51 U/L 5-50 H Total bilirubin (test 0.4 mg/dL 0-1.2 code = 1975-2) Lab Interpretation (test Abnormal code = 71567-0) [place] MethodistXR Chest 2 [id number] 13:56:13Hm Interface, Radiology Results 07/09/2019 1:59 PM [...] osseous abnormality. Mild degenerative changes of thoracic spine.[facility] CITYL-[id number] MethodistPrepare [id number] 21:41:00 Test Item Value Reference Range Interpretation Comments Product name (test code Red Blood Cells -1, = 25) Leukored Unit number (test code [id number] = [id number]) Product code (test code V0595S20 = 3092) Dispense status (test Returned to not code = 24) transfused Blood expiration date (test code = 302) Blood type code (test 6200 code = 308) Blood type (test code = A POSITIVE 1314) Compatibility (test Compatible code = 6400) [place] MethodistArterial blood gas, pnfafpyhc6289-94-49 18:38:25 Test Item Value Reference Range Interpretation [...] pH, arterial corrected 7.28 (test code = 51987-6) pCO2, arterial corrected 61 mmHg (test code = 38739-9) pO2, arterial corrected 340 mmHg (test code = 45983-4) Base excess, arterial 0 -2 - 2 mEq-L (test code = 1925-7) Lab Interpretation (test Abnormal code = 97034-2) [place] MethodistGlucose level, bmfdvgi9416-78-81 18:38:25 Test Item Value Reference Range Interpretation Comments Glucose, syringe (test code = 188 mg/dL 65-99 H 2345-7) Lab Interpretation (test code = Abnormal 40774-0) [place] MethodistHemoglobin, [id number] 18:38:25 Test Item Value Reference Range Interpretation Comments Hemoglobin, syringe (test code = 11.8 g/dL 14-18 L 718-7) Lab Interpretation (test code = Abnormal 20923-1) [place] MethodistIonized calcium, awtwfmkt3678-74-59 18:38:25 Test Item Value Reference Range Interpretation Comments Ionized calcium, arterial (test 1.12 mmol/L 1.11-1.32 code = 28387-0) [place] MethodistLactic acid, kkhjlke4012-14-98 18:38:25 Test Item Value Reference Range Interpretation Comments Lactic acid, syringe (test code = 1.8 mmol/L 0.5-2.2 10406-4) [place] MethodistPotassium, kfvjgmu1675-73-40 18:38:25 Test Item Value Reference Range Interpretation Comments Potassium, syringe (test code = 2007) 4.7 3.5- 5.0 mEq/L [place] MethodistSodium level, btcyqce2993-54-75 18:38:25 Test Item Value Reference Range Interpretation Comments Sodium, syringe (test code = 2947-0) 138 135- 148 mEq/L [place] MethodistArterial [id number] 12:50:25Wes Looney MD 07/07/2019 12:51 PMArterial linePerformed by: Wes Looney MDAuthorized by: Michael Caro MD Patient Location: ORStart Time: 07/07/2019 12:50 PMEnd Time: 07/07/2019 12:50 PMStaff: Anesthesiologist: Michael Caro MD Resident/CLAIM APPROVER/AA: Wes Looney MD Performed by: Resident/CLAIM APPROVER/AAPre- procedure: patient identified, IV checked, site and [...] tolerated the procedure well with no immediate complicationsEllis Fischel Cancer Centersunil YqowmcabnQqxeco5522-80-98 12:45:13Wes Looney MD 07/07/2019 12:53 PMAirwayDate/Time: 07/07/2019 12:45 PMPerformed by: Wes Looney MDAuthorized by: Michael Caro MD Location: ORUrgency: ElectiveDifficult Airway: Yes Anesthesiologist: Michael Caro MDResident/CLAIM APPROVER/AA: Wes Looney MDPerformed by:anesthesiologistPreoxygenated with 100% O2: [...] placing the ETT without complications.[place] MethodistType and [id number] 10:20:00 Test Item Value Reference Range Interpretation Comments ABO grouping (test code = 883-9) A Rh type (test code = 99913-4) POS Antibody screen (gel) (test code = NEG 890-4) [place] [facility], eabdmvdqg0993-33-84 11:09:13 Test Item Value Reference Range Interpretation [...] Predicted 83.4 % (test code = 5445) [place] MethodistMRI Brain W Wo [id number] 10:42:26Hm Interface, Radiology Results Incoming - 06/27/2019 [...] of intracranial metastasis or acute intracranial abnormality .HMTW-[id number] MethodistCytology (non-gynecological) [id number] 09:00:17 Test Item Value Reference Range Interpretation Comments Case number (test code = [id number]) Cytology See link below for (non-gynecological) PDF Lab Report report (test code = 1178) Result status (test code This is Final Report = [id number]) for [id number] [place] MethodistECG 12 [id number] 09:59:41 Test Item Value Reference Range Interpretation Comments Ventricular rate (test 66 code = 253) Atrial rate (test code = 66 255) IL interval (test code = 164 266) QRSD [...] Lorenz MD (1008) on 06/21/2019 9:59:40 AM [facility] [id number] 13:07:01 Test Item Value Reference Range Interpretation Comments POC glucose (test code 111 mg/dL 65-99 H Opera tor Name: Carlyle = 29136-6) DennisDevice ID : [id number] able: [facility] Notified RNChartable: No Action Needed Lab Interpretation Abnormal (test code = 41398-0) [place] BushFohjitlliUboqdq7001-04-58 11:41:11CarterAneta MD 06/20/2019 11:42 AMAirwayDate/Time: 06/20/2019 11:29 AMPerformed by: Aneta Ovalles MDAuthorized by: Aneta Ovalles MD Location: ORUrgency: ElectiveAnesthesiologist: Aneta Ovalles MDResident/CLAIM APPROVER/AA: Harpal Espinosa MDPerformed by: anesthesiologistPreoxygenated with 100% [...] Modified RSI: No Number of Attempts at Approach:2[facility] PET/CT Whole Body External Tbmfg4181-95-03 00:24:02This exam was not acquired at a Pentec[facility]ism facility and has not been interpreted by a Pentec[facility]alism Provider. The exam was imported into our imaging system.[facility] Chest External [id number] 00:23:17This exam was not acquired at a Pent[facility]alism facility and has not been interpreted by a Pentecostalism Provider. The exam was imported into our imaging system.[facility]
[2019-11-14 11:30] VITALS: BMI 45.0
[2019-11-14 11:35] VITALS: BP 120/72; TEMP 97.6; O2SAT 92
[2019-11-14 12:04] LABS: MPV 7.8 fL (7.6-11.3)
[2019-11-14 12:23] LABS: Platelet Estimate DECR
== END 2019-11-14 11:52 | disposition home or self-care (01) ==
LOC: DS 08:25
PROVIDERS: ATTEND Internal Medicine Hematology & Oncology
DX: D69.6 Thrombocytopenia, unspecified (principal); C34.90 Malignant neoplasm of unspecified part of unspecified bronchus or lung
CPT/HCPCS: 36415; 86900; 86850; 85049; 86901; 36430; P9035; J7030

== ENCOUNTER 2019-11-14 17:39 | Emergency (ER) | payer BC ==
--- OUTSIDE RECORDS SUMMARY | 2019-11-14 17:46 | XMS REPORT | Clinical Summary ---
:1965 Author Organization [facility] Address [address] [place] [address] Care Team Providers Name Role Phone Mahendra Ferrell MD Primary Care Provider Allergies Active Allergy Reactions Severity Noted Date Comments Fentanyl Itching High 06/20/2019 Other Rash Low 06/17/2019 *[facility] Midazolam Itching High 06/20/2019 Medications [...] by mouth 20 (Melani ent daily. Discharge) [id number] or Infuse 1 each 0 07/04/19 Discontinued placebo infusion, into a venous 20 (Discontinued by TRAILBLAZER/[id number] catheter another 8797/Tamra, once. clinici an) acetaminophen [...] Description 08/19/2019 Telephone Cardiothoracic Madalyn, Aide [place] 08/18/2019 Telephone Cardiothoracic Aide Mustafa NP 08/18/2019 Telephone Cardiothoracic Hubert, Surgery ELICEO Cabrera 08/01/2019 Orders Only General Surgery Colin Lobo MD 08/01/2019 Telephone Cardiothoracic Aide Mustafa INTERNIST MEDICAL DOCTOR MD 07/29/2019 Office Visit Cardiothoracic Colin Lobo, Surgery fo llow-up examination (Primary Dx); Surgery Postoperative p ain; Neuropathic tristan n; Muscle spasm 07/28/2019 Telephone Cardiothoracic Aide Gaspar MA 07/25/2019 Telephone General Surgery Colin Lobo MD 07/22/2019 Telephone Cardiothoracic Aide Mustafa, MARYANN 07/16/2019 Refill Cardiothoracic Colin Lobo Surgery MD 07/14/2019 Telephone General Surgery Colin Lobo MD 07/09/2019 [facility] Internal Colin Lobo Shortnes s of breath - Encounter Medicine (Primary Dx) 07/11/2019 Florin Johnson MD 07/09/2019 Office Visit Cardiothoracic Meisenbach, Dysphagia, un specified type (Primary Dx); Surgery Rosemary Macdonald, INTERNIST MEDICAL DOCTOR MD Hoarseness 07/09/2019 Lab Lab Colin Lobo, Cough; Dysphagia, unsp ecified type 07/09/2019 Hospital Radiology Colin Lobo, Cough; Encounter Dysphagia, unsp ecified type 07/09/2019 Telephone Cardiothoracic Meisenjass, Cough (Primar y Dx); Surgery Rosemary Macdonald, INTERNIST MEDICAL DOCTOR MD Dysphagia, un specified type 07/07/2019 Surgery Cardiothoracic [...] Surgery Rea Rae MA 07/04/2019 Telephone Cardiothoracic oMon, Surgery Rosemary Macdonald NP 06/27/2019 [facility] Pulmonology Colin Lobo, [facility] Encounter neoplasm of bro nchus of [...] ELICEO 06/23/2019 Orders Only Cardiothoracic Madalyn [facility], [place] 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) 06/20/2019 Surgery Cardiothoracic Colin Lobo, FLEXIBLE Surgery BRONCHOSCOPY 06/20/2019 Anesthesia Event Cardiothoracic Aneta Ovalles MD Kessellie, Caroline 06/20/2019 [facility] Cardiothoracic Colin Lobo, Encounter Surgery 06/18/2019 Telephone Cardiothoracic Moon, Surgery Rosemary Macdonald INTERNIST MEDICAL DOCTOR MD 06/17/2019 [facility] Radiology Chen Nieto, Encounter [...] Comments Blood Pressure 148/80 07/29/2019 8:05 AM YARD ASSISTANT Pulse 72 07/29/2019 8:05 AM YARD ASSISTANT Temperature 36.1 C (96.9 F) 07/29/2019 8:05 AM YARD ASSISTANT Respiratory Rate 17 07/29/2019 8:05 AM YARD ASSISTANT Oxygen Saturation 97% 07/29/2019 8:05 AM YARD ASSISTANT Inhaled Oxygen Concentration - - Weight 142 kg (314 lb) 07/29/2019 8:05 AM YARD ASSISTANT Height 180.3 cm (5' 11") 07/29/2019 8:05 AM YARD ASSISTANT Body Mass Index 43.79 07/29/2019 8:05 AM YARD ASSISTANT Plan of Treatment Health Maintenance Due Date Last Done Comments COLONOSCOPY SCREENING 10/22/2015 SHINGLES VACCINES (#1) 10/22/2015 INFLUENZA VACCINE 01/10/2020 06/18/2019 Implants Implanted Type Area Facility Attendant Device Shelf Model / Identifier Expiration Serial / Date Lot Kit Selnt Plrl Air Leak 4ml Strl Progel - [id number] Surgical N/A: N/A [employer] 01/01/2021 [id number] / Implanted: Qty: 1 on 07/07/2019 by Colin Lobo MD at [facility] Implants; / Expanders; Extenders; Surgical Wires Procedures Procedure Name Priority Date/Time Associated Comments Diagnosis XR CHEST 1 VW PORTABLE STAT 07/11/2019 8:50 R esults for this AM YARD ASSISTANT procedure are i n the results section. GRAM STAIN Routine 07/10/2019 9:30 Results for this AM YARD ASSISTANT procedure are i n the results section. SPUTUM CULTURE Routine 07/10/2019 9:30 Results f or this AM YARD ASSISTANT procedure are i n the results section. ESTIMATED GFR Routine 07/10/2019 3:57 Results fo r this AM YARD ASSISTANT procedure are i n the results section. PHOSPHORUS LEVEL Routine 07/10/2019 3:57 Results for this AM YARD ASSISTANT procedure are i n the results section. MAGNESIUM LEVEL Routine 07/10/2019 3:57 Results for this AM YARD ASSISTANT procedure are i n the results section. BASIC METABOLIC PANEL Routine 07/10/2019 3:57 Re sults for this AM YARD ASSISTANT procedure are i n the results section. PARTIAL THROMBOPLASTIN Routine 07/10/2019 3:57 R esults for this TIME (PTT) AM YARD ASSISTANT procedure are i n the results section. PROTHROMBIN TIME WITH Routine 07/10/2019 3:57 Re sults for this INR AM YARD ASSISTANT procedure are i n the results section. HC COMPLETE BLD COUNT Routine 07/10/2019 3:57 Re sults for this W/AUTO DIFF AM YARD ASSISTANT procedure are i n the results section. US DUPLEX VENOUS LOWER STAT 07/09/2019 9:10 R esults for this EXTREMITY BILATERAL PM YARD ASSISTANT procedur e are in the results section. RESPIRATORY PATHOGEN STAT 07/09/2019 8:27 Res ults for this PANEL PM YARD ASSISTANT procedure are i n the results section. CT ANGIOGRAM PE CHEST STAT 07/09/2019 7:35 Re sults for this PM YARD ASSISTANT procedure are i n the results section. ARTERIAL BLOOD GAS STAT 07/09/2019 6:28 Resul ts for this PM YARD ASSISTANT procedure are i n the results section. ESTIMATED GFR STAT 07/09/2019 2:00 Results fo r this PM YARD ASSISTANT procedure are i n the results section. HC COMPLETE BLD COUNT STAT 07/09/2019 2:00 Cough Results for this W/AUTO DIFF PM YARD ASSISTANT Dysphagia, procedure are i n unspecified type the results section. COMPREHENSIVE METABOLIC STAT 07/09/2019 2:00 Cough Results for this PANEL PM YARD ASSISTANT Dysphagia, procedure are i n unspecified type the results section. XR CHEST 2 VW Routine 07/09/2019 1:44 Cough Results for this PM YARD ASSISTANT Dysphagia, procedure are i n unspecified type the results section. XR CHEST 1 VW PORTABLE STAT 07/08/2019 2:35 R esults for this PM YARD ASSISTANT procedure are i n the results section. XR CHEST 1 VW PORTABLE Timed 07/08/2019 10:35 R esults for this AM YARD ASSISTANT procedure are i n the results section. XR CHEST 1 VW PORTABLE Routine 07/08/2019 6:45 R esults for this AM YARD ASSISTANT procedure are i n the results section. ARTERIAL BLOOD GAS Routine 07/08/2019 6:10 Resul ts for this AM YARD ASSISTANT procedure are i n the results section. XR CHEST 1 VW PORTABLE STAT 07/08/2019 4:43 R esults for this AM YARD ASSISTANT procedure are i n the results section. XR CHEST 1 VW PORTABLE STAT 07/07/2019 7:35 R esults for this PM YARD ASSISTANT procedure are i n the results section. GLUCOSE LEVEL, SYRINGE STAT 07/07/2019 6:30 R esults for this PM YARD ASSISTANT procedure are i n the results section. LACTIC ACID, SYRINGE STAT 07/07/2019 6:30 Res ults for this PM YARD ASSISTANT procedure are i n the results section. HEMOGLOBIN, SYRINGE STAT 07/07/2019 6:30 Resu lts for this PM YARD ASSISTANT procedure are i n the results section. IONIZED CALCIUM, STAT 07/07/2019 6:30 Results for this ARTERIAL PM YARD ASSISTANT procedure are i n the results section. SODIUM LEVEL, SYRINGE STAT 07/07/2019 6:30 Re sults for this PM YARD ASSISTANT procedure are i n the results section. POTASSIUM, SYRINGE STAT 07/07/2019 6:30 Resul ts for this PM YARD ASSISTANT procedure are i n the results section. ARTERIAL BLOOD GAS, STAT 07/07/2019 6:30 Resu lts for this CORRECTED PM YARD ASSISTANT procedure are i n the results section. SURGICAL PATHOLOGY Routine 07/07/2019 5:51 Resul ts for this REQUEST PM YARD ASSISTANT procedure are i n the results section. LACTIC ACID, SYRINGE STAT 07/07/2019 5:20 Res ults for this PM YARD ASSISTANT procedure are i n the results section. IONIZED CALCIUM, STAT 07/07/2019 5:20 Results for this ARTERIAL PM YARD ASSISTANT procedure are i n the results section. GLUCOSE LEVEL, SYRINGE STAT 07/07/2019 5:20 R esults for this PM YARD ASSISTANT procedure are i n the results section. SODIUM LEVEL, SYRINGE STAT 07/07/2019 5:20 Re sults for this PM YARD ASSISTANT procedure are i n the results section. HEMOGLOBIN, SYRINGE STAT 07/07/2019 5:20 Resu lts for this PM YARD ASSISTANT procedure are i n the results section. POTASSIUM, SYRINGE STAT 07/07/2019 5:20 Resul ts for this PM YARD ASSISTANT procedure are i n the results section. ARTERIAL BLOOD GAS, STAT 07/07/2019 5:20 Resu lts for this CORRECTED PM YARD ASSISTANT procedure are i n the results section. GLUCOSE LEVEL, SYRINGE STAT 07/07/2019 4:15 R esults for this PM YARD ASSISTANT procedure are i n the results section. IONIZED CALCIUM, STAT 07/07/2019 4:15 Results for this ARTERIAL PM YARD ASSISTANT procedure are i n the results section. SODIUM LEVEL, SYRINGE STAT 07/07/2019 4:15 Re sults for this PM YARD ASSISTANT procedure are i n the results section. POTASSIUM, SYRINGE STAT 07/07/2019 4:15 Resul ts for this PM YARD ASSISTANT procedure are i n the results section. HEMOGLOBIN, SYRINGE STAT 07/07/2019 4:15 Resu lts for this PM YARD ASSISTANT procedure are i n the results section. ARTERIAL BLOOD GAS, STAT 07/07/2019 4:15 Resu lts for this CORRECTED PM YARD ASSISTANT procedure are i n the results section. LACTIC ACID, SYRINGE STAT 07/07/2019 3:17 Res ults for this PM YARD ASSISTANT procedure are i n the results section. GLUCOSE LEVEL, SYRINGE STAT 07/07/2019 3:17 R esults for this PM YARD ASSISTANT procedure are i n the results section. HEMOGLOBIN, SYRINGE STAT 07/07/2019 3:17 Resu lts for this PM YARD ASSISTANT procedure are i n the results section. IONIZED CALCIUM, STAT 07/07/2019 3:17 Results for this ARTERIAL PM YARD ASSISTANT procedure are i n the results section. POTASSIUM, SYRINGE STAT 07/07/2019 3:17 Resul ts for this PM YARD ASSISTANT procedure are i n the results section. SODIUM LEVEL, SYRINGE STAT 07/07/2019 3:17 Re sults for this PM YARD ASSISTANT procedure are i n the results section. ARTERIAL BLOOD GAS, STAT 07/07/2019 3:17 Resu lts for this CORRECTED PM YARD ASSISTANT procedure are i n the results section. LACTIC ACID, SYRINGE STAT 07/07/2019 2:26 Res ults for this PM YARD ASSISTANT procedure are i n the results section. GLUCOSE LEVEL, SYRINGE STAT 07/07/2019 2:26 R esults for this PM YARD ASSISTANT procedure are i n the results section. IONIZED CALCIUM, STAT 07/07/2019 2:26 Results for this ARTERIAL PM YARD ASSISTANT procedure are i n the results section. POTASSIUM, SYRINGE STAT 07/07/2019 2:26 Resul ts for this PM YARD ASSISTANT procedure are i n the results section. HEMOGLOBIN, SYRINGE STAT 07/07/2019 2:26 Resu lts for this PM YARD ASSISTANT procedure are i n the results section. SODIUM LEVEL, SYRINGE STAT 07/07/2019 2:26 Re sults for this PM YARD ASSISTANT procedure are i n the results section. ARTERIAL BLOOD GAS, STAT 07/07/2019 2:26 Resu lts for this CORRECTED PM YARD ASSISTANT procedure are i n the results section. LACTIC ACID, SYRINGE STAT 07/07/2019 1:20 Res ults for this PM YARD ASSISTANT procedure are i n the results section. GLUCOSE LEVEL, SYRINGE STAT 07/07/2019 1:20 R esults for this PM YARD ASSISTANT procedure are i n the results section. IONIZED CALCIUM, STAT 07/07/2019 1:20 Results for this ARTERIAL PM YARD ASSISTANT procedure are i n the results section. POTASSIUM, SYRINGE STAT 07/07/2019 1:20 Resul ts for this PM YARD ASSISTANT procedure are i n the results section. HEMOGLOBIN, SYRINGE STAT 07/07/2019 1:20 Resu lts for this PM YARD ASSISTANT procedure are i n the results section. SODIUM LEVEL, SYRINGE STAT 07/07/2019 1:20 Re sults for this PM YARD ASSISTANT procedure are i n the results section. ARTERIAL BLOOD GAS, STAT 07/07/2019 1:20 Resu lts for this CORRECTED PM YARD ASSISTANT procedure are i n the results section. ARTERIAL LINE Routine 07/07/2019 12:50 Results fo r this PM YARD ASSISTANT procedure are i n the results section. OH AN ELECTIVE Routine 07/07/2019 12:45 Results f or this ENDOTRACHEAL AIRWAY PM YARD ASSISTANT procedur e are in the results section. IONIZED CALCIUM, STAT 07/07/2019 12:26 Results for this ARTERIAL PM YARD ASSISTANT procedure are i n the results section. GLUCOSE LEVEL, SYRINGE STAT 07/07/2019 12:26 R esults for this PM YARD ASSISTANT procedure are i n the results section. HEMOGLOBIN, SYRINGE STAT 07/07/2019 12:26 Resu lts for this PM YARD ASSISTANT procedure are i n the results section. POTASSIUM, SYRINGE STAT 07/07/2019 12:26 Resul ts for this PM YARD ASSISTANT procedure are i n the results section. SODIUM LEVEL, SYRINGE STAT 07/07/2019 12:26 Re sults for this PM YARD ASSISTANT procedure are i n the results section. ARTERIAL BLOOD GAS, STAT 07/07/2019 12:26 Resu lts for this CORRECTED PM YARD ASSISTANT procedure are i n the results section. PREPARE RBC STAT 07/07/2019 8:20 Results for this AM YARD ASSISTANT procedure are i n the results section. TYPE AND SCREEN STAT 07/07/2019 8:20 Results for this AM YARD ASSISTANT procedure are i n the results section. 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 POC GLUCOSE Routine 06/20/2019 1:04 Results for this PM YARD ASSISTANT procedure are i n the results section. OH AN ELECTIVE Routine 06/20/2019 11:41 Results f or this ENDOTRACHEAL AIRWAY AM YARD ASSISTANT procedur e are in the results section. CYTOLOGY Routine 06/20/2019 11:40 Results for this (NON-GYNECOLOGICAL) AM YARD ASSISTANT procedur e are in REQUEST the results section. CYTOLOGY Routine 06/20/2019 11:40 Results for this (NON-GYNECOLOGICAL) AM YARD ASSISTANT procedur e are in REQUEST the results section. ECG 12-LEAD STAT 06/20/2019 8:33 Results for this AM YARD ASSISTANT procedure are i n the results section. ESTIMATED GFR STAT 06/20/2019 8:15 Results fo r this AM YARD ASSISTANT procedure are i n the results section. PARTIAL THROMBOPLASTIN STAT 06/20/2019 8:15 R esults for this TIME (PTT) AM YARD ASSISTANT procedure are i n the results section. PROTHROMBIN TIME WITH STAT 06/20/2019 8:15 Re sults for this INR AM YARD ASSISTANT procedure are i n the results section. BASIC METABOLIC PANEL STAT 06/20/2019 8:15 Re sults for this AM YARD ASSISTANT procedure are i n the results section. HC COMPLETE BLD COUNT STAT 06/20/2019 8:15 Re sults for this W/AUTO DIFF AM YARD ASSISTANT procedure are i n the results section. PET CT WHOLE BODY Routine 05/15/2019 10:19 Result s for this EXTERNAL STUDY AM YARD ASSISTANT procedure are in the results section. PET CT SKULL BASE TO Routine 05/15/[address] CHEST EXTERNAL STUDY Routine 05/02/2019 7:55 Results for this AM YARD ASSISTANT procedure are i n the results section. after 11/13/2018 Results XR Chest 1 Vw Portable (07/11/2019 8:50 AM YARD ASSISTANT)Only the most recent of6 results within the time period is included. Specimen Narrative Performed At EXAMINATION: XR CHEST 1 VW PORTABLE [facility] CLINICAL HISTORY: shortness of breath IMPRESSION: Single frontal view compared to 07/09/2019 demonstrates postoperative scarring and atelectasis and volume loss in the left l lara to be stable. There is no new infiltrate. There is no pneumothorax. [facility]-[id number] Procedure Note Hm Interface, Radiology Results Incoming - 07/11/2019 10:45 AM YARD ASSISTANT EXAMINATION: XR CHEST 1 VW PORTABLE CLINICAL HISTORY: shortness of breath IMPRESSION: Single frontal view compared to 0 demonstrates postoperative scarring and atelectasis and volume loss in the left lung to be stable. There is no new infiltrate. There is no pneumothorax. [facility]-[id number] Performing Organization Address City/[facility]/Zipcode Phone Number [facility] [address] [place] [address] Sputum culture (07/10/2019 9:30 AM YARD ASSISTANT) Sputum culture Normal oral jose juan isolated. [facility] isolate Comment: HOSPITAL Specimen Information Specimen Source: Sputum Specimen Site: Expectorated Specimen Sputum - Expectorated Performing Organization Address City/[facility]/Zipcode Phone Number [facility] DEPARTMENT OF PATHOLOGY AND [address] [place], [place] [address] GENOMIC MEDICINE [address] [address] Gram stain (07/10/2019 9:30 AM YARD ASSISTANT) Gram stain isolate Few WBC's [facility] Few Gram negative rods HOSPITAL Moderate Gram positive cocci in pairs Comment: Specimen Information Specimen Source: Sputum Specimen Site: Expectorated Specimen Sputum - Expectorated Performing Organization Address City/[facility] Phone Number [facility] DEPARTMENT OF PATHOLOGY AND [address] [place] [address] [phone] [address] Estimated GFR (07/10/2019 3:57 AM YARD ASSISTANT)Only the most recent of3 resultswithin the time period is included. [facility] Estimated GFR >=90 mL/min/1.73 [facility] Comment: [address] Catergory Units Interpretation G1 >=90 Normal [...] 2014. Specimen Plasma specimen Performing Organization Address [facility] Cent[facility] Phone Number [facility] DEPARTMENT OF PATHOLOGY AND [address] [place] [phone] Partial thromboplastin time, activated (07/10/2019 3:57 AM YARD ASSISTANT)Only the most recent of2 resultswithin the time period is included. [facility] PTT 29.8 23.0 - 36.0 [facility] Comment: [facility] PTT therapeutic range for unfractionated heparin is 61.0-112.0 seconds which corresponds to Anti-Xa 0.3-0.7 U/ml. Specimen Blood Performing Organization Address [facility] Cent[facility]ode Phone Number [facility] DEPARTMENT OF PATHOLOGY AND [address] [place] [phone] [place] [address] Prothrombin time with INR (07/10/2019 3:57 AM YARD ASSISTANT)Only the most recent of2 resultswithin the time period is included. [facility] Prothrombin time 14.5 11.5 - 14.5 [facility] INR 1.1 [place] Comment: [facility] The International Normalized Ratio (INR) is a [facility] monitoring tool for patients who are stable on oral anticoagulant therapy. An INR of 2.0-3.0 is suggested for deep vein thrombosis/pulmonary embolism. Specimen Blood Performing Organization Address City/State/Zipcode Phone Number [facility] DEPARTMENT OF PATHOLOGY AND [address] [place], [place] [address] [address] CBC with platelet and differential (07/10/2019 3:57 AM YARD ASSISTANT)Only the most recent of3 resultswithin the time period is included. WBC 7.89 4.50 - 11.00 [facility] k/uL HOSPITAL RBC 3.72 (L) 4.40 - 6.00 [facility] m/uL [facility] HGB 10.8 (L) 14.0 - 18.0 [facility] g/dL [facility] HCT 34.3 (L) 41.0 - 51.0 % [facility] MCV 92.2 82.0 - 100.0 [facility] MCH 29.0 27.0 - 34.0 pg [facility] MCHC 31.5 31.0 - 37.0 [facility] RDW - SD 44.3 37.0 - 55.0 fL [facility] MPV 9.5 8.8 - 13.2 [facility] Platelet count 149 (L) 150 - 400 k/uL [facility] Nucleated RBC 0.00 /100 WBC [facility] Neutrophils 81.2 (H) 39.0 - 69.0 % [facility] Lymphocytes 7.7 (L) 25.0 - 45.0 % [facility] Monocytes 7.5 0.0 - 10.0 % [facility] Eosinophils 2.5 0.0 - 5.0 % [facility] Basophils 0.3 0.0 - 1.0 % [facility] Immature granulocytes 0.8Comment: 0.0 - 1.0 % [facility] "Immature HOSPITAL granulocytes" (promyelocytes , myelocytes, metamyelocytes ) Specimen Blood Performing Organization Address City/State/Zipcode Phone Number [facility] DEPARTMENT OF PATHOLOGY AND [address] [place], [place] [address] [address] Phosphorus level (07/10/2019 3:57 AM YARD ASSISTANT) Pathologist Sig nature Phosphorus 2.9 2.4 - 4.5 mg/dL [facility] L Specimen Plasma specimen Performing Organization Address [facility] Phone Number [facility] DEPARTMENT OF PATHOLOGY AND [address] [place] [address] Magnesium level (07/10/2019 3:57 AM YARD ASSISTANT) Pathologist [facility] Magnesium 2.1 1.6 - 2.6 mg/dL [facility] Specimen Plasma specimen Performing Organization Address [facility] Phone Number [facility] DEPARTMENT OF PATHOLOGY AND [address] [place] [address] Basic metabolic panel (07/10/2019 3:57 AM YARD ASSISTANT)Only the most recent of2 results within the time period is included. Pathologist Sig nature Sodium 137 135 - 148 mEq/L [facility] Potassium 3.9 3.5 - 5.0 mEq/L [facility] Chloride 101 98 - 112 mEq/L [facility] CO2 25 24 - 31 mEq/L [facility] Anion gap 11@ANIO 7 - 15 mEq/L [facility] BUN 10 6 - 20 mg/dL [facility] Creatinine 0.73 0.70 - 1.20 mg/dL [facility] Glucose 125 (H) 65 - 99 mg/dL [facility] Calcium 8.8 8.3 - 10.2 mg/dL [facility] Specimen Plasma specimen Performing Organization Address [facility] Phone Number [facility] DEPARTMENT OF PATHOLOGY AND [address] [place] [address] Us duplex venous lower extremity (07/09/2019 9:10 PM YARD ASSISTANT) Specimen Narrative Performed At [facility] Lower Extr emity Venous Report [address] [place] [address] Pat.Name: JAE CONNOLLY Pat.ID: [id number]Date: 07/09/2019 Refer.MD: COLIN LOBO MD Exam Time: 8:23:00 PM Study Type:L E Venous Age: 5 1965,53Y Sex: MALE Sonogrphr: Raphael Rocha, RVS, RCS Pat. Stat.:Inpati ent Room: [facility] [id number] 2018A Tape Vol: JM, [facility] - 4: [id number] Echo Yvrose nt ID:[id number] Order ID: [id number] Reason for Study:Leg swelling or pain, D [...] Radiology Results In - 2019 10:43 PM YARD ASSISTANT [facility] Lower Extremity Veno us Report [address] [address] , [place] [address] Pat.Name: JAE CONNOLLY Pat.I D: [id number] St.Date: 07/09/2019 Refer .MD: COLIN LOBO MD Exam Time: 8:23:00 PM Study Type:LE Venous Age: 5 1965,53Y Sex: MALE Sonogrphr: Raphael Rocha, JOSE, RCS Pat. Stat.:Inpatient Room: [place] [address] 2018A Tape Vol: JM, CPT - 4: [id number] Echo Event ID:[id number] Order ID: [id number] Reason for Study:Leg swelling or pain, D [...] Blood MD, FACS, RPVI Performing Organization Address [facility]/Zipcode Phone Number [facility] [address] [place] [address] Respiratory pathogen panel (07/09/2019 8:27 PM YARD ASSISTANT) [facility] Respiratory Negative for all pathogens tested: [facility] pathogen panel Negative for Adenovirus TAOIST Negative for Coronavirus HKU1 [facility] Negative for Coronavirus NL63 Negative for Coronavirus [...] Specimen Nares - Left Performing Organization Address [facility] Cent[facility]ode Phone Number [facility] DEPARTMENT OF PATHOLOGY AND [address] [place], [place] [address] GENOMIC MEDICINE [address] [address] [address] Angiogram Pe Chest (07/09/2019 7:35 PM YARD ASSISTANT) Specimen Narrative Performed At EXAMINATION: CT ANGIOGRAM [...] iation dose. COMPARISON: 05/02/[address] [facility] CT. IMPRESSION: CHEST: 1. Pulmonary Arteries: [...] Trace left apical and ant erior pneumothorax. [facility]-[id number] Procedure Note [facility], Radiology Results Incoming - 07/09/2019 7:55 PM YARD ASSISTANT EXAMINATION: CT ANGIOGRAM PE CHEST CLINICAL HISTORY: [...] reduce radiation dose. COMPARISON: 05/02/2019 external study [facility] CT. IMPRESSION: CHEST: 1. Pulmonary Arteries: [...] pneumomediastinum. Trace left apical and anterior pneumothorax. [facility]-[id number] Performing Organization Address City/State/Zipcode Phone Number [facility] [address] [place] [address] Arterial blood gas (07/09/2019 6:28 PM YARD ASSISTANT)Only the most recent of2 results within the time period is included. Pathologist Sig nature pH, arterial 7.42 7.35 - 7.45 [facility] pCO2, arterial 41 35 - 45 mmHg [facility] pO2, arterial 85 80 - 90 mmHg [facility] Bicarbonate, arterial 26.3 21.0 - 28.0 [facility] mmol/L [facility] Base excess, arterial 2 -2 - 2 mEq/L [facility] O2 saturation, 97 95 - 100 % [facility] Specimen Blood Performing Organization Address City/State/Zipcode Phone Number [facility] DEPARTMENT OF PATHOLOGY AND [address] [place] [address] [phone] [address] Comprehensive metabolic panel (07/09/2019 2:00 PM YARD ASSISTANT) Sodium 139 135 - 148 [facility] mEq/L [facility] Potassium 4.4 3.5 - 5.0 [facility] mEq/L [facility] Chloride 101 98 - 112 mEq/L [facility] CO2 29 24 - 31 mEq/L [facility] Anion gap 9@ANIO 7 - 15 mEq/L [facility] BUN 11 6 - 20 mg/dL [facility] Creatinine 0.84 0.70 - 1.20 [facility] mg/dL [facility] Glucose 129 (H) 65 - 99 mg/dL [facility] Calcium 9.2 8.3 - 10.2 [facility] mg/dL [facility] Protein 7.0 6.3 - 8.3 g/dL [facility] Comment: HOSPITAL Kofjrml7514.6-7.0 g/dL 1 warz3019.4-7.6 g/dL 7 months-1xlff333.1-7.3 g/dL 1-2 qugxs889.6-7.5 g/dL >3 hazln855.0-8.0 g/dL 18-9693304.3-8.3 g/dL Albumin 3.1 (L) 3.5 - 5.0 g/dL [facility] A/G ratio 0.8 0.7 - 3.8 [facility] Alkaline phosphatase 56 40 - 129 U/L [facility] AST 124 (H) 10 - 50 U/L [facility] ALT 51 (H) 5 - 50 U/L [facility] Total bilirubin 0.4 0.0 - 1.2 [facility] mg/dL [facility] Specimen Plasma specimen Performing Organization Address City/State/Zipcode Phone Number [facility] DEPARTMENT OF PATHOLOGY AND [address] [place] [address] [facility] [address] [place] [phone] XR Chest 2 Vw (07/09/2019 1:44 PM YARD ASSISTANT) Specimen Narrative Performed At EXAMINATION: XR CHEST [...] Mild degenerati ve changes of thoracic spine. [facility]-[id number] Procedure Note Interface, Radiology Results Incoming - 07/09/2019 1:59 PM YARD ASSISTANT EXAMINATION: XR CHEST 2 VW CLINICAL HISTORY: [...] Mi ld degenerative changes of thoracic spine. [facility]-[id number] Performing Organization Address City/[facility]/Zipcode Phone Number [facility] [address] [place] [phone] Sodium level, syringe (07/07/2019 6:30 PM YARD ASSISTANT)Only the most recent of7 results within the time period is included. Pathologist Sig nature Sodium, syringe 138 135 - 148 mEq/L [facility] Specimen Blood Performing Organization Address City/[facility]/Zipcode Phone Number [facility] DEPARTMENT OF PATHOLOGY AND [address] [place] [address] [phone] [address] Potassium, syringe (07/07/2019 6:30 PM YARD ASSISTANT)Only the most recent of7 results within the time period is included. Pathologist Sig nature Potassium, syringe 4.7 3.5 - 5.0 mEq/L [facility] Specimen Blood Performing Organization Address City/[facility]/Zipcode Phone Number [facility] DEPARTMENT OF PATHOLOGY AND [address] [place] [address] [phone] [address] Lactic acid, syringe (07/07/2019 6:30 PM YARD ASSISTANT)Only the most recent of5 results within the time period is included. Pathologist Sig nature Lactic acid, syringe 1.8 0.5 - 2.2 mmol/L [facility] Specimen Blood Performing Organization Address City/[facility] Cent[facility]ode Phone Number [facility] DEPARTMENT OF PATHOLOGY AND [address] [place] [phone] Ionized calcium, arterial (07/07/2019 6:30 PM YARD ASSISTANT)Only the most recent of7 resultswithin the time period is included. Pathologist Sig nature Ionized calcium, 1.12 1.11 - 1.32 [facility] arterial mmol/L [facility] Specimen Blood Performing Organization Address [facility] Centercoor Phone Number [facility] DEPARTMENT OF PATHOLOGY AND [address] [place] [phone] Hemoglobin, syringe (07/07/2019 6:30 PM YARD ASSISTANT)Only the most recent of7 results within the time period is included. Pathologist Sig nature Hemoglobin, syringe 11.8 (L) 14.0 - 18.0 g/dL [facility] Specimen Blood Performing Organization Address [facility] Phone Number [facility] DEPARTMENT OF PATHOLOGY AND [address] [place] [phone] Glucose level, syringe (07/07/2019 6:30 PM YARD ASSISTANT)Only the most recent of7 results within the time period is included. Pathologist Sig nature Glucose, syringe 188 (H) 65 - 99 mg/dL [facility] Specimen Blood Performing Organization Address City/[facility] Cent[facility]ode Phone Number [facility] DEPARTMENT OF PATHOLOGY AND [address] [place] [phone] Arterial blood gas, corrected (07/07/2019 6:30 PM YARD ASSISTANT)Only the most recent of7 resultswithin the time period is included. pH, arterial 7.28 (L) 7.35 - 7.45 [facility] pCO2, arterial 61 (HH) 35 - 45 mmHg [facility] Comment: HOSPITAL ABG results called to and read back by IN WTOR #6 BY AM 2AT 07/07/2019 18:38 pO2, arterial 340 (H) 80 - 90 mmHg [facility] Temperature, 37.[address] [facility] O2 saturation, 99 95 - 100 % [facility] pH, arterial 7.28 [facility] pCO2, arterial 61 mmHg [facility] pO2, arterial 340 mmHg [facility] Base excess, 0 -2 - 2 mEq/L [facility] Specimen Blood Performing Organization Address City/State/Zipcode Phone Number [facility] DEPARTMENT OF PATHOLOGY AND [address] [place], [place] [address] GENOMIC MEDICINE [address] [address] Surgical pathology request (07/07/2019 5:51 PM YARD ASSISTANT) [facility] DEPARTMENT OF PATHOLOGY AND GENOMIC MEDICINE Surgical pathology See link below [facility] DEPARTMENT OF report for PDF Lab PATHOLOGY AND Report GENOMIC MEDICINE Result status This is Final [facility] DEPARTMENT OF Report for PATHOLOGY AND [id number] GENOMIC MEDICINE Specimen Performing Organization Address City/State/Zipcode Phone Number [facility] DEPARTMENT OF PATHOLOGY AND [address] [place], [place] [address] GENOMIC MEDICINE Arterial line (07/07/2019 12:50 PM YARD ASSISTANT) Narrative Performed At Wes Looney MD 07/07/2019 12:51 PM Arterial line Performed by: Wes Looney MD Authorized by: Michael Caro MD Patient Location: OR Start Time: 07/07/2019 12:50 PM End Time: 07/07/2019 12:50 PM Staff: Anesthesiologist: Michael Caro MD Resident/PATTERN CHAIN MAKER SUPERVISOR/AA: Wes Looney MD Performed by: Resident/PATTERN CHAIN MAKER SUPERVISOR/AA Pre-procedure: patient identified, IV ch ecked, site [...] no immediate complications Airway (07/07/2019 12:45 PM YARD ASSISTANT) Narrative Performed At Wes Looney MD 07/07/2019 12:53 PM Airway Date/Time: 07/07/2019 12:45 PM Performed by: Wes Looney MD Authorized by: Michael Caro MD Location: OR Urgency: Elective Difficult Airway: Yes Anesthesiologist: Michael Caro MD Resident/PATTERN CHAIN MAKER SUPERVISOR/AA: Wes Looney MD Performed by: anesthesiologist Preoxygenated [...] without complications. Prepare RBC (07/07/2019 8:20 AM YARD ASSISTANT) Product name Red Blood Cells [facility], Leukored [facility] Unit number [id number] [facility] Product code [id number] [facility] Dispense status Returned to BB not [facility] Blood expiration date [facility] Blood type code 6200 [facility] Blood type A POSITIVE [facility] Compatibility Compatible [facility] Product name Red Blood Cells [place] -1, Leukored [facility] Unit number [id number] [facility] Product code [id number] [facility] Dispense status Returned to BB not [facility] Blood expiration date [facility] Blood type [facility] 6200 [facility] Blood type A POSITIVE [facility] Compatibility Compatible [facility] Specimen Performing Organization Address City/State/Zipcode Phone Number [facility] DEPARTMENT OF PATHOLOGY AND [address] [place] [phone] [facility] MEDICINE [address] [address] Type and screen (07/07/2019 8:20 AM YARD ASSISTANT) Pathologist Sig nature ABO grouping A [facility] Rh type POS [facility] Antibody screen (gel) NEG [facility] Specimen Blood Performing Organization Address City/[facility]/Zipcode Phone Number [facility] DEPARTMENT OF PATHOLOGY AND [address] [place] [address] [phone] [address] Spirometry, diffusion (06/27/2019 11:09 AM YARD ASSISTANT) Pathologist Sig nature FEV1 Pre 2.66 3.05 [...] Organization Address City/State/Zipcode Phone Number [facility] [address] [place] [address] MRI Brain W Wo Contrast (06/27/2019 10:36 AM YARD ASSISTANT) Specimen Narrative Performed At This result has [...] intracranial metastasis or acute int racranial abnormality. [id number] Procedure Note Interface, Radiology Results Incoming - 06/27/2019 10:45 AM YARD ASSISTANT EXAMINATION: MRI BRAIN W WO CONTRAST CLINICAL [...] intracranial metastasi s or acute intracranial abnormality. [id number] Performing Organization Address [facility]ercoor Phone Number [facility] [address] [place] [phone] POC glucose (06/20/2019 1:04 PM YARD ASSISTANT) Pathologist [facility] POC glucose 111 (H) 65 - 99 mg/dL [facility] Comment: HOSPITAL [employer] Name: Carlyle Abad Device ID: [id number] Chartable: [facility] Notified RN Chartable: No Action Needed Specimen Performing Organization Address City/[facility] Centercoor Phone Number [facility] DEPARTMENT OF PATHOLOGY AND [address] [place] [phone] GENOMIC MEDICINE [address] [address] Airway (06/20/2019 11:41 AM YARD ASSISTANT) Narrative Performed At Aneta Ovalles MD 06/20/19 11:42 AM Airway Date/Time: 06/20/2019 11:29 AM Performed by: Aneta Ovalles MD Authorized by: Aneta Ovalles M D Location: OR Urgency: Elective Anesthesiologist: Aneta Ovalles MD Resident/PATTERN CHAIN MAKER SUPERVISOR/AA: Harpal Espinosa MD Performed by: anesthesiologist Preoxygenated [...] 2 Cytology (non-gynecological) request (06/20/2019 11:40 AM YARD ASSISTANT)Only the most recent of2 resultswithin the time period is included. [facility] DEPARTMENT OF PATHOLOGY AND GENOMIC MEDICINE Cytology See link below [facility] DEPARTMENT OF (non-gynecological) for PDF Lab PATHOLOGY AND report Report GENOMIC MEDICINE Result status This is Final [facility] DEPARTMENT OF Report for PATHOLOGY AND [id number] GENOMIC MEDICINE Specimen Performing Organization Address City/[facility] Centercode Phone Number [facility] DEPARTMENT OF PATHOLOGY AND [address] [place], [place] [address] GENOMIC MEDICINE ECG 12 lead (06/20/2019 8:33 AM YARD ASSISTANT) Pathologist Sig nature Ventricular rate 66 [facility] Atrial rate 66 [facility] OH interval 164 [facility] QRSD interval 82 [facility] QT interval 402 [facility] QTC interval 421 [facility] P axis 1 60 [facility] QRS axis 1 58 [facility] T wave axis 55 [facility] EKG impression Normal sinus [facility] MUSE rhythm-Anterior infarct , age undetermined-Abnormal ECG-No previous ECGs available-Electronicall y Signed By Gerda SHEFFIELD, Willi Covington ([id number]) on 06/21/2019 9:59:40 AM Specimen Narrative Performed At This result has an attachment that is no t available. Performing Organization Address City/State/Zipcode Phone Number [facility] MUSE [address] [place] [address] PET/CT Whole Body External Study (05/15/2019 10:19 AM YARD ASSISTANT) Specimen Narrative Performed At This exam was not acquired at a Methodis t facility and has not been [facility] interpreted by a Congregation Provider. T he exam was imported into our imaging system. Performing Organization Address City/[facility]/Zipcode Phone Number [facility] [address] [place] [address] PET/CT Skull Base To Mid Thigh (05/15/2019) Narrative Performed At This result has an attachment that is no t available. CT Chest External Study (05/02/2019 7:55 AM YARD ASSISTANT) Specimen Narrative Performed At This exam was not acquired at a Methodis t facility and has not been [facility] interpreted by a Congregation Provider. T he exam was imported into our imaging system. Performing Organization Address City/State/Zipcode Phone Number [facility] [address] [place] [address] after 11/13/2018 Advance Directives For more information, please contact: [phone] Type Date Recorded Patient Maintenance Service Technician Explanati on Advance Directives, Living 06/20/2019 7:40 AM Will and Medical Power of Straightedge Machine Operator Helper Advance Directives, Living 06/25/2019 1:10 PM PO A 06/20/2019 Will and Medical Power of Straightedge Machine Operator Helper Advance Directives, Living 06/25/2019 1:11 PM AD 06/20/2019 Will and Medical Power of Straightedge Machine Operator Helper
--- OUTSIDE RECORDS SUMMARY | 2019-11-14 17:49 | XMS REPORT | Continuity of Care Document ---
:1965 Author Organization [facility] t Address [address] [place] [address] Dr. Seymour [address] [place] [id number] Care Team Providers Name Role Phone Mahendra [...] asim BCBSBCBS xxxxxxxxxxxx 2018 [place] CHOICE 00:00:00 Mandaen PPO/FEDERAL EMPL PPOxxxxxxxxxxx 2018-Pres entPPO Problems Condition [...] s to drug Other Propensi Active Rash *Florence [place] on ty to 07 Anestheti Methodi adverse 00:00: cs st reaction 00 s Family History Family Member Diagnosis Comments Start Date Stop Date Source Natural mother Diabetes [facility] thodist [facility] Social History Social Habit Start Date Stop Date Quantity Comments Source History of tobacco Current smoker [place]anda[place] use History [facility] Meth odist Alcohol Std Drinks History [facility] Meth odist Alcohol Binge Sex Assigned At [facility] ethodist Cigarettes smoked 2019-07-29 2019-07-29 [place] Mandaen current (pack per 00:00:00 00:00:00 day) - Reported Cigarette 2019-07-29 2019-07-29 [place] Method ist pack-years 00:00:00 00:00:00 Alcohol intake 2019-07-29 2019-07-[address] [facility] thodist 00:00:00 00:00:00 non-drinker (finding) History SDOH 2019-06-17 2019-06-17 1 [place] Meth odist Alcohol Frequency 00:00:00 00:00:00 Smoking Status Start Date Stop Date Source Former smoker 2019-07-29 00:00:00 2019-07-29 00:00:00 [place] Mandaen Medications Ordered Filled Start Stop Current Ordering Indication Dosage Frequency Signature Comments Components Source Medication Medication Date Date Medication? Clinician (SIG) Name Name HYDROcodone 2020- No acute pain 1{tbl} Q6H Take 1 [place] -acetaminop 2-08-10 tablet by Me nicolasa arango [...] muscle spasms. gabapentin 2019- No Postoperati 600mg Q.[id number] Take 2 [place] (NEURONTIN) 07-29 03-19 ve pain [id number] capsules Methodi 300 mg 00:00: 23:59 3D [...] days .acute pain. gabapentin 2019- No 300mg Q.[id number] Take 1 [place] (NEURONTIN) 07-08 [id number] capsule Methodi 300 mg 00:00: 00:00 3D [...] a day with meals for 3 days. [id number] 2019- No 1{each} Infuse 1 [place] 13 or 07-04 each into Methodi placebo 09:28: 00:[address] infusion, 26 :00 catheter GRACE once. /[id number] 7/Tamra, Vital Signs Vital Name Observation Time Observation Value Comments Source Systolic blood 2019-07-29 08:05:00 148 mm[Hg] [place]andaen pressure Diastolic blood 2019-07-29 08:05:00 80 mm[Hg] [place] Mandaen pressure Heart rate 2019-07-29 08:05:00 72 /min [place] Javed Body temperature 2019-07-29 08:05:00 36.06 [place] Mandaen Respiratory rate 2019-07-29 08:05:00 17 /min [place] Body height 2019-07-29 08:05:00 180.3 cm [place] Javed Body weight 2019-07-29 08:05:00 142.429 kg [place] Javed BMI 2019-07-29 08:05:00 43.79 kg/m2 [place] Javed Oxygen saturation in 2019-07-29 08:05:00 97 /min [place] Javed Arterial blood by Pulse oximetry Procedures Procedure Date / Time Performing Clinician Source Performed XR CHEST 1 VW PORTABLE 2019-07-11 08:50:00 Ron Neal Mandaen Favio SPUTUM CULTURE 2019-07-10 09:30:00 DavidAneta amos Meth odist GRAM STAIN 2019-07-10 09:30:00 Aneta Hernandez Meth odist HC COMPLETE BLD COUNT 2019-07-10 03:57:00 Ron Neal on Mandaen W/AUTO DIFF [place] PROTHROMBIN TIME WITH INR 2019-07-10 03:57:00 Ron Nealston Mandaen Ayman PARTIAL THROMBOPLASTIN 2019-07-10 03:57:00 Ron Neal Mandaen TIME (PTT) [place] BASIC METABOLIC PANEL 2019-07-10 03:57:00 Ron Neal on Mandaen Ayman MAGNESIUM LEVEL 2019-07-10 03:57:00 Ron Neal Met hodist [place] PHOSPHORUS LEVEL 2019-07-10 03:57:00 Ron Neal Me thodist Ayman ESTIMATED GFR 2019-07-10 03:57:00 Colin Lobo Meth odist US DUPLEX VENOUS LOWER 2019-07-09 21:10:00 Ron Neal Mandaen EXTREMITY BILATERAL Ayman RESPIRATORY PATHOGEN PANEL 2019-07-09 20:27:00 Uri Pope on [place] Manda[place] CT ANGIOGRAM PE CHEST 2019-07-09 19:35:29 Rno Neal on Mandaen [place] ARTERIAL BLOOD GAS 2019-07-09 18:28:00 Ron Neal Mandaen Ayman COMPREHENSIVE METABOLIC 2019-07-09 14:00:00 Colin Lobo Mandaen PANEL HC COMPLETE BLD COUNT 2019-07-09 14:00:00 Colin Lobo n Mandaen W/AUTO DIFF ESTIMATED GFR 2019-07-09 14:00:00 Colin Lobo Meth odist XR CHEST 2 VW 2019-07-09 13:44:16 Colin Lobo Meth odist XR CHEST 1 VW PORTABLE 2019-07-08 14:35:00 Aneta Hernandez on Mandaen XR CHEST 1 VW PORTABLE 2019-07-08 10:35:00 Aneta Hernandez on Mandaen XR CHEST 1 VW PORTABLE 2019-07-08 06:45:00 ChonKanchan Ellis Mandaen Jono ARTERIAL BLOOD GAS 2019-07-08 06:10:00 Colin Lobo Nasim [place] Kendall ethodist XR CHEST 1 VW PORTABLE 2019-07-08 04:43:34 Berta Rojas Kanchan mcfarlane Mandaen Elane XR CHEST 1 VW PORTABLE 2019-07-07 19:35:49 Kanchan Butcher Mandaen Jono ARTERIAL BLOOD GAS, 2019-07-07 18:30:00 Lashell, Colin Nasim Bushist CORRECTED POTASSIUM, SYRINGE 2019-07-07 18:30:00 Lashell, Colin Nasim Argueta ethodist SODIUM LEVEL, SYRINGE 2019-07-07 18:30:00 Lashell, Colin Nasim mcmanus Mandaen IONIZED CALCIUM, ARTERIAL 2019-07-07 18:30:00 Lashell, Colin Nasim castillo Mandaen HEMOGLOBIN, SYRINGE 2019-07-07 18:30:00 Lashell, Colin Nasim [place] Mandaen LACTIC ACID, SYRINGE 2019-07-07 18:30:00 Lashell, Colin Nasim [place] Mandaen GLUCOSE LEVEL, SYRINGE 2019-07-07 18:30:00 Lashell, Colin Nasim [place] on Mandaen SURGICAL PATHOLOGY REQUEST 2019-07-07 17:51:00 Lashell, Colin Nasim soria Mandaen ARTERIAL BLOOD GAS, 2019-07-07 17:20:00 Colin Lobo Nasim Bushist CORRECTED POTASSIUM, SYRINGE 2019-07-07 17:20:00 Lashell, Colin Nasim Argueta ethodist HEMOGLOBIN, SYRINGE 2019-07-07 17:20:00 Lashell, Colin Nasim [place] Mandaen SODIUM LEVEL, SYRINGE 2019-07-07 17:20:00 Lashell, Colin Nasim mcmanus Mandaen GLUCOSE LEVEL, SYRINGE 2019-07-07 17:20:00 Colin Lobo on Mandaen IONIZED CALCIUM, ARTERIAL 2019-07-07 17:20:00 Lashell, Colin Nasim castillo Mandaen LACTIC ACID, SYRINGE 2019-07-07 17:20:00 Lashell, Colin [place] Mandaen ARTERIAL BLOOD GAS, 2019-07-07 16:15:00 Lashell, Colin Bushist CORRECTED HEMOGLOBIN, SYRINGE 2019-07-07 16:15:00 Lashell, Colin [place] Mandaen POTASSIUM, SYRINGE 2019-07-07 16:15:00 Lashell, Colin Argueta ethodist SODIUM LEVEL, SYRINGE 2019-07-07 16:15:00 Lashell, Colin Nasim mcmanus Mandaen IONIZED CALCIUM, ARTERIAL 2019-07-07 16:15:00 Lashell, Colin Rouse Omid castillo Mandaen GLUCOSE LEVEL, SYRINGE 2019-07-07 16:15:00 Lashell, Colin Nasim [place] Mandaen ARTERIAL BLOOD GAS, 2019-07-07 15:17:00 Lashell, Colin [place] Mandaen CORRECTED SODIUM LEVEL, SYRINGE 2019-07-07 15:17:00 Lashell, Colin Rouse Aaron mcmanus Mandaen POTASSIUM, SYRINGE 2019-07-07 15:17:00 Lashell, Colin Argueta ethodist IONIZED CALCIUM, ARTERIAL 2019-07-07 15:17:00 Lashell, Colin Rouse Omid castillo Mandaen HEMOGLOBIN, SYRINGE 2019-07-07 15:17:00 Lashell, Colin [place] Mandaen GLUCOSE LEVEL, SYRINGE 2019-07-07 15:17:00 Lashell, Colin Nasim [place] Mandaen LACTIC ACID, SYRINGE 2019-07-07 15:17:00 Lashell, Colin [place] Mandaen ARTERIAL BLOOD GAS, 2019-07-07 14:26:00 Lashell, Colin [place] Mandaen CORRECTED SODIUM LEVEL, SYRINGE 2019-07-07 14:26:00 Lashell, Colin Nasim mcmanus Mandaen HEMOGLOBIN, SYRINGE 2019-07-07 14:26:00 Lashell, Colin [place] Mandaen POTASSIUM, SYRINGE 2019-07-07 14:26:00 Lashell, Colin Argueta ethodist IONIZED CALCIUM, ARTERIAL 2019-07-07 14:26:00 Lashell, Colin Rouse Omid castillo Mandaen GLUCOSE LEVEL, SYRINGE 2019-07-07 14:26:00 Lashell, Colin Nasim [place] Mandaen LACTIC ACID, SYRINGE 2019-07-07 14:26:00 Lashell, Colin [place] Mandaen ARTERIAL BLOOD GAS, 2019-07-07 13:20:00 Lashell, Colin Rouse [place] Mandaen CORRECTED SODIUM LEVEL, SYRINGE 2019-07-07 13:20:00 Lashell, Colin Nasim mcmanus Mandaen HEMOGLOBIN, SYRINGE 2019-07-07 13:20:00 Lashell, Colin [place] Mandaen POTASSIUM, SYRINGE 2019-07-07 13:20:00 Lashell, Colin Nasim [place] Argueta ethodist IONIZED CALCIUM, ARTERIAL 2019-07-07 13:20:00 Lashell, Colin Javed GLUCOSE LEVEL, SYRINGE 2019-07-07 13:20:00 Colin Lobo on Mandaen LACTIC ACID, SYRINGE 2019-07-07 13:20:00 Lashell Colin Javed ARTERIAL LINE 2019-07-07 12:50:25 Wes Looney Meth odist MO AN ELECTIVE 2019-07-07 12:45:13 Wes Looney Meth odist ENDOTRACHEAL AIRWAY ARTERIAL BLOOD GAS, 2019-07-07 12:26:00 Lashell Colin Javed CORRECTED SODIUM LEVEL, SYRINGE 2019-07-07 12:26:00 Colin Lobo POTASSIUM, SYRINGE 2019-07-07 12:26:00 Colin Lobo M ethodist HEMOGLOBIN, SYRINGE 2019-07-07 12:26:00 Colin Lobo GLUCOSE LEVEL, SYRINGE 2019-07-07 12:26:00 Colin Lobo on Mandaen IONIZED CALCIUM, ARTERIAL 2019-07-07 12:26:00 Colin Loboist TYPE AND SCREEN 2019-07-07 08:20:00 Colin Lobo odist PREPARE RBC 2019-07-07 08:20:00 Colin Lobo SPIROMETRY, DIFFUSION 2019-06-27 11:09:13 Colin Lobo MRI BRAIN W WO CONTRAST 2019-06-27 10:36:43 Colin Lobo POC GLUCOSE 2019-06-20 13:04:00 Colin Lobo Meth odist MO AN ELECTIVE 2019-06-20 11:41:11 Aneta Ovalles Meth odist ENDOTRACHEAL AIRWAY Aubree CYTOLOGY 2019-06-20 11:40:00 Colin Lobo Meth luis albertoist (NON-GYNECOLOGICAL) REQUEST ECG 12-LEAD 2019-06-20 08:33:21 Colin Lobo Meth odist HC COMPLETE BLD COUNT 2019-06-20 08:15:00 Colin Lobo W/AUTO DIFF BASIC METABOLIC PANEL 2019-06-20 08:15:00 Colin Lobo PROTHROMBIN TIME WITH INR 2019-06-20 08:15:00 Colin Lobo PARTIAL THROMBOPLASTIN 2019-06-20 08:15:00 Colin Lobo on Mandaen TIME (PTT) ESTIMATED GFR 2019-06-20 08:15:00 Colin Lobo Meth odist PET CT WHOLE BODY EXTERNAL 2019-05-15 10:19:00 Chen Nieto Mandaen STUDY PET CT SKULL BASE TO MID 2019-05-15 00:00:[address] CHEST EXTERNAL STUDY 2019-05-02 07:55:00 Chen Nieto Mandaen Plan of Care Planned Activity Planned Date Details Comments Source Future Scheduled 2020-01-10 INFLUENZA VACCINE [place] Test 00:00:00 [code = INFLUENZA VACCINE] Future Scheduled 2015-10-22 COLONOSCOPY SCREENING [place]anda[place] Test 00:00:00 [code = COLONOSCOPY SCREENING] Future Scheduled 2015-10-22 SHINGLES VACCINES [place] Test 00:00:00 (#1) [code = SHINGLES VACCINES (#1)] Encounters Start End Encounter Admission Attending Care Care Encounter Source Date/Time Date/Time Type Type Clinicians Facility Department ID 2019-05-28 2019-05-28 Outpatient BL BL [facility] 07:16:00 07:16:00 Results Test Description Test Time Test Comments Results Result Comments Source Sputum culture 2019-07-12 14:10:35 Test Item Value Reference Range Interpretation Comme nts Sputum culture isolate Normal oral jose juan Specimen InformationSpecimen (test code = 2234) isolated. Source: S putumSpecimen Site: [facility] 1 Vw [id number] 10:42:09Hm Interface, Radiology Results 07/11/2019 10:45 AM CSTEXAMINATION: XR CHEST 1 VW PORTABLECLINICAL HISTORY: shortness of breathIMPRESSION:Single frontal view compared to 07/09/2019 demonstrates postoperative scarring and atelectasis and volume loss in the left lung to be stable. There is no new infiltrate. There is no pneumothorax.[facility]-[id number] MethodistGram [id number] 21:09:02Gram stain isolateFew WBC'sFew Gram negative rodsModerate Gram positive cocci in pairs Comment: Specimen InformationSpecimen Source: SputumSpecimen Site: [facility] 2019-07-10 05:02:27 Test Item Value Reference Range Interpretation Comments Sodium (test code = 2951-2) 137 135- 148 mEq/L Potassium (test code = 2823-3) 3.9 3.5- 5.0 mEq/L Chloride (test code = 5-0) 101 98- 112 mEq/L CO2 (test code = 8-9) 25 24- 31 mEq/L Anion gap (test code = 03210-0) 11@ANIO 7- 15 mEq/L BUN (test code = 3094-0) 10 mg/dL 6-20 Creatinine (test code = 2160-0) 0.73 mg/dL 0.7-1.2 Glucose (test code = 2345-7) 125 mg/dL 65-99 H Calcium (test code = 15004-3) 8.8 mg/dL 8.3-10.2 Lab Interpretation (test code = Abnormal 66741-9) [place] MethodistMagnesium [id number] 05:02:26 Test Item Value Reference Range Interpretation Comments Magnesium (test code = 67841-0) 2.1 mg/dL 1.6-2.6 [place] MethodistPhosphorus [id number] 05:02:26 Test Item Value Reference Range Interpretation Comments Phosphorus (test code = 2777-1) 2.9 mg/dL 2.4-4.5 [place] MethodistEstimated [id number] 05:02:26 Test Item Value Reference Range Interpretation Comments Estimated GFR (test >=90 mL/min/1.73 m2 [facility] Units code = 5488) InterpretationG 1 >=90 Normal or highG2 60-89 Mildly ydfbdmgsaH2c 45-59 Mildly to mode rately mbobhhtimU4z 30-44 Moderately to severely decreasedG4 15-29 Severely decre asedG5 <15 Kidn ey failureThe eGFR was calculated alec torre the Chronic Kidney Disease Epidemiology Co llaboration (CKD-EPI) equat ion. Interpretation is based on recommendations of the National Kidney Foundation-Kidn ey Disease Outcomes Qualit y Initiative (NKF-KDOQI) pub lished in 2014. [place] MethodistPartial thromboplastin time, uzlezkrou2008-57-81 04:47:07 Test Item Value Reference Range Interpretation Comments PTT (test code = 29.8 23.0- 36.0 [place] [address]-0) unfractionated heparin is61.0-112.0 se conds which corresponds to Anti-Xa0.3-0.7 U/ml. [place] MethodistProthrombin time with [id number] 04:46:29 Test Item Value Reference Range Interpretation Comments Prothrombin time (test 14.5 11.5- 14.5 sec code = 5902-2) INR (test code = 1.1 The Interna tional 02319-9) Normalized Rati o (INR) is a therapeutic m onitoring tool for patien ts who are stable on oral anticoagulant t herapy. An INR of 2.0-3.0 is suggested for d eep vein thrombosis/pulm onary embolism. [place] MethodistCBC with platelet and vznkvcykesqo7389-52-03 04:27:37 Test Item Value Reference Range Interpretation Comments WBC (test code = 83143-9) 7.89 4.50- 11.00 k/uL RBC (test code = 04555-2) 3.72 m/uL 4.4-6 L HGB (test code = 718-7) 10.8 g/dL 14-18 L HCT (test code = 4544-3) 34.3 % 41-51 L MCV (test code = 787-2) 92.2 fL 82-100 MCH (test code = 785-6) 29.0 pg 27-34 MCHC (test code = 786-4) 31.5 g/dL 31-37 RDW - SD (test code = 44.3 fL 37-55 29702-1) MPV (test code = 28600-6) 9.5 fL 8.8-13.2 Platelet count (test code 149 150- 400 k/uL L = 56879-3) Nucleated RBC (test code 0.00 /100 WBC = 00524-6) Neutrophils (test code = 81.2 % 39-69 H 91656-6) Lymphocytes (test code = 7.7 % 25-45 L 07250-1) Monocytes (test code = 7.5 % 0-10 70649-0) Eosinophils (test code = 2.5 % 0-5 97474-4) Basophils (test code = 0.3 % 0-1 76670-3) Immature granulocytes 0.8 % 0-1 "Immat ure (test code = 67377-2) granul ocytes" (promyelocytes, myelocytes, metamyelocytes) Lab Interpretation (test Abnormal code = 63062-5) [facility] pathogen igbrv0585-21-14 01:51:59Respiratory pathogen panelNegative for all pathogens tested:Negative for AdenovirusNegative for Coronavirus KKN0Hmenglhd for Coronavirus TH88Yapwravd for Coronavirus 229ENegative for Coronavirus WN44Urbhczok for Human MetapneumovirusNegative for Rhinovirus/EnterovirusNegative for Influenza ANegative for Influenza A/I1Aubewefa for Influenza A/O9Hrcnnduj for Influenza A/H1-2009Negative for Influenza BNegative for [...] Comment: Specimen InformationSpecimen Source: Na resSpecimen Site: [facility] venous lower anwfwiszw0065-88-84 22:43:00Interface, Radiology Results In - 07/09/2019 10:43 PM 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 Stat.:Inpatient Room: [place] [address] 2018A Tape Vol: JM, CPT - 4: 97215 Echo Event ID:[id number] Order ID: [id number] Reason for Study:Leg swelling or pain, DVT [...] Sig curt 07/09/2019 10:43PMAndre Blood MD, FACS, [facility] MethodistCT Angiogram Pe Gswaw4910-50-11 19:52:33Hm Interface, Radiology Results Incoming - 07/09/2019 [...] apical and anterior pneumothorax. [facility]-[id number] MethodistArterial blood [id number] 18:49:43 Test Item Value Reference Range Interpretation [...] (test 97 % 95-100 code = 2708-6) [place] MethodistSurgical pathology gkfffku3550-28-84 17:17:53 Test Item Value Reference Range Interpretation Comments Case number (test code = [id number]) Surgical pathology See link below for report (test code = PDF Lab Report 4976) Result status (test code This is Final Report = [id number]) for [id number] [place] MethodistComprehensive metabolic [id number] 14:54:57 Test Item Value Reference Range Interpretation Comments Sodium (test code = 139 135- 148 mEq/L 2951-2) Potassium (test code = 4.4 3.5- 5.0 mEq/L 2823-3) Chloride (test code = 101 98- 112 mEq/L 2075-0) CO2 (test code = 2027-) 29 24- 31 mEq/L Anion gap (test code = 9@ANIO 7- 15 mEq/L 14593-5) BUN (test code = 3094-0) 11 mg/dL 6-20 Creatinine (test code = 0.84 mg/dL 0.7-1.2 2160-0) Glucose (test code = 129 mg/dL 65-99 H 2345-7) Calcium (test code = 9.2 mg/dL 8.3-10.2 19870-9) Protein (test code = 7.0 g/dL 6.3-8.3 Tynan 9994.6-7.0 2885-2) g/dL1 ddgu2558.4-7.6 g/dL7 months-1skit621 .1- 7.3 g/dL1-2 .6-7.5 g/dL>3 dwixe557.0-8.0 g/uM05-5963416. 3-8 .3 g/dL Albumin (test code = 3.1 g/dL 3.5-5 L 1751-7) A/G ratio (test code = 0.8 0.7-3.8 1759-0) Alkaline phosphatase 56 U/L 40-129 (test code = 6768-6) AST (test code = 1920-8) 124 U/L 10-50 H ALT (test code = 1742-6) 51 U/L 5-50 H Total bilirubin (test 0.4 mg/dL 0-1.2 code = 1975-2) Lab Interpretation (test Abnormal code = 59756-6) [place] MethodistXR Chest 2 [id number] 13:56:13Hm Interface, Radiology Results 07/09/2019 1:59 PM [...] osseous abnormality. Mild degenerative changes of thoracic spine.[facility]-[id number] MethodistPrepare [id number] 21:41:00 Test Item Value Reference Range Interpretation Comments Product name (test code Red Blood Cells -1, = 25) Leukored Unit number (test code [id number] = 8336274) Product code (test code [id number] = 3092) Dispense status (test Returned to not code = 24) transfused Blood expiration date (test code = 302) Blood type code (test 6200 code = 308) Blood type (test code = A POSITIVE 1314) Compatibility (test Compatible code = 6400) [place] MethodistArterial blood gas, avbfifjgu2452-06-41 18:38:25 Test Item Value Reference Range Interpretation [...] pH, arterial corrected 7.28 (test code = 38438-2) pCO2, arterial corrected 61 mmHg (test code = 55954-4) pO2, arterial corrected 340 mmHg (test code = 31153-8) Base excess, arterial 0 -2 - 2 mEq-L (test code = 1925-7) Lab Interpretation (test Abnormal code = 29941-3) [place] MethodistGlucose level, agajhao7870-70-91 18:38:25 Test Item Value Reference Range Interpretation Comments Glucose, syringe (test code = 188 mg/dL 65-99 H 2345-7) Lab Interpretation (test code = Abnormal 19214-2) [place] MethodistHemoglobin, aqlyfua8907-22-17 18:38:25 Test Item Value Reference Range Interpretation Comments Hemoglobin, syringe (test code = 11.8 g/dL 14-18 L 718-7) Lab Interpretation (test code = Abnormal 41259-1) [place] MethodistIonized calcium, rozqscub7586-34-76 18:38:25 Test Item Value Reference Range Interpretation Comments Ionized calcium, arterial (test 1.12 mmol/L 1.11-1.32 code = 07347-8) [place] MethodistLactic acid, itmnnuh6836-62-96 18:38:25 Test Item Value Reference Range Interpretation Comments Lactic acid, syringe (test code = 1.8 mmol/L 0.5-2.2 93657-9) [place] MethodistPotassium, pgqfdmg6636-67-56 18:38:25 Test Item Value Reference Range Interpretation Comments Potassium, syringe (test code = 2007) 4.7 3.5- 5.0 mEq/L [place] MethodistSodium level, tldeizr9155-46-15 18:38:25 Test Item Value Reference Range Interpretation Comments Sodium, syringe (test code = 2947-0) 138 135- 148 mEq/L [place] MethodistArterial [id number] 12:50:25Wes Looney MD 07/07/2019 12:51 PMArterial linePerformed by: Wes Looney MDAuthorized by: Michael Caro MD Patient Location: ORStart Time: 07/07/2019 12:50 PMEnd Time: 07/07/2019 12:50 PMStaff: Anesthesiologist: Michael Caro MD Resident/SAIL REPAIRER/AA: Wes Looney MD Performed by: Resident/SAIL REPAIRER/AAPre- procedure: patient identified, IV checked, site and [...] tolerated the procedure well with no immediate complicationsSaint Luke'S North Hospital–Smithvillesunil NnvmjvdidMyhfyj3039-48-90 12:45:13Wes Looney MD 07/07/2019 12:53 PMAirwayDate/Time: 07/07/2019 12:45 PMPerformed by: Wes Looney MDAuthorized by: Michael Caro MD Location: ORUrgency: ElectiveDifficult Airway: Yes Anesthesiologist: Michael Caro MDResident/SAIL REPAIRER/AA: Wes Looney MDPerformed by:anesthesiologistPreoxygenated with 100% O2: [...] placing the ETT without complications.[place] MethodistType and mwshcx9219-92-84 10:20:00 Test Item Value Reference Range Interpretation Comments ABO grouping (test code = 883-9) A Rh type (test code = 91763-9) POS Antibody screen (gel) (test code = NEG 890-4) [place] [facility]em[facility], uzgkpcigk0291-00-73 11:09:13 Test Item Value Reference Range Interpretation [...] Predicted 83.4 % (test code = 5445) [place] MethodistMRI Brain W Wo Ryxxkpbz8966-74-29 10:42:26Hm Interface, Radiology Results Incoming - 06/27/2019 [...] of intracranial metastasis or acute intracranial abnormality .HMTW-[id number] MethodistCytology (non-gynecological) hnhwfau5548-16-80 09:00:17 Test Item Value Reference Range Interpretation Comments Case number (test code = [id number]) Cytology See link below for (non-gynecological) PDF Lab Report report (test code = 1178) Result status (test code This is Final Report = [id number]) for [id number] [place] MethodistECG 12 rnul6947-92-81 09:59:41 Test Item Value Reference Range Interpretation Comments Ventricular rate (test 66 code = 253) Atrial rate (test code = 66 255) MO interval (test code = 164 266) QRSD [...] Lorenz MD (1008) on 06/21/2019 9:59:40 AM [facility] zjquswg6650-88-73 13:07:01 Test Item Value Reference Range Interpretation Comments POC glucose (test code 111 mg/dL 65-99 H Opera tor Name: Carlyle = 02260-5) DennisDevice ID : [id number] able: [facility] Notified RNChartable: No Action Needed Lab Interpretation Abnormal (test code = 75365-2) [place] BushYsiwrnmzxNgtwkz1071-85-60 11:41:11CarterAneta MD 06/20/2019 11:42 AMAirwayDate/Time: 06/20/2019 11:29 AMPerformed by: Aneta Ovalles MDAuthorized by: Aneta Ovalles MD Location: ORUrgency: ElectiveAnesthesiologist: Aneta Ovalles MDResident/SAIL REPAIRER/AA: Harpal Espinosa MDPerformed by: anesthesiologistPreoxygenated with 100% [...] Modified RSI: No Number of Attempts at Approach:2H[facility]oton [facility] PET/CT Whole Body External Scobd9489-02-38 00:24:02This exam was not acquired at a Mandaen facility and has not been interpreted by a Mandaen Provider. The exam was imported into our imaging system.[facility] Chest External Yznnn7310-57-71 00:23:17This exam was not acquired at a Mandaen facility and has not been interpreted by a Mandaen Provider. The exam was imported into our imaging system.[facility]
--- NOTE | 2019-11-14 18:44 | RAD REPORT ---
EXAM DESCRIPTION: Alex Single View11/14/2019 6:38 pm CLINICAL HISTORY: Chest pain COMPARISON: October 2019 FINDINGS: Small left pleural effusion with mild left basilar atelectasis is unchanged The right lung appears clear Heart is borderline enlarged
--- NOTE | 2019-11-14 18:45 | RAD REPORT ---
EXAM DESCRIPTION: CT - Head Brain Wo Cont - 11/14/2019 6:26 pm CLINICAL HISTORY: Headache COMPARISON: None TECHNIQUE: Computed axial tomography of the head was obtained. IV contrast was not requested. All CT scans are performed using dose optimization technique as appropriate and may include automated exposure control or mA/KV adjustment according to patient size. FINDINGS: An intracranial bleed is not seen . The ventricles are normal in caliber. No extra-axial fluid collection is noted. Opacification left maxillary sinus IMPRESSION: No acute intracranial abnormality is seen. If patient's symptoms persist MRI of the bra in would be recommended. Left maxillary sinusitis
[2019-11-14 19:03] LABS: Absolute Lymphocytes (CBC) 0.7 K/uL (0.7-4.9); Basophils % 0.3 % (0-1.3); Hematocrit 24.1 % (39.6-49.0); Lymphocytes % 5.3 % (15.3-44.8); RBC Red Blood Cell Count 2.66 M/uL (4.33-5.43)
[2019-11-14 19:05] LABS: Protime INR 0.95
[2019-11-14 19:08] LABS: MPV 7.8 fL (7.6-11.3)
[2019-11-14 19:09] LABS: BUN Blood Urea Nitrogen 16 mg/dL (7-18); Bicarbonate 29 mmol/L (21-32); Glucose Level 210 mg/dL (74-106); Potassium 3.6 mmol/L (3.5-5.1); Sodium Level 137 mmol/L (136-145)
--- NOTE | 2019-11-14 20:45 | RAD REPORT ---
EXAM DESCRIPTION: USExtremity Venous Uni Ltd11/14/2019 8:37 pm CLINICAL HISTORY: Right arm pain and swelling COMPARISON: None FINDINGS: The right internal jugular, right subclavian, right cephalic, right axillary, right brach ial, right basilic, veins are generally compressible and demonstrate augmentation. Doppler demonstra clayton good flow. Echogenic material is present within a superficial vein within the right forearm near the wrist consi stent with acute thrombus IMPRESSION: Acute thrombus within a superficial vein within the right forearm near the wrist
[2019-11-14] MEDS ORDERED: IBUPROFEN 400 MG TAB ONE (20:54)
[2019-11-14] MEDS ORDERED: IBUPROFEN 200 MG TAB PO ONE (20:54)
--- NOTE | 2019-11-14 21:22 | EDPHYS ---
Physician Documentation [facility] Name: Jae Connolly Age: 54 yrs Sex: Male : 1965 Arrival Date: 11/14/2019 Time: 17:43 Bed 6 Private MD: ED Physician Shay Ramirez HPI: 11/14 00:31 This 54 yrs old Male presents to ER via Ambulatory with complaints of BLOOD kb TRANSFUSION THIS MORNING AND NOW SUFFERING FROM DIZZINESS, HEADACHE, LACK OF ENERGY. ALSO KNOT ON THE RT ARM.. 00:31 The patient or guardian complains of pain, that is acute, swelling, tenderness. The kb complaints affect the right wrist. Context: The problem was sustained at home, resulted from unknown cause. Onset: The symptoms/episode began/occurred today. Treatment prior to arrival includes: no previous treatment. Modifying factors: The symptoms are alleviated by nothing. the symptoms are aggravated by nothing. Associated signs and symptoms: Pertinent positives: erythema, pain, swelling. Severity of symptoms: At their worst the symptoms were moderate, in the emergency department the symptoms are unchanged. The patient has not experienced similar symptoms in the past. The patient has not recently seen a physician. Pt reports he is on chemo that makes him weak and tired. States it also makes his blood counts low so today they were 17 so they gave him a transfusion of platelets in day surgery. States he went home and took a nap, when he woke up he had a knot in his wrist/forearm area. The IV for infusion was in the opposite AC. Came to see if it was a blood clot. Historical: - Allergies: 11/13 17:53 No Known Allergies; ll1 - PMHx: 17:53 Hyperlipidemia; Lung Cancer; Osteoporosis; Prostate Cancer; Asthma; ll1 - PSHx: 17:53 L Lung partial lobectomy; R rotattor cuff; ll1 - Immunization history:: Adult Immunizations up to date, Flu vaccine is not up to date. - Social history:: Smoking status: Patient/guardian denies using tobacco, Stopped _ months ago 6 Patient/guardian denies using alcohol, street drugs, tobacco products. ROS: 11/14 00:30 ENT: Negative for injury, pain, and discharge, Neck: Negative for injury, pain, and kb swelling, Cardiovascular: Negative for chest pain, palpitations, and edema, Respiratory: Negative for shortness of breath, cough, wheezing, and pleuritic chest pain, Abdomen/GI: Negative for abdominal pain, nausea, vomiting, diarrhea, and constipation, Back: Negative for injury and pain, Skin: Negative for injury, rash, and discoloration, Neuro: Negative for headache, weakness, numbness, tingling, and seizure. Constitutional: Positive for fatigue, malaise, Negative for body aches, chills, fever, poor PO intake, weight loss. MS/extremity: Positive for pain, swelling, tenderness, of the right wrist. Exam: 00:30 Constitutional: This is a well developed, well nourished patient who is awake, alert, kb and in no acute distress. Head/Face: Normocephalic, atraumatic. Chest/axilla: Normal chest wall appearance and motion. Nontender with no deformity. No lesions are appreciated. Cardiovascular: Regular rate and rhythm with a normal S1 and S2. No gallops, murmurs, or rubs. Normal PMI, no JVD. No pulse deficits. Respiratory: Lungs have equal breath sounds bilaterally, clear to auscultation and percussion. No rales, rhonchi or wheezes noted. No increased work of breathing, no retractions or nasal flaring. Abdomen/GI: Soft, non-tender, with normal bowel sounds. No distension or tympany. No guarding or rebound. No evidence of tenderness throughout. Back: No spinal tenderness. No costovertebral tenderness. Full range of motion. Neuro: Awake and alert, GCS 15, oriented to person, place, time, and situation. Cranial nerves II-XII grossly intact. Motor strength 5/5 in all extremities. Sensory grossly intact. Cerebellar exam normal. Normal gait. 00:30 Musculoskeletal/extremity: Extremities: grossly normal except: noted in the right wrist: pain, swelling, tenderness, ROM: intact in all extremities, Circulation is intact in all extremities. Sensation intact. DVT Exam: no pain, no swelling, no tenderness, no increased warmth. Vital Signs: 11/13 17:49 BP 132 / 71; Pulse 66; Resp 18; Temp 99.2; Pulse Ox 96% ; Weight 149.69 kg; Height 5 ll1 ft. 11 in. (180.34 cm); Pain 5/10; 18:53 BP 135 / 63; Pulse 64; Resp 18; Pulse Ox 96% on R/A; ph 19:30 BP 146 / 85; Pulse 66; Resp 16; Pulse Ox 98% ; rr5 20:30 BP 151 / 75; Pulse 75; Resp 20; Pulse Ox 97% ; rr5 21:29 BP 131 / 71; Pulse 65; Resp 19; Pulse Ox 99% ; rr5 17:49 Body Mass Index 46.03 (149.69 kg, 180.34 cm) ll1 MDM: 18:04 Patient medically screened. kb 20:50 ED course: Pt resting comfortably, awaiting US results. Pt expressed that he does not kb want to stay in the hospital whatever the result is. . 21:19 Data reviewed: vital signs, nurses notes. Data interpreted: Pulse oximetry: on room air kb is 96 %. Interpretation: normal. Counseling: I had a detailed discussion with the patient and/or guardian regarding: the historical points, exam findings, and any diagnostic results supporting the discharge/admit diagnosis, lab results, radiology results, the need for outpatient follow up, a family practitioner, to return to the emergency department if symptoms worsen or persist or if there are any questions or concerns that arise at home. ED course: Discussed pt condition and diagnostics with Dr Medel. Recommended outpatient treatment. . 11/13 18:10 Order name: CBC with Diff; Complete Time: 19:17 kb 11/13 18:10 Order name: Basic Metabolic Panel; Complete Time: 19:10 kb 11/13 18:10 Order name: US Extremity Venous Unilateral Ltd; Complete Time: 20:48 kb 11/13 18:10 Order name: CT Head Brain wo Cont; Complete Time: 18:48 kb 11/13 18:10 Order name: Protime (+inr); Complete Time: 19:09 kb 11/13 18:10 Order name: Ptt, Activated; Complete Time: 19:09 kb 11/13 18:10 Order name: IV Start; Complete Time: 18:44 kb 11/13 18:11 Order name: Chest Single View XRAY; Complete Time: 18:48 kb Administered Medications: 20:49 Drug: Ibuprofen 600 mg Route: PO; rr5 21:30 Follow up: Response: No adverse reaction rr5 Disposition: 11/14 07:09 Co-signature as Attending Physician, Shay Ramirez MD. rn Disposition: 11/14/19 21:21 Discharged to Home. Impression: Acute thrombus superficial bin within right forearm., Malaise and fatigue. - Condition is Stable. - Discharge Instructions: Chemotherapy, Fatigue. - Medication Reconciliation Form, Thank You Letter, Antibiotic Education, Prescription Opioid Use form. - Follow up: Emergency Department; When: As needed; Reason: Worsening of condition. Follow up: Private Physician; When: 2 - 3 days; Reason: Recheck today's complaints, Continuance of care, Re-evaluation by your physician. Signatures: Dispatcher [employer] EDMS Maria Fernanda Verdugo, SILO FILLER-C SILO FILLER-CkShay Noyola MD MD rn Bib Vigil RN RN rr5 Nnamdi Friedman RN RN ll1 Corrections: (The following items were deleted from the chart) 11/13 21:38 21:21 11/14/2019 21:21 Discharged to Home. Impression: Acute thrombus superficial bin rr5 within right forearm.; Malaise and fatigue. Condition is Stable. Forms are Medication Reconciliation Form, Thank You Letter, Antibiotic Education, Prescription Opioid Use. Follow up: Emergency Department; When: As needed; Reason: Worsening of condition. Follow up: Private Physician; When: 2 - 3 days; Reason: Recheck today's complaints, Continuance of care, Re-evaluation by your physician. kb
--- NOTE | 2019-11-14 21:22 | ER ---
Nurse's Notes [facility] Name: Jae Connolly Age: 54 yrs Sex: Male : 1965 Arrival Date: 11/14/2019 Time: 17:43 Bed 6 Private MD: Diagnosis: Acute thrombus superficial bin within right forearm.;Malaise and fatigue Presentation: 11/13 17:49 Chief complaint: Patient states: MOTLEY and dizziness for 1 day. Took a nap, noticed knot ll1 to right arm when he awoke. Blood transfusion in day surgery today. Coronavirus screen: Proceed with normal triage. Patient denies a cough. Patient denies shortness of breath or difficulty breathing. Patient denies measured and/or subjective temperature greater than 100.4F prior to today's visit. Patient denies travel on a cruise ship or to a country the [facility] currently lists as an affected area. Patient denies contact with known and/or suspected case of COVID-19. Ebola Screen: Patient denies travel to an Ebola-affected area in the 21 days before illness onset. Initial Sepsis Screen: Does the patient meet any 2 criteria? No. Patient's initial sepsis screen is negative. Risk Assessment: Do you want to hurt yourself or someone else? Patient reports no desire to harm self or others. Onset of symptoms was November 14, 2019. 17:49 Method Of Arrival: Ambulatory ll1 17:49 Acuity: KIARA 3 ll1 18:52 Initial Sepsis Screen: Does the patient have a suspected source of infection? No. ph Patient's initial sepsis screen is negative. Historical: - Allergies: 17:53 No Known Allergies; ll1 - PMHx: 17:53 Hyperlipidemia; Lung Cancer; Osteoporosis; Prostate Cancer; Asthma; ll1 - PSHx: 17:53 L Lung partial lobectomy; R rotattor cuff; ll1 - Immunization history:: Adult Immunizations up to date, Flu vaccine is not up to date. - Social history:: Smoking status: Patient/guardian denies using tobacco, Stopped _ months ago 6 Patient/guardian denies using alcohol, street drugs, tobacco products. Screenin:35 Abuse screen: Denies threats or abuse. Denies injuries from another. Nutritional ph screening: No deficits noted. Tuberculosis screening: No symptoms or risk factors identified. Fall Risk None identified. Assessment: 18:06 Reassessment: Tami Connolly [phone]. hb 18:52 General: Appears in no apparent distress. comfortable, obese, well groomed, Behavior is ph calm, cooperative, appropriate for age. Pain: Complains of pain in dorsal aspect of right forearm and right wrist. Neuro: Level of Consciousness is awake, alert, obeys commands, Oriented to person, place, time, situation. Cardiovascular: Capillary refill < 3 seconds in bilateral fingers Patient's skin is warm and dry. Respiratory: Airway is patent Respiratory effort is even, unlabored, Respiratory pattern is regular, symmetrical, Denies shortness of breath. Derm: Skin is intact, Skin is pink, warm \T\ dry. Musculoskeletal: Circulation, motion, and sensation intact. Range of motion: intact in all extremities, Swelling present in right wrist and right forearm. 19:32 Reassessment: Patient appears in no apparent distress at this time. Patient is alert, rr5 oriented x 3, equal unlabored respirations, skin warm/dry/pink. ultrasound at bedside. 20:33 Reassessment: Patient appears in no apparent distress at this time. No changes from rr5 previously documented assessment. Patient and/or family updated on plan of care and expected duration. Pain level reassessed. Patient is alert, oriented x 3, equal unlabored respirations, skin warm/dry/pink. 20:45 Reassessment: complaining of headache,ED provider aware with order made and carried rr5 out. awaiting for ultrasound result. 21:30 Reassessment: Patient appears in no apparent distress at this time. Patient is alert, rr5 oriented x 3, equal unlabored respirations, skin warm/dry/pink. discharge instruction given and explained without complaints made. Vital Signs: 17:49 BP 132 / 71; Pulse 66; Resp 18; Temp 99.2; Pulse Ox 96% ; Weight 149.69 kg; Height 5 ll1 ft. 11 in. (180.34 cm); Pain 5/10; 18:53 BP 135 / 63; Pulse 64; Resp 18; Pulse Ox 96% on R/A; ph 19:30 BP 146 / 85; Pulse 66; Resp 16; Pulse Ox 98% ; rr5 20:30 BP 151 / 75; Pulse 75; Resp 20; Pulse Ox 97% ; rr5 21:29 BP 131 / 71; Pulse 65; Resp 19; Pulse Ox 99% ; rr5 17:49 Body Mass Index 46.03 (149.69 kg, 180.34 cm) ll1 ED Course: 17:43 Patient arrived in ED. fj1 17:52 Triage completed. ll1 17:53 Arm band placed on. ll1 18:04 Maria Fernanda [facility]dugo [facility]C [facility]. kb 18:04 Shay Ramirez MD is Attending Physician. kb 18:28 CT Head Brain wo Cont In Process Unspecified. EDMS 18:34 Chelsea De Oliveira, RN is Primary Nurse. ph 18:35 Patient has correct armband on for positive identification. Bed in low position. Call ph light in reach. Side rails up X 1. Pulse ox on. NIBP on. Door closed. Noise minimized. Warm blanket given. 18:38 Chest Single View XRAY In Process Unspecified. EDMS 18:42 Initial lab(s) drawn, by il, sent to lab. Inserted saline lock: 20 gauge in left [facility] antecubital area, using aseptic technique. Blood collected. 19:13 Notified Nurse Practitioner and/or Physician Salvage Grinder of a critical lab result(s), rr5 platelet 37. 20:38 US Extremity Venous Unilateral Ltd In Process Unspecified. EDMS 21:29 No provider procedures requiring assistance completed. IV discontinued, intact, rr5 bleeding controlled, No redness/swelling at site. Pressure dressing applied. Administered Medications: 20:49 Drug: Ibuprofen 600 mg Route: PO; rr5 21:30 Follow up: Response: No adverse reaction rr5 Outcome: 21:21 Discharge ordered by . kb 21:29 Discharged to home via wheelchair. rr5 21:29 Condition: stable 21:29 Discharge instructions given to patient, Instructed on discharge instructions, follow up and referral plans. Demonstrated understanding of instructions, follow-up care. 21:38 Patient left the ED. rr5 Signatures: Dispatcher [employer] EDMS Maria Fernanda Verdugo FNP-C FNP-Ckb Hall, Patricia, RN RN Leti Anderson RN RN Kady Nunn [facility] Bib Vigil RN RN rr5 Cornell Rowan fj1 Nnamdi Friedman RN RN 1
[2019-11-14 21:43] VITALS: TEMP 99.2
[2019-11-14 21:48] VITALS: BP 131/71; O2SAT 99
== END 2019-11-14 21:38 | disposition home or self-care (01) ==
LOC: ER 17:39
DX: I82.611 Acute embolism and thrombosis of superficial veins of right upper extremity (principal); R53.81 Other malaise; R53.83 Other fatigue
CPT/HCPCS: 36415; 70450; 71045; 80048; 85025; 85610; 85730; 93971; 99284

== ENCOUNTER 2020-01-23 09:16 | Emergency (ER) | payer BC ==
--- OUTSIDE RECORDS SUMMARY | 2020-01-23 09:25 | XMS REPORT | Continuity of Care Document ---
:1965 Author Organization [facility] t Address [address] [place] [address] Dr. Seymour [address] [place] [id number] Care Team Providers Name Role Phone Mahendra [...] asim BCBSBCBS xxxxxxxxxxxx 2018 [place] CHOICE 00:00:00 [facility] PPO/FEDERAL EMPL PPOxxxxxxxxxxx 2018-Pres entPPO Problems Condition [...] s to drug Other Propensi Active Rash *Denver [place] on ty to 07 Anestheti Methodi adverse 00:00: cs st reaction 00 s Family History Family Member Diagnosis Comments Start Date Stop Date Source Natural mother Diabetes [facility] thodist [facility] Social History Social Habit Start Date Stop Date Quantity Comments Source History of tobacco Current smoker [place] [facility] use History [facility] Meth odist Alcohol Std Drinks History [facility] Meth odist Alcohol Binge Sex Assigned At [facility] ethodist Cigarettes smoked 2019-07-29 2019-07-29 [place] [facility] current (pack per 00:00:00 00:00:00 day) - Reported Cigarette 2019-07-29 2019-07-29 [place] Method ist pack-years 00:00:00 00:00:00 Alcohol intake 2019-07-29 2019-07-[address] [facility] thodist 00:00:00 00:00:00 non-drinker (finding) History SDOH 2019-06-17 2019-06-17 1 [place] [facility] odist Alcohol Frequency 00:00:00 00:00:00 Smoking Status Start Date Stop Date Source Former smoker 2019-07-29 00:00:00 2019-07-29 00:00:00 [place] [facility] Medications Ordered Filled Start Stop Current Ordering Indication Dosage Frequency Signature Comments Components Source Medication Medication Date Date Medication? Clinician (SIG) Name Name HYDROcodone 2020- No acute pain 1{tbl} Q6H Take 1 [place] -acetaminop 2-08-10 tablet by Me nicolasa arango [...] muscle spasms. gabapentin 2019- No Postoperati 600mg Q.[id number] Take 2 [place] (NEURONTIN) 07-29 03-19 ve pain [id number] capsules Methodi 300 mg 00:00: 23:59 3D [...] days .acute pain. gabapentin 2019- No 300mg Q.[id number] Take 1 [place] (NEURONTIN) 07-08 [id number] capsule Methodi 300 mg 00:00: 00:00 3D [...] a day with meals for 3 days. [id number] 2019- No 1{each} Infuse 1 [place] 13 or 07-04 each into Methodi placebo 09:28: 00:[address] infusion, 26 :00 catheter GRACE once. /[id number] 7/Tamra, Vital Signs Vital Name Observation Time Observation Value Comments Source Systolic blood 2019-07-29 08:05:00 148 mm[Hg] [place] [facility] pressure Diastolic blood 2019-07-29 08:05:00 80 mm[Hg] [place] [facility] pressure Heart rate 2019-07-29 08:05:00 72 /min [place] Javed Body temperature 2019-07-29 08:05:00 36.06 [place] [facility] Respiratory rate 2019-07-29 08:05:00 17 /min [place] [facility] Body height 2019-07-29 08:05:00 180.3 cm [place] Javed Body weight 2019-07-29 08:05:00 142.429 kg [place] Javed BMI 2019-07-29 08:05:00 43.79 kg/m2 [place] Javed Oxygen saturation in 2019-07-29 08:05:00 97 /min [place] Javed Arterial blood by Pulse oximetry Procedures Procedure Date / Time Performing Clinician Source Performed XR CHEST 1 VW PORTABLE 2019-07-11 08:50:00 Ron Neal [facility] Favio SPUTUM CULTURE 2019-07-10 09:30:00 DavidAneta amos Meth odist GRAM STAIN 2019-07-10 09:30:00 Aneta Hernandez Meth odist HC COMPLETE BLD COUNT 2019-07-10 03:57:00 Ron Neal on [facility] W/AUTO DIFF Nikamcneil PROTHROMBIN TIME WITH INR 2019-07-10 03:57:00 Ron [place]ston [facility] Ayman PARTIAL THROMBOPLASTIN 2019-07-10 03:57:00 Ron Neal Baptism TIME (PTT) Aymcneil BASIC METABOLIC PANEL 2019-07-10 03:57:00 Ron Neal on [facility] Ayman MAGNESIUM LEVEL 2019-07-10 03:57:00 Ron Neal Met hodist Nikamcneil PHOSPHORUS LEVEL 2019-07-10 03:57:00 Ron Neal Me thodist Ayman ESTIMATED GFR 2019-07-10 03:57:00 Colin Lobo Meth odist US DUPLEX VENOUS LOWER 2019-07-09 21:10:00 Ron Neal Baptism EXTREMITY BILATERAL Ayman RESPIRATORY PATHOGEN PANEL 2019-07-09 20:27:00 Uri Pope on [place] [facility] CT ANGIOGRAM PE CHEST 2019-07-09 19:35:29 Ron Neal on Baptism Aymcneil ARTERIAL BLOOD GAS 2019-07-09 18:28:00 Ron Neal [facility] Ayman COMPREHENSIVE METABOLIC 2019-07-09 14:00:00 Colin Lobo Baptism PANEL HC COMPLETE BLD COUNT 2019-07-09 14:00:00 Colin Lobo n Baptism W/AUTO DIFF ESTIMATED GFR 2019-07-09 14:00:00 Colin Lobo Meth odist XR CHEST 2 VW 2019-07-09 13:44:16 Colin Lobo Meth odist XR CHEST 1 VW PORTABLE 2019-07-08 14:35:00 Aneta Hernandez on Baptism XR CHEST 1 VW PORTABLE 2019-07-08 10:35:00 Aneta Hernandez on Baptism XR CHEST 1 VW PORTABLE 2019-07-08 06:45:00 ChonKanchan Ellis Baptism Jono ARTERIAL BLOOD GAS 2019-07-08 06:10:00 Colin Lobo Nasim [place] ethodist XR CHEST 1 VW PORTABLE 2019-07-08 04:43:34 Berta Rojas Kanchan mcfarlane Baptism Elane XR CHEST 1 VW PORTABLE 2019-07-07 19:35:49 Kanchan Butcher Baptism Jono ARTERIAL BLOOD GAS, 2019-07-07 18:30:00 Lashell, Colin Nasim Bushist CORRECTED POTASSIUM, SYRINGE 2019-07-07 18:30:00 Lashell, Colin Nasim Argueta ethodist SODIUM LEVEL, SYRINGE 2019-07-07 18:30:00 Lsahell, Colin Nasim mcmanus Baptism IONIZED CALCIUM, ARTERIAL 2019-07-07 18:30:00 Lashell, Colin Nasim castillo Baptism HEMOGLOBIN, SYRINGE 2019-07-07 18:30:00 Lashell, Colni Nasim [place] [facility] LACTIC ACID, SYRINGE 2019-07-07 18:30:00 Lashell, Colin Nasim [place] [facility] GLUCOSE LEVEL, SYRINGE 2019-07-07 18:30:00 Lashell, Colin Nasim Carr on Baptism SURGICAL PATHOLOGY REQUEST 2019-07-07 17:51:00 Lashell, Colin Nasim soria Baptism ARTERIAL BLOOD GAS, 2019-07-07 17:20:00 Colin Lobo Nasim Bushist CORRECTED POTASSIUM, SYRINGE 2019-07-07 17:20:00 Lashell, Colin Nasim Argueta ethodist HEMOGLOBIN, SYRINGE 2019-07-07 17:20:00 Lashell, Colin Nasim [facility] SODIUM LEVEL, SYRINGE 2019-07-07 17:20:00 Lashell, Colin Nasim mcmanus Baptism GLUCOSE LEVEL, SYRINGE 2019-07-07 17:20:00 Colin Lobo on Baptism IONIZED CALCIUM, ARTERIAL 2019-07-07 17:20:00 Lashell, Colin Nasim castillo Baptism LACTIC ACID, SYRINGE 2019-07-07 17:20:00 Lashell, Colin [facility] [facility] ARTERIAL BLOOD GAS, 2019-07-07 16:15:00 Lashell, Colin Bushist CORRECTED HEMOGLOBIN, SYRINGE 2019-07-07 16:15:00 Lashell, Colin [facility] [facility] POTASSIUM, SYRINGE 2019-07-07 16:15:00 Lashell, Colin Argueta ethodist SODIUM LEVEL, SYRINGE 2019-07-07 16:15:00 Lashell, Colin Nasim mcmanus Baptism IONIZED CALCIUM, ARTERIAL 2019-07-07 16:15:00 Lashell, Colin Rouse Omid castillo Baptism GLUCOSE LEVEL, SYRINGE 2019-07-07 16:15:00 Lashell, Colin Nasim [place] [facility] ARTERIAL BLOOD GAS, 2019-07-07 15:17:00 Lashell, Colin [facility] CORRECTED SODIUM LEVEL, SYRINGE 2019-07-07 15:17:00 Lashell, Colin Rouse Aaron mcmanus Baptism POTASSIUM, SYRINGE 2019-07-07 15:17:00 Lashell, Colin Argueta ethodist IONIZED CALCIUM, ARTERIAL 2019-07-07 15:17:00 Lashell, Colin Rouse Omid castillo Baptism HEMOGLOBIN, SYRINGE 2019-07-07 15:17:00 Lashell, Colin [facility] [facility] GLUCOSE LEVEL, SYRINGE 2019-07-07 15:17:00 Lashell, Colin Nasim [place] [facility] LACTIC ACID, SYRINGE 2019-07-07 15:17:00 Lashell, Colin [facility] [facility] ARTERIAL BLOOD GAS, 2019-07-07 14:26:00 Lashell, Colin [place] [facility] CORRECTED SODIUM LEVEL, SYRINGE 2019-07-07 14:26:00 Lashell, Colin Nasim mcmanus Baptism HEMOGLOBIN, SYRINGE 2019-07-07 14:26:00 Lashell, Colin [facility] [facility] POTASSIUM, SYRINGE 2019-07-07 14:26:00 Lashell, Colin Argueta ethodist IONIZED CALCIUM, ARTERIAL 2019-07-07 14:26:00 Lashell, Colin Rouse Omid castillo Baptism GLUCOSE LEVEL, SYRINGE 2019-07-07 14:26:00 Lashell, Colin Nasim [place] [facility] LACTIC ACID, SYRINGE 2019-07-07 14:26:00 Lashell, Colin [facility] ARTERIAL BLOOD GAS, 2019-07-07 13:20:00 Lashell, Colin Rouse [facility] [facility] CORRECTED SODIUM LEVEL, SYRINGE 2019-07-07 13:20:00 Lashell, Colin Nasim mcmanus Baptism HEMOGLOBIN, SYRINGE 2019-07-07 13:20:00 Lashell, Colin [facility] [facility] POTASSIUM, SYRINGE 2019-07-07 13:20:00 Lashell, Colin Nasim [place] Argueta ethodist IONIZED CALCIUM, ARTERIAL 2019-07-07 13:20:00 Lashell, Colin Javed GLUCOSE LEVEL, SYRINGE 2019-07-07 13:20:00 Colin Lobo on Baptism LACTIC ACID, SYRINGE 2019-07-07 13:20:00 Lashell Colin Javed ARTERIAL LINE 2019-07-07 12:50:25 Wes Looney Meth odist MA AN ELECTIVE 2019-07-07 12:45:13 Wes Looney Meth odist ENDOTRACHEAL AIRWAY ARTERIAL BLOOD GAS, 2019-07-07 12:26:00 Lashell Colin Javed CORRECTED SODIUM LEVEL, SYRINGE 2019-07-07 12:26:00 Colin Lobo POTASSIUM, SYRINGE 2019-07-07 12:26:00 Colin Lobo M ethodist HEMOGLOBIN, SYRINGE 2019-07-07 12:26:00 Colin Lobo GLUCOSE LEVEL, SYRINGE 2019-07-07 12:26:00 Colin Lobo on Baptism IONIZED CALCIUM, ARTERIAL 2019-07-07 12:26:00 Colin Loboist TYPE AND SCREEN 2019-07-07 08:20:00 Colin Lobo odist PREPARE RBC 2019-07-07 08:20:00 Colin Lobo SPIROMETRY, DIFFUSION 2019-06-27 11:09:13 Colin Lobo MRI BRAIN W WO CONTRAST 2019-06-27 10:36:43 Colin Lobo POC GLUCOSE 2019-06-20 13:04:00 Colin Lobo Meth odist MA AN ELECTIVE 2019-06-20 11:41:11 Aneta Ovalles Meth odist ENDOTRACHEAL AIRWAY Aubree CYTOLOGY 2019-06-20 11:40:00 Colin Lobo Meth luis albertoist (NON-GYNECOLOGICAL) REQUEST ECG 12-LEAD 2019-06-20 08:33:21 Colin Lobo Meth odist HC COMPLETE BLD COUNT 2019-06-20 08:15:00 Colin Lobo W/AUTO DIFF BASIC METABOLIC PANEL 2019-06-20 08:15:00 Colin Lobo PROTHROMBIN TIME WITH INR 2019-06-20 08:15:00 Colin Lobo PARTIAL THROMBOPLASTIN 2019-06-20 08:15:00 Colin Lobo on Baptism TIME (PTT) ESTIMATED GFR 2019-06-20 08:15:00 Colin Lobo Meth odist PET CT WHOLE BODY EXTERNAL 2019-05-15 10:19:00 Chen Nieto Baptism STUDY PET CT SKULL BASE TO MID 2019-05-15 00:00:[address] CHEST EXTERNAL STUDY 2019-05-02 07:55:00 Chen Nieto Baptism Plan of Care Planned Activity Planned Date Details Comments Source Future Scheduled 2020-02-10 INFLUENZA VACCINE [place] [facility] Test 00:00:00 [code = INFLUENZA VACCINE] Future Scheduled 2015-10-22 COLONOSCOPY SCREENING [place] [facility] Test 00:00:00 [code = COLONOSCOPY SCREENING] Future Scheduled 2015-10-22 SHINGLES VACCINES [place] [facility] Test 00:00:00 (#1) [code = SHINGLES VACCINES (#1)] Encounters Start End Encounter Admission Attending Care Care Encounter Source Date/Time Date/Time Type Type Clinicians Facility Department ID 2019-05-28 2019-05-28 Outpatient BL [facility] 07:16:00 07:16:00 Results Test Description Test Time Test Comments Results Result Comments Source Sputum culture 2019-07-12 14:10:35 Test Item Value Reference Range Interpretation Comme nts Sputum culture isolate Normal oral jose juan Specimen InformationSpecimen (test code = 2234) isolated. Source: S putumSpecimen [facility] [id number] 10:42:09Hm Interface, Radiology Results 07/11/2019 10:45 AM CSTEXAMINATION: XR CHEST 1 VW PORTABLECLINICAL HISTORY: shortness of breathIMPRESSION:Single frontal view compared to 07/09/2019 demonstrates postoperative scarring and atelectasis and volume loss in the left lung to be stable. There is no new infiltrate. There is no pneumothorax.[facility]-[id number] MethodistGram grlno9039-90-53 21:09:02Gram stain isolateFew WBC'sFew Gram negative rodsModerate Gram positive cocci in pairs Comment: Specimen InformationSpecimen Source: SputumSpecimen [facility] 2019-[facility]-10 05:02:27 Test Item Value Reference Range Interpretation Comments Sodium (test code = 2951-2) 137 135- 148 mEq/L Potassium (test code = 2823-3) 3.9 3.5- 5.0 mEq/L Chloride (test code = 5-0) 101 98- 112 mEq/L CO2 (test code = 8-9) 25 24- 31 mEq/L Anion gap (test code = 21297-0) 11@ANIO 7- 15 mEq/L BUN (test code = 3094-0) 10 mg/dL 6-20 Creatinine (test code = 2160-0) 0.73 mg/dL 0.7-1.2 Glucose (test code = 2345-7) 125 mg/dL 65-99 H Calcium (test code = 23965-7) 8.8 mg/dL 8.3-10.2 Lab Interpretation (test code = Abnormal 61469-8) [place] MethodistMagnesium [id number] 05:02:26 Test Item Value Reference Range Interpretation Comments Magnesium (test code = 52714-8) 2.1 mg/dL 1.6-2.6 [place] MethodistPhosphorus [id number] 05:02:26 Test Item Value Reference Range Interpretation Comments Phosphorus (test code = 2777-1) 2.9 mg/dL 2.4-4.5 [place] MethodistEstimated [id number] 05:02:26 Test Item Value Reference Range Interpretation Comments Estimated GFR (test >=90 mL/min/1.73 m2 [facility] Units code = 5488) InterpretationG 1 >=90 Normal or highG2 60-89 Mildly qycvwzlwiR9h 45-59 Mildly to mode rately rpzmbsrfoZ1g 30-44 Moderately to severely decreasedG4 15-29 Severely decre asedG5 <15 Kidn ey failureThe eGFR was calculated alec torre the Chronic Kidney Disease Epidemiology Co llaboration (CKD-EPI) equat ion. Interpretation is based on recommendations of the National Kidney Foundation-Kidn ey Disease Outcomes Qualit y Initiative (NKF-KDOQI) pub lished in 2014. [place] MethodistPartial thromboplastin time, ttacvhqdf3460-52-76 04:47:07 Test Item Value Reference Range Interpretation Comments PTT (test code = 29.8 23.0- 36.0 [place] [address]-4) unfractionated heparin is61.0-112.0 se conds which corresponds to Anti-Xa0.3-0.7 U/ml. [place] MethodistProthrombin time with [id number] 04:46:29 Test Item Value Reference Range Interpretation Comments Prothrombin time (test 14.5 11.5- 14.5 sec code = 5902-2) INR (test code = 1.1 The Interna tional 47590-3) Normalized Rati o (INR) is a therapeutic m onitoring tool for patien ts who are stable on oral anticoagulant t herapy. An INR of 2.0-3.0 is suggested for d eep vein thrombosis/pulm onary embolism. [place] MethodistCBC with platelet and crrzbrkvtdte5267-87-28 04:27:37 Test Item Value Reference Range Interpretation Comments WBC (test code = 03025-7) 7.89 4.50- 11.00 k/uL RBC (test code = 17599-3) 3.72 m/uL 4.4-6 L HGB (test code = 718-7) 10.8 g/dL 14-18 L HCT (test code = 4544-3) 34.3 % 41-51 L MCV (test code = 787-2) 92.2 fL 82-100 MCH (test code = 785-6) 29.0 pg 27-34 MCHC (test code = 786-4) 31.5 g/dL 31-37 RDW - SD (test code = 44.3 fL 37-55 31295-3) MPV (test code = 53324-4) 9.5 fL 8.8-13.2 Platelet count (test code 149 150- 400 k/uL L = 24911-5) Nucleated RBC (test code 0.00 /100 WBC = 59328-4) Neutrophils (test code = 81.2 % 39-69 H 88628-7) Lymphocytes (test code = 7.7 % 25-45 L 22563-3) Monocytes (test code = 7.5 % 0-10 29495-1) Eosinophils (test code = 2.5 % 0-5 86975-1) Basophils (test code = 0.3 % 0-1 34083-4) Immature granulocytes 0.8 % 0-1 "Immat ure (test code = 53774-0) granul ocytes" (promyelocytes, myelocytes, metamyelocytes) Lab Interpretation (test Abnormal code = 57373-0) [facility] pathogen lphoc2402-05-94 01:51:59Respiratory pathogen panelNegative for all pathogens tested:Negative for AdenovirusNegative for Coronavirus AAL5Ouapxojh for Coronavirus ZC64Jvhipkrg for Coronavirus 229ENegative for Coronavirus AC87Paxmdsuk for Human MetapneumovirusNegative for Rhinovirus/EnterovirusNegative for Influenza ANegative for Influenza A/H5Rybyhicy for Influenza A/I2Ufvlvzih for Influenza A/H1-2009Negative for Influenza BNegative for [...] Comment: Specimen InformationSpecimen Source: Na resSpecimen Site: [facility] lower qtpgpbagy0534-86-91 22:43:00Interface, Radiology Results In - 07/09/2019 10:43 PM STRUCTURAL ENGINEERING TECHNICIAN Vascular Ultrasound Laboratory Lower Extremity Venous [address] [place] [address] Pat.Name: MEGAN CLEMENTS Pat.ID: [id number] .Date: 07/09/2019 Refer.MD: COLIN LOBO MD Exam Time: 8:23:00 PM Study Type:LE Venous Age: 5 1965,53Y Sex: MALE Sonogrphr: JOSE Gillis, OCTAVIA Pat. Stat.:Inpatient Room: [place] [address] 2018A Tape Vol: JM, CPT - 4: 85823 Echo Event ID:[id number] Order ID: [id number] Reason for Study:Leg swelling or pain, DVT [...] 10:43PMAndre Blood MD, FACS, [facility] MethodistCT Angiogram Pe Prjwn9176-24-27 19:52:33Hm Interface, Radiology Results Incoming - 07/09/2019 [...] left apical and anterior pneumothorax. [facility]-[id number] MethodistArterial blood vhm8432-04-11 18:49:43 Test Item Value Reference Range Interpretation [...] (test 97 % 95-100 code = 2708-6) [place] MethodistSurgical pathology [id number] 17:17:53 Test Item Value Reference Range Interpretation Comments Case number (test code = [id number]) Surgical pathology See link below for report (test code = PDF Lab Report 0439) Result status (test code This is Final Report = [id number]) for [id number] [place] MethodistComprehensive metabolic [id number] 14:54:57 Test Item Value Reference Range Interpretation Comments Sodium (test code = 139 135- 148 mEq/L 2951-2) Potassium (test code = 4.4 3.5- 5.0 mEq/L 2823-3) Chloride (test code = 101 98- 112 mEq/L 2075-0) CO2 (test code = 2027-) 29 24- 31 mEq/L Anion gap (test code = 9@ANIO 7- 15 mEq/L 73437-7) BUN (test code = 3094-0) 11 mg/dL 6-20 Creatinine (test code = 0.84 mg/dL 0.7-1.2 2160-0) Glucose (test code = 129 mg/dL 65-99 H 2345-7) Calcium (test code = 9.2 mg/dL 8.3-10.2 23555-6) Protein (test code = 7.0 g/dL 6.3-8.3 9994.6-7.0 2885-2) g/dL1 ishy0093.4-7.6 g/dL7 months-3hdcl969 .1- 7.3 g/dL1-2 duhwl603.6-7.5 g/dL>3 .0-8.0 g/hJ82-0325729. 3-8 .3 g/dL Albumin (test code = 3.1 g/dL 3.5-5 L 1751-7) A/G ratio (test code = 0.8 0.7-3.8 1759-0) Alkaline phosphatase 56 U/L 40-129 (test code = 6768-6) AST (test code = 1920-8) 124 U/L 10-50 H ALT (test code = 1742-6) 51 U/L 5-50 H Total bilirubin (test 0.4 mg/dL 0-1.2 code = 1975-2) Lab Interpretation (test Abnormal code = 02845-2) [place] MethodistXR Chest 2 [id number] 13:56:13Hm Interface, Radiology Results 07/09/2019 1:59 PM [...] osseous abnormality. Mild degenerative changes of thoracic spine.[id number]-[id number] MethodistPrepare [id number] 21:41:00 Test Item Value Reference Range Interpretation Comments Product name (test code Red Blood Cells -1, = 25) Leukored Unit number (test code [id number] = [id number]) Product code (test code [id number] = 3092) Dispense status (test Returned to not code = 24) transfused Blood expiration date (test code = 302) Blood type code (test 6200 code = 308) Blood type (test code = A POSITIVE 1314) Compatibility (test Compatible code = 6400) [place] MethodistArterial blood gas, anpitjkbi5244-08-52 18:38:25 Test Item Value Reference Range Interpretation [...] pH, arterial corrected 7.28 (test code = 22407-2) pCO2, arterial corrected 61 mmHg (test code = 06469-8) pO2, arterial corrected 340 mmHg (test code = 97736-0) Base excess, arterial 0 -2 - 2 mEq-L (test code = 1925-7) Lab Interpretation (test Abnormal code = 78468-2) [place] MethodistGlucose level, lgnlyyb7204-25-56 18:38:25 Test Item Value Reference Range Interpretation Comments Glucose, syringe (test code = 188 mg/dL 65-99 H 2345-7) Lab Interpretation (test code = Abnormal 94166-1) [place] MethodistHemoglobin, [id number] 18:38:25 Test Item Value Reference Range Interpretation Comments Hemoglobin, syringe (test code = 11.8 g/dL 14-18 L 718-7) Lab Interpretation (test code = Abnormal 99469-3) [place] MethodistIonized calcium, yxfmtuoq7018-37-61 18:38:25 Test Item Value Reference Range Interpretation Comments Ionized calcium, arterial (test 1.12 mmol/L 1.11-1.32 code = 19413-1) [place] MethodistLactic acid, kgzcnek7412-17-43 18:38:25 Test Item Value Reference Range Interpretation Comments Lactic acid, syringe (test code = 1.8 mmol/L 0.5-2.2 14071-2) [place] MethodistPotassium, ryyefea2586-16-15 18:38:25 Test Item Value Reference Range Interpretation Comments Potassium, syringe (test code = 2007) 4.7 3.5- 5.0 mEq/L [place] MethodistSodium level, bgpqtin9779-26-11 18:38:25 Test Item Value Reference Range Interpretation Comments Sodium, syringe (test code = 2947-0) 138 135- 148 mEq/L [place] MethodistArterial [id number] 12:50:25Wes Looney MD 07/07/2019 12:51 PMArterial linePerformed by: Wes Looney MDAuthorized by: Michael Caro MD Patient Location: ORStart Time: 07/07/2019 12:50 PMEnd Time: 07/07/2019 12:50 PMStaff: Anesthesiologist: Michael Caro MD Resident/CALL CENTER SUPPORT REPRESENTATIVE/AA: Wes Looney MD Performed by: Resident/CALL CENTER SUPPORT REPRESENTATIVE/AAPre- procedure: patient identified, IV checked, site and [...] tolerated the procedure well with no immediate complicationsSt. Joseph Medical Centersunil KdifmesniQfzige0008-29-66 12:45:13Wes Looney MD 07/07/2019 12:53 PMAirwayDate/Time: 07/07/2019 12:45 PMPerformed by: Wes Looney MDAuthorized by: Michael Caro MD Location: ORUrgency: ElectiveDifficult Airway: Yes Anesthesiologist: Michael Caro MDResident/CALL CENTER SUPPORT REPRESENTATIVE/AA: Wes Looney MDPerformed by:anesthesiologistPreoxygenated with 100% O2: [...] placing the ETT without complications.[place] MethodistType and mlzpvr3835-71-30 10:20:00 Test Item Value Reference Range Interpretation Comments ABO grouping (test code = 883-9) A Rh type (test code = 53561-5) POS Antibody screen (gel) (test code = NEG 890-4) [place] [facility], saomamgmp4238-22-69 11:09:13 Test Item Value Reference Range Interpretation [...] Predicted 83.4 % (test code = 5445) [place] MethodistMRI Brain W Wo Xxcvkpxn0675-56-49 10:42:26Hm Interface, Radiology Results Incoming - 06/27/2019 [...] of intracranial metastasis or acute intracranial abnormality .[id number]-[id number] MethodistCytology (non-gynecological) shbooqo4431-75-66 09:00:17 Test Item Value Reference Range Interpretation Comments Case number (test code = [id number]) Cytology See link below for (non-gynecological) PDF Lab Report report (test code = 1178) Result status (test code This is Final Report = [id number]) for [id number] [place] MethodistECG 12 krcc6447-61-87 09:59:41 Test Item Value Reference Range Interpretation Comments Ventricular rate (test 66 code = 253) Atrial rate (test code = 66 255) MA interval (test code = 164 266) QRSD [...] Lorenz MD (1008) on 06/21/2019 9:59:40 AM [facility] rsakfkg5136-30-58 13:07:01 Test Item Value Reference Range Interpretation Comments POC glucose (test code 111 mg/dL 65-99 H Opera tor Name: Carlyle = 91435-2) DennisDevice ID : [id number] able: [facility] Notified RNChartable: No Action Needed Lab Interpretation Abnormal (test code = 24659-9) [place] BushHlvmsnuxpRokplo2475-33-31 11:41:11CarterAneta MD 06/20/2019 11:42 AMAirwayDate/Time: 06/20/2019 11:29 AMPerformed by: Aneta Ovalles MDAuthorized by: Aneta Ovalles MD Location: ORUrgency: ElectiveAnesthesiologist: Aneta Ovalles MDResident/CALL CENTER SUPPORT REPRESENTATIVE/AA: Harpal Espinosa MDPerformed by: anesthesiologistPreoxygenated with 100% [...] Modified RSI: No Number of Attempts at Approach:2H[facility] PET/CT Whole Body External Ogxxb0594-82-49 00:24:02This exam was not acquired at a Baptism facility and has not been interpreted by a Baptism Provider. The exam was imported into our imaging system.[facility] Chest External Jtooa2695-21-40 00:23:17This exam was not acquired at a Baptism facility and has not been interpreted by a Baptism Provider. The exam was imported into our imaging system.[facility]
--- OUTSIDE RECORDS SUMMARY | 2020-01-23 09:25 | XMS REPORT | Clinical Summary ---
:1965 Author Organization [facility] Address [address] [place] [address] Care Team Providers Name Role Phone Mahendra Ferrell MD Primary Care Provider Allergies Active Allergy Reactions Severity Noted Date Comments Fentanyl Itching High 06/20/2019 Other Rash Low 06/17/2019 *[facility] Midazolam Itching High 06/20/2019 Medications [...] by mouth 20 (Melani ent daily. Discharge) [id number] or Infuse 1 each 0 07/04/19 Discontinued placebo infusion, into a venous 20 (Discontinued by TRAILBLAZER/[id number] catheter another 8797/Tamra, once. clinici an) acetaminophen [...] Lobo MD 08/01/2019 Telephone Cardiothoracic Aide Mustafa YOGA INSTRUCTOR 07/29/2019 Office Visit Cardiothoracic Colin Lobo, Surgery fo llow-up examination (Primary Dx); Surgery Postoperative p ain; Neuropathic tristan n; Muscle spasm 07/28/2019 Telephone Cardiothoracic Aide Gaspar MA 07/25/2019 Telephone General Surgery Colin Lobo MD 07/22/2019 Telephone Cardiothoracic Aide Mustafa, MARYANN 07/16/2019 Refill Cardiothoracic Colin Lobo Surgery MD 07/14/2019 Telephone General Surgery Colin Lobo MD 07/09/2019 [facility] Internal Colin Lobo Shortnes s of breath - Encounter Medicine (Primary Dx) 07/11/2019 Florin Johnson MD 07/09/2019 Office Visit Cardiothoracic Meisenbach, Dysphagia, un specified type (Primary Dx); Surgery Rosemary Macdonald, YOGA INSTRUCTOR Hoarseness 07/09/2019 Lab Lab Colin Lobo, Cough; Dysphagia, unsp ecified type 07/09/2019 Hospital Radiology Colin Lobo, Cough; Encounter Dysphagia, unsp ecified type 07/09/2019 Telephone Cardiothoracic Meisenjass, Cough (Primar y Dx); Surgery Rosemary Macdonald, YOGA INSTRUCTOR Dysphagia, un specified type 07/07/2019 Surgery Cardiothoracic Colin Lobo, LEFT ROBO T-ASSISTED Surgery MD MANDI LINARES FT UPPER LOBE LINGULECTOMY, L EFT LOWER LOBE SEGMENTECTOMY 07/07/2019 Anesthesia Event Cardiothoracic Lydia Mott Surgery MD Sharif Nesbitt Meredith 07/07/2019 [facility] General Internal Colin Lobo, Malignan t neoplasm - Encounter Medicine MD of upper lobe, left 07/08/2019 bronchus or kathryn g (HCC) 07/04/2019 Telephone General Surgery Rea Rae MA 07/04/2019 Telephone Cardiothoracic Moon, Surgery Rosemary Macdonald NP 06/27/2019 [facility] Pulmonology Colin Lobo, [facility] 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) 06/27/2019 [facility] Radiology Colin Lobo, Malignant ne oplasm of upper lobe of left lung (HCC); Encounter MD Pre-op testing 06/24/2019 Telephone General Surgery Colin Lobo MD 06/24/2019 Orders Only Cardiothoracic Meisenbach, 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) (Primary Dx); Surgery Rosemary Macdonald NP Pre-op testin g 06/24/2019 Telephone Cardiothoracic Madalyn, Surgery Genoveva, ELICEO 06/23/2019 Orders Only Cardiothoracic Madalyn [facility] [place] 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) 06/20/2019 Surgery Cardiothoracic Colin Lobo, FLEXIBLE Surgery BRONCHOSCOPY 06/20/2019 Anesthesia Event Cardiothoracic Aneta Ovalles MD Kessellie, Caroline 06/20/2019 [facility] Cardiothoracic Colin Lobo, Encounter Surgery 06/18/2019 Telephone Cardiothoracic Moon, Surgery Rosemary Macdonald YOGA INSTRUCTOR 06/17/2019 [facility] Radiology Chen Nieto, Encounter 06/17/2019 [facility] Radiology Chen Nieto, Encounter 06/17/2019 Office Visit Cardiothoracic Colin Lobo, Malignant neoplasm Surgery MD of upper lobe o f left lung (HCC) (Primary Dx) 06/17/2019 Orders Only Cardiothoracic Provider, Surgery MD Mary Jane after 01/22/2019 Family History Medical History Relation Name Comments [...] Comments Blood Pressure 148/80 07/29/2019 8:05 AM [employer] Pulse 72 07/29/2019 8:05 AM [employer] Temperature 36.1 C (96.9 F) 07/29/2019 8:05 AM [employer] Respiratory Rate 17 07/29/2019 8:05 AM [employer] Oxygen Saturation 97% 07/29/2019 8:05 AM [employer] Inhaled Oxygen Concentration - - Weight 142 kg (314 lb) 07/29/2019 8:05 AM [employer] Height 180.3 cm (5' 11") 07/29/2019 8:05 AM [employer] Body Mass Index 43.79 07/29/2019 8:05 AM [employer] Plan of Treatment Health Maintenance Due Date Last Done Comments COLONOSCOPY SCREENING 10/22/2015 SHINGLES VACCINES (#1) 10/22/2015 INFLUENZA VACCINE 02/10/2020 06/18/2019 Implants Implanted Type Area Automatic Pattern Edger Device Shelf Model / Identifier Expiration Serial / Date Lot Kit Selnt Plrl Air Leak 4ml Strl Progel - [id number] Surgical N/A: N/A [employer] 01/01/2021 [id number] / Implanted: Qty: 1 on 07/07/2019 by Colin Lobo MD at [facility] Implants; / Expanders; Extenders; Surgical Wires Procedures Procedure Name Priority Date/Time Associated Comments Diagnosis XR CHEST 1 VW PORTABLE STAT 07/11/2019 8:50 R esults for this AM [employer] procedure are i n the results section. GRAM STAIN Routine 07/10/2019 9:30 Results for this AM [employer] procedure are i n the results section. SPUTUM CULTURE Routine 07/10/2019 9:30 Results f or this AM [employer] procedure are i n the results section. ESTIMATED GFR Routine 07/10/2019 3:57 Results fo r this AM [employer] procedure are i n the results section. PHOSPHORUS LEVEL Routine 07/10/2019 3:57 Results for this AM [employer] procedure are i n the results section. MAGNESIUM LEVEL Routine 07/10/2019 3:57 Results for this AM [employer] procedure are i n the results section. BASIC METABOLIC PANEL Routine 07/10/2019 3:57 Re sults for this AM [employer] procedure are i n the results section. PARTIAL THROMBOPLASTIN Routine 07/10/2019 3:57 R esults for this TIME (PTT) AM [employer] procedure are i n the results section. PROTHROMBIN TIME WITH Routine 07/10/2019 3:57 Re sults for this INR AM [employer] procedure are i n the results section. HC COMPLETE BLD COUNT Routine 07/10/2019 3:57 Re sults for this W/AUTO DIFF AM [employer] procedure are i n the results section. US DUPLEX VENOUS LOWER STAT 07/09/2019 9:10 R esults for this EXTREMITY BILATERAL PM [employer] procedur e are in the results section. RESPIRATORY PATHOGEN STAT 07/09/2019 8:27 Res ults for this PANEL PM [employer] procedure are i n the results section. CT ANGIOGRAM PE CHEST STAT 07/09/2019 7:35 Re sults for this PM [employer] procedure are i n the results section. ARTERIAL BLOOD GAS STAT 07/09/2019 6:28 Resul ts for this PM [employer] procedure are i n the results section. ESTIMATED GFR STAT 07/09/2019 2:00 Results fo r this PM [employer] procedure are i n the results section. HC COMPLETE BLD COUNT STAT 07/09/2019 2:00 Cough Results for this W/AUTO DIFF PM [employer] Dysphagia, procedure are i n unspecified type the results section. COMPREHENSIVE METABOLIC STAT 07/09/2019 2:00 Cough Results for this PANEL PM [employer] Dysphagia, procedure are i n unspecified type the results section. XR CHEST 2 VW Routine 07/09/2019 1:44 Cough Results for this PM [employer] Dysphagia, procedure are i n unspecified type the results section. XR CHEST 1 VW PORTABLE STAT 07/08/2019 2:35 R esults for this PM [employer] procedure are i n the results section. XR CHEST 1 VW PORTABLE Timed 07/08/2019 10:35 R esults for this AM [employer] procedure are i n the results section. XR CHEST 1 VW PORTABLE Routine 07/08/2019 6:45 R esults for this AM [employer] procedure are i n the results section. ARTERIAL BLOOD GAS Routine 07/08/2019 6:10 Resul ts for this AM [employer] procedure are i n the results section. XR CHEST 1 VW PORTABLE STAT 07/08/2019 4:43 R esults for this AM [employer] procedure are i n the results section. XR CHEST 1 VW PORTABLE STAT 07/07/2019 7:35 R esults for this PM [employer] procedure are i n the results section. GLUCOSE LEVEL, SYRINGE STAT 07/07/2019 6:30 R esults for this PM [employer] procedure are i n the results section. LACTIC ACID, SYRINGE STAT 07/07/2019 6:30 Res ults for this PM [employer] procedure are i n the results section. HEMOGLOBIN, SYRINGE STAT 07/07/2019 6:30 Resu lts for this PM [employer] procedure are i n the results section. IONIZED CALCIUM, STAT 07/07/2019 6:30 Results for this ARTERIAL PM [employer] procedure are i n the results section. SODIUM LEVEL, SYRINGE STAT 07/07/2019 6:30 Re sults for this PM [employer] procedure are i n the results section. POTASSIUM, SYRINGE STAT 07/07/2019 6:30 Resul ts for this PM [employer] procedure are i n the results section. ARTERIAL BLOOD GAS, STAT 07/07/2019 6:30 Resu lts for this CORRECTED PM [employer] procedure are i n the results section. SURGICAL PATHOLOGY Routine 07/07/2019 5:51 Resul ts for this REQUEST PM [employer] procedure are i n the results section. LACTIC ACID, SYRINGE STAT 07/07/2019 5:20 Res ults for this PM [employer] procedure are i n the results section. IONIZED CALCIUM, STAT 07/07/2019 5:20 Results for this ARTERIAL PM [employer] procedure are i n the results section. GLUCOSE LEVEL, SYRINGE STAT 07/07/2019 5:20 R esults for this PM [employer] procedure are i n the results section. SODIUM LEVEL, SYRINGE STAT 07/07/2019 5:20 Re sults for this PM [employer] procedure are i n the results section. HEMOGLOBIN, SYRINGE STAT 07/07/2019 5:20 Resu lts for this PM [employer] procedure are i n the results section. POTASSIUM, SYRINGE STAT 07/07/2019 5:20 Resul ts for this PM [employer] procedure are i n the results section. ARTERIAL BLOOD GAS, STAT 07/07/2019 5:20 Resu lts for this CORRECTED PM [employer] procedure are i n the results section. GLUCOSE LEVEL, SYRINGE STAT 07/07/2019 4:15 R esults for this PM [employer] procedure are i n the results section. IONIZED CALCIUM, STAT 07/07/2019 4:15 Results for this ARTERIAL PM [employer] procedure are i n the results section. SODIUM LEVEL, SYRINGE STAT 07/07/2019 4:15 Re sults for this PM [employer] procedure are i n the results section. POTASSIUM, SYRINGE STAT 07/07/2019 4:15 Resul ts for this PM [employer] procedure are i n the results section. HEMOGLOBIN, SYRINGE STAT 07/07/2019 4:15 Resu lts for this PM [employer] procedure are i n the results section. ARTERIAL BLOOD GAS, STAT 07/07/2019 4:15 Resu lts for this CORRECTED PM [employer] procedure are i n the results section. LACTIC ACID, SYRINGE STAT 07/07/2019 3:17 Res ults for this PM [employer] procedure are i n the results section. GLUCOSE LEVEL, SYRINGE STAT 07/07/2019 3:17 R esults for this PM [employer] procedure are i n the results section. HEMOGLOBIN, SYRINGE STAT 07/07/2019 3:17 Resu lts for this PM [employer] procedure are i n the results section. IONIZED CALCIUM, STAT 07/07/2019 3:17 Results for this ARTERIAL PM [employer] procedure are i n the results section. POTASSIUM, SYRINGE STAT 07/07/2019 3:17 Resul ts for this PM [employer] procedure are i n the results section. SODIUM LEVEL, SYRINGE STAT 07/07/2019 3:17 Re sults for this PM [employer] procedure are i n the results section. ARTERIAL BLOOD GAS, STAT 07/07/2019 3:17 Resu lts for this CORRECTED PM [employer] procedure are i n the results section. LACTIC ACID, SYRINGE STAT 07/07/2019 2:26 Res ults for this PM [employer] procedure are i n the results section. GLUCOSE LEVEL, SYRINGE STAT 07/07/2019 2:26 R esults for this PM [employer] procedure are i n the results section. IONIZED CALCIUM, STAT 07/07/2019 2:26 Results for this ARTERIAL PM [employer] procedure are i n the results section. POTASSIUM, SYRINGE STAT 07/07/2019 2:26 Resul ts for this PM [employer] procedure are i n the results section. HEMOGLOBIN, SYRINGE STAT 07/07/2019 2:26 Resu lts for this PM [employer] procedure are i n the results section. SODIUM LEVEL, SYRINGE STAT 07/07/2019 2:26 Re sults for this PM [employer] procedure are i n the results section. ARTERIAL BLOOD GAS, STAT 07/07/2019 2:26 Resu lts for this CORRECTED PM [employer] procedure are i n the results section. LACTIC ACID, SYRINGE STAT 07/07/2019 1:20 Res ults for this PM [employer] procedure are i n the results section. GLUCOSE LEVEL, SYRINGE STAT 07/07/2019 1:20 R esults for this PM [employer] procedure are i n the results section. IONIZED CALCIUM, STAT 07/07/2019 1:20 Results for this ARTERIAL PM [employer] procedure are i n the results section. POTASSIUM, SYRINGE STAT 07/07/2019 1:20 Resul ts for this PM [employer] procedure are i n the results section. HEMOGLOBIN, SYRINGE STAT 07/07/2019 1:20 Resu lts for this PM [employer] procedure are i n the results section. SODIUM LEVEL, SYRINGE STAT 07/07/2019 1:20 Re sults for this PM [employer] procedure are i n the results section. ARTERIAL BLOOD GAS, STAT 07/07/2019 1:20 Resu lts for this CORRECTED PM [employer] procedure are i n the results section. ARTERIAL LINE Routine 07/07/2019 12:50 Results fo r this PM [employer] procedure are i n the results section. WI AN ELECTIVE Routine 07/07/2019 12:45 Results f or this ENDOTRACHEAL AIRWAY PM [employer] procedur e are in the results section. IONIZED CALCIUM, STAT 07/07/2019 12:26 Results for this ARTERIAL PM [employer] procedure are i n the results section. GLUCOSE LEVEL, SYRINGE STAT 07/07/2019 12:26 R esults for this PM [employer] procedure are i n the results section. HEMOGLOBIN, SYRINGE STAT 07/07/2019 12:26 Resu lts for this PM [employer] procedure are i n the results section. POTASSIUM, SYRINGE STAT 07/07/2019 12:26 Resul ts for this PM [employer] procedure are i n the results section. SODIUM LEVEL, SYRINGE STAT 07/07/2019 12:26 Re sults for this PM [employer] procedure are i n the results section. ARTERIAL BLOOD GAS, STAT 07/07/2019 12:26 Resu lts for this CORRECTED PM [employer] procedure are i n the results section. PREPARE RBC STAT 07/07/2019 8:20 Results for this AM [employer] procedure are i n the results section. TYPE AND SCREEN STAT 07/07/2019 8:20 Results for this AM [employer] procedure are i n the results section. SPIROMETRY, DIFFUSION Routine 06/27/2019 11:09 Primary maligna nt Results for this AM [employer] neoplasm of procedure are i n bronchus of left the results lower lobe (HCC) section. MRI BRAIN W WO CONTRAST Routine 06/27/2019 10:36 Malignant sj plasm Results for this AM [employer] of upper lobe of procedure a re in left lung (HCC) the results Pre-op testing section. POC GLUCOSE Routine 06/20/2019 1:04 Results for this PM [employer] procedure are i n the results section. WI AN ELECTIVE Routine 06/20/2019 11:41 Results f or this ENDOTRACHEAL AIRWAY AM [employer] procedur e are in the results section. CYTOLOGY Routine 06/20/2019 11:40 Results for this (NON-GYNECOLOGICAL) AM [employer] procedur e are in REQUEST the results section. CYTOLOGY Routine 06/20/2019 11:40 Results for this (NON-GYNECOLOGICAL) AM [employer] procedur e are in REQUEST the results section. ECG 12-LEAD STAT 06/20/2019 8:33 Results for this AM [employer] procedure are i n the results section. ESTIMATED GFR STAT 06/20/2019 8:15 Results fo r this AM [employer] procedure are i n the results section. PARTIAL THROMBOPLASTIN STAT 06/20/2019 8:15 R esults for this TIME (PTT) AM [employer] procedure are i n the results section. PROTHROMBIN TIME WITH STAT 06/20/2019 8:15 Re sults for this INR AM [employer] procedure are i n the results section. BASIC METABOLIC PANEL STAT 06/20/2019 8:15 Re sults for this AM [employer] procedure are i n the results section. HC COMPLETE BLD COUNT STAT 06/20/2019 8:15 Re sults for this W/AUTO DIFF AM [employer] procedure are i n the results section. PET CT WHOLE BODY Routine 05/15/2019 10:19 Result s for this EXTERNAL STUDY AM [employer] procedure are in the results section. PET CT SKULL BASE TO Routine 05/15/[address] CHEST EXTERNAL STUDY Routine 05/02/2019 7:55 Results for this AM [employer] procedure are i n the results section. after 01/22/2019 Results XR Chest 1 Vw Portable (07/11/2019 8:50 AM [employer])Only the most recent of6 results within the time period is included. Specimen Narrative Performed At EXAMINATION: XR CHEST 1 VW PORTABLE [facility] CLINICAL HISTORY: shortness of breath IMPRESSION: Single frontal view compared to 07/09/2019 demonstrates postoperative scarring and atelectasis and volume loss in the left l lara to be stable. There is no new infiltrate. There is no pneumothorax. [facility]-[id number] Procedure Note Hm Interface, Radiology Results Incoming - 07/11/2019 10:45 AM [employer] EXAMINATION: XR CHEST 1 VW PORTABLE CLINICAL HISTORY: shortness of breath IMPRESSION: Single frontal view compared to 0 demonstrates postoperative scarring and atelectasis and volume loss in the left lung to be stable. There is no new infiltrate. There is no pneumothorax. [facility]-[id number] Performing Organization Address City/[facility]/Zipcode Phone Number [facility] [address] [place] [address] Sputum culture (07/10/2019 9:30 AM [employer]) Sputum culture Normal oral jose juan isolated. [facility] Comment: [facility]ITAL Specimen Information Specimen Source: Sputum Specimen Site: Expectorated Specimen Sputum - Expectorated Performing Organization Address City/[facility]/Zipcode Phone Number [facility] DEPARTMENT OF PATHOLOGY AND [address] [place], [place] [address] GENOMIC MEDICINE [address] [address] Gram stain (07/10/2019 9:30 AM [employer]) Gram stain isolate Few WBC's [facility] Few Gram negative rods HOSPITAL Moderate Gram positive cocci in pairs Comment: Specimen Information Specimen Source: Sputum Specimen Site: Expectorated Specimen Sputum - Expectorated Performing Organization Address City/[facility] Phone Number [facility] DEPARTMENT OF PATHOLOGY AND [address] [place] [address] [phone] [address] Estimated GFR (07/10/2019 3:57 AM [employer])Only the most recent of3 resultswithin the time period is included. [facility] Estimated GFR >=90 mL/min/1.73 [facility] Comment: [address] Catergory Units Interpretation G1 >=90 Normal [...] 2014. Specimen Plasma specimen Performing Organization Address [facility] Phone Number [facility] DEPARTMENT OF PATHOLOGY AND [address] [place] [phone] Partial thromboplastin time, activated (07/10/2019 3:57 AM [employer])Only the most recent of2 resultswithin the time period is included. [facility] PTT 29.8 23.0 - 36.0 [facility] Comment: [facility] PTT therapeutic range for unfractionated heparin is 61.0-112.0 seconds which corresponds to Anti-Xa 0.3-0.7 U/ml. Specimen Blood Performing Organization Address [facility] Phone Number [facility] DEPARTMENT OF PATHOLOGY AND [address] [place] [phone] [place] [phone] Prothrombin time with INR (07/10/2019 3:57 AM [employer])Only the most recent of2 resultswithin the time period is included. [facility] Prothrombin time 14.5 11.5 - 14.5 [facility] INR 1.1 [place] Comment: [facility] The International Normalized Ratio (INR) is a therapeu [facility] monitoring tool for patients who are stable on oral anticoagulant therapy. An INR of 2.0-3.0 is suggested for deep vein thrombosis/pulmonary embolism. Specimen Blood Performing Organization Address City/State/Zipcode Phone Number [facility] DEPARTMENT OF PATHOLOGY AND [address] [place], [place] [address] [address] CBC with platelet and differential (07/10/2019 3:57 AM [employer])Only the most recent of3 resultswithin the time period is included. WBC 7.89 4.50 - 11.00 [facility] k/uL HOSPITAL RBC 3.72 (L) 4.40 - 6.00 [facility] m/uL [facility] HGB 10.8 (L) 14.0 - 18.0 [facility] g/dL [facility] HCT 34.3 (L) 41.0 - 51.0 % [facility] MCV 92.2 82.0 - 100.0 [facility] MCH 29.0 27.0 - 34.0 pg [facility] MCHC 31.5 31.0 - 37.0 [facility] - SD 44.3 37.0 - 55.0 fL [facility] MPV 9.5 8.8 - 13.2 [facility] Platelet count 149 (L) 150 - 400 k/uL [facility] Nucleated RBC 0.00 /100 WBC [facility] Neutrophils 81.2 (H) 39.0 - 69.0 % [facility] Lymphocytes 7.7 (L) 25.0 - 45.0 % [facility] Monocytes 7.5 0.0 - 10.0 % [facility] Eosinophils 2.5 0.0 - 5.0 % [facility] Basophils 0.3 0.0 - 1.0 % [facility] Immature granulocytes 0.8Comment: 0.0 - 1.0 % [facility] "Immature HOSPITAL granulocytes" (promyelocytes , myelocytes, metamyelocytes ) Specimen Blood Performing Organization Address City/State/Zipcode Phone Number [facility] DEPARTMENT OF PATHOLOGY AND [address] [place], [place] [address] [address] Phosphorus level (07/10/2019 3:57 AM [employer]) Pathologist Sig nature Phosphorus 2.9 2.4 - 4.5 mg/dL [facility] L Specimen Plasma specimen Performing Organization Address [facility] Phone Number [facility] DEPARTMENT OF PATHOLOGY AND [address] [place] [address] Magnesium level (07/10/2019 3:57 AM [employer]) Pathologist [facility] Magnesium 2.1 1.6 - 2.6 mg/dL [facility] Specimen Plasma specimen Performing Organization Address [facility] Phone Number [facility] [facility] DEPART[facility] OF [facility]OLOGY AND [address] [place] [address] Basic metabolic panel (07/10/2019 3:57 AM HAND ASSEMBLER FOR PULLER OVER)Only the most recent of2 results within the time period is included. Pathologist Sig nature Sodium 137 135 - 148 mEq/L [facility] Potassium 3.9 3.5 - 5.0 mEq/L [facility] Chloride 101 98 - 112 mEq/L [facility] CO2 25 24 - 31 mEq/L [facility] Anion gap 11@ANIO 7 - 15 mEq/L [facility] BUN 10 6 - 20 mg/dL [facility] Creatinine 0.73 0.70 - 1.20 mg/dL [facility] Glucose 125 (H) 65 - 99 mg/dL [facility] Calcium 8.8 8.3 - 10.2 mg/dL [facility] Specimen Plasma specimen Performing Organization Address [facility] Phone Number [facility] DEPARTMENT OF PATHOLOGY AND [address] [place] [address] Us duplex venous lower extremity (07/09/2019 9:10 PM HAND ASSEMBLER FOR PULLER OVER) Specimen Narrative Performed At [facility] Lower Extr emity Venous Report [address] [place] [address] Pat.Name: JAE CONNOLLY Pat.ID: [id number]Date: 07/09/2019 Refer.MD: COLIN LOBO MD Exam Time: 8:23:00 PM Study Type:L E Venous Age: 5 1965,53Y Sex: MALE Sonogrphr: Raphael Rocha, RVS, RCS Pat. Stat.:Inpati ent Room: [facility] WT20 2018A Tape Vol: JM, [facility] - 4: 05297 Echo Yvrose nt ID:[id number] Order ID: [id number] Reason for Study:Leg swelling or pain, D [...] Radiology Results In - 2019 10:43 PM HAND ASSEMBLER FOR PULLER OVER Vascular Ultrasound Laboratory Lower Extremity Veno us Report [address] [address] , [place] [address] Pat.Name: JAE CONNOLLY Pat.I D: [id number] St.Date: 07/09/2019 Refer .MD: COLIN LOBO MD Exam Time: 8:23:00 PM Study Type:LE Venous Age: 5 1965,53Y Sex: MALE Sonogrphr: Raphael Rocha, JOSE, RCS Pat. Stat.:Inpatient Room: [place] [address] 2018A Tape Vol: JM, CPT - 4: 38461 Echo Event ID:[id number] Order ID: [id number] Reason for Study:Leg swelling or pain, D [...] Blood MD, FACS, RPVI Performing Organization Address [facility]/Zipcode Phone Number [facility] [address] [place] [address] Respiratory pathogen panel (07/09/2019 8:27 PM HAND ASSEMBLER FOR PULLER OVER) [facility] Respiratory Negative for all pathogens tested: [facility] pathogen panel Negative for Adenovirus [facility] Negative for Coronavirus HKU1 [facility] Negative for Coronavirus NL63 Negative for [...] Specimen Nares - Left Performing Organization Address [facility] Phone Number [facility] DEPARTMENT OF PATHOLOGY AND [address] [place], [place] [address] [facility] MEDICINE [address] [address] [address] Angiogram Pe Chest (07/09/2019 7:35 PM HAND ASSEMBLER FOR PULLER OVER) Specimen Narrative Performed At EXAMINATION: CT ANGIOGRAM [...] iation dose. COMPARISON: 05/02/[address] [facility] [place]. IMPRESSION: CHEST: 1. Pulmonary Arteries: [...] left apical and ant erior pneumothorax. [facility]-[id number] Procedure Note [facility], Radiology Results Incoming - 07/09/2019 7:55 PM HAND ASSEMBLER FOR PULLER OVER EXAMINATION: CT ANGIOGRAM PE CHEST CLINICAL HISTORY: [...] reduce radiation dose. COMPARISON: 05/02/2019 external study [facility] CT. IMPRESSION: CHEST: 1. Pulmonary Arteries: [...] Trace left apical and anterior pneumothorax. [facility]-[id number] Performing Organization Address City/State/Zipcode Phone Number [facility] [address] [place] [address] Arterial blood gas (07/09/2019 6:28 PM HAND ASSEMBLER FOR PULLER OVER)Only the most recent of2 results within the time period is included. Pathologist Sig nature pH, arterial 7.42 7.35 - 7.45 [facility] pCO2, arterial 41 35 - 45 mmHg [facility] pO2, arterial 85 80 - 90 mmHg [facility] Bicarbonate, arterial 26.3 21.0 - 28.0 [facility] mmol/L [facility] Base excess, arterial 2 -2 - 2 mEq/L [facility] O2 saturation, 97 95 - 100 % [facility] Specimen Blood Performing Organization Address City/State/Zipcode Phone Number [facility] DEPARTMENT OF PATHOLOGY AND [address] [place] [address] [phone] [address] Comprehensive metabolic panel (07/09/2019 2:00 PM HAND ASSEMBLER FOR PULLER OVER) Sodium 139 135 - 148 [facility] mEq/L [facility] Potassium 4.4 3.5 - 5.0 [facility] mEq/L [facility] Chloride 101 98 - 112 mEq/L [facility] CO2 29 24 - 31 mEq/L [facility] Anion gap 9@ANIO 7 - 15 mEq/L [facility] BUN 11 6 - 20 mg/dL [facility] Creatinine 0.84 0.70 - 1.20 [facility] mg/dL [facility] Glucose 129 (H) 65 - 99 mg/dL [facility] Calcium 9.2 8.3 - 10.2 [facility] mg/dL [facility] Protein 7.0 6.3 - 8.3 g/dL [facility] Comment: HOSPITAL Ddkdisp1493.6-7.0 g/dL 1 mxip1218.4-7.6 g/dL 7 months-2hzud685.1-7.3 g/dL 1-2 qwwak969.6-7.5 g/dL >3 dwyut102.0-8.0 g/dL 18-4222441.3-8.3 g/dL Albumin 3.1 (L) 3.5 - 5.0 g/dL [facility] A/G ratio 0.8 0.7 - 3.8 [facility] Alkaline phosphatase 56 40 - 129 U/L [facility] AST 124 (H) 10 - 50 U/L [facility] ALT 51 (H) 5 - 50 U/L [facility] Total bilirubin 0.4 0.0 - 1.2 [facility] mg/dL [facility] Specimen Plasma specimen Performing Organization Address City/State/Zipcode Phone Number [facility] DEPARTMENT OF PATHOLOGY AND [address] [place], [place] [address] [facility] [address] [place] [phone] XR Chest 2 Vw (07/09/2019 1:44 PM HAND ASSEMBLER FOR PULLER OVER) Specimen Narrative Performed At EXAMINATION: XR CHEST [...] degenerati ve changes of thoracic spine. [facility]-[id number] Procedure Note Interface, Radiology Results Incoming - 07/09/2019 1:59 PM HAND ASSEMBLER FOR PULLER OVER EXAMINATION: XR CHEST 2 VW CLINICAL HISTORY: [...] ld degenerative changes of thoracic spine. [facility]-[id number] Performing Organization Address City/[facility]/Zipcode Phone Number [facility] [address] [place] [phone] Sodium level, syringe (07/07/2019 6:30 PM HAND ASSEMBLER FOR PULLER OVER)Only the most recent of7 results within the time period is included. Pathologist Sig nature Sodium, syringe 138 135 - 148 mEq/L [facility] Specimen Blood Performing Organization Address City/[facility]/Zipcode Phone Number [facility] DEPARTMENT OF PATHOLOGY AND [address] [place] [address] [phone] [address] Potassium, syringe (07/07/2019 6:30 PM HAND ASSEMBLER FOR PULLER OVER)Only the most recent of7 results within the time period is included. Pathologist Sig nature Potassium, syringe 4.7 3.5 - 5.0 mEq/L [facility] Specimen Blood Performing Organization Address City/[facility]/Zipcode Phone Number [facility] DEPARTMENT OF PATHOLOGY AND [address] [place] [address] [phone] [address] Lactic acid, syringe (07/07/2019 6:30 PM HAND ASSEMBLER FOR PULLER OVER)Only the most recent of5 results within the time period is included. Pathologist Sig nature Lactic acid, syringe 1.8 0.5 - 2.2 mmol/L [facility] Specimen Blood Performing Organization Address City/[facility] Cent[facility]ode Phone Number [facility] DEPARTMENT OF PATHOLOGY AND [address] [place] [address] Ionized calcium, arterial (07/07/2019 6:30 PM HAND ASSEMBLER FOR PULLER OVER)Only the most recent of7 resultswithin the time period is included. Pathologist Sig nature Ionized calcium, 1.12 1.11 - 1.32 [facility] arterial mmol/L [facility] Specimen Blood Performing Organization Address [facility] Centerconc Phone Number [facility] DEPARTMENT OF PATHOLOGY AND [address] [place] [phone] Hemoglobin, syringe (07/07/2019 6:30 PM HAND ASSEMBLER FOR PULLER OVER)Only the most recent of7 results within the time period is included. Pathologist Sig nature Hemoglobin, syringe 11.8 (L) 14.0 - 18.0 g/dL [facility] Specimen Blood Performing Organization Address [facility] Phone Number [facility] DEPARTMENT OF PATHOLOGY AND [address] [place] [phone] Glucose level, syringe (07/07/2019 6:30 PM HAND ASSEMBLER FOR PULLER OVER)Only the most recent of7 results within the time period is included. Pathologist Sig nature Glucose, syringe 188 (H) 65 - 99 mg/dL [facility] Specimen Blood Performing Organization Address City/[facility] Centercode Phone Number [facility] DEPARTMENT OF PATHOLOGY AND [address] [place] [address] Arterial blood gas, corrected (07/07/2019 6:30 PM HAND ASSEMBLER FOR PULLER OVER)Only the most recent of7 resultswithin the time period is included. pH, arterial 7.28 (L) 7.35 - 7.45 [facility] pCO2, arterial 61 (HH) 35 - 45 mmHg [facility] Comment: HOSPITAL ABG results called to and read back by IN [facility]OR #6 BY AM 2AT 07/07/2019 18:38 pO2, arterial 340 (H) 80 - 90 mmHg [facility] Temperature, 37.0 Degrees C [facility] O2 saturation, 99 95 - 100 % [facility] pH, arterial 7.28 [facility] pCO2, arterial 61 mmHg [facility] pO2, arterial 340 mmHg [facility] Base excess, 0 -2 - 2 mEq/L [facility] Specimen Blood Performing Organization Address City/State/Zipcode Phone Number [facility] DEPARTMENT OF PATHOLOGY AND [address] [place], [place] [address] GENOM[address] [address] Surgical pathology request (07/07/2019 5:51 PM HAND ASSEMBLER FOR PULLER OVER) [facility] DEPARTMENT OF PATHOLOGY AND GENOMIC MEDICINE Surgical pathology See link below [facility] DEPARTMENT OF report for PDF Lab PATHOLOGY AND Report GENOMIC MEDICINE Result status This is Final [facility] DEPARTMENT OF Report for PATHOLOGY AND [id number] GENOM[facility] MEDICINE Specimen Performing Organization Address City/State/Zipcode Phone Number [facility] DEPARTMENT OF PATHOLOGY AND [address] [place], [place] [address] GENOMIC MEDICINE Arterial line (07/07/2019 12:50 PM HAND ASSEMBLER FOR PULLER OVER) Narrative Performed At Wes Looney MD 07/07/2019 12:51 PM Arterial line Performed by: Wes Looney MD Authorized by: Michael Caro MD Patient Location: OR Start Time: 07/07/2019 12:50 PM End Time: 07/07/2019 12:50 PM Staff: Anesthesiologist: Michael Caro MD Resident/BALLROOM DANCER/AA: Wes Looney MD Performed by: Resident/BALLROOM DANCER/AA Pre-procedure: patient identified, IV ch ecked, site [...] no immediate complications Airway (07/07/2019 12:45 PM HAND ASSEMBLER FOR PULLER OVER) Narrative Performed At Wes Looney MD 07/07/2019 12:53 PM Airway Date/Time: 07/07/2019 12:45 PM Performed by: Wes Looney MD Authorized by: Michael Caro MD Location: OR Urgency: Elective Difficult Airway: Yes Anesthesiologist: Michael Caro MD Resident/BALLROOM DANCER/AA: Wes Looney MD Performed by: anesthesiologist Preoxygenated [...] without complications. Prepare RBC (07/07/2019 8:20 AM HAND ASSEMBLER FOR PULLER OVER) Product name Red Blood Cells [facility], Leukored [facility] Unit number [id number] [facility] Product code [id number] [facility] Dispense status Returned to BB not [facility] Blood expiration date [facility] Blood type code 6200 [facility] Blood type A POSITIVE [facility] Compatibility Compatible [facility] Product name Red Blood Cells [place] -1, Leukored [facility] Unit number [id number] [facility] Product code [id number] [facility] Dispense status Returned to BB not [facility] Blood expiration date [facility] Blood type code 6200 [facility] Blood type A POSITIVE [facility] Compatibility Compatible [facility] Specimen Performing Organization Address City/State/Zipcode Phone Number [facility] DEPARTMENT OF PATHOLOGY AND [address] [place] [phone] [facility] MEDICINE [address] [address] Type and screen (07/07/2019 8:20 AM HAND ASSEMBLER FOR PULLER OVER) Pathologist Sig nature ABO grouping A [facility] Rh type POS [facility] Antibody screen (gel) NEG [facility] Specimen Blood Performing Organization Address City/[facility]/Zipcode Phone Number [facility] DEPARTMENT OF PATHOLOGY AND [address] [place] [address] [phone] [address] Spirometry, diffusion (06/27/2019 11:09 AM HAND ASSEMBLER FOR PULLER OVER) Pathologist Sig nature FEV1 Pre 2.66 3.05 [...] Organization Address City/State/Zipcode Phone Number [facility] [address] [place] [address] MRI Brain W Wo Contrast (06/27/2019 10:36 AM HAND ASSEMBLER FOR PULLER OVER) Specimen Narrative Performed At This result has [...] intracranial metastasis or acute int racranial abnormality. [id number] Procedure Note Interface, Radiology Results Incoming - 06/27/2019 10:45 AM HAND ASSEMBLER FOR PULLER OVER EXAMINATION: MRI BRAIN W WO CONTRAST CLINICAL [...] intracranial metastasi s or acute intracranial abnormality. [id number] Performing Organization Address [facility] Center[facility] Phone Number [facility] [address] [place] [address] POC glucose (06/20/2019 1:04 PM HAND ASSEMBLER FOR PULLER OVER) Pathologist [facility] POC glucose 111 (H) 65 - 99 mg/dL [facility] Comment: HOSPITAL Test Baker Name: Carlyle Abad Device ID: [id number] Chartable: [facility] Notified RN Chartable: No Action Needed Specimen Performing Organization Address City/[facility] Phone Number [facility] DEPARTMENT OF PATHOLOGY AND [address] [place] [phone] GENOMIC MEDICINE [address] [address] Airway (06/20/2019 11:41 AM HAND ASSEMBLER FOR PULLER OVER) Narrative Performed At Aneta Ovalles MD 06/20/19 11:42 AM Airway Date/Time: 06/20/2019 11:29 AM Performed by: Aneta Ovalles MD Authorized by: Aneta Ovalles M D Location: OR Urgency: Elective Anesthesiologist: Aneta Ovalles MD Resident/BALLROOM DANCER/AA: Harpal Espinosa MD Performed by: anesthesiologist Preoxygenated [...] 2 Cytology (non-gynecological) request (06/20/2019 11:40 AM HAND ASSEMBLER FOR PULLER OVER)Only the most recent of2 resultswithin the time period is included. [facility] DEPARTMENT OF PATHOLOGY AND GENOMIC MEDICINE Cytology See link below [facility] DEPARTMENT OF (non-gynecological) for PDF Lab PATHOLOGY AND report Report GENOMIC MEDICINE Result status This is Final [facility] DEPARTMENT OF Report for PATHOLOGY AND [id number] GENOMIC MEDICINE Specimen Performing Organization Address City/[facility] Centercode Phone Number [facility] DEPARTMENT OF PATHOLOGY AND [address] [place], [place] [address] GENOMIC MEDICINE ECG 12 lead (06/20/2019 8:33 AM HAND ASSEMBLER FOR PULLER OVER) Pathologist Sig nature Ventricular rate 66 [facility] Atrial rate 66 [facility] WI interval 164 [facility] QRSD interval 82 [facility] QT interval 402 [facility] QTC interval 421 [facility] P axis 1 60 [facility] QRS axis 1 58 [facility] T wave axis 55 [facility] EKG impression Normal sinus [facility] M[facility] rhythm-Anterior infarct , age undetermined-Abnormal ECG-No previous ECGs available-Electronicall y Signed By Gerda SHEFFIELD, Willi Covington ([id number]) on 06/21/2019 9:59:40 AM Specimen Narrative Performed At This result has an attachment that is no t available. Performing Organization Address City/State/Zipcode Phone Number [facility] MUSE [address] [place] [address] PET/CT Whole Body External Study (05/15/2019 10:19 AM HAND ASSEMBLER FOR PULLER OVER) Specimen Narrative Performed At This exam was not acquired at a [facility] facility and has not been [facility] interpreted by a [facility] Provider. T he exam was imported into our imaging system. Performing Organization Address City/[facility]/Zipcode Phone Number [facility] [address] [place] [address] PET/CT Skull Base To Mid Thigh (05/15/2019) Narrative Performed At This result has an attachment that is no t available. CT Chest External Study (05/02/2019 7:55 AM HAND ASSEMBLER FOR PULLER OVER) Specimen Narrative Performed At This exam was not acquired at a [facility] facility and has not been [facility] interpreted by a [facility] Provider. T he exam was imported into our imaging system. 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
[2020-01-23 10:41] LABS: Absolute Lymphocytes (CBC) 0.9 K/uL (0.7-4.9); Basophils % 0.5 % (0-1.3); Hematocrit 35.4 % (39.6-49.0); Lymphocytes % 11.1 % (15.3-44.8); MPV 7.6 fL (7.6-11.3); RBC Red Blood Cell Count 3.86 M/uL (4.33-5.43)
[2020-01-23 10:44] LABS: Protime INR 1.02
[2020-01-23 11:05] LABS: ALT/SGPT 24 U/L (12-78); AST/SGOT 15 U/L (15-37); Albumin 3.5 g/dL (3.4-5.0); Alkaline Phosphatase 69 U/L (45-117); BUN Blood Urea Nitrogen 14 mg/dL (7-18); Bicarbonate 31 mmol/L (21-32); Bilirubin Direct < 0.1 mg/dL (0-0.2); Bilirubin Total 0.4 mg/dL (0.2-1.0); Glucose Level 166 mg/dL (74-106); NT PRO-BNP 108 pg/mL (<125); Potassium 3.7 mmol/L (3.5-5.1); Protein, Total 7.2 g/dL (6.4-8.2); Sodium Level 139 mmol/L (136-145); Troponin (Emerg Dept Use Only) < 0.02 ng/mL (0.0-0.045)
--- NOTE | 2020-01-23 11:36 | RAD REPORT ---
EXAM DESCRIPTION: Deannat Single View01/23/2020 10:19 am CLINICAL HISTORY: Chest pain COMPARISON: November 2019 FINDINGS: Left base is hazy without significant change. This probably is secondary to epicardial and mediastinal fat Areas of scarring or subsegmental atelectasis are present within the left lung. Right lung appears clear of acute infiltrate. Heart is normal size
--- NOTE | 2020-01-23 13:26 | ER ---
Nurse's Notes [facility] Name: Jae Connolly Age: 54 yrs Sex: Male : 1965 Arrival Date: 01/23/2020 Time: 09:18 Bed 2 Private MD: Diagnosis: Chest pain, unspecified Presentation: 01/22 09:34 Chief complaint: Left sided chest pain that radiated to left arm, nausea, and SOB while hb fishing this morning. 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 Coronavirus screen: At this time, the client does not indicate any symptoms associated with coronavirus-19. Ebola Screen: No symptoms or risks identified at this time. Initial Sepsis Screen: Does the patient meet any 2 criteria? No. Patient's initial sepsis screen is negative. Does the patient have a suspected source of infection? No. Patient's initial sepsis screen is negative. Risk Assessment: Do you want to hurt yourself or someone else? Patient reports no desire to harm self or others. Onset of symptoms was January 23, 2020. 09:34 Method Of Arrival: Ambulatory 09:34 Acuity: KIARA 3 hb Triage Assessment: 09:35 General: Appears in no apparent distress. comfortable, obese, Behavior is cooperative, bp appropriate for age, anxious. Pain: Denies pain. EENT: No deficits noted. Neuro: No deficits noted. Cardiovascular: Rhythm is sinus bradycardia. Cardiovascular: Chest pain NOW RESOLVED. Respiratory: Reports shortness of breath. GI: No signs and/or symptoms were reported involving the gastrointestinal system. : No signs and/or symptoms were reported regarding the genitourinary system. Derm: No deficits noted. Musculoskeletal: No deficits noted. Historical: - Allergies: :36 No Known Allergies; hb - Home Meds: :36 Prednisone Oral 2 times per day [Active]; Symbicort inhalation [Active]; Zytiga 250 mg hb Oral tab 4 tabs once daily [Active]; - PMHx: :36 Asthma; Hyperlipidemia; Lung Cancer; Osteoporosis; Prostate Cancer; hb - PSHx: :36 L Lung partial lobectomy; R rotattor cuff; hb - Immunization history:: Adult Immunizations up to date. - Social history:: Smoking status: Patient denies any tobacco usage or history of. Screenin:36 Abuse screen: Denies threats or abuse. Denies injuries from another. Nutritional hb screening: No deficits noted. Tuberculosis screening: No symptoms or risk factors identified. Fall Risk None identified. Assessment: 09:35 General: SEE TRIAGE NOTE. Pain: Pain does not radiate. Pain began 1 hour ago. bp 10:30 Reassessment: ALL CURRENT ORDERS COMPLETED. PT STATES NO CP AT THIS TIME. bp 12:00 Reassessment: REPEAT TROPONIN DUE AT 1230. bp 13:10 Reassessment: Patient appears in no apparent distress at this time. Patient and/or em family updated on plan of care and expected duration. Pain level reassessed. Patient is alert, oriented x 3, equal unlabored respirations, skin warm/dry/pink. Patient denies pain at this time. Patient states feeling better. Vital Signs: 09:34 BP 123 / 78; Pulse 52; Resp 16; Temp 99.2(O); Pulse Ox 96% on R/A; Pain 0/10; hb 10:29 BP 120 / 67; Pulse 70; Resp 22; Pulse Ox 92% on R/A; bp 12:07 BP 110 / 60; Pulse 70; Resp 21; Pulse Ox 93% ; bp 13:10 BP 119 / 60; Pulse 69; Resp 18; Pulse Ox 95% on R/A; Pain 0/10; em ED Course: 09:18 Patient arrived in ED. ds1 09:35 Triage completed. hb 09:36 Arm band placed on. hb 09:37 Rupert Batres, CLAUDIO is Primary Nurse. bp 09:43 Bo Seo MD is Attending Physician. kdr 10:19 XRAY Chest (1 view) In Process Unspecified. EDMS 10:25 Inserted saline lock: 20 gauge in left antecubital area, using aseptic technique. Blood bp collected. 10:29 Patient has correct armband on for positive identification. Bed in low position. Call bp light in reach. Side rails up X2. monitoring tech on. Pulse ox on. NIBP on. 13:33 No provider procedures requiring assistance completed. IV discontinued, intact, em bleeding controlled, No redness/swelling at site. Pressure dressing applied. Administered Medications: No medications were administered Outcome: 13:26 Discharge ordered by . kdr 13:33 Discharged to home ambulatory. em 13:33 Condition: good 13:33 Discharge instructions given to patient, Instructed on discharge instructions, follow up and referral plans. Demonstrated understanding of instructions, follow-up care. 13:35 Patient left the ED. em Signatures: Dispatcher [employer] Bo Ayoub MD MD [facility] Craig Keenan, RN RN Amalia Singh ds1 Leti Anderson RN RN Rupert Andrew RN RN bp
--- NOTE | 2020-01-23 13:26 | EDPHYS ---
Physician Documentation [facility] Name: Jae Connolly Age: 54 yrs Sex: Male : 1965 Arrival Date: 01/23/2020 Time: 09:18 Bed 2 Private MD: ED Physician Bo Seo HPI: 01/22 18:26 This 54 yrs old Male presents to ER via Ambulatory with complaints of Chest kdr Pain. 18:26 The patient or guardian reports chest pain that is located primarily in the anterior kdr chest wall, left. Onset: suddenly, this morning, 3 hour(s) ago. The pain radiates to the left arm, the left shoulder. Associated signs and symptoms: The patient has no apparent associated signs or symptoms. The chest pain is described as aching, burning, dull. Duration: The patient or guardian reports a single episode, that is now resolved. Modifying factors: The symptoms are alleviated by nothing. the symptoms are aggravated by nothing. The patient felt that he may have been related to the way he was sitting on the ground when he was fishing. As he was having the pain, laid back and it went away. Severity of pain: At its worst the pain was mild in the emergency department the pain has resolved. The patient has not experienced similar symptoms in the past. The patient has not recently seen a physician. Historical: - Allergies: 09:36 No Known Allergies; hb - Home Meds: 09:36 Prednisone Oral 2 times per day [Active]; Symbicort inhalation [Active]; Zytiga 250 mg hb Oral tab 4 tabs once daily [Active]; - PMHx: 09:36 Asthma; Hyperlipidemia; Lung Cancer; Osteoporosis; Prostate Cancer; hb - PSHx: 09:36 L Lung partial lobectomy; R rotattor cuff; hb - Immunization history:: Adult Immunizations up to date. - Social history:: Smoking status: Patient denies any tobacco usage or history of. ROS: 18:26 Constitutional: Negative for fever, chills, and weight loss, Eyes: Negative for injury, kdr pain, redness, and discharge, Neck: Negative for injury, pain, and swelling, Respiratory: Negative for shortness of breath, cough, wheezing, and pleuritic chest pain, Abdomen/GI: Negative for abdominal pain, nausea, vomiting, diarrhea, and constipation, Back: Negative for injury and pain, : Negative for injury, bleeding, discharge, and swelling, MS/Extremity: Negative for injury and deformity, Skin: Negative for injury, rash, and discoloration, Neuro: Negative for headache, weakness, numbness, tingling, and seizure activity. Psych: Negative for depression, anxiety, suicide ideation, homicidal ideation, and hallucinations, Allergy/Immunology: Negative for hives, rash, and allergies, Endocrine: Negative for neck swelling, polydipsia, polyuria, polyphagia, and marked weight changes. 18:26 Cardiovascular: Positive for chest pain, Negative for edema, orthopnea, palpitations, paroxysmal nocturnal dyspnea. Exam: 09:53 ECG was reviewed by the Attending Physician. kdr 18:26 Constitutional: This is a well developed, well nourished patient who is awake, alert, kdr and in no acute distress. Head/Face: Normocephalic, atraumatic. Eyes: Pupils equal round and reactive to light, extra-ocular motions intact. Lids and lashes normal. Conjunctiva and sclera are non-icteric and not injected. Cornea within normal limits. Periorbital areas with no swelling, redness, or edema. Neck: Trachea midline, no thyromegaly or masses palpated, and no cervical lymphadenopathy. Supple, full range of motion without nuchal rigidity, or vertebral point tenderness. No Meningismus. Chest/axilla: Normal chest wall appearance and motion. Nontender with no deformity. No lesions are appreciated. Cardiovascular: Regular rate and rhythm with a normal S1 and S2. No gallops, murmurs, or rubs. Normal PMI, no JVD. No pulse deficits. Respiratory: Lungs have equal breath sounds bilaterally, clear to auscultation and percussion. No rales, rhonchi or wheezes noted. No increased work of breathing, no retractions or nasal flaring. Back: No spinal tenderness. No costovertebral tenderness. Full range of motion. Skin: Warm, dry with normal turgor. Normal color with no rashes, no lesions, and no evidence of cellulitis. MS/ Extremity: Pulses equal, no cyanosis. Neurovascular intact. Full, normal range of motion. Neuro: Awake and alert, GCS 15, oriented to person, place, time, and situation. Cranial nerves II-XII grossly intact. Motor strength 5/5 in all extremities. Sensory grossly intact. Cerebellar exam normal. Normal gait. Psych: Awake, alert, with orientation to person, place and time. Behavior, mood, and affect are within normal limits. 18:26 Abdomen/GI: Inspection: obese Bowel sounds: normal, Palpation: abdomen is soft and non-tender. Vital Signs: 09:34 BP 123 / 78; Pulse 52; Resp 16; Temp 99.2(O); Pulse Ox 96% on R/A; Pain 0/10; hb 10:29 BP 120 / 67; Pulse 70; Resp 22; Pulse Ox 92% on R/A; bp 12:07 BP 110 / 60; Pulse 70; Resp 21; Pulse Ox 93% ; bp 13:10 BP 119 / 60; Pulse 69; Resp 18; Pulse Ox 95% on R/A; Pain 0/10; em MDM: 13:26 Patient medically screened. [facility] 18:26 Data reviewed: vital signs, nurses notes, lab test result(s), radiologic studies. kdr Counseling: I had a detailed discussion with the patient and/or guardian regarding: the historical points, exam findings, and any diagnostic results supporting the discharge/admit diagnosis, lab results, radiology results, the need for outpatient follow up. 01/22 09:44 Order name: Basic Metabolic Panel; Complete Time: 11:38 kdr 01/22 09:44 Order name: CBC with Diff; Complete Time: 11:00 [facility] 01/22 09:44 Order name: LFT's; Complete Time: 11:38 [facility] 01/22 09:44 Order name: Magnesium; Complete Time: 11:38 [facility] 01/22 09:44 Order name: NT PRO-BNP; Complete Time: 11:38 kdr 01/22 09:44 Order name: PT-INR; Complete Time: 11:00 [facility] 01/22 09:44 Order name: Troponin (emerg Dept Use Only); Complete Time: 11:38 [facility] 01/22 09:44 Order name: XRAY Chest (1 view); Complete Time: 11:38 kdr 01/22 09:44 Order name: EKG; Complete Time: 09:44 kdr 01/22 09:44 Order name: Cardiac monitoring; Complete Time: 09:51 kdr 01/22 09:44 Order name: EKG - Nurse/Tech; Complete Time: 09:51 kdr 01/22 09:44 Order name: IV Saline Lock; Complete Time: 10:25 kdr 01/22 09:44 Order name: Labs collected and sent; Complete Time: 10: kdr 01/22 11:00 Order name: Troponin (emerg Dept Use Only): Draw 2 hours after initial draw; Complete kdr Time: 13:01/22 09:44 Order name: O2 Per Protocol; Complete Time: 09:51 kdr 01/22 09:44 Order name: O2 Sat Monitoring; Complete Time: :51 kdr EC:53 Rate is 72 beats/min. Rhythm is regular, Normal Sinus Rhythm with No ectopy. QRS Dresser kdr is Normal. UT interval is normal. QRS interval is normal. QT interval is normal. Clinical impression: Normal ECG. Administered Medications: No medications were administered Disposition: 01/23/20 13:26 Discharged to Home. Impression: Chest pain, unspecified. - Condition is Stable. - Discharge Instructions: Nonspecific Chest Pain, [id number]. - Medication Reconciliation Form, Thank You Letter form. - Follow up: Private Physician; When: 2 - 3 days; Reason: If symptoms return, Further diagnostic work-up, Recheck today's complaints, Continuance of care, Re-evaluation by your physician. - Problem is new. - Symptoms are resolved. Signatures: Dispatcher [employer] Bo Ayoub MD MD [facility] Craig Keenan, RN RN Leti Anderson RN RN Corrections: (The following items were deleted from the chart) 13:35 13:26 01/23/2020 13:26 Discharged to Home. Impression: Chest pain, unspecified. em Condition is Stable. Forms are Medication Reconciliation Form, Thank You Letter, Antibiotic Education, Prescription Opioid Use. Follow up: Private Physician; When: 2 - 3 days; Reason: If symptoms return, Further diagnostic work-up, Recheck today's complaints, Continuance of care, Re-evaluation by your physician. Problem is new. Symptoms are resolved. kdr 18:29 18:26 Counseling: I had a detailed discussion with the patient and/or guardian [facility] regarding: the historical points, exam findings, and any diagnostic results supporting the discharge/admit diagnosis, lab results, radiology results, the need for further work-up and treatment in the hospital, kdr
[2020-01-23 13:57] VITALS: TEMP 99.2
[2020-01-23 14:05] VITALS: BP 119/60; O2SAT 95
--- NOTE | 2020-01-24 08:12 | EKG ---
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
== END 2020-01-23 13:35 | disposition home or self-care (01) ==
LOC: ER 09:16
DX: R07.9 Chest pain, unspecified (principal); J45.909 Unspecified asthma, uncomplicated; Z85.46 Personal history of malignant neoplasm of prostate; Z85.118 Personal history of other malignant neoplasm of bronchus and lung
CPT/HCPCS: 36415; 71045; 80048; 80076; 83735; 83880; 84484; 85025; 85610; 93005; 99284

== ENCOUNTER 2020-07-10 08:43 | Emergency (ER) | payer BC ==
--- OUTSIDE RECORDS SUMMARY | 2020-07-10 08:46 | XMS REPORT | Clinical Summary ---
:1965 Author Organization [facility] [employer] Address [address] [place] [address] Care Team Providers Name Role Phone Mahendra Ferrell MD Primary Care Provider Allergies Active Allergy Reactions Severity Noted Date Comments Fentanyl Itching High 06/20/2019 Other Rash Low 06/17/2019 *[facility] Midazolam Itching High 06/20/2019 Medications [...] by mouth 20 (Melani ent daily. Discharge) acetaminophen Take 2 30 tablet 0 07/13/19 [...] Specialty Care Team Description 08/19/2019 Telephone Cardiothoracic Surgery Genoveva Bergman MA 08/18/2019 Telephone Cardiothoracic Surgery Rosemary Mustafa NP 08/18/2019 Telephone Cardiothoracic Surgery Deborah Gaspar MA 08/01/2019 Orders Only General Surgery Colin Lobo MD 08/01/2019 Telephone Cardiothoracic Surgery Rosemary Mustafa NP 07/29/2019 Office Visit Cardiothoracic Surgery Colin Lobo follow-up examination (Primary Dx); MD Nasim Postoperative p ain; Neuropathic tristan n; Muscle spasm 07/28/2019 Telephone Cardiothoracic Surgery Deborah Gaspar MA 07/25/2019 Telephone General Surgery Colin Lobo MD 07/22/2019 Telephone Cardiothoracic Surgery Rosemary Mustafa NP 07/16/2019 Refill Cardiothoracic Surgery Colin Lobo MD 07/14/2019 Telephone General Surgery Colin Lobo MD 07/09/2019 - Hospital General Internal Colin Lobo Shortness o f breath 07/11/2019 Encounter Medicine MD Nasim (Primary Dx) Florin Johnson MD after 07/10/2019 Surgical History Surgery Date Site/Laterality Comments TONSILLECTOMY SHOULDER SURGERY UMBILICAL HERNIA REPAIR BRONCHOSCOPY 06/20/2019 N/A Procedure: FLEXI BLE BRONCHOSCOPY; S urgeon: Colin Lobo MD; Location: [facility]; Service: Thoracic; Later ality: N/A; US, ENDOBRONCHIAL 06/20/2019 N/A Procedure: EBU S WITH BIOPSY; Surgeon: Kendall Lobo MD; Location: [facility]; Service: oracic; Laterality: N/A; LOBECTOMY, LUNG, 07/07/2019 Chest/Left Procedure: LEFT ROBOT-ASSISTED, THORACOSCOPIC RO BOT-ASSISTED THORASCOPIC LEFT UPPER LOBE LINGULECTOMY, LE FT LOWER LOBE SEGMENTECTO MY; Surgeon: Concepcion Lobo MD; Location: [facility] OR; Service: Thoraci c; Laterality: Left ; Medical devices from this surgery are in t he Implants section. EXCISION, MASS, MEDIASTINUM 07/07/2019 Chest/N/A Proc edure: MEDIASTINAL LYMPH NODE DISSECTION; Surgeon: Colin Lobo MD; Location: [facility] OR; Service: Thoraci c; Laterality: N/A; Medical devices from this surgery are in t he Implants section. BRONCHOSCOPY 07/07/2019 N/A Procedure: FLEXI BLE BRONCHOSCOPY; S urgeon: Colin Lobo MD; Location: [facility]; Service: Thoracic; Later ality: N/A; Medical devices from this surgery are in t he Implants section. Medical History Medical History Date Comments Asthma Cancer (HCC) Prostate cancer (HCC) COPD (chronic obstructive pulmonary disease) (HCC) Umbilical hernia Obesity Squamous carcinoma of lung, left (HCC) Family History Medical History Relation Name Comments Diabetes Mother Diabetes Sister Relation Name Status Comments Mother Sister Social History Tobacco Use Types Packs/Day Years Used Date Former Smoker Cigarettes 0.5 15 1979 Smokeless Tobacco: Never Used Alcohol Use Drinks/Week [...] Assigned at Date Recorded Not on file Last Filed Vital Signs Vital Sign Reading Time Taken Comments Blood Pressure 148/80 07/29/2019 8:05 AM IT SECURITY CONSULTANT Pulse 72 07/29/2019 8:05 AM IT SECURITY CONSULTANT Temperature 36.1 C (96.9 F) 07/29/2019 8:05 AM IT SECURITY CONSULTANT Respiratory Rate 17 07/29/2019 8:05 AM IT SECURITY CONSULTANT Oxygen Saturation 97% 07/29/2019 8:05 AM IT SECURITY CONSULTANT Inhaled Oxygen Concentration - - Weight 142 kg (314 lb) 07/29/2019 8:05 AM IT SECURITY CONSULTANT Height 180.3 cm (5' 11") 07/29/2019 8:05 AM IT SECURITY CONSULTANT Body Mass Index 43.79 07/29/2019 8:05 AM IT SECURITY CONSULTANT Plan of Treatment Health Maintenance Due Date Last Done Comments COVID-19 VACCINE (1 of 2) 1981 COLONOSCOPY SCREENING 10/22/2015 SHINGLES VACCINES (#1) 10/22/2015 INFLUENZA VACCINE 01/10/2020 06/18/2019 Implants Implanted Type Area Mohs Surgeon Device Shelf Model / Identifier Expiration Serial / Date Lot Kit Selnt Plrl Air Leak 4ml Strl Progel - [id number] Surgical N/A: N/A [employer] 01/01/2021 [id number] / Implanted: Qty: 1 on 07/07/2019 by Colin Lobo MD at [facility] Implants; / Expanders; Extenders; Surgical Wires Procedures Procedure Name Priority Date/Time Associated Comments Diagnosis XR CHEST 1 VW PORTABLE STAT 07/11/2019 8:50 R esults for this AM IT SECURITY CONSULTANT procedure are i n the results section. GRAM STAIN Routine 07/10/2019 9:30 Results for this AM IT SECURITY CONSULTANT procedure are i n the results section. SPUTUM CULTURE Routine 07/10/2019 9:30 Results f or this AM IT SECURITY CONSULTANT procedure are i n the results section. ESTIMATED GFR Routine 07/10/2019 3:57 Results fo r this AM IT SECURITY CONSULTANT procedure are i n the results section. PHOSPHORUS LEVEL Routine 07/10/2019 3:57 Results for this AM IT SECURITY CONSULTANT procedure are i n the results section. MAGNESIUM LEVEL Routine 07/10/2019 3:57 Results for this AM IT SECURITY CONSULTANT procedure are i n the results section. BASIC METABOLIC PANEL Routine 07/10/2019 3:57 Re sults for this AM IT SECURITY CONSULTANT procedure are i n the results section. PARTIAL THROMBOPLASTIN Routine 07/10/2019 3:57 R esults for this TIME (PTT) AM IT SECURITY CONSULTANT procedure are i n the results section. PROTHROMBIN TIME WITH Routine 07/10/2019 3:57 Re sults for this INR AM IT SECURITY CONSULTANT procedure are i n the results section. HC COMPLETE BLD COUNT Routine 07/10/2019 3:57 Re sults for this W/AUTO DIFF AM IT SECURITY CONSULTANT procedure are i n the results section. after 07/10/2019 Results XR Chest 1 Vw Portable (07/11/2019 8:50 AM IT SECURITY CONSULTANT) Specimen Narrative Performed At EXAMINATION: XR CHEST 1 VW PORTABLE [facility] CLINICAL HISTORY: shortness of breath IMPRESSION: Single frontal view compared to 07/09/2019 demonstrates postoperative scarring and atelectasis and volume loss in the left l lara to be stable. There is no new infiltrate. There is no pneumothorax. [facility]-[id number] Procedure Note Interface, Radiology Results Incoming - 07/11/2019 10:45 AM IT SECURITY CONSULTANT EXAMINATION: XR CHEST 1 VW PORTABLE CLINICAL HISTORY: shortness of breath IMPRESSION: Single frontal view compared to 0 demonstrates postoperative scarring and atelectasis and volume loss in the left lung to be stable. There is no new infiltrate. There is no pneumothorax. [facility]-[id number] Performing Organization Address City/[facility]/ZIP Code Phon e Number [facility] [address] [place] [id number] Sputum culture (07/10/2019 9:30 AM IT SECURITY CONSULTANT) Pathologist [facility] Sputum culture Normal oral jose juan isolated. [facility] isolate Comment: HOSPITAL Specimen Information Specimen Source: Sputum Specimen Site: Expectorated Specimen Sputum - Expectorated Performing Organization Address City/State/ZIP [facility] Phon e Number [facility] DEPARTMENT OF PATHOLOGY AND [address] [place] [address] [phone] [address] Gram stain (07/10/2019 9:30 AM IT SECURITY CONSULTANT) Pathologist [facility] Gram stain isolate Few WBC's [facility] Few Gram negative rods [facility] Moderate Gram positive cocci in pairs Comment: Specimen Information Specimen Source: Sputum Specimen Site: Expectorated Specimen Sputum - Expectorated Performing Organization Address City/[facility]/ZIP [facility] Phon e Number [facility] DEPARTMENT OF PATHOLOGY AND [address] [place] [address] [phone] [address] Estimated GFR (07/10/2019 3:57 AM IT SECURITY CONSULTANT) [facility] Estimated GFR >=90 mL/min/1.73 [facility] Comment: m2 HOSPITAL Catergory Units Interpretation G1 >=90 Normal or [...] 2014. Specimen Plasma specimen Performing Organization Address [facility] Phon e Number [facility] DEPARTMENT OF PATHOLOGY AND [address] [place] [phone] Partial thromboplastin time, activated (07/10/2019 3:57 AM IT SECURITY CONSULTANT) Pathologist [facility] PTT 29.8 23.0 - 36.0 [facility] Comment: [facility] PTT therapeutic range for unfractionated heparin is 61.0-112.0 seconds which corresponds to Anti-Xa 0.3-0.7 U/ml. Specimen Blood Performing Organization Address [facility] Phon e Number [facility] DEPARTMENT OF PATHOLOGY AND [address] [place] [address] [phone] [address] Prothrombin time with INR (07/10/2019 3:57 AM IT SECURITY CONSULTANT) Pathologist [facility] Prothrombin time 14.5 11.5 - 14.5 [facility] INR 1.1 [place] Comment: RASTAFARI The International Normalized Ratio (INR) is a [facility] HOSPITAL monitoring tool for patients who are stable on oral anticoagulant therapy. An INR of 2.0-3.0 is suggested for deep vein thrombosis/pulmonary embolism. Specimen Blood Performing Organization Address [facility] Phon e Number [facility] DEPARTMENT OF PATHOLOGY AND [address] [place] [address] [phone] [address] CBC with platelet and differential (07/10/2019 3:57 AM IT SECURITY CONSULTANT) Pathologist [facility] WBC 7.89 4.50 - 11.00 [facility] k/[facility] RBC 3.72 (L) 4.40 - 6.00 [facility] m/uL [facility] HGB 10.8 (L) 14.0 - 18.0 INGRAM RASTAFARI g/dL HOSPITAL HCT 34.3 (L) 41.0 - 51.0 % [facility] MCV 92.2 82.0 - 100.0 [facility] MCH 29.0 27.0 - 34.0 pg [facility] MCHC 31.5 31.0 - 37.0 [facility] g/dL [facility] RDW - SD 44.3 37.0 - 55.0 fL [facility] MPV 9.5 8.8 - 13.2 fL [facility] Platelet count 149 (L) 150 - 400 k/uL [facility] Nucleated RBC 0.00 /100 WBC [facility] Neutrophils 81.2 (H) 39.0 - 69.0 % [facility] Lymphocytes 7.7 (L) 25.0 - 45.0 % [facility] Monocytes 7.5 0.0 - 10.0 % [facility] Eosinophils 2.5 0.0 - 5.0 % [facility] Basophils 0.3 0.0 - 1.0 % [facility] Immature granulocytes 0.8Comment: 0.0 - 1.0 % [facility] granulocytes" (promyelocytes , myelocytes, metamyelocytes ) Specimen Blood Performing Organization Address City/[facility] Phon e Number [facility] DEPARTMENT OF PATHOLOGY AND [address] [place] [address] [phone] [address] Phosphorus level (07/10/2019 3:57 AM IT SECURITY CONSULTANT) Pathologist Sig nature Phosphorus 2.9 2.4 - 4.5 mg/dL [facility] Specimen Plasma specimen Performing Organization Address City/[facility] Phon e Number [facility] DEPARTMENT OF PATHOLOGY AND [address] [place] [address] [phone] [address] Magnesium level (07/10/2019 3:57 AM IT SECURITY CONSULTANT) Pathologist Sig nature Magnesium 2.1 1.6 - 2.6 mg/dL [facility] Specimen Plasma specimen Performing Organization Address City/[facility] Phon e Number [facility] DEPARTMENT OF PATHOLOGY AND [address] [place] [address] [phone] [address] Basic metabolic panel (07/10/2019 3:57 AM IT SECURITY CONSULTANT) Pathologist Sig nature Sodium 137 135 - 148 mEq/L [facility] L Potassium 3.9 3.5 - 5.0 mEq/L [facility] Chloride 101 98 - 112 mEq/L [facility] CO2 25 24 - 31 mEq/L [facility] Anion gap 11@ANIO 7 - 15 mEq/L [facility] BUN 10 6 - 20 mg/dL [facility] Creatinine 0.73 0.70 - 1.20 mg/dL [facility] Glucose 125 (H) 65 - 99 mg/dL [facility] Calcium 8.8 8.3 - 10.2 mg/dL [facility] Specimen Plasma specimen Performing Organization Address City/State/ZIP Code Phon e Number [facility] DEPARTMENT OF PATHOLOGY AND [address] [place] [phone] GENOMIC MEDICINE [facility] [address] [place] [address] after 07/10/2019 Advance Directives For more information, please contact: [phone] Type Date Recorded Patient Medical Sales Explanati on Advance Directives, Living 06/20/2019 7:40 AM Will and Medical Power of Physicist [employer] Advance Directives, Living 06/25/2019 1:10 PM PO A 06/20/2019 Will and Medical Power of [employer] Advance Directives, Living 06/25/2019 1:11 PM AD 06/20/2019 Will and Medical Power of [employer]
--- OUTSIDE RECORDS SUMMARY | 2020-07-10 08:47 | XMS REPORT | Continuity of Care Document ---
:1965 Author Organization [facility] t Address [address] [place] [address] Dr. Seymour [address] [place] [id number] Care Team Providers Name Role Phone Mahendra Ferrell MD Primary Care Physician Madalyn FENTON Attending Clinician Unavailable Renae Mustafa NP Attending Clinician Hubetr FENTON Attending Clinician Unavailable Nasim Lobo MD Attending Clinician Alex SHEFFIELD Attending Clinician Payers Payer Name Policy Type Policy Effective Date Expiration Date Sour ce Number BCBSBCBS CHOICE [id number] 2018 [place] PPO/FEDERAL 00:00:00 [employer] EMPL [id number] 2018-Presen tPPO Problems Condition Condition Condition Status Onset Resolution Last Treating Co mments Source Name Details Category Date Date Treatment Clinician Date Shortness Shortness Disease Active 2020-0 [place] of breath of breath 1-29 Meth sinan 00:00: st 00 Malignant Malignant Disease Active 2020-0 [place] neoplasm neoplasm 1-27 Method i of upper of upper 00:00: [...] Itching 2020-0 [place] to 1-10 Methodi adverse 00:00: st reaction 00 s to drug Other Propensi Active Rash 2019-0 *[place] to -07 Anestheti Methodi adverse 00:00: cs st reaction 00 s Family History Family Member Diagnosis Comments Start Date Stop Date Source Natural mother Diabetes [facility] thodist Natural sister Diabetes [facility] Social History Social Habit Start Date Stop Date Quantity Comments Source History of tobacco Current smoker [place] [facility] use History [facility] Meth odist Alcohol Std Drinks History [facility] Meth odist Alcohol Binge Sex Assigned At [facility] ethodist Cigarettes smoked 2019-07-29 2019-07-29 [place] [facility] current (pack per 00:00:00 00:00:00 day) - Reported Cigarette 2019-07-29 2019-07-29 [place] Method ist pack-years 00:00:00 00:00:00 Tobacco use and 2019-07-29 2019-07-29 Never used [facility] ethodist exposure 00:00:00 00:00:00 Alcohol intake 2019-07-29 2019-07-29 Lifetime [facility] thodist 00:00:00 00:00:00 non-drinker (finding) History SDOH 2019-06-17 2019-06-17 1 [place] [facility] od[facility] Alcohol Frequency 00:00:00 00:00:00 Smoking Status Start Date Stop Date Source Former smoker 2019-07-29 00:00:00 2019-07-29 00:00:00 [place] Javed Medications Ordered Filled Start Stop Current Ordering Indication Dosage Frequency Signature Comments Components Source Medication Medication Date Date Medication? Clinician (SIG) Name Name HYDROcodone 2019-0 2020- No acute pain 1{tbl} Q6H Take 1 [place] -acetaminop 2-21 -02 tablet by Me baldwin hen (NORCO) 00:00: 23:[address] 7.5-325 mg 00 :00 every 6 per tablet (six) hours as needed for moderate pain for up to 10 days .acute pain. Max Daily Amount: 4 tablets naproxen 2019-0 Yes Take by Aaron n sodium 2-18 mouth. Methodi (ALEVE 08:09: st ORAL) 44 predniSONE 2020-0 Yes 5mg Q.5D Take 5 mg [place] (DELTASONE) 2-18 by mouth 2 Me thodi [...] day as needed for muscle spasms. gabapentin 2020-0 2020- No Postoperati 600mg Q.[id number] Take 2 [place] (NEURONTIN) 2-18 03-19 ve pain [id number] capsules Methodi 300 mg 00:00: 23:59 3D ([address] capsule 00 :00 total) by mouth 3 (three) times a day for 30 days. HYDROcodone 2019- No acute pain 1{tbl} Q4H Take 1 [place] -acetaminop 07-25- tablet by Me nicolasa arango (NORCO) 00:00: 23:[address] 7.5-325 mg 00 :00 every 4 per tablet (four) hours as needed for moderate pain for up to 7 days .acute pain. Max Daily Amount: 6 tablets traMADol 2019- No acute pain 50mg Q6H Take 1 [place] (ULTRAM) 50 07-16- tablet (50 M ethodi mg tablet 00:00: [...] 2019- No 40mg QD Take 1 Bro barber e 07-11 tablet (40 [facility] (PROTONIX) 00:00: 23:59 mg total) s t 40 MG EC 00 :00 by mouth tablet daily for 14 days. amoxicillin 2019- No 1{tbl} Q.5D Take 1 [place] -pot 07-11 tablet by [facility] clavulanate 00:00: 23:[address] (AUGMENTIN) 00 :00 (two) 875-125 mg times a per tablet day for 5 days. traMADol 2019- No acute pain 50mg Q6H Take 1 [place] (ULTRAM) 50 07-11 tablet (50 M ethodi mg tablet 00:00: 00:00 mg total) st 00 :00 by mouth every 6 (six) hours as needed for moderate pain for up to 7 days .acute pain. gabapentin 2019- No 300mg Q.[id number] Take 1 [place] (NEURONTIN) 07-08 [id number] capsule Methodi 300 mg 00:00: 00:00 3D [...] a day with meals for 3 days. Vital Signs Vital Name Observation Time Observation Value Comments Source Systolic blood 2019-07-29 08:05:00 148 mm[Hg] Aaron n [facility] pressure Diastolic blood 2019-07-29 08:05:00 80 mm[Hg] [place] on [facility] pressure Heart rate 2019-07-29 08:05:00 72 /min [place] [facility] Body temperature 2019-07-29 08:05:00 36.06 Leigh Kanchan ton [facility] Respiratory rate 2019-07-29 08:05:00 17 /min Kanchan Javed Body height 2019-07-29 08:05:00 180.3 cm [place] J[facility] Body weight 2019-07-29 08:05:00 142.429 kg [place] J[facility] BMI 2019-07-29 08:05:00 43.79 kg/m2 [place] Javed Oxygen saturation in 2019-07-29 08:05:00 97 /min [place] Javed Arterial blood by Pulse oximetry Procedures Procedure Date / Time Performing Clinician Source Performed XR CHEST 1 VW PORTABLE 2019-07-11 08:50:00 Ron Neal SPUTUM CULTURE 2019-07-10 09:30:00 Aneta Hernandez Meth odtera GRAM STAIN 2019-07-10 09:30:00 Aneta Hernandez HC COMPLETE BLD COUNT 2019-07-10 03:57:00 Ron Neal on [facility] W/AUTO DIFF F[place] PROTHROMBIN TIME WITH INR 2019-07-10 03:57:00 Ron Neal H yang Maherman PARTIAL THROMBOPLASTIN 2019-07-10 03:57:00 MalloryRon bran ton [facility] TIME (PTT) Favio BASIC METABOLIC PANEL 2019-07-10 03:57:00 Ron Nealt on [facility] Nikaman MAGNESIUM LEVEL 2019-07-10 03:57:00 BelRon bonilla [facility]odist Nikabaxley PHOSPHORUS LEVEL 2019-07-10 03:57:00 [facility] Favio ESTIMATED GFR 2019-07-10 03:57:00 Colin Lobo Meth odist Plan of Care Planned Activity Planned Date Details Comments Source Future Scheduled 2020-01-10 INFLUENZA VACCINE [place] [facility] Test 00:00:00 [code = INFLUENZA VACCINE] Future Scheduled 2015-10-22 COLONOSCOPY SCREENING [place] [facility] Test 00:00:00 [code = COLONOSCOPY SCREENING] Future Scheduled 2015-10-22 SHINGLES VACCINES [place] [facility] Test 00:00:00 (#1) [code = SHINGLES VACCINES (#1)] Future Scheduled 1981 COVID-19 VACCINE (1 [place] [facility] Test 00:00:00 of 2) [code = COVID-19 VACCINE (1 of 2)] Encounters Start End Encounter Admission Attending Care Care Encounter Source Date/Time Date/Time Type Type Clinicians Facility Department ID 2019-05-28 2019-05-28 Outpatient BL BL [id number] BL 07:16:00 07:16:00 Results Test Description Test Time Test Comments Results Result Comments Source Sputum culture 2019-07-12 14:10:35 Test Item Value Reference Range Interpretation Comme nts Sputum culture isolate Normal oral jose juan Specimen InformationSpecimen (test code = 2234) isolated. Source: S putumSpecimen Site: Expectorated [place] [facility] Chest 1 Vw Tbaejlst2006-07-01 10:42:09Hm Interface, Radiology Results 07/11/2019 10:45 AM CSTEXAMINATION: XR CHEST 1 VW PORTABLECLINICAL HISTORY: shortness of breathIMPRESSION:Single frontal view compared to 07/09/2019 demonstrates postoperative scarring and atelectasis and volume loss in the left lung to be stable. There is no new infiltrate. There is no pneumothorax.[facility]-[id number] MethodistGram [id number] 21:09:02Gram stain isolateFew WBC'sFew Gram negative rodsModerate Gram positive cocci in pairs Comment: Specimen InformationSpecimen Source: SputumSpecimen Site: [facility] 2019-07-10 05:02:27 Test Item Value Reference Range Interpretation Comments Sodium (test code = 2951-2) 137 135- 148 mEq/L Potassium (test code = 2823-3) 3.9 3.5- 5.0 mEq/L Chloride (test code = 2075-0) 101 98- 112 mEq/L CO2 (test code = 8-9) 25 24- 31 mEq/L Anion gap (test code = 94787-0) 11@ANIO 7- 15 mEq/L BUN (test code = 3094-0) 10 mg/dL 6-20 Creatinine (test code = 2160-0) 0.73 mg/dL 0.7-1.2 Glucose (test code = 2345-7) 125 mg/dL 65-99 H Calcium (test code = 89377-6) 8.8 mg/dL 8.3-10.2 Lab Interpretation (test code = Abnormal 36919-5) [facility] [id number] 05:02:26 Test Item Value Reference Range Interpretation Comments Magnesium (test code = 32674-1) 2.1 mg/dL 1.6-2.6 [facility] [id number] 05:02:26 Test Item Value Reference Range Interpretation Comments Phosphorus (test code = 2777-1) 2.9 mg/dL 2.4-4.5 [facility] [id number] 05:02:26 Test Item Value Reference Range Interpretation Comments Estimated GFR (test >=90 mL/min/1.73 m2 [facility] Units code = 5488) InterpretationG 1 >=90 Normal or highG2 60-89 Mildly bpcxmmcxeP1t 45-59 Mildly to mode rately ospaugnxjC7k 30-44 Moderately to severely decreasedG4 15-29 Severely decre asedG5 <15 Kidn ey failureThe eGFR was calculated alec torre the Chronic Kidney Disease Epidemiology Co llaboration (CKD-EPI) equat ion. Interpretation is based on recommendations of the National Kidney Foundation-Kidn ey Disease Outcomes Qualit y Initiative (NKF-KDOQI) pub lished in 2014. [facility] MethodistPartial thromboplastin time, [id number] 04:47:07 Test Item Value Reference Range Interpretation Comments PTT (test code = 29.8 23.0- 36.0 [place] [address]-5) unfractionated heparin is61.0-112.0 se conds which corresponds to Anti-Xa0.3-0.7 U/ml. [facility] MethodistProthrombin time with [id number] 04:46:29 Test Item Value Reference Range Interpretation Comments Prothrombin time (test 14.5 11.5- 14.5 sec code = 5902-2) INR (test code = 1.1 The Interna tional 43983-2) Normalized Rati o (INR) is a therapeutic m onitoring tool for patien ts who are stable on oral anticoagulant t herapy. An INR of 2.0-3.0 is suggested for d eep vein thrombosis/pulm onary embolism. [facility] MethodistCBC with platelet and [id number] 04:27:37 Test Item Value Reference Range Interpretation Comments WBC (test code = 30588-8) 7.89 4.50- 11.00 k/uL RBC (test code = 99750-0) 3.72 m/uL 4.4-6 L HGB (test code = 718-7) 10.8 g/dL 14-18 L HCT (test code = 4544-3) 34.3 % 41-51 L MCV (test code = 787-2) 92.2 fL 82-100 MCH (test code = 785-6) 29.0 pg 27-34 MCHC (test code = 786-4) 31.5 g/dL 31-37 RDW - SD (test code = 44.3 fL 37-55 83052-2) MPV (test code = 76591-1) 9.5 fL 8.8-13.2 Platelet count (test code 149 150- 400 k/uL L = 77934-4) Nucleated RBC (test code 0.00 /100 WBC = 75833-3) Neutrophils (test code = 81.2 % 39-69 H 53952-0) Lymphocytes (test code = 7.7 % 25-45 L 38463-4) Monocytes (test code = 7.5 % 0-10 99629-9) Eosinophils (test code = 2.5 % 0-5 57663-1) Basophils (test code = 0.3 % 0-1 14029-4) Immature granulocytes 0.8 % 0-1 "Immat ure (test code = 27201-6) granul ocytes" (promyelocytes, myelocytes, metamyelocytes) Lab Interpretation (test Abnormal code = 54121-9) [facility] Javed
[2020-07-10 09:39] LABS: Absolute Lymphocytes (CBC) 0.9 K/uL (0.7-4.9); Basophils % 0.5 % (0-1.3); Hematocrit 41.4 % (39.6-49.0); MPV 7.4 fL (7.6-11.3); RBC Red Blood Cell Count 4.72 M/uL (4.33-5.43)
[2020-07-10 09:50] LABS: Albumin 3.7 g/dL (3.4-5.0); Bilirubin Direct 0.1 mg/dL (0-0.2); Bilirubin Total 0.3 mg/dL (0.2-1.0); Potassium 4.3 mmol/L (3.5-5.1)
[2020-07-10] MEDS ORDERED: ONDANSETRON 4 MG/2 ML VIAL ONE (09:57)
[2020-07-10] MEDS ORDERED: MORPHINE 4 MG/ML SYR ONE ×2 (09:57→11:11)
--- NOTE | 2020-07-10 10:16 | RAD REPORT ---
EXAM DESCRIPTION: CT - Stone Protocol - 07/10/2020 10:00 am CLINICAL HISTORY: Left flank pain COMPARISON: Abdomen Pelvis W Contrast dated 05/02/2019; Abdomen Pelvis W Contrast dated 9 TECHNIQUE: Axial 3 mm thick images were obtained without oral or IV contrast. The hodop-jd-lxfi span s the entirety of the system including uppermost abdomen and lung bases. All CT scans are performed using dose optimization technique as appropriate and may include automated exposure control or mA/KV adjustment according to patient size. FINDINGS: No hydronephrosis is present and no obstructing ureteral calculi. No suspicious renal mass es. Isodense masses and pyelonephritis are not excluded on a stone protocol CT scan. No significant a drenal finding. Urinary bladder is only partially filled limiting assessment. Contracted state accent uates wall thickness. No prostate enlargement. Liver shows diffuse fatty infiltration with no focal liver lesion. Spleen and pancreas show no suspic ious findings. No gallbladder or biliary tree abnormality identified. Gallstones can be occult on CT imaging. No suspicious bowel findings. Appendix is normal. No mass or bulky lymphadenopathy. Patient has a large 12 centimeter diameter fat only periumbilical h ernia. The neck is 4.5 cm in diameter. No congestion or edema of the herniated fat. Fat extends into the origin of the left inguinal canal. There is a small fat only right inguinal hernia. No free air, free fluid or inflammatory stranding. No significant bony abnormality. Disc and bony degenerative changes are present in the lumbar spine. Pleural and parenchymal scarring changes present in the left base with several incompletely healed lo wer left rib fractures. An acute nondisplaced fracture of the posterolateral tenth rib noted. IMPRESSION: Nondisplaced acute posterolateral left tenth rib fracture. Patient has several old ununi collette lower left rib fractures. No hydronephrosis, obstructing calculus or acute finding. Urinary bladder assessment is limited du e to contracted state. Isodense masses and pyelonephritis are not excluded on stone protocol technique. Additional nonacute findings detailed in the body of the report.
[2020-07-10 10:33] LABS: Urine Blood NEGATIVE (NEG); Urine Glucose NEGATIVE (NEG); Urine Protein 3+ (NEG); Urine pH 6.5 (5.0-7.0)
--- NOTE | 2020-07-10 10:44 | EDPHYS ---
Physician Documentation [facility] Name: Jae Connolly Age: 54 yrs Sex: Male : 1965 Arrival Date: 07/10/2020 Time: 09:06 Bed 19 Private MD: ED Physician Praveen Pearson HPI: 07/10 09:25 This 54 yrs old Male presents to ER via EMS with complaints of Low Back Pain. pm1 09:25 The patient presents with pain that is acute. The symptoms are located in the left low pm1 back. The pain radiates to the left lower quadrant. The problem was sustained 3 days patient was watching a movie with his and started laughing. Immediately felt pain to left flank area. Pain radiation to left lower quadrant. Reports pain was tolerable until this morning he took a puff of his inhaler and started coughing. Hawley a pop to same area of pain. Patient reports history lung resection to left lung resection due to cancer. Modifying factors: The patient symptoms are alleviated by nothing, the patient symptoms are aggravated by coughing, laughing. Associated signs and symptoms: Pertinent negatives: dysuria, fever, numbness, tingling. Severity of symptoms: in the emergency department the symptoms are actually worse. The patient has not experienced similar symptoms in the past. The patient has not recently seen a physician. Historical: - Allergies: 09:18 No Known Allergies; ss - PMHx: 09:18 Asthma; Hyperlipidemia; Lung Cancer; Osteoporosis; Prostate Cancer; ss - PSHx: 09:18 L Lung partial lobectomy; R rotattor cuff; ss - Immunization history:: Adult Immunizations up to date. - Social history:: Smoking status: unknown. ROS: 09:25 Constitutional: Negative for fever, chills, and weight loss, Cardiovascular: Negative pm1 for chest pain, palpitations, and edema, Respiratory: Negative for shortness of breath, cough, wheezing, and pleuritic chest pain, Abdomen/GI: Negative for abdominal pain, nausea, vomiting, diarrhea, and constipation. 09:25 : Negative for injury, bleeding, discharge, and swelling, MS/Extremity: Negative for injury and deformity, Skin: Negative for injury, rash, and discoloration, Neuro: Negative for headache, weakness, numbness, tingling, and seizure. 09:25 Back: Positive for flank pain, on the left. Exam: 09:25 Constitutional: This is a well developed, well nourished patient who is awake, alert, pm1 and in no acute distress. Head/Face: Normocephalic, atraumatic. Neck: Trachea midline, no thyromegaly or masses palpated, and no cervical lymphadenopathy. Supple, full range of motion without nuchal rigidity, or vertebral point tenderness. No Meningismus. 09:25 Skin: Warm, dry with normal turgor. Normal color with no rashes, no lesions, and no evidence of cellulitis. MS/ Extremity: Pulses equal, no cyanosis. Neurovascular intact. Full, normal range of motion. 09:25 Cardiovascular: Exam negative for acute changes, Rate: normal, Rhythm: regular, Pulses: no pulse deficits are appreciated. 09:25 Respiratory: Exam negative for acute changes, respiratory distress, shortness of breath. 09:25 Abdomen/GI: Inspection: obese Palpation: abdomen is soft and non-tender, in all quadrants, Hernia: noted in the umbilical area, incarceration, is not appreciated. 09:25 Back: Focal point pain present to left anterior lower rib area. 09:25 Neuro: Exam negative for acute changes, Orientation: is normal, Mentation: is normal, Motor: is normal, Sensation: is normal, no obvious gross deficits. Vital Signs: 09:08 BP 162 / 113; Pulse 92; Resp 18; Temp 98.2(O); Pulse Ox 94% on R/A; Weight 142.88 kg; ss Height 5 ft. 11 in. (180.34 cm); Pain 10/10; 10:57 BP 135 / 72; Pulse 67; Resp 18; Pulse Ox 95% on R/A; ll1 09:08 Body Mass Index 43.93 (142.88 kg, 180.34 cm) ss MDM: 09:09 Patient medically screened. pm1 10:38 Data reviewed: vital signs. Counseling: I had a detailed discussion with the patient pm1 and/or guardian regarding: the historical points, exam findings, and any diagnostic results supporting the discharge/admit diagnosis, lab results, radiology results, the need for outpatient follow up, a family practitioner, to return to the emergency department if symptoms worsen or persist or if there are any questions or concerns that arise at home. 10:47 ED course: PMP[place] reviewed. Patient with 270 120 000 score. No recent narcotic pm1 prescriptions. Patient with acute rib fracture. Will discharge home with narcotic prescription. 07/10 09:17 Order name: Basic Metabolic Panel pm1 07/10 09:17 Order name: CBC with Diff pm1 07/10 09:17 Order name: Hepatic Function pm1 07/10 09:17 Order name: Lipase pm1 07/10 09:40 Order name: CBC with Automated Diff; Complete Time: 09:42 EDMS 07/10 09:50 Order name: Basic Metabolic Panel; Complete Time: 10:36 EDMS 07/10 09:17 Order name: CT Stone Protocol pm1 07/10 09:50 Order name: Liver (Hepatic) Function; Complete Time: 10:36 EDMS 07/10 09:50 Order name: Lipase; Complete Time: 10:36 EDMS 07/10 10:06 Order name: Urine Dipstick--Ancillary (enter results) 07/10 10:17 Order name: CT; Complete Time: 10:36 EDMS 07/10 10:33 Order name: Urine Dipstick-Ancillary; Complete Time: 10:36 EDMS 07/10 10:44 Order name: INCENTIVE SPIROMETRY pm1 07/10 09:17 Order name: IV Saline Lock; Complete Time: 09:28 pm1 07/10 09:17 Order name: Labs collected and sent; Complete Time: 09:28 pm1 07/10 09:33 Order name: Urine Dipstick-Ancillary (obtain specimen); Complete Time: 09:51 pm1 Administered Medications: 09:44 Drug: Zofran (Ondansetron) 4 mg Route: IVP; Site: left antecubital; ss 12:32 Follow up: Response: No adverse reaction; RASS: Alert and Calm (0) ll1 09:45 Drug: morphine 4 mg Route: IVP; Site: left antecubital; ss 12:32 Follow up: Response: No adverse reaction; RASS: Alert and Calm (0) ll1 10:57 Drug: morphine 4 mg Route: IVP; Site: left antecubital; ll1 12:32 Follow up: Response: No adverse reaction; Pain is decreased; RASS: Alert and Calm (0) ll1 Disposition: 11:26 Co-signature as Attending Physician, Praveen Pearson MD. ma2 Disposition: 07/10/20 10:43 Discharged to Home. Impression: Fracture of one rib, left side. - Condition is Stable. - Discharge Instructions: Rib Fracture, Incentive Spirometer. - Prescriptions for Tylenol- Codeine #3 300-30 mg Oral Tablet - take 2 tablets by ORAL route every 6 hours As needed; 20 tablet. - Medication Reconciliation Form, Thank You Letter, Antibiotic Education, Prescription Opioid Use form. - Follow up: Emergency Department; When: As needed; Reason: Worsening of condition. Follow up: Private Physician; When: 2 - 3 days; Reason: Recheck today's complaints, Continuance of care, Re-evaluation by your physician. - Problem is new. - Symptoms have improved. Signatures: Dispatcher [employer] EDNC Michelle Triana, CLAUDIO RN ss Luke Egan, LIFESTYLE COORDINATOR LIFESTYLE COORDINATOR pm1 Praveen Pearson MD MD ma2 Nnamdi Friedman RN RN ll1 Corrections: (The following items were deleted from the chart) 11:08 10:43 07/10/2020 10:43 Discharged to Home. Impression: Fracture of one rib, left side. ll1 Condition is Stable. Forms are Medication Reconciliation Form, Thank You Letter, Antibiotic Education, Prescription Opioid Use. Follow up: Emergency Department; When: As needed; Reason: Worsening of condition. Follow up: Private Physician; When: 2 - 3 days; Reason: Recheck today's complaints, Continuance of care, Re-evaluation by your physician. Problem is new. Symptoms have improved. pm1
--- NOTE | 2020-07-10 10:44 | ER ---
Nurse's Notes [facility] Name: Jae Connolly Age: 54 yrs Sex: Male : 1965 Arrival Date: 07/10/2020 Time: 09:06 Bed 19 Private MD: Diagnosis: Fracture of one rib, left side Presentation: 07/10 09:08 Chief complaint: Patient states: mid- low L back pain that began suddenly after hearing ss a pop after using inhaler this morning. Coronavirus screen: Client denies travel out of the [place] in the last 14 days. Ebola Screen: Patient denies exposure to infectious person. Patient denies travel to an Ebola-affected area in the 21 days before illness onset. Initial Sepsis Screen: Does the patient meet any 2 criteria? No. Patient's initial sepsis screen is negative. Does the patient have a suspected source of infection? No. Patient's initial sepsis screen is negative. Risk Assessment: Do you want to hurt yourself or someone else? Patient reports no desire to harm self or others. Onset of symptoms was July 10, 2020. 09:08 Method Of Arrival: EMS: [facility] ss 09:08 Acuity: KIARA 3 ss Triage Assessment: 10:52 General: Appears in no apparent distress. Behavior is calm, cooperative. ll1 Historical: - Allergies: 09:18 No Known Allergies; ss - PMHx: 09:18 Asthma; Hyperlipidemia; Lung Cancer; Osteoporosis; Prostate Cancer; ss - PSHx: 09:18 L Lung partial lobectomy; R rotattor cuff; ss - Immunization history:: Adult Immunizations up to date. - Social history:: Smoking status: unknown. Screenin:50 Abuse screen: Denies threats or abuse. Denies injuries from another. Nutritional ss screening: No deficits noted. Tuberculosis screening: Never had TB. Fall Risk None identified. Assessment: 09:45 Pain: Complains of pain in left low back and left mid back Quality of pain is described ll1 as aching. Musculoskeletal: Circulation, motion, and sensation intact. Capillary refill < 3 seconds, Range of motion: intact in all extremities, Reports pain in left low back and left mid back. Injury Description: none, felt a pop when doing his inhaler. 09:50 Reassessment: Pt to CT now. ss 10:40 Reassessment: No changes from previously documented assessment. Patient and/or family ll1 updated on plan of care and expected duration. Pain level reassessed. Vital Signs: 09:08 BP 162 / 113; Pulse 92; Resp 18; Temp 98.2(O); Pulse Ox 94% on R/A; Weight 142.88 kg; Height 5 ft. 11 in. (180.34 cm); Pain 10/10; 10:57 BP 135 / 72; Pulse 67; Resp 18; Pulse Ox 95% on R/A; ll1 09:08 Body Mass Index 43.93 (142.88 kg, 180.34 cm) ED Course: 09:06 Patient arrived in ED. ss 09:07 uLke Egan NP is PHCP. pm1 09:07 Praveen Pearson MD is Attending Physician. pm1 09:17 Triage completed. 09:25 Initial lab(s) drawn, by va, sent to lab. Inserted saline lock: 20 gauge in left dh3 antecubital area, using aseptic technique. Blood collected. 09:49 Michelle Triana, RN is Primary Nurse. ss 09:50 Patient has correct armband on for positive identification. Bed in low position. Call light in reach. 09:57 Nnamdi Friedman, RN is Primary Nurse. ll1 10:53 INCENTIVE SPIROMETRY Sent. ll1 11:08 No provider procedures requiring assistance completed. IV discontinued, intact, ll1 bleeding controlled, No redness/swelling at site. Pressure dressing applied. 12:32 Patient n/a. ll1 Administered Medications: 09:44 Drug: Zofran (Ondansetron) 4 mg Route: IVP; Site: left antecubital; 12:32 Follow up: Response: No adverse reaction; RASS: Alert and Calm (0) ll1 09:45 Drug: morphine 4 mg Route: IVP; Site: left antecubital; ss 12:32 Follow up: Response: No adverse reaction; RASS: Alert and Calm (0) ll1 10:57 Drug: morphine 4 mg Route: IVP; Site: left antecubital; ll1 12:32 Follow up: Response: No adverse reaction; Pain is decreased; RASS: Alert and Calm (0) 1 Outcome: 10:43 Discharge ordered by . pm1 11:08 Patient left the ED. ll1 11:08 Discharged to home ambulatory. ll1 11:08 Condition: stable 11:08 Discharge instructions given to patient, Instructed on discharge instructions, follow up and referral plans. medication usage, Demonstrated understanding of instructions, follow-up care, medications, Prescriptions given X 1. Signatures: Michelle Triana RN RN ss Luke Egan NP TRADE ECONOMIST pm1 Kady Nunn 3 Nnamdi Friedman RN RN ll1 Corrections: (The following items were deleted from the chart) : 12:30 IV discontinued, intact, bleeding controlled, No redness/swelling at site. ll1 Pressure dressing applied, ll1 12:31 12:30 No provider procedures requiring assistance completed. ll1 ll1
[2020-07-10 11:13] VITALS: TEMP 98.2
[2020-07-10 11:14] VITALS: BP 135/72; O2SAT 95
== END 2020-07-10 11:08 | disposition home or self-care (01) ==
LOC: ER 08:43
DX: S22.32XA Fracture of one rib, left side, initial encounter for closed fracture (principal); X58.XXXA Exposure to other specified factors, initial encounter; J45.909 Unspecified asthma, uncomplicated; E78.5 Hyperlipidemia, unspecified; Z85.46 Personal history of malignant neoplasm of prostate; Z85.118 Personal history of other malignant neoplasm of bronchus and lung; M81.0 Age-related osteoporosis without current pathological fracture
CPT/HCPCS: 85025; 80048; 36415; 80076; 81003; 83690; 76377; 74176; 96375; 96374; 99284; J2405

== ENCOUNTER 2021-06-14 09:30 | Emergency (ER) | payer BC ==
--- OUTSIDE RECORDS SUMMARY | 2021-06-14 09:40 | XMS REPORT | Continuity of Care Document ---
:1965 Author Organization [facility] t Address [address] [place] [address] Dr. Seymour [address] [place] [id number] Care Team Providers Name Role Phone Unavailable Unavailable Unavailable Problems This patient has no known problems. Allergies, Adverse Reactions, Alerts This patient has no known allergies or adverse reactions. Medications This patient has no known medications. Procedures This patient has no known procedures. Encounters Start End Encounter Admission Attending Care Care Encounter Source Date/Time Date/Time Type Type Clinicians Facility Department ID 2019-05-28 2019-05-28 Outpatient [id number] 07:16:00 07:16:00 Results This patient has no known results.
--- NOTE | 2021-06-14 10:39 | RAD REPORT ---
EXAM DESCRIPTION: CT - Head Brain Wo Cont - 06/14/2021 10:11 am CLINICAL HISTORY: Headache COMPARISON: 2019 TECHNIQUE: Computed axial tomography of the head was obtained. IV contrast was not requested. All CT scans are performed using dose optimization technique as appropriate and may include automated exposure control or mA/KV adjustment according to patient size. FINDINGS: An intracranial bleed is not seen . The ventricles are normal in caliber. No extra-axial fluid collection is noted. Moderate mucoperiosteal thickening left maxillary sinus. IMPRESSION: No acute intracranial abnormality is seen. If patient's symptoms persist MRI of the bra in would be recommended. Moderate chronic left maxillary sinusitis
[2021-06-14] MEDS ORDERED: KETOROLAC 30 MG/ML INJ ONE (10:56)
[2021-06-14] MEDS ORDERED: DIPHENHYDRAMINE 50 MG/ML VIAL ONE (10:56)
[2021-06-14] MEDS ORDERED: NA CHLORIDE 0.9% 1,000 ML ONE (10:57)
[2021-06-14] MEDS ORDERED: METOCLOPRAMIDE 10 MG/2mL INJ ONE (11:05)
--- NOTE | 2021-06-14 11:47 | EDPHYS ---
Physician Documentation [facility] Name: Jae Connolly Age: 55 yrs Sex: Male : 1965 Arrival Date: 06/14/2021 Time: 09:32 Bed 5 Private MD: German Ferrell T ED Physician Shay Ramirez HPI: 06/14 10:16 This 55 yrs old Male presents to ER via Wheelchair with complaints of Headache. pm1 10:16 The patient complains of pain to the occipital area. The patient describes the headache pm1 as stretching. Onset: The symptoms/episode began/occurred this morning, at 05:30. Associated signs and symptoms: The patient has no apparent associated signs or symptoms, Pertinent negatives: dizziness, fever, nausea, neck stiffness, vision changes, vomiting, weakness. Severity of symptoms: in the emergency department the pain is unchanged. Headache History: Other 1 week ago that resolved with pain medication at home, norco and ibuprofen. This time ibuprofen did not work. The symptoms are alleviated by nothing. the symptoms are aggravated by nothing. The patient has not recently seen a physician. Historical: - Allergies: 09:59 No Known Allergies; ll1 - PMHx: 09:59 Asthma; Hyperlipidemia; Lung Cancer; Osteoporosis; Prostate Cancer; ll1 - Immunization history:: Client reports receiving the 2nd dose of the Covid vaccine. - Social history:: Smoking status: Patient reports the use of cigarette tobacco products, unknown amount. ROS: 10:16 Constitutional: Negative for fever, chills, and weight loss, Cardiovascular: Negative pm1 for chest pain, palpitations, and edema, Respiratory: Negative for shortness of breath, cough, wheezing, and pleuritic chest pain, Abdomen/GI: Negative for abdominal pain, nausea, vomiting, diarrhea, and constipation, MS/Extremity: Negative for injury and deformity, Skin: Negative for injury, rash, and discoloration. 10:16 Neuro: Positive for headache, Negative for dizziness, numbness, tingling, weakness. 10:16 All other systems are negative. Exam: 11:17 Constitutional: This is a well developed, well nourished patient who is awake, alert, pm1 and in no acute distress. 11:17 Skin: Warm, dry with normal turgor. Normal color with no rashes, no lesions, and no evidence of cellulitis. MS/ Extremity: Pulses equal, no cyanosis. Neurovascular intact. Full, normal range of motion. 11:17 Head/face: Noted is no obvious of injury or deformity except headache reproduced with palpation of and movement of scalp at bilateral sides of the forehead and improved with movement and massage of bilateral aspects of occipital area. 11:17 Eyes: Exam is negative for acute changes, Periorbital structures: no acute changes, Pupils: no acute changes, Extraocular movements: intact throughout, Conjunctiva: no acute changes, no injection, Sclera: no acute changes, icterus, is not appreciated. 11:17 ENT: Mouth: no acute changes, Lips: normal, moist, Oral mucosa: normal, pink and intact, moist, Voice: no acute changes. 11:17 Neck: Exam negative for acute changes, External neck: no acute changes, ROM/movement: is normal, is supple. 11:17 Cardiovascular: Exam negative for acute changes, Rate: normal, Rhythm: regular, Pulses: no pulse deficits are appreciated. 11:17 Respiratory: Exam negative for acute changes, respiratory distress, shortness of breath, Breath sounds: are clear throughout. 11:17 Neuro: Orientation: is normal, Mentation: is normal, Cranial nerves: no acute changes, CN II- XII are normal as tested, Motor: is normal, moves all fours, Sensation: is normal, no obvious gross deficits. Vital Signs: 09:56 BP 135 / 76; Pulse 83; Resp 20; Temp 96.4; Pulse Ox 97% ; Weight 136.08 kg; Height 5 ll1 ft. 11 in. (180.34 cm); Pain 10/10; 12:02 BP 131 / 75; Pulse 81; Resp 17; Temp 97.9; Pulse Ox 97% ; bp 09:56 Body Mass Index 41.84 (136.08 kg, 180.34 cm) ll1 MDM: 10:05 Patient medically screened. pm1 10:14 Data reviewed: vital signs. Data interpreted: Pulse oximetry: on room air is 97 %. pm1 Interpretation: normal. 11:46 Counseling: I had a detailed discussion with the patient and/or guardian regarding: the pm1 historical points, exam findings, and any diagnostic results supporting the discharge/admit diagnosis, radiology results, the need for outpatient follow up, to return to the emergency department if symptoms worsen or persist or if there are any questions or concerns that arise at home. 11:47 ED course: Patient's pain level is 1 out of 10. Considered giving the patient Fiorinal pm1 for future tension headaches but interaction with hydrocodone is not acceptable. Informed the patient and he is happy to go home since his pain was significantly relieved. 06/14 09:53 Order name: CT Head Brain wo Cont; Complete Time: 11:11 ll1 06/14 10:15 Order name: IV Saline Lock; Complete Time: 10:53 pm1 Administered Medications: 11:08 Drug: Ketorolac 30 mg Route: IVP; Site: left hand; tw5 12:05 Follow up: Response: No adverse reaction; Pain is decreased bp 11:08 Drug: Reglan (metoCLOPramide) 10 mg Route: IVP; Site: left hand; tw5 12:04 Follow up: Response: No adverse reaction; Pain is decreased bp 11:08 Drug: Benadryl (diphenhydrAMINE) 50 mg Route: IVP; Site: left hand; tw5 12:04 Follow up: Response: No adverse reaction; Pain is decreased bp 11:08 Drug: NS 0.9% 1000 ml Route: IV; Rate: 1000 ml; Site: left hand; tw5 12:04 Follow up: IV Status: Completed infusion; IV Intake: 1000ml bp Disposition: 12:08 Co-signature as Attending Physician, Shay Ramirez MD. rn Disposition Summary: 06/14/21 11:46 Discharge Ordered Location: Home pm1 Problem: new pm1 Symptoms: have improved pm1 Condition: Stable pm1 Diagnosis - Headache pm1 Followup: pm1 - With: Emergency Department - When: As needed - Reason: Worsening of condition Followup: pm1 - With: Private Physician - When: 2 - 3 days - Reason: Recheck today's complaints, Continuance of care, Re-evaluation by your physician Discharge Instructions: - Discharge Summary Sheet pm1 - General Headache Without Cause pm1 - Tension Headache, Adult pm1 Forms: - Medication Reconciliation Form pm1 - Thank You Letter pm1 - Antibiotic Education pm1 - Prescription Opioid Use pm1 Signatures: Dispatcher [employer] EDShay Montaño MD MD rn Marinas, Patrick, DRIP MOLDER DRIP MOLDER pm1 Rupert Batres RN RN bp Lewis, Lynsay, RN RN ll1 Carrie Maurer tw5
--- NOTE | 2021-06-14 11:47 | ER ---
Nurse's Notes [facility] Name: Jae Connolly Age: 55 yrs Sex: Male : 1965 Arrival Date: 06/14/2021 Time: 09:32 Bed 5 Private MD: German Ferrell T Diagnosis: Headache Presentation: 06/14 09:56 Chief complaint: Patient states: Severe MOTLEY since 0500 today. Sneezed last night and re ll1 injured chest/ribs. Coronavirus screen: Vaccine status: Patient reports receiving the 2nd dose of the covid vaccine. Client denies travel out of the [place] in the last 14 days. Ebola Screen: Patient denies travel to an Ebola-affected area in the 21 days before illness onset. Initial Sepsis Screen: Does the patient meet any 2 criteria? No. Patient's initial sepsis screen is negative. Does the patient have a suspected source of infection? Yes: S/S of meningitis or endocarditis. Risk Assessment: Do you want to hurt yourself or someone else? Patient reports no desire to harm self or others. Onset of symptoms was June 14, 2021. 09:56 Method Of Arrival: Wheelchair ll1 09:56 Acuity: KIARA 3 ll1 Triage Assessment: 10:00 Headache History: The patient has had previous headaches and this one is similar to bp previous episodes. General: Appears distressed, uncomfortable, Behavior is cooperative, appropriate for age, anxious. Pain: Complains of pain in head and chest Pain currently is 7 out of 10 on a pain scale. Pain began THIS MORNING Also complains of nausea. EENT: No deficits noted. Neuro: Level of Consciousness is awake, alert, obeys commands, Oriented to Appropriate for age Reports headache. Cardiovascular: No deficits noted. Respiratory: No deficits noted. GI: No signs and/or symptoms were reported involving the gastrointestinal system. : No signs and/or symptoms were reported regarding the genitourinary system. Derm: No deficits noted. Musculoskeletal: No deficits noted. Historical: - Allergies: :59 No Known Allergies; ll1 - PMHx: :59 Asthma; Hyperlipidemia; Lung Cancer; Osteoporosis; Prostate Cancer; ll1 - Immunization history:: Client reports receiving the 2nd dose of the Covid vaccine. - Social history:: Smoking status: Patient reports the use of cigarette tobacco products, unknown amount. Screenin:00 Abuse screen: Denies threats or abuse. Denies injuries from another. Nutritional bp screening: No deficits noted. Tuberculosis screening: No symptoms or risk factors identified. Fall Risk None identified. Assessment: 10:00 General: SEE TRIAGE NOTE. bp 12:03 Reassessment: PT D/C HOME AMBULATORY, DX WITH HEADACHE Patient states symptoms have bp improved. Vital Signs: 09:56 BP 135 / 76; Pulse 83; Resp 20; Temp 96.4; Pulse Ox 97% ; Weight 136.08 kg; Height 5 ll1 ft. 11 in. (180.34 cm); Pain 10/10; 12:02 BP 131 / 75; Pulse 81; Resp 17; Temp 97.9; Pulse Ox 97% ; bp 09:56 Body Mass Index 41.84 (136.08 kg, 180.34 cm) ll1 ED Course: 09:32 Patient arrived in ED. am2 09:33 German Ferrell MD is Private Physician. am2 09:56 Arm band placed on. ll1 09:59 Triage completed. ll1 10:00 Patient has correct armband on for positive identification. Bed in low position. Call bp light in reach. Side rails up X2. 10:05 Luke Egan, MARYANN is PHCP. pm1 10:05 Shay Ramirez MD is Attending Physician. pm1 10:12 CT Head Brain wo Cont In Process Unspecified. EDMS 10:53 Rupert Batres, CLAUDIO is Primary Nurse. bp 12:03 No provider procedures requiring assistance completed. IV discontinued, intact, bp bleeding controlled, No redness/swelling at site. Pressure dressing applied. Administered Medications: 11:08 Drug: Ketorolac 30 mg Route: IVP; Site: left hand; tw5 12:05 Follow up: Response: No adverse reaction; Pain is decreased bp 11:08 Drug: Reglan (metoCLOPramide) 10 mg Route: IVP; Site: left hand; tw5 12:04 Follow up: Response: No adverse reaction; Pain is decreased bp 11:08 Drug: Benadryl (diphenhydrAMINE) 50 mg Route: IVP; Site: left hand; tw5 12:04 Follow up: Response: No adverse reaction; Pain is decreased bp 11:08 Drug: NS 0.9% 1000 ml Route: IV; Rate: 1000 ml; Site: left hand; tw5 12:04 Follow up: IV Status: Completed infusion; IV Intake: 1000ml bp Intake: 12:04 IV: 1000ml; Total: 1000ml. bp Outcome: 11:46 Discharge ordered by . pm1 12:03 Discharged to home ambulatory. bp 12:03 Condition: stable 12:03 Discharge instructions given to patient, Instructed on discharge instructions, follow up and referral plans. Demonstrated understanding of instructions, follow-up care. 12:05 Patient left the ED. bp Signatures: Dispatcher [employer] EDMS Luke Egan NP REGISTERED NURSE [employer]GICAL SERVICES pm1 Jennifer Kaiser am2 Rpuert Batres RN RN bp Nnamdi Friedman RN RN 1 Carrie Maurer tw5
[2021-06-14 12:09] VITALS: O2SAT 97
[2021-06-14 12:10] VITALS: BP 131/75; TEMP 97.9
== END 2021-06-14 12:05 | disposition home or self-care (01) ==
LOC: ER 09:30
DX: R51.9 Headache, unspecified (principal); Z72.0 Tobacco use
CPT/HCPCS: 96361; 70450; 96375; 96374; 99283; J2765; J1200; J7030

== ENCOUNTER 2021-11-17 11:38 | Emergency (ER) | payer BC ==
--- OUTSIDE RECORDS SUMMARY | 2021-11-17 11:41 | XMS REPORT | Continuity of Care Document ---
:1965 Author Organization [facility] t Address [address] [place] [address] Dr. Seymour [address] [place] [id number] Care Team Providers Name Role Phone Unavailable [...]
[2021-11-17] MEDS ORDERED: MORPHINE 4 MG/ML SYR ONE ×2 (12:21→13:18)
[2021-11-17] MEDS ORDERED: NA CHLORIDE 0.9% 1,000 ML ONE (12:21)
[2021-11-17] MEDS ORDERED: ONDANSETRON 4 MG/2 ML VIAL ONE (12:21)
[2021-11-17 12:42] LABS: Absolute Lymphocytes (CBC) 1.1 K/uL (0.7-4.9); Hematocrit 39.4 % (39.6-49.0); Lymphocytes % 16.7 % (15.3-44.8); MPV 7.2 fL (7.6-11.3)
[2021-11-17 12:56] LABS: Albumin 3.6 g/dL (3.4-5.0); Bilirubin Total 0.2 mg/dL (0.2-1.0); Potassium 4.1 mmol/L (3.5-5.1)
--- NOTE | 2021-11-17 14:15 | RAD REPORT ---
EXAM DESCRIPTION: CT - Abdomen Pelvis W Contrast - 11/17/2021 2:01 pm CLINICAL HISTORY: Abdominal pain /umbilical hernia COMPARISON: 2019 TECHNIQUE: Computed axial tomography of the abdomen pelvis was obtained. 100 cc Isovue-300 was admin istered intravenously. Oral contrast was not requested which limits evaluation of bowel and appendix All CT scans are performed using dose optimization technique as appropriate and may include automated exposure control or mA/KV adjustment according to patient size. FINDINGS: The liver, spleen, pancreas, adrenal and kidneys appear unremarkable. There is no evidence of diverticulitis. Normal appendix. Right periumbilical hernia. The neck measures 4.7 centimeters. The herniated sac measures 16 centimet ers. Minimal stranding is present within the fat. Small left and small to moderate right inguinal hernias contain fat IMPRESSION: Moderate to large right periumbilical hernia
[2021-11-17] MEDS ORDERED: KETOROLAC 30 MG/ML INJ ONE (14:40)
--- NOTE | 2021-11-17 14:52 | ER ---
Nurse's Notes [facility] Name: Jae Connolly Age: 56 yrs Sex: Male : 1965 Arrival Date: 11/17/2021 Time: 11:40 Bed 11 Private MD: German Ferrell T Diagnosis: Umbilical hernia without obstruction or gangrene Presentation: 11/17 12:01 Coronavirus screen: Vaccine status: Patient reports receiving the 2nd dose of the covid ll1 vaccine. Client denies travel out of the [place] in the last 14 days. At this time, the client does not indicate any symptoms associated with coronavirus-19. Ebola Screen: Patient denies travel to an Ebola-affected area in the 21 days before illness onset. Initial Sepsis Screen: Does the patient meet any 2 criteria? No. Patient's initial sepsis screen is negative. Does the patient have a suspected source of infection? Yes: Skin breakdown/wound. Risk Assessment: Do you want to hurt yourself or someone else? Patient reports no desire to harm self or others. Onset of symptoms was November 16, 2021. 12:01 Method Of Arrival: Wheelchair ll1 12:01 Acuity: KIARA 3 ll1 Historical: - Allergies: 12:01 No Known Allergies; ll1 - PMHx: 12:01 Asthma; Lung Cancer; Osteoporosis; Hyperlipidemia; Prostate Cancer; ll1 - PSHx: 12:01 Tonsillectomy; hernia SX, back SX; lung SX; ll1 - Immunization history:: Client reports receiving the 2nd dose of the Covid vaccine. - Social history:: Smoking status: Patient reports the use of cigarette tobacco products, smokes one pack cigarettes per day. Screenin:15 Abuse screen: Denies threats or abuse. Denies injuries from another. Nutritional ld1 screening: No deficits noted. Tuberculosis screening: No symptoms or risk factors identified. Fall Risk None identified. Assessment: 12:15 General: Appears in no apparent distress. uncomfortable, Behavior is cooperative, ld1 appropriate for age, anxious. Pain: Complains of pain in abdomen Pain does not radiate. Pain currently is 9 out of 10 on a pain scale. Quality of pain is described as throbbing. 12:15 Neuro: Level of Consciousness is awake, alert, obeys commands, Oriented to person, ld1 place, time, situation. Cardiovascular: Capillary refill < 3 seconds Patient's skin is warm and dry. Respiratory: Airway is patent Respiratory effort is even, unlabored. GI: Abdomen is round distended, Hernia to lower abdomen - projecting outward. : No signs and/or symptoms were reported regarding the genitourinary system. EENT: No signs and/or symptoms were reported regarding the EENT system. Derm: No signs and/or symptoms reported regarding the dermatologic system. Musculoskeletal: No signs and/or symptoms reported regarding the musculoskeletal system. 13:10 Reassessment: Pt C/O abdominal pain. Notified ERP. See MAR for orders. ld1 13:17 Reassessment: ERP at bedside assessing patient. ld1 Vital Signs: 12:01 BP 148 / 88; Pulse 71; Resp 20; Temp 97.3; Pulse Ox 99% ; Weight 127.91 kg; Height 5 ll1 ft. 11 in. (180.34 cm); Pain 10/10; 12:15 BP 146 / 78; Pulse 69; Resp 18; Pulse Ox 99% on R/A; Pain 9/10; ld1 13:17 BP 129 / 77; Pulse 75; Resp 18; Pulse Ox 99% on R/A; ld1 12:01 Body Mass Index 39.33 (127.91 kg, 180.34 cm) ll1 ED Course: 11:40 Patient arrived in ED. mr 11:40 German Ferrell MD is Private Physician. mr 11:46 Maria Fernanda Verdugo [facility]C [facility] kb 11:46 Colten Frederick MD is Attending Physician. kb 12:02 Triage completed. ll1 12:02 Arm band placed on Patient placed in an exam room, on a stretcher. ll1 12:13 Cindy Rios, CLAUDIO is Primary Nurse. ld1 12:15 Patient has correct armband on for positive identification. Placed in gown. Bed in low ld1 position. Call light in reach. Side rails up X2. desk monitor on. Pulse ox on. NIBP on. Door closed. Noise minimized. Warm blanket given. 12:15 No provider procedures requiring assistance completed. Inserted saline lock: 20 gauge ld1 in left antecubital area, using aseptic technique. Blood collected. 14:03 CT Abd/Pelvis - IV Contrast Only In Process Unspecified. EDMS 15:02 IV discontinued, intact, bleeding controlled, No redness/swelling at site. ld1 Administered Medications: 12:35 Drug: NS 0.9% 1000 ml Route: IV; Rate: 1 bolus; Site: left antecubital; ld1 13:17 Follow up: Response: No adverse reaction; IV Status: Completed infusion; IV Intake: ld1 1000ml 12:35 Drug: Zofran (Ondansetron) 4 mg Route: IVP; Site: left antecubital; ld1 13:16 Follow up: Response: No adverse reaction ld1 12:35 Drug: morphine 4 mg Route: IVP; Infused Over: 4 mins; Site: left antecubital; ld1 13:16 Follow up: Response: No adverse reaction; Pain is unchanged, physician notified ld1 13:16 Drug: morphine 4 mg Route: IVP; Infused Over: 4 mins; Site: right antecubital; ld1 13:16 Follow up: Response: No adverse reaction; Pain is decreased ld1 14:21 CANCELLED (Duplicate Order): Ketorolac 15 mg IVP once kb 14:36 Drug: Ketorolac 30 mg Route: IVP; Site: left antecubital; ld1 15:01 Follow up: Response: No adverse reaction ld1 14:55 Drug: DiFLUcan (fluconazole) 150 mg Route: PO; ld1 15:01 Follow up: Response: No adverse reaction ld1 Medication: 12:15 VIS not applicable for this client. ld1 Intake: 13:17 IV: 1000ml; Total: 1000ml. ld1 Outcome: 14:52 Discharge ordered by . kerry 15:02 Discharged to home ambulatory, with family. ld1 15:02 Condition: stable 15:02 Discharge instructions given to patient, Instructed on discharge instructions, follow up and referral plans. Demonstrated understanding of instructions, follow-up care. 15:02 Patient left the ED. ld1 Signatures: Dispatcher [employer] EDMS Maria Fernanda Verdugo, TODD CORONELP-Alana Corea Nnamdi Friedman, RN RN ll1 Cindy Rios RN RN ld1
--- NOTE | 2021-11-17 14:52 | EDPHYS ---
Physician Documentation [facility] Name: Jae Connolly Age: 56 yrs Sex: Male : 1965 Arrival Date: 11/17/2021 Time: 11:40 Bed 11 Private MD: German Ferrell T ED Physician Colten Frederick HPI: 11/17 14:23 This 56 yrs old Male presents to ER via Wheelchair with complaints of Hernia. kb 14:24 The patient presents with abdominal pain. Onset: The symptoms/episode began/occurred kb last night. The symptoms do not radiate. Associated signs and symptoms: none. The symptoms are described as constant. Modifying factors: The symptoms are alleviated by nothing, the symptoms are aggravated by nothing. Severity of pain: At its worst the pain was moderate in the emergency department the pain is unchanged. The patient has not experienced similar symptoms in the past. The patient has not recently seen a physician. Pt reports he has had a hernia for a long time, but it pushed out further last night and is causing a burning pain. Historical: - Allergies: 12:01 No Known Allergies; ll1 - PMHx: 12:01 Asthma; Lung Cancer; Osteoporosis; Hyperlipidemia; Prostate Cancer; ll1 - PSHx: 12:01 Tonsillectomy; hernia SX, back SX; lung SX; ll1 - Immunization history:: Client reports receiving the 2nd dose of the Covid vaccine. - Social history:: Smoking status: Patient reports the use of cigarette tobacco products, smokes one pack cigarettes per day. ROS: 14:22 Constitutional: Negative for fever, chills, and weight loss. kb 14:22 Abdomen/GI: Positive for abdominal pain, hernia. 14:22 All other systems are negative. Exam: 14:22 Constitutional: This is a well developed, well nourished patient who is awake, alert, kb and in no acute distress. Head/Face: Normocephalic, atraumatic. ENT: Moist Mucous membranes Respiratory: Respirations even and unlabored. No increased work of breathing. Talking in full sentences Skin: Warm, dry with normal turgor. Normal color. MS/ Extremity: Pulses equal, no cyanosis. Neurovascular intact. Full, normal range of motion. Neuro: Awake and alert, GCS 15, oriented to person, place, time, and situation. Moves all extremities. Normal gait. Psych: Awake, alert, with orientation to person, place and time. Behavior, mood, and affect are within normal limits. 14:22 Abdomen/GI: Inspection: umbilical hernia noted on exam, Bowel sounds: normal, Palpation: abdomen is soft and non-tender, in all quadrants, Hernia: noted in the umbilical area, tenderness, that is mild. Vital Signs: 12:01 BP 148 / 88; Pulse 71; Resp 20; Temp 97.3; Pulse Ox 99% ; Weight 127.91 kg; Height 5 ll1 ft. 11 in. (180.34 cm); Pain 10/10; 12:15 BP 146 / 78; Pulse 69; Resp 18; Pulse Ox 99% on R/A; Pain 9/10; ld1 13:17 BP 129 / 77; Pulse 75; Resp 18; Pulse Ox 99% on R/A; ld1 12:01 Body Mass Index 39.33 (127.91 kg, 180.34 cm) ll1 MDM: 12:06 Patient medically screened. kb 14:19 Data reviewed: vital signs, nurses notes. Data interpreted: Pulse oximetry: on room air kb is 99 %. Interpretation: normal. Counseling: I had a detailed discussion with the patient and/or guardian regarding: the historical points, exam findings, and any diagnostic results supporting the discharge/admit diagnosis, lab results, radiology results, the need for outpatient follow up, a general surgeon, to return to the emergency department if symptoms worsen or persist or if there are any questions or concerns that arise at home. 14:21 ED course: Discussed exam, history and diagnostic findings with ERP. Recommends kb outpatient follow up with surgery. 14:49 ED course: Hernia reduced, pain significantly improved. Pt sat up and hernia protruded kb again. Educated to follow up with general surgery. making appt now. Pt reports he has a yeast infection on penis from recent medication use. States he was told to get a circumcision, but the earliest it could be scheduled for is February. States he cannot tolerate the yeast infection until then. Will give a dose of diflucan.. 11/17 12:12 Order name: CBC with Diff; Complete Time: 12:50 kb 11/17 12:12 Order name: CMP; Complete Time: 13:11 kb 11/17 12:12 Order name: Lipase; Complete Time: 13:11 kb 11/17 13:24 Order name: CT Abd/Pelvis - IV Contrast Only; Complete Time: 14:17 kb 11/17 12:12 Order name: IV Saline Lock; Complete Time: 12:35 kb 11/17 12:12 Order name: Labs collected and sent; Complete Time: 12:35 kb Administered Medications: 12:35 Drug: NS 0.9% 1000 ml Route: IV; Rate: 1 bolus; Site: left antecubital; ld1 13:17 Follow up: Response: No adverse reaction; IV Status: Completed infusion; IV Intake: ld1 1000ml 12:35 Drug: Zofran (Ondansetron) 4 mg Route: IVP; Site: left antecubital; ld1 13:16 Follow up: Response: No adverse reaction ld1 12:35 Drug: morphine 4 mg Route: IVP; Infused Over: 4 mins; Site: left antecubital; ld1 13:16 Follow up: Response: No adverse reaction; Pain is unchanged, physician notified ld1 13:16 Drug: morphine 4 mg Route: IVP; Infused Over: 4 mins; Site: right antecubital; ld1 13:16 Follow up: Response: No adverse reaction; Pain is decreased ld1 14:21 CANCELLED (Duplicate Order): Ketorolac 15 mg IVP once kb 14:36 Drug: Ketorolac 30 mg Route: IVP; Site: left antecubital; ld1 15:01 Follow up: Response: No adverse reaction ld1 14:55 Drug: DiFLUcan (fluconazole) 150 mg Route: PO; ld1 15:01 Follow up: Response: No adverse reaction ld1 Disposition: 15:19 Attestation: The patient's history, exam findings, diagnostics, and a summary of any [facility] interventions or procedures was reviewed in detail with Maria Fernanda BROOKS. Disposition Summary: 11/17/21 14:52 Discharge Ordered Location: Home kb Condition: Stable kb Diagnosis - Umbilical hernia without obstruction or gangrene kb Followup: kb - With: Emergency Department - When: As needed - Reason: Worsening of condition Followup: kb - With: Private Physician - When: 2 - 3 days - Reason: Recheck today's complaints, Continuance of care, Re-evaluation by your physician Discharge Instructions: - Discharge Summary Sheet kb - Hernia, Adult, [id number] kb Forms: - Medication Reconciliation Form kb - Thank You Letter kb - Antibiotic Education kb - Prescription Opioid Use kb Signatures: Dispatcher [employer] EDMaria Fernanda Ag, TODD NOGUEIRA-Nnamdi Hahn RN RN ll1 Cindy Rios RN RN ld1 Colten Frederick MD MD [id number] Corrections: (The following items were deleted from the chart) 14:21 14:19 Ketorolac 15 mg IVP once ordered. kb kb
[2021-11-17] MEDS ORDERED: FLUCONAZOLE 100 MG TAB ONE (15:03)
[2021-11-17 15:27] VITALS: TEMP 97.3; O2SAT 99
[2021-11-17 15:29] VITALS: BP 129/77
== END 2021-11-17 15:02 | disposition home or self-care (01) ==
LOC: ER 11:38
DX: K42.9 Umbilical hernia without obstruction or gangrene (principal); F17.210 Nicotine dependence, cigarettes, uncomplicated; J45.909 Unspecified asthma, uncomplicated; Z85.46 Personal history of malignant neoplasm of prostate; Z85.118 Personal history of other malignant neoplasm of bronchus and lung
CPT/HCPCS: 85025; 36415; 83690; 80053; 74177; 99284; Q9967; J7030; J2405

== ENCOUNTER 2021-11-21 06:58 | Day surgery (SDC) | payer BC ==
[2021-11-21] MEDS ORDERED: CEFAZOLIN 2 GM IN 0.9% NACL 2 GM/100 ML BAG ONE (07:08)
[2021-11-21] MEDS ORDERED: NA CHLORIDE 0.9% 1,000 ML ONE ×2 (07:08→09:14)
[2021-11-21] MEDS ORDERED: propofoL 200 MG/20 ML VIAL IV ONE (07:43)
[2021-11-21] MEDS ORDERED: MIDAZOLAM HCL 2 MG/2 ML INJ ONE (07:43)
[2021-11-21] MEDS ORDERED: LIDOCAINE 1% MPF 5 ML VIAL ONE (07:43)
[2021-11-21] MEDS ORDERED: FENTANYL CITR 100 MCG/2 ML ONE (07:43)
[2021-11-21] MEDS ORDERED: GLYCOPYRROLATE 0.2 MG/ML SYR ONE (07:44)
[2021-11-21] MEDS ORDERED: dexAMETHasone 4 MG/ML VIAL ONE (07:45)
[2021-11-21] MEDS ORDERED: ONDANSETRON 4 MG/2 ML VIAL ONE (07:45)
[2021-11-21] MEDS ORDERED: ROCURONIUM 50 MG/5 ML VIAL IV ONE ×2 (07:45→09:11)
[2021-11-21] MEDS ORDERED: NEOSTIGMINE 1 MG/ML -10 ML VIAL ONE (07:45)
[2021-11-21] MEDS ORDERED: KETOROLAC 30 MG/ML INJ ONE (07:45)
[2021-11-21] MEDS ORDERED: BUPIVACAINE 0.25% PF 10 ML VIAL ONE (07:46)
--- NOTE | 2021-11-21 09:22 | P.OP ---
Preoperative diagnosis: Incarcerated Ventral Abdominal Hernia Postoperative diagnosis: Incarcerated Ventral Abdominal Hernia Primary procedure: Laparoscopic Ventral Hernia Repair with mesh Anesthesia: GETA + Local Estimated blood loss: <5cc Specimen: Hernia Contents Findings: 5cm neck hernia with incarcerated omentum Complications: None Implants: Bard Ventralite 6" round mesh, sorbafix Transferred to: Recovery Room Condition: Good
[2021-11-21] MEDS ORDERED: MORPHINE 10 MG/ML VIAL ONE (09:35)
[2021-11-21] MEDS: HYDROMORPHONE HCL 1 MG/ML INJ ONE ×2 (10:01→10:06)
[2021-11-21] MEDS ORDERED: HYDROMORPHONE HCL 1 MG/ML INJ ONE ×2 (10:17→10:27)
--- NOTE | 2021-11-21 10:23 | OP ---
Date of Procedure: 11/21/2021 Surgeon: Guilherme Silverio MD, Preoperative Diagnosis: Incarcerated ventral abdominal hernia. Postoperative Diagnosis: Incarcerated ventral abdominal hernia. Procedure Performed: Laparoscopic ventral hernia repair with mesh. Anesthesia: General endotracheal plus local with 0.25% Marcaine. Estimated Blood Loss: Less than 5 cc. Specimen: Hernia contents. Findings: A 5 cm neck of the hernia with incarcerated omentum. Complications: None. Implants: Bard Ventralight 6 inch round mesh and SorbaFix absorbable fixation tacks approximately 60 used. Disposition: The patient was transferred to the recovery room in good condition. Procedure In Detail: After informed consent was obtained, the patient was brought to the operating room, prepped and draped in the usual sterile fashion after adequate anesthesia. The area in the left lower quadrant was anesthetized with 0.25% Marcaine, sharply incised. A 5 mm 0 degree optical trocar was introduced in the abdomen without evidence of complication. Insufflation was obtained to 15 mmHg at this time. The area was inspected and found to have a significant midline ventral abdominal hernia in the periumbilical region. I then placed a 12 mm trocar in the left lower quadrant. This was similarly anesthetized, sharply incised. A 12 mm trocar was placed under direct visualization without evidence of complication. I then proceeded to use gentle traction to remove the omentum from the anterior abdominal wall using combination of traction and LigaSure device to take down the incarcerated omentum. Portion of the omentum removed and sent off for pathologic examination as hernia contents. After the hernia was completely swept and clean of all contents, I then ran a 0 V-Loc suture on Endo Stitch and imbricated the hernia sac eliminating the space with 2 of the V-Loc sutures and closed the defect in its entirety. At this point, the hernia defect was sized appropriately and a 6 cm round Bard Ventralight ST mesh with Echo Positioning System was deployed through the 12 mm trocar in the central portion of the defect. At this point, it was deployed and secured to the anterior abdominal wall with a single crown using SorbaFix absorbable fixation tacks. The balloon deployment system was then removed and found to be intact on the back table. I then deployed a second crown of the SorbaFix fixation tacks with good approximation of the mesh to the anterior abdominal wall. The abdomen was then insufflated to full 15 mmHg. I was desufflated for the portion of the mesh positioning. The mesh found to be in good anatomic position. I then rolled the patient away from in, closed the 12 mm trocar site with a 0 Vicryl in an interrupted fashion with a Josr- Michela suture passer with good approximation of tissues. The abdomen was completely desufflated under direct visualization without evidence of complication. Remaining trocars were removed. The area was copiously irrigated. All skin incisions were copiously irrigated and closed with a 4-0 Monocryl in a running fashion. Dermabond placed over top. The patient tolerated the procedure well without evidence of complication and transferred to PACU in good condition. All counts were correct at the end of the case. PAUL/SHARON Voice ID: [id number] Report ID: [id number] MTDD
[2021-11-21] MEDS ORDERED: HYDROCODONE/APAP 10/325 TAB ONE (11:05)
[2021-11-21 11:35] VITALS: TEMP 96.7
[2021-11-21 11:36] VITALS: BP 138/77; O2SAT 95
--- NOTE | 2021-11-21 13:40 | EKG ---
Test Date: 2021-11-18 Test Time: 15:44:00 Training Personnel Supervisor: RADHA MEASUREMENT RESULTS: Intervals: Rate: 72 LA: 162 QRSD: 80 QT: 394 QTc: 431 [place]: P: -14 LA: 162 QRS: 37 T: 19 INTERPRETIVE STATEMENTS: Normal sinus rhythm Low voltage QRS Borderline ECG Compared to ECG 10/16/2021 19:53:53 Low QRS voltage now present Fusion complex(es) no longer present Left-axis deviation no longer present Right bundle-branch block no longer present T-wave abnormality no longer present Possible ischemia no longer present Electronically Signed On 11-21-21 13:37:06 CDT by Viktor Krueger
== END 2021-11-21 11:25 | disposition home or self-care (01) ==
LOC: OR 06:58
PROVIDERS: ATTEND Surgery
PROC: 0WUF4JZ Supplement Abdominal Wall with Synthetic Substitute, Percutaneous Endoscopic Approach (ICD-10-PCS; principal; 2021-11-21 08:00)
DX: K43.6 Other and unspecified ventral hernia with obstruction, without gangrene (principal); Z20.822 Contact with and (suspected) exposure to COVID-19
CPT/HCPCS: 93005; 82947 ×2; 88302; 49653; U0003; J2704; J1100; J2710; J2250; J3010; J1170 ×3; J0690; J7030 ×2; J2405

== ENCOUNTER 2023-12-12 17:28 | Emergency (ER) | payer OTHER ==
[2023-12-12 19:32] LABS: Absolute Basophils 0.1 K/uL (0-0.5); Absolute Eosinophils 0.2 K/uL (0-0.5); Absolute Lymphocytes (CBC) 1.7 K/uL (0.7-4.9); Absolute Monocytes 0.5 K/uL (0.1-1.3); Absolute Neutrophil 5.9 K/uL (1.8-8.0); Basophils % 0.8 % (0-1.3); Eosinophils % 1.9 % (0-4.4); Hematocrit 40.8 % (39.6-49.0); Hemoglobin 13.8 g/dL (13.6-17.9); Lymphocytes % 20.1 % (15.3-44.8); MCH 29.9 pg (27.0-35.0); MCHC 33.8 g/dL (32.0-36.0); MCV 88.5 fL (80-100); MPV 6.7 fL (7.6-11.3); Neutrophils % 71.2 % (41.7-73.7); Nucleated Red Blood Cells % 0.3 % (0-0); Platelets 211 thou/uL (152-406); RBC Red Blood Cell Count 4.61 M/uL (4.33-5.43); Red Cell Distribution Width 14.4 % (12.1-15.2)
[2023-12-12] MEDS ORDERED: ONDANSETRON 4 MG/2 ML VIAL ONE (19:34)
[2023-12-12 19:35] LABS: PT Prothrombin Time 11.8 SECONDS (9.4-12.5); Protime INR 1.07
[2023-12-12] MEDS ORDERED: NA CHLORIDE 0.9% 1,000 ML ONE (19:35)
[2023-12-12] MEDS ORDERED: MORPHINE 4 MG/ML SYR ONE (19:35)
[2023-12-12 19:47] LABS: ALT/SGPT 20 U/L (16-61); Albumin 4.3 g/dL (3.4-5.0); Albumin/Globulin Ratio 1.2 (1.1-1.8); Alkaline Phosphatase 66 U/L (45-117); Anion Gap 9.1 mEq/L (5.0-15.0); BUN Blood Urea Nitrogen 13 mg/dL (7-18); Bicarbonate 26 mEq/L (21-32); Bilirubin Total 0.5 mg/dL (0.2-1.0); Globulin 3.5 g/dL (2.3-3.5); Glomerular Filtration Rate 105 ml/min (=/>90); Glucose Level 86 mg/dL (74-106); Potassium 4.1 mEq/L (3.5-5.1); Protein, Total 7.8 g/dL (6.4-8.2); Sodium Level 135 mEq/L (136-145)
[2023-12-12 19:49] LABS: AST/SGOT < 10 U/L (15-37)
--- NOTE | 2023-12-12 20:27 | RAD REPORT ---
EXAM DESCRIPTION: CT - Head Brain Wo Cont - 12/12/2023 8:15 pm CLINICAL HISTORY: HEADACHE Headache, drowsiness COMPARISON: <Comparisons> TECHNIQUE: All CT scans are performed using dose optimization technique as appropriate and may inclu de automated exposure control or mA/KV adjustment according to patient size. FINDINGS: No intracranial hemorrhage, hydrocephalus or extra-axial fluid collection.No areas of brai n edema or evidence of midline shift. There is destructive mottle bone lesion present involving the left temporal bone squamous portion ext ending to involve the left sphenoid wing and posterior wall of the orbit. The soft tissue component a long the left temporal region measures up to 24 mm in thickness. This is likely related to neoplasia/ metastatic disease. IMPRESSION: No acute intracranial abnormality. Destructive mottled aggressive bone lesion along the left aspect of the cranium with significant bony destruction of the left temporal bone anteriorly and soft tissue component measuring up to 2.5 cm in thickness. 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
--- NOTE | 2023-12-12 20:29 | RAD REPORT ---
EXAM DESCRIPTION: CT - Head angio - 12/12/2023 8:15 pm CLINICAL HISTORY: Headache Headache, drowsiness COMPARISON: <Comparisons> TECHNIQUE: CT angiography of the head was performed with MIPs. All CT scans are performed using dose optimization technique as appropriate and may include automated exposure control or mA/KV adjustment according to patient size. FINDINGS: No evidence of large vessel occlusion. No evidence of aneurysm is detected. No flow-limiti ng stenosis or vascular malformation identified. The vertebrobasilar system is diminutive. The vertebral arteries are codominant. Destructive bone lesion involving the left calvarium extending inferiorly to involve the left sphenoi d wing is not seen. 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 IMPRESSION: No significant flow abnormality is detected.
--- NOTE | 2023-12-12 20:33 | RAD REPORT ---
EXAM DESCRIPTION: CT - Neck Angio - 12/12/2023 8:15 pm CLINICAL HISTORY: HEADACHE Headache, drowsiness COMPARISON: <Comparisons> TECHNIQUE: CT angiography of the neck vessels was performed with MIPs. All CT scans are performed using dose optimization technique as appropriate and may include automated exposure control or mA/KV adjustment according to patient size. FINDINGS: A left aortic arch is identified with normal three vessel configuration of the great vesse ls. No significant flow abnormality is seen of the common carotid bilaterally. Mild hard plaque is seen involving both carotid bulbs, greater on the left. Normal flow is seen within both vertebral arteries. IMPRESSION: No significant flow abnormality of the neck vessels is identified. Mild hard plaquing of both carotid bulbs. NASCET criteria used. Mild 0-49% stenosis Moderate 50-69% stenosis Severe 70-99% stenosis
[2023-12-12] MEDS ORDERED: DIPHENHYDRAMINE 50 MG/ML VIAL ONE (20:59)
[2023-12-12] MEDS ORDERED: METOCLOPRAMIDE 10 MG/2mL INJ ONE (21:00)
--- NOTE | 2023-12-12 21:53 | EDPHYS ---
Physician Documentation [facility] Name: Jae Connolly Age: 58 yrs Sex: Male : 1965 Arrival Date: 12/12/2023 Time: 17:28 Bed 11 Private MD: ED Physician Ck Falcon HPI: 12/11 18:00 This 58 yrs old Male presents to ER via Ambulatory with complaints of Headache, Worst cp Ever. 18:00 The patient complains of pain to the left bahai. The patient describes the headache as cp aching, constant. 18:00 Onset: The symptoms/episode began/occurred 7 week(s) ago, and became worse today. cp Associated signs and symptoms: Pertinent positives: nausea, Photophobia Pertinent negatives: fever, malaise, neck stiffness, weakness. Severity of symptoms: in the emergency department the pain is unchanged, despite home interventions. 18:00 Headache History: Denies prior headaches. cp Historical: - Allergies: 17:42 No Known Allergies; db - PMHx: 17:42 Lung Cancer; Osteoporosis; Asthma; Prostate Cancer; Hyperlipidemia; db - PSHx: 17:42 hernia SX; lung sx; Tonsillectomy; BACK SX (Tonsillectomy); db - Immunization history:: Adult Immunizations unknown. - Infectious Disease History:: Denies. - Social history:: Smoking status: Patient reports the use of cigarette tobacco products, smokes one pack cigarettes per day. ROS: 18:05 Constitutional: Negative for body aches, chills, fever, poor PO intake, cp 18:05 Eyes: Positive for photophobia, cp 18:05 ENT: Negative for drainage from ear(s), ear pain, sore throat, difficulty swallowing, difficulty handling secretions, 18:05 Cardiovascular: Negative for chest pain, edema, palpitations, 18:05 Respiratory: Negative for cough, shortness of breath, wheezing, 18:05 Abdomen/GI: Positive for nausea, Negative for abdominal pain, vomiting, diarrhea, constipation, 18:05 Neuro: Positive for headache, Negative for altered mental status, numbness, weakness, 18:05 All other systems are negative, Exam: 18:10 Constitutional: The patient appears in no acute distress, alert, awake, cp non-diaphoretic, non-toxic, well developed, well nourished, uncomfortable, 18:10 Head/face: Noted is tenderness, that is moderate, of the left bahai, Sinus cp tenderness, is not appreciated, 18:10 Eyes: Periorbital structures: appear normal, Pupils: equal, round, and reactive to light and accomodation, Extraocular movements: intact throughout, Conjunctiva: normal, no exudate, no injection, Sclera: no appreciated abnormality, Lids and lashes: appear normal, bilaterally, 18:10 ENT: External ear(s): are unremarkable, Nose: is normal, Mouth: Lips: moist, Oral mucosa: moist, Posterior pharynx: Airway: no evidence of obstruction, patent, 18:10 Neck: ROM/movement: is normal, is supple, without pain, no range of motions limitations, no meningismus, no nuchal rigidity, 18:10 Chest/axilla: Inspection: normal, 18:10 Cardiovascular: Rate: normal, Rhythm: regular, 18:10 Respiratory: the patient does not display signs of respiratory distress, Respirations: normal, no use of accessory muscles, no retractions, labored breathing, is not present, Breath sounds: are clear throughout, no decreased breath sounds, no stridor, no wheezing, 18:10 Abdomen/GI: Inspection: abdomen appears normal, Bowel sounds: active, all quadrants, Palpation: abdomen is soft and non-tender, in all quadrants, 18:10 Neuro: Orientation: to person, place \T\ time. Mentation: is normal, Cerebellar function: is grossly normal, Motor: moves all fours, strength is normal, Sensation: no obvious gross deficits, Vital Signs: 17:40 BP 125 / 73; Pulse 76; Resp 18; Temp 98.4(O); Pulse Ox 100% ; Weight 88.45 kg; Height 5 db ft. 11 in. ; Pain 8/10; 19:46 BP 124 / 92; Pulse 76; Resp 18; Pulse Ox 100% on R/A; me1 19:47 Pain 3/10; me1 21:05 BP 120 / 89; Pulse 72; Resp 15; Pulse Ox 98% ; me1 22:00 BP 133 / 82; Pulse 78; Resp 18; Temp 98.4; Pulse Ox 99% ; me1 17:40 Body Mass Index 27.20 (88.45 kg, 180.34 cm) db 17:40 Pain Scale: Adult db 19:47 Pain Scale: Adult me1 MDM: 17:[address] [facility] 21:52 Data reviewed: vital signs, nurses notes, lab test result(s), radiologic studies, CT cp scan, and as a result, I will discharge patient. 21:52 Differential diagnosis: meningitis, meningoencephalitis, migraine, neoplasm, subdural cp hematoma, tension headache. I considered the following discharge prescriptions or medication management in the emergency department Medications were administered in the Emergency Department. See MAR. Care significantly affected by the following chronic conditions: Cancer. Counseling: I had a detailed discussion with the patient and/or guardian regarding the historical points, exam findings, and any diagnostic results supporting the discharge/admit diagnosis, lab results, radiology results, the need for outpatient follow up, oncology, to return to the emergency department if symptoms worsen or persist or if there are any questions or concerns that arise at home. Response to treatment: the patient's symptoms have markedly improved after treatment, and as a result, I will discharge patient. 12/11 17:46 Order name: CBC with Diff; Complete Time: 20:16 [facility] 12/11 17:46 Order name: Comprehensive Metabolic Panel; Complete Time: 20:16 [facility] 12/11 17:46 Order name: PT-INR; Complete Time: 20:16 [facility] 12/11 17:46 Order name: CT Head Brain wo Cont; Complete Time: 20:42 [facility] 12/11 17:46 Order name: CT Neck Angio; Complete Time: 20:42 [facility] 12/11 18:13 Order name: Head angio; Complete Time: 20:42 EDMS Administered Medications: 19:42 Drug: NS 0.9% IV 1000 ml IV at 125 ml/hr continuous Route: IV; Rate: 125 ml/hr; Site: me1 right antecubital; 22:19 Follow up: Response: No adverse reaction; IV Status: Completed infusion me1 19:43 Drug: morphine IVP or IV 4 mg IVP once over 4 mins Route: IVP; Infused Over: 4 mins; me1 Site: right antecubital; 19:47 Follow up: Pain 3/10 Adult; Response: No adverse reaction; Pain is decreased me1 19:43 Drug: Ondansetron IVP 4 mg IVP once; over 2 minutes Route: IVP; Site: right antecubital;me1 19:47 Follow up: Response: No adverse reaction; Nausea is decreased me1 21:04 Drug: diphenhydrAMINE IVP 25 mg IVP once Route: IVP; Site: right antecubital; me1 22:19 Follow up: Response: No adverse reaction; Pain is decreased me1 21:05 Drug: Droperidol IVP 1.25 mg IVP once Route: IVP; Site: right antecubital; me1 22:19 Follow up: Response: No adverse reaction; Pain is decreased me1 21:05 Drug: metoCLOPramide IVP 10 mg IVP once; over 1 to 2 minutes Route: IVP; Site: right me1 antecubital; 22:19 Follow up: Response: No adverse reaction; Pain is decreased me1 Disposition Summary: 12/12/23 21:52 Discharge Ordered Notes: Location: Home cp Problem: new cp Symptoms: have improved cp Condition: Stable cp Diagnosis - Headache cp Followup: cp - With: Janis Garcia MD - When: 1 week - Reason: Recheck today's complaints Discharge Instructions: - Discharge Summary Sheet cp - Migraine Headache cp Forms: - Medication Reconciliation Form cp - Antibiotic Education cp - Prescription Opioid Use cp - Patient Portal Instructions cp - Leadership Thank You Letter cp Prescriptions: - acetaminophen-codeine 300-30 mg Oral tablet - take 2 tablet ORAL route 3 times per day as needed for pain; 20 tablet; cp Refills: 0, Product Selection Permitted - Zofran 4 mg Oral Tablet - take 1 tablet ORAL route every 12 hours As needed; 20 tablet; Refills: 0, cp Product Selection Permitted Addendum: 12/15/2023 07:44 Co-signature as Attending Physician, Ck Falcon MD I agree with the assessment and c delaney plan of care. Signatures: Dispatcher [employer] kC Up MD MD cha Page, Corey, PA PA cp Steffanie Lopez RN RN db Deepika Rich RN RN me1 Corrections: (The following items were deleted from the chart) 12/11 17:43 17:42 PSHx: hernia SX; db db 17:43 17:42 PSHx: hernia SX; db db 17:43 17:42 PSHx: hernia SX; db db
--- NOTE | 2023-12-12 21:53 | ER ---
Nurse's Notes [facility] Name: Jae Connolly Age: 58 yrs Sex: Male : 1965 Arrival Date: 12/12/2023 Time: 17:28 Bed 11 Private MD: Diagnosis: Headache Presentation: 12/11 17:40 Chief complaint: Patient states: HEADACHE X 7 WEEKS. STATES NAUSEA TODAY AND KNOT ON db LEFT VOODOO STARTED TODAY. HAS HX OF LUNG AND PROSTATE CANCER. Coronavirus screen: Client denies travel out of the [place] in the last 14 days. At this time, the client does not indicate any symptoms associated with coronavirus-19. Ebola Screen: Patient negative for fever greater than or equal to 101.5 degrees Fahrenheit, and additional compatible Ebola Virus Disease symptoms Patient denies exposure to infectious person. Patient denies travel to an Ebola-affected area in the 21 days before illness onset. No symptoms or risks identified at this time. Initial Sepsis Screen: Does the patient meet any 2 criteria? No. Patient's initial sepsis screen is negative. Does the patient have a suspected source of infection? No. Patient's initial sepsis screen is negative. Risk Assessment: Do you want to hurt yourself or someone else? Patient reports no desire to harm self or others. Onset of symptoms was December 12, 2023. 17:40 Method Of Arrival: Ambulatory db 17:40 Acuity: KIARA 3 db Triage Assessment: 17:42 Headache History: The patient has had previous headaches and this one is similar to db previous episodes. General: Appears in no apparent distress. comfortable, Behavior is calm, cooperative. Pain: Complains of pain in face Pain currently is 8 out of 10 on a pain scale. Pain began 7 WEEKS Also complains of nausea. 17:44 Neuro: Level of Consciousness is awake, alert, obeys commands, Oriented to person, db place, time, situation, Appropriate for age Reports headache in left. Historical: - Allergies: 17:42 No Known Allergies; db - PMHx: 17:42 Lung Cancer; Osteoporosis; Asthma; Prostate Cancer; Hyperlipidemia; db - PSHx: 17:42 hernia SX; lung sx; Tonsillectomy; BACK SX (Tonsillectomy); db - Immunization history:: Adult Immunizations unknown. - Infectious Disease History:: Denies. - Social history:: Smoking status: Patient reports the use of cigarette tobacco products, smokes one pack cigarettes per day. Screenin:[address] [facility] ED Fall Risk Assessment (Adult) History of falling in the last 3 months, me1 including since admission No falls in past 3 months (0 pts) Confusion or Disorientation No (0 pts) Intoxicated or Sedated No (0 pts) Impaired Gait No (0 pts) Mobility Assist Device Used No (0 pt) Altered Elimination No (0 pt) Score/Fall Risk Level 0 - 2 = Low Risk Maintained a safe environment, Provided non-skid footwear, Hourly rounding (assess needs \\T\\ fall precautionary measures) done. Abuse screen: Denies threats or abuse. Nutritional screening: No deficits noted. Tuberculosis screening: No symptoms or risk factors identified. Assessment: 19:00 General: Appears uncomfortable, well developed, well nourished, Behavior is me1 cooperative, appropriate for age, anxious, Reports headache x7 weeks that is worse today. Nausea and "knot near his left buddhist" noticed today. Pain: Complains of pain in head Pain does not radiate. Pain. Pain: Pain currently is 10 out of 10 on a pain scale. Quality of pain is described as sharp, stabbing, Pain began 7 weeks ago, worse today Is continuous. Neuro: Level of Consciousness is awake, alert, obeys commands, Oriented to person, place, time, situation, Appropriate for age. Cardiovascular: Patient's skin is warm and dry. Respiratory: Airway is patent Respiratory effort is even, unlabored, Respiratory pattern is regular, symmetrical. GI: Reports nausea, since this morning. : No signs and/or symptoms were reported regarding the genitourinary system. EENT: No signs and/or symptoms were reported regarding the EENT system. Derm: Skin is intact, is healthy with good turgor, Skin is pink, warm \\T\\ dry. Musculoskeletal: No signs and/or symptoms reported regarding the musculoskeletal system. Vital Signs: 17:40 BP 125 / 73; Pulse 76; Resp 18; Temp 98.4(O); Pulse Ox 100% ; Weight 88.45 kg; Height 5 db ft. 11 in. ; Pain 8/10; 19:46 BP 124 / 92; Pulse 76; Resp 18; Pulse Ox 100% on R/A; me1 19:47 Pain 3/10; me1 21:05 BP 120 / 89; Pulse 72; Resp 15; Pulse Ox 98% ; me1 22:00 BP 133 / 82; Pulse 78; Resp 18; Temp 98.4; Pulse Ox 99% ; me1 17:40 Body Mass Index 27.20 (88.45 kg, 180.34 cm) db 17:40 Pain Scale: Adult db 19:47 Pain Scale: Adult me1 ED Course: 17:30 Patient arrived in ED. im 17:42 Triage completed. db 17:44 Ck Falcon MD is Attending Physician. jacobo 17:44 Arm band placed on right wrist. db 19:19 Missed attempt(s): 20 gauge Bleeding controlled, band aid applied, catheter tip intact. ty 19:21 Initial lab(s) drawn, by me, sent to lab. Inserted saline lock: 22 gauge in right ty antecubital area, using aseptic technique. Blood collected. 19:29 Deepika Rich, RN is Primary Nurse. me1 19:46 Patient has correct armband on for positive identification. Bed in low position. Call me1 light in reach. Side rails up X 1. Provided Education on: POC. Verbalized understanding. . Client placed on continuous cardiac and pulse oximetry monitoring. NIBP monitoring applied. Pulse ox on. NIBP on. 19:46 No provider procedures requiring assistance completed. me1 20:15 CT Head Brain wo Cont In Process Unspecified. EDMS 20:16 CT Neck Angio In Process Unspecified. EDMS 20:16 Head angio In Process Unspecified. EDMS 20:23 Ck Fox PA is PHCP. cp 20:37 Ck Fox PA is PHCP. cp 21:52 Janis Garcia MD is Referral Physician. cp 22:00 IV discontinued, intact, bleeding controlled, No redness/swelling at site. Pressure me1 dressing applied. Administered Medications: 19:42 Drug: NS 0.9% IV 1000 ml IV at 125 ml/hr continuous Route: IV; Rate: 125 ml/hr; Site: me1 right antecubital; 22:19 Follow up: Response: No adverse reaction; IV Status: Completed infusion me1 19:43 Drug: morphine IVP or IV 4 mg IVP once over 4 mins Route: IVP; Infused Over: 4 mins; me1 Site: right antecubital; 19:47 Follow up: Pain 3/10 Adult; Response: No adverse reaction; Pain is decreased me1 19:43 Drug: Ondansetron IVP 4 mg IVP once; over 2 minutes Route: IVP; Site: right antecubital;me1 19:47 Follow up: Response: No adverse reaction; Nausea is decreased me1 21:04 Drug: diphenhydrAMINE IVP 25 mg IVP once Route: IVP; Site: right antecubital; me1 22:19 Follow up: Response: No adverse reaction; Pain is decreased me1 21:05 Drug: Droperidol IVP 1.25 mg IVP once Route: IVP; Site: right antecubital; me1 22:19 Follow up: Response: No adverse reaction; Pain is decreased me1 21:05 Drug: metoCLOPramide IVP 10 mg IVP once; over 1 to 2 minutes Route: IVP; Site: right me1 antecubital; 22:19 Follow up: Response: No adverse reaction; Pain is decreased me1 Medication: 19:46 VIS not applicable for this client. me1 Outcome: 21:52 Discharge ordered by . cp 22:00 Discharged to home ambulatory, with family, me1 22:00 Condition: stable 22:00 Discharge instructions given to patient, family, Instructed on discharge instructions, follow up and referral plans. medication usage, Demonstrated understanding of instructions, follow-up care, medications, Prescriptions given X 2, 22:18 Patient left the ED. me1 Signatures: Dispatcher [employer] Ck Up MD MD cha Page, Corey, PA PA cp Benton, Danielle, CLAUDIO RN Rita Zuniga Michelle, RN RN me1 Stefano Villalobos Corrections: (The following items were deleted from the chart) 17:43 17:42 PSHx: hernia SX; db db 17:43 17:42 PSHx: hernia SX; db db 17:43 17:42 PSHx: hernia SX; db db
[2023-12-12 22:35] VITALS: TEMP 98.4
[2023-12-12 22:52] VITALS: BP 133/82; O2SAT 99
== END 2023-12-12 22:18 | disposition home or self-care (01) ==
LOC: ER 17:28
DX: R51.9 Headache, unspecified (principal)
CPT/HCPCS: 96361; 85025; 36415; 85610; 80053; 70450; 70496; 70498; 96375; 96374; 99284; Q9967; J2765; J1200; J2405; J7030

== ENCOUNTER 2024-03-30 05:08 | Emergency (ER) | payer OTHER ==
[2024-03-30] MEDS ORDERED: ONDANSETRON 4 MG/2 ML VIAL ONE (05:26)
[2024-03-30] MEDS ORDERED: HYDROMORPHONE HCL 2 MG/ML inj ONE (05:26)
[2024-03-30 05:47] LABS: Absolute Basophils 0.1 K/uL (0-0.5); Absolute Eosinophils 0.1 K/uL (0-0.5); Absolute Lymphocytes (CBC) 2.2 K/uL (0.7-4.9); Absolute Monocytes 0.9 K/uL (0.1-1.3); Eosinophils % 0.7 % (0-4.4); Hematocrit 50.9 % (39.6-49.0); Lymphocytes % 16.7 % (15.3-44.8); MCH 30.3 pg (27.0-35.0); MCHC 33.3 g/dL (32.0-36.0); MCV 90.9 fL (80-100); MPV 6.8 fL (7.6-11.3); Monocytes % 6.7 % (3.3-12.3); Neutrophils % 74.9 % (41.7-73.7); Platelets 229 thou/uL (152-406); Red Cell Distribution Width 16.4 % (12.1-15.2)
[2024-03-30 05:54] LABS: Anion Gap 8.4 mEq/L (5.0-15.0); Potassium 4.4 mEq/L (3.5-5.1)
--- NOTE | 2024-03-30 06:06 | EDPHYS ---
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 Patient requests acute management for pain in the ED. . Historical: - Allergies: 05:35 No Known Allergies; vc1 - PMHx: 05:35 Asthma; Hyperlipidemia; Lung Cancer; Osteoporosis; Prostate Cancer; skull cancer; vc1 - PSHx: 05:35 BACK SX (le); hernia SX; hernia SX; lung sx; Tonsillectomy; vc1 - Immunization history:: Client reports receiving the 2nd dose of the Covid vaccine. - Infectious Disease History:: Denies. - Social history:: Smoking status: Patient reports the use of cigarette tobacco products, smokes one pack cigarettes per day. - Family history:: not pertinent. ROS: 22:20 Constitutional: Negative for fever, chills, and weight loss, postive headache sp4 22:20 All other systems are negative, Exam: 22:20 Constitutional: This is a well developed, well nourished patient who is awake, alert, sp4 moderate distress secondary to pain Head/Face: Normocephalic, atraumatic. Eyes: Pupils equal round and reactive to light, extra-ocular motions intact. Lids and lashes normal. Conjunctiva and sclera are not injected. Cornea within normal limits. Periorbital areas with no swelling, redness, or edema. ENT: Nares patent. No nasal discharge, no septal abnormalities noted. Tympanic membranes are normal and external auditory canals are clear. Oropharynx with no redness, swelling, or masses, exudates, or evidence of obstruction, uvula midline. Mucous membranes moist. Neck: Trachea midline, no thyromegaly or masses palpated, and no cervical lymphadenopathy. Supple, full range of motion without nuchal rigidity, or vertebral point tenderness. Chest/axilla: Normal chest wall appearance and motion. Nontender with no deformity. No lesions are appreciated. Cardiovascular: Regular rate and rhythm with a normal S1 and S2. No gallops, murmurs, or rubs. Normal PMI, no JVD. No pulse deficits. Respiratory: Lungs have equal breath sounds bilaterally, clear to auscultation and percussion. No rales, rhonchi or wheezes noted. No increased work of breathing, no retractions or nasal flaring. Abdomen/GI: Soft, with normal bowel sounds. No distension or tympany. No guarding or rebound. No evidence of tenderness throughout. Back: No spinal tenderness. No costovertebral tenderness. Skin: Warm, dry with normal turgor. Normal color with no rashes, no lesions, and no evidence of cellulitis. MS/ Extremity: Pulses equal, no cyanosis. Neurovascular intact. Full, normal range of motion. Neuro: Awake and alert, GCS 15, oriented to person, place, time, and situation. Cranial nerves II-XII grossly intact. Motor strength 5/5 in all extremities. Sensory grossly intact. Vital Signs: 05:29 BP 161 / 114; Pulse 78; Resp 18; Pulse Ox 96% ; Weight 102.97 kg; Height 5 ft. 11 in. ; vc1 Pain 10/10; 05:45 BP 140 / 100; Pulse 61; Resp 15 S; Pulse Ox 94% on R/A; ha1 06:23 BP 145 / 80; Pulse 63; Resp 15; Pulse Ox 94% on R/A; ha1 05:29 Body Mass Index 31.66 (102.97 kg, 180.34 cm) vc1 05:29 Pain Scale: Adult vc1 Jose M Coma Score: 22:20 Eye Response: spontaneous(4). Motor Response: obeys commands(6). Verbal Response: sp4 oriented(5). Total: 15. 22:20 Eye Response: spontaneous(4). Motor Response: obeys commands(6). Verbal Response: sp4 oriented(5). Total: 15. MDM: 06:03 Medical Screening Exam initiated sp4 22:20 Differential diagnosis: cluster headache, migraine, neoplasm, vasomotor headache. Data sp4 reviewed: vital signs, nurses notes, old medical records. ED course: Patient has improved after IV medications. Stable for discharge home. 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 03/30 05:28 Order name: Basic Metabolic Panel; Complete Time: 06: sp4 03/30 05:28 Order name: CBC with Diff; Complete Time: 06:03 sp4 03/30 05:28 Order name: IV Saline Lock; Complete Time: sp4 03/30 05:28 Order name: Labs collected and sent; Complete Time: sp4 03/30 05:28 Order name: O2 Per Protocol; Complete Time: sp4 03/30 05:28 Order name: O2 Sat Monitoring; Complete Time: sp4 Administered Medications: 05:30 Drug: Ondansetron IVP 4 mg IVP once; over 2 minutes Route: IVP; Site: right antecubital;ha1 05:44 Follow up: Response: No adverse reaction; Marked relief of symptoms ha1 05:32 Drug: HYDROmorphone IVP 2 mg IVP once Route: IVP; Site: right antecubital; ha1 05:44 Follow up: Response: No adverse reaction; Marked relief of symptoms; Pain is decreased; ha1 RASS: Alert and Calm (0) Disposition Summary: 03/30/24 06:05 Discharge Ordered Notes: Location: Home sp4 Problem: new sp4 Symptoms: have improved sp4 Condition: Stable sp4 Diagnosis - Acute migraine headache, exacerbation of chronic cancer pain sp4 Followup: sp4 - With: Private Physician - When: 7 - 10 days - Reason: Recheck today's complaints Discharge Instructions: - Discharge Summary Sheet sp4 - Managing Cancer Pain sp4 Forms: - Patient Portal Instructions sp4 Signatures: Dispatcher [employer] Barbara Yan RN RN vc1 Iza Adamson RN RN ha1 Kevin Griffith MD MD sp4
--- NOTE | 2024-03-30 06:06 | ER ---
Nurse's Notes [facility] Name: Jae Connolly Age: 58 yrs Sex: Male : 1965 Arrival Date: 03/30/2024 Time: 05:08 Bed 6 Private MD: Diagnosis: Acute migraine headache, exacerbation of chronic cancer pain Presentation: 03/30 05:29 Chief complaint: Spouse and/or significant other states: He has a history of skull vc1 cancer and has a severe headache. Coronavirus screen: Client denies travel out of the [place] in the last 14 days. At this time, the client does not indicate any symptoms associated with coronavirus-19. Ebola Screen: Patient negative for fever greater than or equal to 101.5 degrees Fahrenheit, and additional compatible Ebola Virus Disease symptoms Patient denies exposure to infectious person. Patient denies travel to an Ebola-affected area in the 21 days before illness onset. No symptoms or risks identified at this time. Initial Sepsis Screen: Does the patient meet any 2 criteria? No. Patient's initial sepsis screen is negative. Does the patient have a suspected source of infection? No. Patient's initial sepsis screen is negative. Risk Assessment: Do you want to hurt yourself or someone else? Patient reports no desire to harm self or others. Onset of symptoms was March 30, 2024. Care prior to arrival: Medication(s) given: zofran 4 mg, 4 mg dilaudid PO. 05:29 Method Of Arrival: Wheelchair vc1 05:29 Acuity: KIARA 3 vc1 Triage Assessment: 05:38 Headache History: The patient has had previous headaches and this one is similar to vc1 previous episodes. General: Appears distressed, uncomfortable, obese, well groomed, Behavior is crying, restless. Pain: Complains of pain in left side of head Pain does not radiate. Pain currently is 10 out of 10 on a pain scale. Quality of pain is described as pressure, sharp, Pain began suddenly, Noted to be crying, restless, Also complains of nausea. EENT: No deficits noted. No signs and/or symptoms were reported regarding the EENT system. Neuro: Level of Consciousness is awake, alert, obeys commands, Oriented to person, place, time, situation, Appropriate for age Reports headache in left. Neuro: Melton Agitation-Sedation Scale (RASS): +1 Restless. Cardiovascular: Capillary refill < 3 seconds Patient's skin is warm and dry. Respiratory: Airway is patent Respiratory effort is even, unlabored, Respiratory pattern is regular, symmetrical. GI: No deficits noted. No signs and/or symptoms were reported involving the gastrointestinal system. : No deficits noted. No signs and/or symptoms were reported regarding the genitourinary system. Derm: Skin is intact, Skin is diaphoretic, Skin is normal, Skin temperature is cool. Musculoskeletal: Circulation, motion, and sensation intact. Range of motion: intact in all extremities. Historical: - Allergies: 05:35 No Known Allergies; vc1 - PMHx: 05:35 Asthma; Hyperlipidemia; Lung Cancer; Osteoporosis; Prostate Cancer; skull cancer; vc1 - PSHx: 05:35 BACK SX (le); hernia SX; hernia SX; lung sx; Tonsillectomy; vc1 - Immunization history:: Client reports receiving the 2nd dose of the Covid vaccine. - Infectious Disease History:: Denies. - Social history:: Smoking status: Patient reports the use of cigarette tobacco products, smokes one pack cigarettes per day. - Family history:: not pertinent. Screenin:37 [facility] ED Fall Risk Assessment (Adult) History of falling in the last 3 months, vc1 including since admission No falls in past 3 months (0 pts) Confusion or Disorientation No (0 pts) Intoxicated or Sedated No (0 pts) Impaired Gait No (0 pts) Mobility Assist Device Used No (0 pt) Altered Elimination No (0 pt) Score/Fall Risk Level 0 - 2 = Low Risk Oriented to surroundings, Maintained a safe environment, Educated pt \T\ family on fall prevention, incl call for assistance when getting out of bed. Abuse screen: Denies threats or abuse. Nutritional screening: No deficits noted. Tuberculosis screening: No symptoms or risk factors identified. Assessment: 05:13 General: Appears uncomfortable, Behavior is cooperative, anxious, crying. Pain: ha1 Complains of pain in HEADACHE Pain does not radiate. Pain currently is 10 out of 10 on a pain scale. Quality of pain is described as shooting, stabbing, throbbing, Pain began gradually. Neuro: Level of Consciousness is awake, alert, obeys commands, Oriented to person, place, time, situation. Neuro: Reports headache in entire photophobia. Cardiovascular: Capillary refill < 3 seconds Patient's skin is warm and dry. Respiratory: Airway is patent Respiratory effort is even, unlabored, Respiratory pattern is regular, symmetrical. Derm: Skin is pink, warm \T\ dry. Musculoskeletal: Circulation, motion, and sensation intact. 05:44 Reassessment: Patient and/or family updated on plan of care and expected duration. Pain ha1 level reassessed. Patient is alert, oriented x 3, equal unlabored respirations, skin warm/dry/pink. PAIN 4/10 Patient states feeling better. Patient states symptoms have improved. 06:23 Reassessment: Patient and/or family updated on plan of care and expected duration. Pain ha1 level reassessed. Patient is alert, oriented x 3, equal unlabored respirations, skin warm/dry/pink. PAIN 3/10 Patient states feeling better. Patient states symptoms have improved. Vital Signs: 05:29 BP 161 / 114; Pulse 78; Resp 18; Pulse Ox 96% ; Weight 102.97 kg; Height 5 ft. 11 in. ; vc1 Pain 10/10; 05:45 BP 140 / 100; Pulse 61; Resp 15 S; Pulse Ox 94% on R/A; ha1 06:23 BP 145 / 80; Pulse 63; Resp 15; Pulse Ox 94% on R/A; ha1 05:29 Body Mass Index 31.66 (102.97 kg, 180.34 cm) vc1 05:29 Pain Scale: Adult vc1 [place] Coma Score: 22:20 Eye Response: spontaneous(4). Motor Response: obeys commands(6). Verbal Response: sp4 oriented(5). Total: 15. 22:20 Eye Response: spontaneous(4). Motor Response: obeys commands(6). Verbal Response: sp4 oriented(5). Total: 15. ED Course: 05:11 Patient arrived in ED. [email or web address] 05:16 Inserted saline lock: 20 gauge in right antecubital area, using aseptic technique. ha1 Blood collected. Flushed with 10 mL NS. 05:26 Kevin Griffith MD is Attending Physician. sp4 05:33 Basic Metabolic Panel Sent. ha1 05:33 CBC with Diff Sent. ha1 05:35 Triage completed. vc1 05:38 Patient has correct armband on for positive identification. Bed in low position. Call vc1 light in reach. Adult w/ patient. Pulse ox on. NIBP on. 05:42 Arm band placed on right wrist. vc1 06:23 Iza Adamson, RN is Primary Nurse. ha1 06:24 No provider procedures requiring assistance completed. IV discontinued, intact, ha1 bleeding controlled, No redness/swelling at site. Pressure dressing applied. 06:25 Provided Education on: FOLLOW UP WITH PCP. ha1 Administered Medications: 05:30 Drug: Ondansetron IVP 4 mg IVP once; over 2 minutes Route: IVP; Site: right antecubital;ha1 05:44 Follow up: Response: No adverse reaction; Marked relief of symptoms ha1 05:32 Drug: HYDROmorphone IVP 2 mg IVP once Route: IVP; Site: right antecubital; ha1 05:44 Follow up: Response: No adverse reaction; Marked relief of symptoms; Pain is decreased; ha1 RASS: Alert and Calm (0) Medication: 05:37 VIS not applicable for this client. vc1 Outcome: 06:05 Discharge ordered by . sp4 06:24 Discharged to home via wheelchair, with family, ha1 06:24 Condition: stable 06:24 Discharge instructions given to patient, family, Instructed on discharge instructions, follow up and referral plans. Demonstrated understanding of instructions, follow-up care, 06:25 Patient left the ED. ha1 Signatures: Marli Molina [email or web address] Barbara Cordero RN RN vc1 Iza Adamson RN RN ha1 Kevin Griffith MD MD sp4 Corrections: (The following items were deleted from the chart) 05:47 05:45 BP 140 / 100; Pulse 58bpm; Resp 15bpm; Spontaneous; Pulse Ox 94% RA; ha1 ha1
[2024-03-30 11:06] VITALS: O2SAT 94
[2024-03-30 11:07] VITALS: BP 145/80
== END 2024-03-30 06:25 | disposition home or self-care (01) ==
LOC: ER 05:08
DX: G43.909 Migraine, unspecified, not intractable, without status migrainosus (principal); G89.3 Neoplasm related pain (acute) (chronic); C71.9 Malignant neoplasm of brain, unspecified; F17.210 Nicotine dependence, cigarettes, uncomplicated; Z85.46 Personal history of malignant neoplasm of prostate; Z85.118 Personal history of other malignant neoplasm of bronchus and lung
CPT/HCPCS: 85025; 80048; 36415; 96375; 96374; 99284; J1170; J2405

== ENCOUNTER 2024-03-31 09:45 | Emergency (ER) | payer OTHER ==
[2024-03-31] MEDS ORDERED: ONDANSETRON 4 MG/2 ML VIAL ONE (10:01)
[2024-03-31] MEDS ORDERED: HYDROMORPHONE HCL 2 MG/ML inj ONE (10:02)
[2024-03-31] MEDS ORDERED: HYDROMORPHONE HCL 1 MG/ML INJ ONE (11:28)
--- NOTE | 2024-03-31 11:28 | EDPHYS ---
Physician Documentation [facility] Name: Jae Connolly Age: 58 yrs Sex: Male : 1965 Arrival Date: 03/31/2024 Time: 09:45 Bed 8 Private MD: ED Physician Pa Ricks HPI: 03/31 11:08 This 58 yrs old Male presents to ER via EMS with complaints of Pain. 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 Patient was seen in the ED a day and a half ago, received pain medicines but states that the pain has been worsening since then. He did receive palliative radiation but states that has not helped with the pain at all. Has his follow-up appointment with his oncologist in 2 days. Denies other acute complaints at this time, symptoms are severe in severity, no other aggravating or alleviating factors.. Historical: - Allergies: 09:50 No Known Allergies; ph 09:50 No Known Allergies; kc6 - PMHx: 09:47 Asthma; Hyperlipidemia; Lung Cancer; Osteoporosis; Prostate Cancer; skull cancer; ph 09:50 Hypertensive disorder; Diabetes mellitus; kc6 - PSHx: 09:47 BACK SX; hernia SX; lung sx; Tonsillectomy; ph - Immunization history:: Adult Immunizations unknown. - Infectious Disease History:: Denies. - Social history:: Smoking status: Patient reports the use of cigarette tobacco products, smokes one pack cigarettes per day. - Family history:: not pertinent. ROS: 11:08 Constitutional: Negative for fever, chills, and weight loss, Cardiovascular: Negative rt for chest pain, palpitations, and edema, Respiratory: Negative for shortness of breath, cough, wheezing, and pleuritic chest pain, Abdomen/GI: Negative for abdominal pain, nausea, vomiting, diarrhea, and constipation, MS/Extremity: Negative for injury and deformity, Skin: Negative for injury, rash, and discoloration, 11:08 ENT: Positive for 11:08 Neuro: Positive for headache, Negative for loss of consciousness, Exam: 11:08 Chest/axilla: Normal chest wall appearance and motion. Nontender with no deformity. rt No lesions are appreciated. Cardiovascular: Regular rate and rhythm with a normal S1 and S2. No gallops, murmurs, or rubs. Normal PMI, no JVD. No pulse deficits. Respiratory: Lungs have equal breath sounds bilaterally, clear to auscultation and percussion. No rales, rhonchi or wheezes noted. No increased work of breathing, no retractions or nasal flaring. Abdomen/GI: Soft, non-tender, with normal bowel sounds. No distension or tympany. No guarding or rebound. No evidence of tenderness throughout. Skin: Warm, dry with normal turgor. Normal color with no rashes, no lesions, and no evidence of cellulitis. MS/ Extremity: Pulses equal, no cyanosis. Neurovascular intact. Full, normal range of motion. 11:08 Constitutional: The patient appears Acutely distressed 11:08 Head/face: Radiation changes noted to the left side of the face, otherwise normocephalic. 11:08 Eyes: Ptosis noted to the left eye. Vital Signs: 09:48 BP 138 / 91; Pulse 76; Resp 16 S; Temp 97.3(O); Pulse Ox 95% on R/A; Weight 99.79 kg kc6 (R); Height 5 ft. 11 in. ; Pain 10/10; 10:15 BP 144 / 96; Pulse 80; Resp 18 S; Pulse Ox 93% on R/A; kc6 11:16 BP 136 / 87; Pulse 60; Resp 16 S; Pulse Ox 92% on R/A; kc6 09:48 Body Mass Index 30.68 (99.79 kg, 180.34 cm) kc6 09:48 Pain Scale: Adult kc6 MDM: 09:55 Medical Screening Exam initiated rt 12:43 Differential Diagnosis Pain due to cancer. Data reviewed: vital signs, nurses notes, rt old medical records. Consideration of Admission/Observation Escalation of care including admission/observation considered. Management of patient was discussed with the following: Transition Manager: Discussed with patient's oncologist, will discuss hospice initiation with the patient at next visit this week. I considered the following discharge prescriptions or medication management in the emergency department Medications were administered in the Emergency Department. See MAR. Test considered but Not performed: Other Details Well-known established diagnosis, further investigations are not indicated to include neuroimaging. Care significantly affected by the following chronic conditions: Metastatic cancer. Counseling: I had a detailed discussion with the patient and/or guardian regarding the historical points, exam findings, and any diagnostic results supporting the discharge/admit diagnosis, the need for outpatient follow up, to return to the emergency department if symptoms worsen or persist or if there are any questions or concerns that arise at home. Response to treatment: the patient's symptoms have mildly improved after treatment. Administered Medications: 10:10 Drug: HYDROmorphone IVP 2 mg IVP once Route: IVP; Site: right forearm; kc6 11:16 Follow up: Response: No adverse reaction; Pain is decreased; RASS: Alert and Calm (0) kc6 10:10 Drug: Ondansetron IVP 4 mg IVP once; over 2 minutes Route: IVP; Site: right forearm; kc6 11:16 Follow up: Response: No adverse reaction kc6 11:31 Drug: HYDROmorphone IVP 1 mg IVP once Route: IVP; Site: right forearm; kc6 11:38 Follow up: Response: No adverse reaction; Pain is decreased; RASS: Alert and Calm (0) kc6 Disposition Summary: 03/31/24 11:28 Discharge Ordered Notes: Location: Home rt Problem: an ongoing problem rt Symptoms: are unchanged rt Condition: Stable rt Diagnosis - Pain related to cancer rt Followup: rt - With: Private Physician - When: 48 Hours - Reason: Discharge Instructions: - Discharge Summary Sheet rt - Managing Cancer Pain rt Forms: - Medication Reconciliation Form rt - Antibiotic Education rt - Prescription Opioid Use rt - Patient Portal Instructions rt - Leadership Thank You Letter rt Signatures: Chelsea De Oliveira RN RN ph Christina Donnelly RN RN kc6 Pa Ricks MD MD rt Corrections: (The following items were deleted from the chart) 09:48 09:47 PSHx: hernia SX; ph ph
--- NOTE | 2024-03-31 11:28 | ER ---
Nurse's Notes [facility] Name: Jae Connolly Age: 58 yrs Sex: Male : 1965 Arrival Date: 03/31/2024 Time: 09:45 Bed 8 Private MD: Diagnosis: Pain related to cancer Presentation: 03/31 09:48 Chief complaint: Patient states: increased pain to the left side of his face x3-4 days. kc6 states he was here last night but the pain has come back. Coronavirus screen: At this time, the client does not indicate any symptoms associated with coronavirus-19. Ebola Screen: No symptoms or risks identified at this time. Initial Sepsis Screen: Does the patient meet any 2 criteria? No. Patient's initial sepsis screen is negative. Does the patient have a suspected source of infection? No. Patient's initial sepsis screen is negative. Risk Assessment: Do you want to hurt yourself or someone else? Patient reports no desire to harm self or others. Onset of symptoms was March 31, 2024. 09:48 Method Of Arrival: EMS: [facility] 09:48 Acuity: KIARA 3 [facility] 09:54 Care prior to arrival: Medication(s) given: Fentanyl 100 mcg IV initiated. 20 GA, in kc6 the right forearm. Historical: - Allergies: 09:50 No Known Allergies; ph 09:50 No Known Allergies; kc6 - PMHx: 09:47 Asthma; Hyperlipidemia; Lung Cancer; Osteoporosis; Prostate Cancer; skull cancer; ph 09:50 Hypertensive disorder; Diabetes mellitus; kc - PSHx: 09:47 BACK SX; hernia SX; lung sx; Tonsillectomy; ph - Immunization history:: Adult Immunizations unknown. - Infectious Disease History:: Denies. - Social history:: Smoking status: Patient reports the use of cigarette tobacco products, smokes one pack cigarettes per day. - Family history:: not pertinent. Screenin:50 [facility] ED Fall Risk Assessment (Adult) History of falling in the last 3 months, ph including since admission No falls in past 3 months (0 pts) Confusion or Disorientation No (0 pts) Intoxicated or Sedated No (0 pts) Impaired Gait No (0 pts) Mobility Assist Device Used No (0 pt) Altered Elimination No (0 pt) Score/Fall Risk Level 0 - 2 = Low Risk Oriented to surroundings, Maintained a safe environment, Hourly rounding (assess needs \T\ fall precautionary measures) done. Abuse screen: Denies threats or abuse. Denies injuries from another. Nutritional screening: No deficits noted. Tuberculosis screening: No symptoms or risk factors identified. Assessment: 09:51 General: Appears in no apparent distress. uncomfortable, well groomed, well developed, kc6 Behavior is cooperative, crying. Pain: Complains of pain in face Pain does not radiate. Pain currently is 10 out of 10 on a pain scale. Pain began 2-3 days ago. Is continuous, Alleviated by medications, Noted to be crying. Neuro: Level of Consciousness is awake, alert, obeys commands, Oriented to person, place, time, situation, Appropriate for age. Cardiovascular: Capillary refill < 3 seconds. Respiratory: Airway is patent Trachea midline Respiratory effort is even, unlabored, Respiratory pattern is regular, symmetrical. GI: No signs and/or symptoms were reported involving the gastrointestinal system. : No signs and/or symptoms were reported regarding the genitourinary system. EENT: No signs and/or symptoms were reported regarding the EENT system. Derm: No signs and/or symptoms reported regarding the dermatologic system. Skin is intact, is healthy with good turgor, Skin is pink, warm \T\ dry. Musculoskeletal: No signs and/or symptoms reported regarding the musculoskeletal system. Circulation, motion, and sensation intact. Capillary refill < 3 seconds, Range of motion: intact in all extremities. 10:15 Reassessment: Patient states symptoms have improved. kc6 11:16 Reassessment: Patient appears in no apparent distress at this time. No changes from kc6 previously documented assessment. Patient and/or family updated on plan of care and expected duration. Pain level reassessed. Patient is alert, oriented x 3, equal unlabored respirations, skin warm/dry/pink. Vital Signs: 09:48 BP 138 / 91; Pulse 76; Resp 16 S; Temp 97.3(O); Pulse Ox 95% on R/A; Weight 99.79 kg kc6 (R); Height 5 ft. 11 in. ; Pain 10/10; 10:15 BP 144 / 96; Pulse 80; Resp 18 S; Pulse Ox 93% on R/A; kc6 11:16 BP 136 / 87; Pulse 60; Resp 16 S; Pulse Ox 92% on R/A; kc6 09:48 Body Mass Index 30.68 (99.79 kg, 180.34 cm) kc6 09:48 Pain Scale: Adult kc6 ED Course: 09:47 Patient arrived in ED. ph 09:48 Christina Donnelly, RN is Primary Nurse. kc6 09:49 Arm band placed on Patient placed in an exam room, on a stretcher, on pulse oximetry. ph 09:50 Triage completed. kc6 09:50 Patient has correct armband on for positive identification. Bed in low position. Call ph light in reach. Side rails up X 1. Pulse ox on. NIBP on. Door closed. Noise minimized. Warm blanket given. 09:55 Pa Ricks MD is Attending Physician. rt 10:10 Maintain EMS IV. Dressing intact. Good blood return noted. Site clean \T\ dry. Gauge \T\ timur 6 site: 20G RFA. Flushed with 10 mL NS. 11:38 No provider procedures requiring assistance completed. IV discontinued, intact, kc6 bleeding controlled, No redness/swelling at site. Pressure dressing applied. Administered Medications: 10:10 Drug: HYDROmorphone IVP 2 mg IVP once Route: IVP; Site: right forearm; kc6 11:16 Follow up: Response: No adverse reaction; Pain is decreased; RASS: Alert and Calm (0) kc6 10:10 Drug: Ondansetron IVP 4 mg IVP once; over 2 minutes Route: IVP; Site: right forearm; kc6 11:16 Follow up: Response: No adverse reaction kc6 11:31 Drug: HYDROmorphone IVP 1 mg IVP once Route: IVP; Site: right forearm; kc6 11:38 Follow up: Response: No adverse reaction; Pain is decreased; RASS: Alert and Calm (0) kc6 Medication: 09:49 VIS not applicable for this client. ph Outcome: 11:28 Discharge ordered by . rt 11:39 Discharged to home via wheelchair, with family, with significant other, kc6 11:39 Condition: improved 11:39 Discharge instructions given to patient, family, significant other, Instructed on discharge instructions, follow up and referral plans. no drinking with medication, no driving heavy equipment, Demonstrated understanding of instructions, follow-up care, 11:39 Patient left the ED. kc6 Signatures: Chelsea De Oliveira RN RN ph Donnelly, Christina RN RN kc6 Pa Ricks MD MD rt Corrections: (The following items were deleted from the chart) 09:48 09:47 PSHx: hernia SX; ph ph 09:51 09:48 Pulse 76bpm; Resp 16bpm; Spontaneous; Pulse Ox 95% RA; Temp 97.3F Oral; 99.79 kg kc6 Reported; Height 5 ft. 11 in.; BMI: 30.6; Pain 03/20, Adult; kc6
[2024-03-31 12:48] VITALS: TEMP 97.3
[2024-03-31 12:51] VITALS: BP 136/87; O2SAT 92
== END 2024-03-31 11:39 | disposition home or self-care (01) ==
LOC: ER 09:45
DX: G89.3 Neoplasm related pain (acute) (chronic) (principal); C41.0 Malignant neoplasm of bones of skull and face; Z85.46 Personal history of malignant neoplasm of prostate; Z85.118 Personal history of other malignant neoplasm of bronchus and lung; F17.210 Nicotine dependence, cigarettes, uncomplicated
CPT/HCPCS: 96375; 96374; 99284; J1170 ×2; J2405

== ENCOUNTER 2024-04-02 07:46 | Emergency (ER) | payer OTHER ==
[2024-04-02] MEDS ORDERED: ONDANSETRON 4 MG/2 ML VIAL ONE ×2 (08:25→12:21)
[2024-04-02] MEDS ORDERED: HYDROMORPHONE HCL 1 MG/ML INJ ONE ×4 (08:25→12:26)
[2024-04-02] MEDS ORDERED: NA CHLORIDE 0.9% 1,000 ML ONE (08:26)
[2024-04-02] MEDS ORDERED: LEVETIRACETAM 500 MG/5 ML VIAL IV ONE (08:26)
[2024-04-02] MEDS ORDERED: NA CHLORIDE 0.9% 100 ML ONE (08:27)
[2024-04-02] MEDS ORDERED: dexAMETHasone 10 MG/ML VIAL ONE (08:27)
[2024-04-02 08:37] LABS: Absolute Basophils 0.1 K/uL (0-0.5); Absolute Eosinophils 0.1 K/uL (0-0.5); Absolute Lymphocytes (CBC) 1.8 K/uL (0.7-4.9); Absolute Neutrophil 9.5 K/uL (1.8-8.0); Basophils % 0.8 % (0-1.3); Hematocrit 47.2 % (39.6-49.0); Lymphocytes % 14.5 % (15.3-44.8); MCHC 33.9 g/dL (32.0-36.0); MCV 88.5 fL (80-100); MPV 6.4 fL (7.6-11.3); Monocytes % 8.1 % (3.3-12.3); Neutrophils % 75.6 % (41.7-73.7); Platelets 210 thou/uL (152-406); RBC Red Blood Cell Count 5.33 M/uL (4.33-5.43); Red Cell Distribution Width 16.4 % (12.1-15.2)
[2024-04-02 08:39] LABS: Protime INR 0.98
[2024-04-02 08:55] LABS: Albumin 3.6 g/dL (3.4-5.0); Bilirubin Direct 0.2 mg/dL (0-0.2); Bilirubin Indirect, Calculated 0.2 mg/dL (0.2-0.8); Bilirubin Total 0.4 mg/dL (0.2-1.0); Globulin 3.7 g/dL (2.3-3.5); Protein, Total 7.3 g/dL (6.4-8.2)
--- NOTE | 2024-04-02 10:22 | RAD REPORT ---
EXAM: CT Head Brain Wo Cont HISTORY: HEADACHE COMPARISON: 12/12/[address] TECHNIQUE: Multiple contiguous axial images were obtained for a CT of the brain without contrast. Sag ittal and coronal reformats were performed. One or more of the following dose reduction techniques were used: Automated exposure control, adjus tment of the mA and kV according to patient size, and iterative reconstruction. Unless otherwise specified, incidental findings do not require dedicated imaging follow-up. FINDINGS: No evidence of hydrocephalus, intracranial hemorrhage, or extra-axial fluid collection. The brain is normal in morphology. Progressive lytic changes involving the left frontal and parietal calvarium, reaching near the vertex along the parietal bone. Lytic changes now also involved the outer and inner tables of the left more than right frontal sinuses. The soft tissue density mass along the left sphenoid wing shows rela tive interval decrease in thickness, now measuring up to 1.2 cm in axial thickness when measured in a similar fashion. The component along the left lateral orbital wall also shows marked interval decre ase in size with some demineralization. There is a progressive soft tissue lytic component involving the frontal sinus drainage pathways bilaterally, more so on the left, and extending across the cribriform plate, and along the left more than right ethmoidal air cells 3.6 x 2.8 cm in greatest axial dimensions. A new lytic lesion involves the right greater wing of sphenoid measuring 2 .2 x 1.3 cm in greatest axial diameters. Patchy opacification throughout the paranasal sinuses with air-fluid level within the right frontal sinus. Mastoid air cells are clear. IMPRESSION: No evidence of acute intracranial abnormality. Progressive lytic changes involving the left frontal and parietal calvarium. New lytic lesions, including a 3.6 cm lesion centered on the left frontal sinus drainage pathway and extending across the cribriform plate and the midline, as well as a right greater wing of sphenoid 2.2 cm lytic lesion. Interval decrease in thickness of the lytic lesion involving the left greater wing of sphenoid and la teral left orbital wall.
--- NOTE | 2024-04-02 11:00 | RAD REPORT ---
EXAMINATION: ONE VIEW CHEST XR CLINICAL INDICATION: Male, 58 years old.,COUGH TECHNIQUE: Frontal chest projection is submitted. Examination is limited by patient positioning and t echnique. COMPARISON: 01/23/2020 FINDINGS: The lungs are well inflated and clear. No pneumothorax or sizable effusion. The heart is normal in s ize. IMPRESSION: No acute intrathoracic abnormalities.
--- NOTE | 2024-04-02 12:15 | ER ---
Nurse's Notes [facility] Name: Jae Connolly Age: 58 yrs Sex: Male : 1965 Arrival Date: 04/02/2024 Time: 07:46 Bed 4 Private MD: Diagnosis: Headache-malignant process, termed TERMINAL , PT AND DESIRE NO MORE TREATMENT OF ANY KIND , FAMILY WANTS CHOICE HOSPICE Presentation: 04/02 07:48 Chief complaint: EMS states: INTERMITTENT LEFT EYE PAIN, SEEN RECENTLY FOR SAME. bp Coronavirus screen: At this time, the client does not indicate any symptoms associated with coronavirus-19. Ebola Screen: No symptoms or risks identified at this time. Mechanism of Injury: No Mechanism of Injury. The patient denies any loss of vision. Initial Sepsis Screen: Does the patient meet any 2 criteria? No. Patient's initial sepsis screen is negative. Does the patient have a suspected source of infection? No. Patient's initial sepsis screen is negative. Risk Assessment: Do you want to hurt yourself or someone else? Patient reports no desire to harm self or others. Onset of symptoms is unknown. Care prior to arrival: Glucose check: 82. 07:48 Method Of Arrival: EMS: [facility] bp 07:48 Acuity: KIARA 4 bp Historical: - Allergies: 07:50 No Known Allergies; bp - PMHx: 07:49 Asthma; diabetes mellitus; Hyperlipidemia; Hypertensive disorder; Lung Cancer; hb Osteoporosis; Prostate Cancer; skull cancer; 07:50 Diabetes mellitus; CANCER; bp - PSHx: 07:49 Tonsillectomy; lung sx; BACK SX; hernia SX; hb - Immunization history:: Adult Immunizations up to date, Adult Immunizations up to date. - Infectious Disease History:: Denies. Denies. - Social history:: Smoking status: Patient denies any tobacco usage or history of. Smoking status: Patient denies any tobacco usage or history of. - Family history:: not pertinent. Screenin:50 [facility] ED Fall Risk Assessment (Adult) History of falling in the last 3 months, hb including since admission No falls in past 3 months (0 pts) Confusion or Disorientation No (0 pts) Intoxicated or Sedated No (0 pts) Impaired Gait No (0 pts) Mobility Assist Device Used No (0 pt) Altered Elimination No (0 pt) Score/Fall Risk Level 0 - 2 = Low Risk Oriented to surroundings, Maintained a safe environment, Educated pt \T\ family on fall prevention, incl call for assistance when getting out of bed. Abuse screen: Denies threats or abuse. Denies injuries from another. Nutritional screening: No deficits noted. Tuberculosis screening: No symptoms or risk factors identified. Assessment: 08:15 General: Appears uncomfortable, Behavior is cooperative, anxious, crying. Pain: Pain hb currently is 10 out of 10 on a pain scale. Neuro: GCS15. Cardiovascular: Patient's skin is warm and dry. Respiratory: Respiratory effort is even, unlabored, Respiratory pattern is regular, symmetrical. GI: Reports nausea. : No signs and/or symptoms were reported regarding the genitourinary system. EENT: Reports severe left eye pain . Derm: Skin is pink, warm \T\ dry. Musculoskeletal: No signs and/or symptoms reported regarding the musculoskeletal system. 10:24 Reassessment: Patient appears in no apparent distress at this time. Patient and/or hb family updated on plan of care and expected duration. Pain level reassessed. Patient is alert, oriented x 3, equal unlabored respirations, skin warm/dry/pink. 10:46 Reassessment: Hospice nurse at bedside for home eval. hb 11:58 Reassessment: Patient appears in no apparent distress at this time. Patient and/or hb family updated on plan of care and expected duration. Pain level reassessed. Patient is alert, oriented x 3, equal unlabored respirations, skin warm/dry/pink. Vital Signs: 07:48 BP 152 / 107; Pulse 85; Resp 16; Temp 98; Pulse Ox 96% ; bp 10:24 BP 152 / 85; Pulse 68; Resp 16; Pulse Ox 99% on R/A; hb 11:58 BP 131 / 72; Pulse 67; Resp 16; Pulse Ox 99% on R/A; hb Jose M Coma Score: 12:10 Eye Response: spontaneous(4). Motor Response: obeys commands(6). Verbal Response: jacobo oriented(5). Total: 15. ED Course: 07:48 Patient arrived in ED. bp 07:49 Triage completed. bp 07:50 Ck Falcon MD is Attending Physician. jacobo 07:50 Arm band placed on. hb 07:50 Patient has correct armband on for positive identification. Provided Education on: use hb of call light . 08:20 Rupert Batres, RN is Primary Nurse. bp 08:31 Inserted saline lock: 20 gauge in right antecubital area, using aseptic technique. hb Blood collected. Flushed with 10 mL NS. 08:43 XRAY Chest (1 view) In Process Unspecified. EDMS 08:49 CT Head Brain wo Cont In Process Unspecified. EDMS 12:34 No provider procedures requiring assistance completed. IV discontinued, intact, hb bleeding controlled, No redness/swelling at site. Pressure dressing applied. Administered Medications: 08:37 Drug: Decadron - Dexamethasone IVP 10 mg IVP once Route: IVP; Site: right antecubital; hb 09:24 Follow up: Response: No adverse reaction hb 08:37 Drug: HYDROmorphone IVP 1 mg IVP once Route: IVP; Site: right antecubital; hb 09:24 Follow up: Response: No adverse reaction hb 08:37 Drug: Ondansetron IVP 4 mg IVP once; over 2 minutes Route: IVP; Site: right antecubital;hb 09:24 Follow up: Response: No adverse reaction hb 08:38 Drug: NS 0.9% IV 500 ml IV at bolus once; to be given as a bolus over 30 minutes Route: hb IV; Rate: bolus; Site: right antecubital; 08:38 Drug: Keppra IV 1000 mg IV at per protocol once Route: IV; Rate: per protocol; Site: hb right antecubital; 09:45 Drug: HYDROmorphone IVP 1 mg IVP once Route: IVP; Site: right antecubital; bp 10:09 Follow up: Response: No adverse reaction bp 12:33 Drug: HYDROmorphone IVP 1 mg IVP once Route: IVP; Site: right antecubital; hb 12:33 Follow up: Response: Medication administered at discharge. hb 12:33 Drug: Ondansetron IVP 4 mg IVP once; over 2 minutes Route: IVP; Site: right antecubital;hb 12:33 Follow up: Response: Medication administered at discharge. hb Medication: 07:50 VIS not applicable for this client. hb Outcome: 12:14 Discharge ordered by . jacobo 12:34 Discharged to home via wheelchair, with significant other, hb 12:34 Condition: stable 12:34 Discharge instructions given to patient, significant other, Instructed on discharge instructions, follow up and referral plans. medication usage, Demonstrated understanding of instructions, follow-up care, medications, 12:35 Patient left the ED. hb Signatures: Dispatcher [employer] [facility] Ck Falcon MD MD cha Baxter, Heather, RN RN Rupert Andrew RN RN bp
--- NOTE | 2024-04-02 12:15 | EDPHYS ---
Physician Documentation [facility] Name: Jae Connolly Age: 58 yrs Sex: Male : 1965 Arrival Date: 04/02/2024 Time: 07:46 Bed 4 Private MD: DAVID Physician Ck Falcon HPI: 04/02 12:08 This 58 yrs old Male presents to ER via EMS with complaints of Headache. jacobo 12:08 The patient complains of pain to the top of head, forehead and left eye. The patient jacobo describes the headache as aching, constant. Onset: The symptoms/episode began/occurred 1 week(s) ago. Associated signs and symptoms: Pertinent positives: dizziness, nausea. Severity of symptoms: At its worst the pain was moderate, in the emergency department the pain is unchanged. Headache History: The patient has had previous headaches and this one is similar to previous episodes. The symptoms are alleviated by nothing. the symptoms are aggravated by nothing. The patient has experienced a previous episode, last month. Historical: - Allergies: 07:50 No Known Allergies; bp - PMHx: 07:49 Asthma; diabetes mellitus; Hyperlipidemia; Hypertensive disorder; Lung Cancer; hb Osteoporosis; Prostate Cancer; skull cancer; 07:50 Diabetes mellitus; CANCER; bp - PSHx: 07:49 Tonsillectomy; lung sx; BACK SX; hernia SX; hb - Immunization history:: Adult Immunizations up to date, Adult Immunizations up to date. - Infectious Disease History:: Denies. Denies. - Social history:: Smoking status: Patient denies any tobacco usage or history of. Smoking status: Patient denies any tobacco usage or history of. - Family history:: not pertinent. ROS: 12:08 Constitutional: Negative for fever, chills, and weight loss, Eyes: Negative for injury, jacobo pain, redness, and discharge, ENT: Negative for injury, pain, and discharge, Neck: Negative for injury, pain, and swelling, Cardiovascular: Negative for chest pain, palpitations, and edema, Respiratory: Negative for shortness of breath, cough, wheezing, and pleuritic chest pain, Abdomen/GI: Negative for abdominal pain, nausea, vomiting, diarrhea, and constipation, Back: Negative for injury and pain, : Negative for injury, bleeding, discharge, and swelling, MS/Extremity: Negative for injury and deformity, Skin: Negative for injury, rash, and discoloration, Psych: Negative for depression, anxiety, suicide ideation, homicidal ideation, and hallucinations, Allergy/Immunology: Negative for hives, rash, and allergies, Endocrine: Negative for neck swelling, polydipsia, polyuria, polyphagia, and marked weight changes, Hematologic/Lymphatic: Negative for swollen nodes, abnormal bleeding, and unusual bruising, 12:08 Neuro: Positive for headache, of the face and left eye and forehead and top of head, Exam: 12:08 Constitutional: This is a well developed, well nourished patient who is awake, alert, jacobo and in no acute distress. Head/Face: Normocephalic, atraumatic. Eyes: Pupils equal round and reactive to light, extra-ocular motions intact. Lids and lashes normal. Conjunctiva and sclera are non-icteric and not injected. Cornea within normal limits. Periorbital areas with no swelling, redness, or edema. ENT: Nares patent. No nasal discharge, no septal abnormalities noted. Tympanic membranes are normal and external auditory canals are clear. Oropharynx with no redness, swelling, or masses, exudates, or evidence of obstruction, uvula midline. Mucous membranes moist. Neck: Trachea midline, no thyromegaly or masses palpated, and no cervical lymphadenopathy. Supple, full range of motion without nuchal rigidity, or vertebral point tenderness. No Meningismus. Chest/axilla: Normal chest wall appearance and motion. Nontender with no deformity. No lesions are appreciated. Cardiovascular: Regular rate and rhythm with a normal S1 and S2. No gallops, murmurs, or rubs. Normal PMI, no JVD. No pulse deficits. Respiratory: Lungs have equal breath sounds bilaterally, clear to auscultation and percussion. No rales, rhonchi or wheezes noted. No increased work of breathing, no retractions or nasal flaring. Abdomen/GI: Soft, non-tender, with normal bowel sounds. No distension or tympany. No guarding or rebound. No evidence of tenderness throughout. Back: No spinal tenderness. No costovertebral tenderness. Full range of motion. Male : Normal genitalia with no discharge or lesions. Skin: Warm, dry with normal turgor. Normal color with no rashes, no lesions, and no evidence of cellulitis. MS/ Extremity: Pulses equal, no cyanosis. Neurovascular intact. Full, normal range of motion. Neuro: Awake and alert, GCS 15, oriented to person, place, time, and situation. Cranial nerves II-XII grossly intact. Motor strength 5/5 in all extremities. Sensory grossly intact. Cerebellar exam normal. Normal gait. Psych: Awake, alert, with orientation to person, place and time. Behavior, mood, and affect are within normal limits. 12:08 ECG was reviewed by the Attending Physician. Vital Signs: 07:48 BP 152 / 107; Pulse 85; Resp 16; Temp 98; Pulse Ox 96% ; bp 10:24 BP 152 / 85; Pulse 68; Resp 16; Pulse Ox 99% on R/A; hb 11:58 BP 131 / 72; Pulse 67; Resp 16; Pulse Ox 99% on R/A; hb Jose M Coma Score: 12:10 Eye Response: spontaneous(4). Motor Response: obeys commands(6). Verbal Response: jacobo oriented(5). Total: 15. MDM: 07:50 Medical Screening Exam initiated jacobo 12:10 Differential diagnosis: cerebral abscess, cervical perispinal abcess, cluster headache, jacobo cerebral vascular accident, epidural hematoma, glaucoma, hyponatremia, intracerebral hemorrhage, meningoencephalitis, migraine, neoplasm, sinusitis, subarachnoid bleed, subdural hematoma, temporal arteritis, tension headache, traumatic injuries, trigeminal neuralgia, uremia, vasomotor headache. Data reviewed: vital signs, nurses notes, lab test result(s), EKG, radiologic studies, CT scan, plain films. Consideration of Admission/Observation Escalation of care including admission/observation considered. I considered the following discharge prescriptions or medication management in the emergency department Medications were administered in the Emergency Department. See MAR. Independent interpretation of the following test(s) in the Emergency Department EKG: See my EKG interpretation above. Test considered but Not performed: MRI: no mri brain. Historians other than the Patient: Spouse/Significant Other: well informed. Care significantly affected by the following chronic conditions: Diabetes, Hypertension, Obesity, Cancer. 04/02 08:07 Order name: Basic Metabolic Panel; Complete Time: 12:04 [facility] 04/02 08:07 Order name: CBC with Diff; Complete Time: 12:04 [facility] 04/02 08:07 Order name: LFT's; Complete Time: 12:04 04/02 08:07 Order name: Magnesium; Complete Time: 12:04 04/02 08:07 Order name: NT PRO-BNP; Complete Time: 12:04 04/02 08:07 Order name: PT-INR; Complete Time: 12:04 04/02 08:07 Order name: Troponin HS; Complete Time: 12:04 04/02 08:07 Order name: XRAY Chest (1 view); Complete Time: 12:04 04/02 08:07 Order name: CT Head Brain wo Cont; Complete Time: 12:04 04/02 08:07 Order name: EKG; Complete Time: 08:08 04/02 08:07 Order name: Cardiac monitoring; Complete Time: 08:38 04/02 08:07 Order name: EKG - Nurse/Tech; Complete Time: 09:36 04/02 08:07 Order name: IV Saline Lock; Complete Time: 08:38 04/02 08:07 Order name: Labs collected and sent; Complete Time: 08:38 04/02 08:07 Order name: O2 Per Protocol; Complete Time: 08:38 04/02 08:07 Order name: O2 Sat Monitoring; Complete Time: 08:38 04/02 08:07 Order name: Seizure Precautions; Complete Time: 08:21 04/02 12:15 Order name: Misc. Order: HOSPICE CARE , PT AND FAMILY WANT CHOICE HOSPICE; Complete jacobo Time: 12:17 EC:08 Rate is 90 beats/min. Rhythm is regular. QRS [place] is Normal. [place] interval is normal. QRS jacobo interval is normal. QT interval is normal. T waves are Normal. No ST changes noted. Clinical impression: Abnormal EKG without significant change and No evidence of ischemia. Interpreted by me. Reviewed by me. Administered Medications: 08:37 Drug: Decadron - Dexamethasone IVP 10 mg IVP once Route: IVP; Site: right antecubital; hb 09:24 Follow up: Response: No adverse reaction hb 08:37 Drug: HYDROmorphone IVP 1 mg IVP once Route: IVP; Site: right antecubital; hb 09:24 Follow up: Response: No adverse reaction hb 08:37 Drug: Ondansetron IVP 4 mg IVP once; over 2 minutes Route: IVP; Site: right antecubital;hb 09:24 Follow up: Response: No adverse reaction hb 08:38 Drug: NS 0.9% IV 500 ml IV at bolus once; to be given as a bolus over 30 minutes Route: hb IV; Rate: bolus; Site: right antecubital; 08:38 Drug: Keppra IV 1000 mg IV at per protocol once Route: IV; Rate: per protocol; Site: hb right antecubital; 09:45 Drug: HYDROmorphone IVP 1 mg IVP once Route: IVP; Site: right antecubital; bp 10:09 Follow up: Response: No adverse reaction bp 12:33 Drug: HYDROmorphone IVP 1 mg IVP once Route: IVP; Site: right antecubital; hb 12:33 Follow up: Response: Medication administered at discharge. hb 12:33 Drug: Ondansetron IVP 4 mg IVP once; over 2 minutes Route: IVP; Site: right antecubital;hb 12:33 Follow up: Response: Medication administered at discharge. hb Disposition Summary: 04/02/24 12:14 Discharge Ordered Notes: Location: Home jacobo Problem: an ongoing problem jacobo Symptoms: have worsened jacobo Condition: Serious jacobo Diagnosis - Headache - malignant process, termed TERMINAL , PT AND DESIRE NO MORE jacobo TREATMENT OF ANY KIND , FAMILY WANTS CHOICE HOSPICE Followup: jacobo - With: Private Physician - When: 7 - 10 days - Reason: Recheck today's complaints, Continuance of care, Re-evaluation by your physician Discharge Instructions: - Discharge Summary Sheet [facility] - Hospice jacobo Forms: - Medication Reconciliation Form jacobo - Antibiotic Education jacobo - Prescription Opioid Use jacobo - Patient Portal Instructions jacobo - Leadership Thank You Letter jacobo Signatures: Dispatcher [employer] Ck Up MD MD cha Baxter, Heather, RN RN Rupert Andrew RN RN bp
[2024-04-02 17:28] VITALS: TEMP 98
[2024-04-02 17:38] VITALS: O2SAT 99
[2024-04-02 17:39] VITALS: BP 131/72
--- NOTE | 2024-04-03 12:18 | EKG ---
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
== END 2024-04-02 12:35 | disposition home or self-care (01) ==
LOC: ER 07:46
DX: C41.0 Malignant neoplasm of bones of skull and face (principal); E11.9 Type 2 diabetes mellitus without complications; I10 Essential (primary) hypertension
CPT/HCPCS: 93005; 85025; 80048; 36415; 83735; 85610; 80076; 84484; 83880; 70450; 71045; 96375; 96374; 99284; J1953; J1100; J1170 ×3; J2405 ×2; J7030; J1171